=== PATIENT | female | born 1985 | race African-American/Black ===

== ENCOUNTER 2019-09-18 10:17 | Outpatient (CLI) | payer OTHER, SELFPAY ==
--- NOTE | ~2019-09-18 | US_ITS ---
EXAMINATION: US right upper quadrant DATE: 09/18/2019 10:58 INDICATION: Right upper quadrant abdominal pain. TECHNIQUE: Multiple grayscale and Doppler ultrasound images of the abdomen were obtained. COMPARISON: CT abdomen and pelvis 02/06/2019 FINDINGS: The visualized portions of the head and body of the pancreas are normal. The liver is vero l without focal lesion. There is normal flow in main portal vein. The gallbladder is normal in size a nd contains gallstones. Gallbladder wall thickening is noted. There was no sonographic Roberts sign. T he common duct is normal and measures 6 mm. IMPRESSION: 1. Cholelithiasis. Gallbladder wall thickening may be secondary to chronic cholecystitis, chronic alma rosa er disease, or interstitial edema. Reviewed, dictated and finalized at location A. IMPRESSION: 1. Cholelithiasis. Gallbladder wall thickening may be secondary to chronic chol ecystitis, chronic liver disease, or interstitial edema.
== END 2019-09-18 10:18 | disposition home or self-care (01) ==
LOC: ANHIMG 10:26
PROVIDERS: PCP Emergency Medicine; Visit Provider Emergency Medicine
DX: R10.9 Unspecified abdominal pain (principal); K80.20 Calculus of gallbladder without cholecystitis without obstruction
CPT/HCPCS: 76705

== ENCOUNTER 2019-12-19 12:51 | Outpatient (CLI) | payer OTHER, SELFPAY ==
--- NOTE | 2019-12-19 | ECG_ITS ---
Measurements Intervals [place] Rate: 80 P: 35 PA: 175 QRS: -8 QRSD: 84 T: 71 QT: 384 QTc: 443 Interpretive Statements SINUS RHYTHM RSR' IN V1 OR V2, CONSIDER RIGHT VENTRICULAR HYPERTROPHY OR RIGHT VCD BASELINE ARTIFACT- I, II, AVR, AVL, AVF BORDERLINE ECG Electronically Signed On 12-19-2019 13:35:42 CDT by French Sabillon D.O.
== END 2019-12-19 12:52 | disposition home or self-care (01) ==
PROVIDERS: PCP Emergency Medicine
DX: E66.01 Morbid (severe) obesity due to excess calories (principal)
CPT/HCPCS: 93005

== ENCOUNTER 2020-02-28 01:42 | Outpatient (CLI) | payer OTHER, SELFPAY ==
[2020-02-28 18:31] LABS: SARS-CoV-2 RNA PCR Negative
== END 2020-02-28 01:43 | disposition home or self-care (01) ==
LOC: ANHCOVIDDT 01:42
PROVIDERS: PCP Emergency Medicine; Visit Provider Plastic Surgery
DX: Z01.812 Encounter for preprocedural laboratory examination (principal); Z20.828 Contact with and (suspected) exposure to other viral communicable diseases
CPT/HCPCS: 87635; C9803; U0003

== ENCOUNTER 2020-03-03 01:21 | Day surgery (SDC) | payer OTHER, SELFPAY ==
[2020-02-16 16:35] VITALS: BMI 53.1
[2020-03-03] VITALS (8 sets, daily range): BP systolic 119–148; BP diastolic 67–109; PULSE 66–83; RESP 14–24; TEMP 36.1–36.6; O2SAT 95–100
--- NOTE | 2020-03-03 07:10 | WPDHPUPDATE1 ---
History and Physical Update Update Date/Time: 03/03/20 07:10 History and Physical has been reviewed, including an updated exam of the patient. There are NO changes in the patient's condition. Risks, benefits, and alternatives have been discussed and questions answered. Patient agrees to proceed with procedure.
--- NOTE | 2020-03-03 08:13 | WPDANESEPPF ---
Anes - Initial Pre Proc Eval Procedure: Operation Date: 03/03/20 09:00 Proposed Procedures p Excision Right Axillary Hidradenitis - Eusebio Schwartz MD Date/Time: 03/03/20 08:13 Surgeon: Eusebio Schwartz MD Pre Op Diagnosis: Hidradenitis Right Axilla Patient Data Age: 34 Gender: F Height: 5 ft 3 in Weight: 136 kg Last Vital Signs Temp 98 F 03/03/20 07:56 Pulse 80 03/03/20 07:56 Resp 14 03/03/20 07:56 BP 148/98 H 03/03/20 07:56 Pulse Ox 100 03/03/20 07:56 Allergies Allergy/AdvReac Type Severity Reaction Status Date / Time No Known Allergies Allergy Verified 02/16/20 16:04 Home Medications Medication Instructions Recorded Confirmed Type omeprazole 20 mg capsule,delayed 20 mg PO DAILY 04/29/19 03/03/20 History release cholecalciferol (vitamin D3) 1,250 1,250 mcg PO WEEKLY 09/17/19 03/03/20 History mcg (50,000 unit) capsule levonorgestrel 20 mcg/24 hours (6 1 device I-UTERINE ONCE 09/17/19 03/03/20 History yrs) 52 mg intrauterine device triamcinolone acetonide 0.1 % 1 applic TOPICAL DAILY 09/17/19 03/03/20 History lotion Patient hx anesthesia problems: none Family hx anesthesia problems: none [facility] Past Medical History Medical History (Updated 09/18/19 @ 09:37 by Amparo Moseley) GERD (gastroesophageal reflux disease) Hidradenitis Sleep apnea Surgical History Surgical History History of surgery on arm Family History Family History Father Cerebrovascular accident Mother Diabetes mellitus Other Diabetes mellitus Other Diabetes mellitus Other Diabetes mellitus Other Cancer Hypertension Social History Social History Smoking status: Never smoker Alcohol intake: current Substance use: never Living arrangements: with family Additional occupation/education comments: Work at [employer] Gender identity (if verbalized by the patient): Female Spiritual care concerns: No Anes - Eval Final PreProcedure Day of Procedure 12/02/20 08:13 Patient weight: super morbidly obese Heart: regular rate and rhythm Lungs: clear to auscultation Airway: Mallampati scale class III Neurological: alert and oriented Last oral intake: >/= 8 hours ASA classification: III Emergent: no Anesthetic plan: proceed Anesthesia type and monitoring: general (ETT or LMA; have glidescope in the room) ETT and standard monitoring Informed Consent: The patient's anesthetic plan and its attendant risks and benefits were discussed with the patient/family/POA. Questions were solicited and answers provided to the satisfaction of the patient/family/POA.
[2020-03-03] MEDS: LACTATED RINGERS 1,000 ML 30 ML IV CONT ×2 (08:17→12:44)
--- NOTE | 2020-03-03 09:41 | SUR.PREOP ---
0940 pt informed of at least 1 hour delay in procedure.
[2020-03-03] MEDS: ceFAZolin SODIUM 1 GM VIAL 3 GM IV PUSH (12:33)
--- NOTE | 2020-03-03 13:16 | PM.OP ---
Procedure Note - Brief Procedure Note - Brief Date of procedure: 03/03/20 Pre-op diagnosis: Hidradenitis Right Axilla Post-op diagnosis: same Procedure performed: Excision of right axillary hidradenitis 15 cm with intermediate repair 22 cm. Anesthesia: GETA Surgeon: Eusebio Schwartz MD Estimated blood loss (mL): 15 Drains: No Packing: No Pathology: none sent Complications: No immediate complications Condition: stable Disposition: PACU
[2020-03-03] MEDS: fentaNYL CITRATE INJ (*CRX) 100 MCG/2 ML VIAL 25 MCG IV PUSH ×2 (13:29→13:33)
[2020-03-03] MEDS: oxyCODONE HCL (*CRX) 5 MG TAB IR PO (14:29)
--- NOTE | 2020-03-03 14:50 | PM.PROC ---
Procedure Note - Detailed Date of procedure: 03/03/20 Pre-op diagnosis: Hidradenitis Right Axilla Post-op diagnosis: same Procedure performed: 15 cm excision of hidradenitis right axilla with intermediate repair 22 cm Description of procedure: The site was marked in the holding area. The patient was taken to the operating room and placed supine on the operating table. A time-out was held and confirmed. She was given general endotracheal anesthesia. The entire upper quadrant of the body and upper extremity was prepped and draped in usual fashion. The site was carefully marked for excision. The entire area involved with scar and draining sites and most of the hair-bearing area was marked for excision. The entire area was infiltrated with 1% lidocaine with epinephrine. The arm was fully abducted. The skin incision was made and the specimen was taken at a level of approximately 1 cm. Bleeding points were electrocoagulated. The axilla was very mobile this lady is markedly obese. We were able to approximate the wound margins with intradermal and superficial fascial 3-0 Vicryl at multiple sites. Closure was oriented through the axilla anterior to posterior. The skin closure was done with running 5 0 A bulky dressing was taped through the arm pit. She was discharged to the recovery room in stable condition. She had been given 3 grams of Ancef early in the case. She was discharged with Hydrocodone for pain. Anesthesia: AMY Surgeon: Eusebio Schwartz MD Rn Physician Office: [facility] Estimated blood loss (mL): 15 Drains: No Packing: No Complications: No immediate complications Condition: stable Disposition: PACU
== END 2020-03-03 15:20 | disposition home or self-care (01) ==
PROVIDERS: PCP Emergency Medicine; Visit Provider Plastic Surgery
PROC: (CPT 11450; principal; 2020-03-03 09:00)
DX: L73.2 Hidradenitis suppurativa (principal); K21.9 Gastro-esophageal reflux disease without esophagitis; G47.30 Sleep apnea, unspecified; E66.01 Morbid (severe) obesity due to excess calories; Z68.44 Body mass index [BMI] 60.0-69.9, adult
CPT/HCPCS: 11450; 88304; A9270; J0330; J0690; J1100; J2250; J2370; J2405; J2704; J3010; J7120

== ENCOUNTER 2020-03-19 09:24 | Emergency (ER) | payer OTHER, SELFPAY ==
[2020-03-19 09:32] VITALS: BP 136/89; PULSE 88; RESP 18; TEMP 36.3; O2SAT 98
[2020-03-19 11:10] LABS: Basophils Absolute Auto 0.1 K/mm3 (0.0-0.1); Basophils Percent Auto 0.5 % (0.2-1.2); Eosinophils Absolute Auto 0.2 K/mm3 (0-0.3); Eosinophils Percent Auto 1.7 % (0-4.4); Hematocrit 40.4 % (37.0-47.0); Hemoglobin 12.9 g/dL (12.0-15.0); Immature Granulocyte Absolute 0.05 K/mm3 (0.00-0.031); Immature Granulocyte Percent A 0.5 % (0-0.5); Lymphocytes Absolute Auto 2.52 K/mm3 (0.9-3.2); Lymphocytes Percent Auto 23.7 % (18.3-44.2); Mean Corpuscular HGB Conc 31.9 g/dl (32-36); Mean Corpuscular Hemoglobin 27.6 pg (26-34); Mean Corpuscular Volume 86.5 fl (80-100); Mean Platelet Volume 10.9 fl (7.4-10.4); Monocytes Absolute Auto 0.4 K/mm3 (0.1-0.6); Neutrophils Absolute Auto 7.4 K/mm3 (1.3-6.7); Neutrophils Percent Auto 69.6 % (45.5-73.1); Platelet Count Result 260 k/mm3 (150-375); Red Blood Count 4.67 M/mm3 (4.2-5.4); Red Cell Distribution Width 15.1 % (11.5-14.5); White Blood Count 10.6 K/mm3 (4.5-10.0)
[2020-03-19 11:21] LABS: Anion Gap 8 mmol/L (8-16); Blood Urea Nitrogen 10 mg/dL (7-17); Calcium 9.2 mg/dL (8.4-10.2); Carbon Dioxide 28 mmol/L (22-30); Chloride 103 mmol/L (98-107); Estimated CRCL calculation 145 ml/min; Estimated Glomerular Filt Rate > 60; Glucose 122 mg/dL (65-105); Sodium 139 mmol/L (137-145)
--- NOTE | 2020-03-19 11:48 | ED.GENADULT ---
HPI - General Adult General Chief complaint: Wound/Laceration <LAKIA Howe Last Filed: 03/19/20 12:04> Stated complaint: wound under right arm <LAKIA Howe Last Filed: 03/19/20 12:04> Time Seen by Provider: 03/19/20 10:00 <LAKIA Howe Last Filed: 03/19/20 12:04> Source: patient and old records reviewed <LAKIA Howe Last Filed: 03/19/20 12:04> Mode of arrival: ambulatory <LAKIA Howe Last Filed: 03/19/20 12:04> Limitations: no limitations <LAKIA Howe Last Filed: 03/19/20 12:04> History of Present Illness HPI narrative: Patient is a 34-year-old female who presents with concern for open wound to the right axilla patient had surgery by plastic surgeon Dr. Schwartz the wound came open 5 days ago I believe roughly 7 days after surgery. Patient is followed by Dr. Schwartz and was set up with the wound care team who called in a topical cream for the patient however she has not seen them yet patient notes mild discomfort of the right axilla. Patient denies fever chills nausea vomiting or other complaints <LAKIA Howe Last Filed: 03/19/20 12:04> Related Data Home medications: Home Medications Medication Instructions Recorded Confirmed omeprazole 20 mg capsule,delayed 20 mg PO DAILY 04/29/19 03/03/20 release cholecalciferol (vitamin D3) 1,250 1,250 mcg PO WEEKLY 09/17/19 03/03/20 mcg (50,000 unit) capsule levonorgestrel 20 mcg/24 hours (6 1 device I-UTERINE ONCE 09/17/19 03/03/20 yrs) 52 mg intrauterine device triamcinolone acetonide 0.1 % 1 applic TOPICAL DAILY 09/17/19 03/03/20 lotion <LAKIA Howe Last Filed: 03/19/20 12:04> Allergies/adverse reactions: Allergies Allergy/AdvReac Type Severity Reaction Status Date / Time No Known Allergies Allergy Verified 03/19/20 09:32 <LAKIA Howe Last Filed: 03/19/20 12:04> Review of Systems Review of Systems: All systems reviewed & are unremarkable except as noted in HPI and below <Wilber Frances PA-C - Last Filed: 03/19/20 12:04> PMFSH Past Medical History Medical History: Medical History (Updated 03/19/20 @ 12:03 by Wilber Frances PA-C) GERD (gastroesophageal reflux disease) Hidradenitis Sleep apnea <Wilber Frances PA-C - Last Filed: 03/19/20 12:04> Surgical History Surgical History: Surgical History History of surgery on arm <Wilber Frances PA-C - Last Filed: 03/19/20 12:04> Family History Family History: Family History Father Cerebrovascular accident Mother Diabetes mellitus Other Diabetes mellitus Other Diabetes mellitus Other Diabetes mellitus Other Cancer Hypertension <Wilber Frances PA-C - Last Filed: 03/19/20 12:04> Social History Social History: Social History Smoking status: Never smoker Alcohol intake: current Substance use: never Additional occupation/education comments: Work at [employer] Gender identity (if verbalized by the patient): Female Spiritual care concerns: No <Wilber Frances PA-C - Last Filed: 03/19/20 12:04> Exam Narrative: Exam Narrative: GENERAL: Well-appearing, well-nourished, and in no acute distress. HEAD: Normocephalic, atraumatic. EYES: PERRLA and EOMI. ENT: Nares clear, no rhinorrhea or epistaxis. Mucous membranes moist. Oropharynx without tonsillar hypertrophy exudate or other lesions. Bilateral TMs pearly tafoya nonbulging NECK: Supple. No adenopathy or masses. No carotid bruits or JVD CHEST: Clear to auscultation. No respiratory distress. No wheezes rales or rhonchi HEART: Regular rate and rhythm. No murmur heard. Normal peripheral pulses. ABDOMEN: Soft, nontender, nondistended, normal active bowel sounds. EXTREMITIES: Nor
[2020-03-19] MEDS: TOLNAFTATE 1% POWDER 45 GM BTL 1 APPLIC TOPICAL (11:59)
[2020-03-19 12:12] VITALS: BP 135/90; PULSE 89; RESP 18; O2SAT 99
--- NOTE | 2020-03-19 12:24 | PCWOUND ---
Wocn note Open suture line to the right axilla. no s/s of infection present. applied antifungal powder and wicking fabric. educated patient on home wound care. patient expressed understanding.
== END 2020-03-19 12:13 | disposition home or self-care (01) ==
PROVIDERS: Emergency Medicine Emergency Medical Services; Emergency Provider Emergency Medicine; PCP Emergency Medicine
DX: Z48.01 Encounter for change or removal of surgical wound dressing (principal); K21.9 Gastro-esophageal reflux disease without esophagitis; G47.30 Sleep apnea, unspecified
CPT/HCPCS: 36415; 80048; 85025; 99283; A9270

== ENCOUNTER → 2020-09-28 00:14 | Outpatient (CLI) | payer OTHER, SELFPAY ==
[2020-09-28 17:12] LABS: SARS-CoV-2 RNA PCR Negative
== END ==
PROVIDERS: PCP Emergency Medicine; Visit Provider Emergency Medicine
DX: Z01.812 Encounter for preprocedural laboratory examination (principal); Z20.822 Contact with and (suspected) exposure to COVID-19
CPT/HCPCS: C9803; U0003; U0005

== ENCOUNTER 2020-10-01 11:19 | Outpatient (CLI) | payer OTHER, SELFPAY ==
[2020-10-01] VITALS (8 sets, daily range): BP systolic 130–149; BP diastolic 63–85; PULSE 55–70; RESP 15–16; O2SAT 99–100
--- NOTE | ~2020-10-01 | XR_ITS ---
EXAMINATION: XR lumbar puncture diagnostic DATE: 10/01/2020 14:23 INDICATION: Aches. Hypertension and optic nerve swelling. TECHNIQUE: The procedure including the risks and benefits was discussed with the patient. Risks discu ssed included spinal headache, cerebrospinal fluid leak, bleeding, and infection. The patient underst ood the risks and agreed to proceed. A timeout was performed to verify the patient's name, date of , and procedure to be performed. The skin overlying the L4-L5 level was prepped and draped in usual sterile fashion. Subcutaneous 1% lidocaine was used for local anesthesia. A 22 gauge spinal n eedle was advanced under fluoroscopic guidance. The needle was removed and the entry site was cleaned and dressed. There were no immediate complications. The patient was taken to the nursing area for o bservation. FINDINGS: Real-time fluoroscopy demonstrates the needle at the L4-L5 level. Opening pressure was 30 c m water. (Normal range is variably defined as 6-20 cm water and up to 25 cm water in obese patients. Pressure >25 cm water is one of the modified Dandy criteria for idiopathic intracranial hypertension) . 19 mL of clear, colorless fluid was collected in 4 tubes. Closing pressure was 20 cm water. IMPRESSION: 1. Successful fluoro-guided lumbar puncture. With opening pressure of 30 cm water and closing pressur e of 20 cm water following removal of 19 mL of clear CSF. Reviewed, dictated and finalized at location A. IMPRESSION: 1. Successful fluoro-guided lumbar puncture. With opening pressure of 30 cm marcel er and closing pressure of 20 cm water following removal of 19 mL of clear CSF.
[2020-10-01 12:26] LABS: Basophils Absolute Auto 0.1 K/mm3 (0.0-0.1); Basophils Percent Auto 0.5 % (0.2-1.2); Eosinophils Absolute Auto 0.1 K/mm3 (0-0.3); Hematocrit 39.8 % (37.0-47.0); Hemoglobin 12.6 g/dL (12.0-15.0); Immature Granulocyte Absolute 0.03 K/mm3 (0.00-0.031); Immature Granulocyte Percent A 0.3 % (0-0.5); Lymphocytes Absolute Auto 2.48 K/mm3 (0.9-3.2); Lymphocytes Percent Auto 21.4 % (18.3-44.2); Mean Corpuscular HGB Conc 31.7 g/dl (32-36); Mean Corpuscular Hemoglobin 28.7 pg (26-34); Mean Corpuscular Volume 90.7 fl (80-100); Mean Platelet Volume 11.9 fl (7.4-10.4); Monocytes Absolute Auto 0.6 K/mm3 (0.1-0.6); Monocytes Percent Auto 5.5 % (2.6-8.5); Neutrophils Absolute Auto 8.3 K/mm3 (1.3-6.7); Neutrophils Percent Auto 71.3 % (45.5-73.1); Platelet Count Result 215 k/mm3 (150-375); Prothrombin Time 13.3 Seconds (11.1-14.7); Red Blood Count 4.39 M/mm3 (4.2-5.4); Red Cell Distribution Width 15.1 % (11.5-14.5); White Blood Count 11.6 K/mm3 (4.5-10.0)
== END 2020-10-01 16:11 | disposition home or self-care (01) ==
PROVIDERS: Radiology Diagnostic Radiology; PCP Emergency Medicine; Visit Provider Emergency Medicine
DX: R51.9 Headache, unspecified (principal); I10 Essential (primary) hypertension
CPT/HCPCS: 36415; 62328; 85025; 85610

== ENCOUNTER 2020-10-18 15:38 | Outpatient (CLI) | payer OTHER, SELFPAY ==
--- NOTE | ~2020-10-18 | MR_ITS ---
EXAMINATION: MR brain/brain stem wo con EXAM DATE: 10/18/2020 16:25 INDICATION: Other disorder of optic nerve of eye. Vision change. Headache. TECHNIQUE: Magnetic resonance imaging (MRI) of the brain/brain stem obtained without contrast. Sagitt al T1, axial diffusion, gradient echo (T2*), T1, T2, FLAIR sequences obtained. Comparison is made to prior examination from 04/16/2012. FINDINGS: Possible small mass at the inferior aspect of the 4th ventricle, measuring about 5 x 7 mm. Differential diagnosis includes normal choroid plexus, choroid plexus papilloma among other possibili ties. This should be further evaluated. Optic chiasm unremarkable. There are no areas of restricted d iffusion to suggest acute infarction. There is no acute hemorrhage seen on the T2*, a hemosiderin se nsitive sequence. No intraparenchymal brain mass. The ventricles are normal in size. There are no e xtra-axial collections. Flow voids are seen in the cerebral arteries on the T2-weighted sequences co nsistent with their expected patency. The orbits are unremarkable. Soft tissue is unremarkable. L eft mastoid effusion. IMPRESSION: 1. Suspicion of small 4th ventricular mass; contrast-enhanced MR Internal auditory canal protocol re commended. 2. Left mastoid effusion. Reviewed, dictated and finalized at location A. IMPRESSION: 1. Suspicion of small 4th ventricular mass; contrast-enhanced MR Internal swapna tory canal protocol recommended. 2. Left mastoid effusion.
== END 2020-10-18 15:39 | disposition home or self-care (01) ==
LOC: ANHIMG 15:41
PROVIDERS: PCP Emergency Medicine; Visit Provider Emergency Medicine
DX: H47.099 Other disorders of optic nerve, not elsewhere classified, unspecified eye (principal); H74.8X3 Other specified disorders of middle ear and mastoid, bilateral
CPT/HCPCS: 70551

== ENCOUNTER 2020-11-16 07:46 | Outpatient (CLI) | payer OTHER, SELFPAY ==
--- NOTE | ~2020-11-16 | MR_ITS ---
EXAMINATION: MR brain IAC wo/w con DATE: 11/16/2020 09:05 INDICATION: Brain mass. TECHNIQUE: Magnetic resonance imaging (MRI) of the brain, brainstem, and internal auditory canals was performed without and with 20 mL MultiHance intravenous contrast. Sequences included sagittal and ax ial T1-weighted FSE, axial diffusion-weighted FS EPI, axial T2*-weighted GRE, axial T2-weighted FLAIR Propeller, axial T2-weighted Propeller, small acpkc-bs-aqhe coronal FIESTA, small chdzv-xt-rfjf juan nal T1-weighted FSE, and small cdbzh-mh-bhpn axial T1-weighted SPGR. Postcontrast sequences included axial T1-weighted FSE, small helhs-zg-zqbx coronal T1-weighted FSE, and small vbvmr-ej-yazw axial T1- weighted SPGR. Apparent diffusion coefficient (ADC) maps were created. COMPARISON: Brain MRI 10/18/2020, 04/16/2012 FINDINGS: There is an empty sella. There is normal choroid plexus in the fourth ventricle. There is n o acute ischemic infarct or intracranial hemorrhage. 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 The ventricles are normal in size. The internal auditory canals and inner and middle ears are normal. There is a small left mastoid effusion. There is mild mucosal thickening in the ethmoid sinuses. The orbits are normal. IMPRESSION: 1. No abnormal brain mass. Reviewed, dictated and finalized at location B. IMPRESSION: 1. No abnormal brain mass.
[2020-11-16 08:26] LABS: Estimated Glomerular Filt Rate > 60
== END 2020-11-16 07:47 | disposition home or self-care (01) ==
PROVIDERS: PCP Emergency Medicine; Visit Provider Emergency Medicine
DX: G93.9 Disorder of brain, unspecified (principal)
CPT/HCPCS: 70553; A9577

== ENCOUNTER 2021-03-17 21:15 | Emergency (ER) | payer OTHER, SELFPAY ==
[2021-03-17 21:36] VITALS: BP 152/89; PULSE 67; RESP 20; TEMP 36.6; O2SAT 100
--- NOTE | 2021-03-17 23:25 | PC.NURSE ---
assumed care of pt. at this time. report from Summer RN
--- NOTE | 2021-03-17 23:37 | ED.BACK ---
HPI - Back Pain/Injury General Chief Complaint: Back Pain/Injury Stated Complaint: back pain Time Seen by Provider: 03/17/21 23:36 Source: patient Mode of arrival: ambulatory Limitations: no limitations History of Present Illness HPI Narrative: The patient is a 35 yo female with a history of IIH, presenting for evaluation of back pain. Patient reporting middle back pain over past 4 days. Pain is located in the right flank and mid back. No other radiation of pain. No worsening with exertion. No recent falls or injuries. Denies bowel or bladder changes or incontinence. Pt also reports constipation recently. Patient reports worsening of pain with turning motion. This reproduces pain. She reports pain when she bends forward. She denies any leg weakness or numbness. She denies any rash overlying the area. She denies any frontal chest pain or frontal abdominal pain. No radiation of the pain to the neck, jaw, shoulder. She denies any pain with deep inspiration. No shortness of breath. No lightheadedness or dizziness. No syncopal type feelings. 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 No recent trauma or heavy lifting. Denies chest or abdominal pain. No dysuria or hematuria. Patient states she has a history of this many years ago for which she was given a shot of something in the ER and then felt better. Related Data Home Medications Medication Instructions Recorded Confirmed omeprazole 20 mg capsule,delayed 20 mg PO DAILY 04/29/19 09/30/20 release cholecalciferol (vitamin D3) 1,250 1,250 mcg PO WEEKLY 09/17/19 09/30/20 mcg (50,000 unit) capsule Allergies Allergy/AdvReac Type Severity Reaction Status Date / Time No Known Allergies Allergy Verified 03/17/21 22:56 Review of Systems Review of Systems: CONSTITUTIONAL: Denies fever CARDIOVASCULAR: Denies chest pain RESPIRATORY: Denies cough or dyspnea. GASTROINTESTINAL: Denies abdominal pain SKIN: Denies rash MUSCULOSKELETAL: Reports middle back pain NEUROLOGIC: Denies headache [facility] Past Medical History Medical History (Updated 03/17/21 @ 23:56 by Kavita Roach MD) Calculus of gallbladder with chronic cholecystitis without obstruction GERD (gastroesophageal reflux disease) Hidradenitis Morbid obesity Right axillary hidradenitis Sleep apnea Surgical History Surgical History History of surgery on arm Family History Family History Father Cerebrovascular accident Mother Diabetes mellitus Other Diabetes mellitus Other Diabetes mellitus Other Diabetes mellitus Other Cancer Hypertension Social History Social History Smoking status: Never smoker Alcohol intake: current Substance use: never Additional occupation/education comments: Work at [employer] Gender identity (if verbalized by the patient): Female Spiritual care concerns: No Exam Narrative: GENERAL: Awake, alert, conversant HEAD: Normocephalic, atraumatic. EYES: PERRLA and EOMI. ENT: Nares clear, no rhinorrhea or epistaxis. Mucous membranes moist. NECK: Supple. CHEST: No respiratory distress, breathing even and non labored HEART: Regular rate, sinus rhythm ABDOMEN:Non distended, non tender EXTREMITIES: Normal range of motion. No edema. SKIN: Warm, dry, no rash. NEURO:No focal deficits. Alert and oriented x3. Ambulatory with a narrow base, steady gait. Course Vital Signs Vital signs: Vital Signs Temperature 36.6 C 03/17/21 21:36 Pulse Rate 67 03/17/21 21:36 Respiratory Rate 20 03/17/21 21:36 Blood Pressure 152/89 H 03/17/21 21:36 Pulse Oximetry 100 03/17/21 21:36 Temperature 36.6 C 03/17/21 21:36 Pulse Rate 66 03/18/21 00:25 Respiratory Rate 14 03/18/21 00:25 Blood Pressure 130/80 03/18/21 00:25 Pulse Oximetry 97 03/18/21 00:25 MDM - Back Pain/Injury MDM Narrative
[2021-03-18] MEDS: ACETAMINOPHEN 500 MG TABLET 1000 MG PO (00:21)
[2021-03-18] MEDS: KETOROLAC (*BKC) 60 MG/2 ML VIAL 30 MG IM (00:22)
[2021-03-18 00:25] VITALS: BP 130/80; PULSE 66; RESP 14; O2SAT 97
== END 2021-03-18 00:25 | disposition home or self-care (01) ==
PROVIDERS: Emergency Provider Emergency Medicine; PCP Emergency Medicine
DX: M54.9 Dorsalgia, unspecified (principal)
CPT/HCPCS: 96372; 99283; A9270; J1885

== ENCOUNTER 2021-07-18 13:41 | Emergency (ER) | payer OTHER, SELFPAY ==
[2021-07-18 13:54] VITALS: BP 140/78; PULSE 80; RESP 16; TEMP 36.8; O2SAT 100
[2021-07-18 14:07] LABS: Basophils Percent Auto 0.4 % (0.2-1.2); Eosinophils Absolute Auto 0.1 K/mm3 (0-0.3); Eosinophils Percent Auto 0.7 % (0-4.4); Hematocrit 37.6 % (37.0-47.0); Hemoglobin 12.1 g/dL (12.0-15.0); Immature Granulocyte Absolute 0.02 K/mm3 (0.00-0.031); Immature Granulocyte Percent A 0.3 % (0-0.5); Lymphocytes Absolute Auto 0.44 K/mm3 (0.9-3.2); Lymphocytes Percent Auto 6.5 % (18.3-44.2); Mean Corpuscular HGB Conc 32.2 g/dl (32-36); Mean Corpuscular Hemoglobin 28.9 pg (26-34); Mean Corpuscular Volume 89.7 fl (80-100); Mean Platelet Volume 11.2 fl (7.4-10.4); Monocytes Absolute Auto 0.6 K/mm3 (0.1-0.6); Monocytes Percent Auto 9.1 % (2.6-8.5); Neutrophils Absolute Auto 5.6 K/mm3 (1.3-6.7); Platelet Count Result 197 k/mm3 (150-375); Red Blood Count 4.19 M/mm3 (4.2-5.4); Red Cell Distribution Width 14.6 % (11.5-14.5); White Blood Count 6.7 K/mm3 (4.5-10.0)
[2021-07-18 14:16] LABS: Alanine Aminotransferase 13 U/L (4-35); Alkaline Phosphatase 66 U/L (38-126); Anion Gap 9 mmol/L (8-16); Aspartate Amino Transferase 20 U/L (14-36); Bilirubin,Total 0.3 mg/dL (0.2-1.3); Blood Urea Nitrogen 9 mg/dL (7-17); Calcium 8.5 mg/dL (8.4-10.2); Carbon Dioxide 21 mmol/L (22-30); Chloride 106 mmol/L (98-107); Estimated Glomerular Filt Rate > 60; Glucose 107 mg/dL (65-110); Lipase 70 U/L (23-300); Potassium 3.7 mmol/L (3.4-5.0); Sodium 136 mmol/L (137-145)
[2021-07-18 15:11] VITALS: BP 144/82; PULSE 81; RESP 16; O2SAT 100
[2021-07-18] MEDS: MECLIZINE HCL 25 MG TABLET PO (15:37)
[2021-07-18] MEDS: ACETAMINOPHEN 500 MG TABLET 1000 MG PO (15:37)
[2021-07-18 15:39] LABS: Add Urine Microscopic? NO; Appearance Urine Clear (Clear); Bilirubin Urine Negative (Negative); Blood Urine Negative (Negative); Color Urine Yellow (Yellow); Glucose Urine UA Negative (Negative); Ketones Urine Negative (Negative); Leukocyte Esterase Ur Negative LEU/UL (Negative); Nitrate Urine Negative (Negative); Protein Urine Negative (Negative); pH Urine 7.5 (5.0-9.0)
[2021-07-18] MEDS: SODIUM CHLORIDE 0.9% IV 1,000 ML 999 ML IV CONT (15:45)
[2021-07-18 15:50] LABS: Bacteria Urine Trace /hpf; Mucus Urine Rare /lpf; Squamous Epithelial Cell Urine Rare /hpf (Few); WBC Urine 0-3 /hpf
[2021-07-18 16:22] LABS: Influenza A QL RT-PCR Positive (Negative); Influenza B QL RT-PCR Negative (Negative)
[2021-07-18 16:36] VITALS: BP 145/88; PULSE 81; RESP 20; TEMP 37.6; O2SAT 100
[2021-07-18 16:37] VITALS: TEMP 37.6
--- NOTE | 2021-07-18 17:40 | ED.GENADULT ---
HPI - General Adult General Chief complaint: Abdominal Pain Stated complaint: abdominal pain Time Seen by Provider: 07/18/21 15:02 History of Present Illness HPI narrative: Patient is a 36-year-old female who presents ER with multiple complaints. Patient is initially reporting fevers and chills ongoing for the last day. Associated with cough and body aches. Is also associated with headache. No change in vision or hearing. She does report some dizziness with moving her head and standing up. 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 She has not been vaccinated against flu but has been vaccinated and boosted against COVID-19. Patient has had some mild generalized abdominal discomfort over the last 5 days with some nausea but is separate from what she is experiencing today with the headache and body aches and fevers. Patient has mild rhinorrhea without congestion. Related Data Home Medications Medication Instructions Recorded Confirmed omeprazole 20 mg capsule,delayed 20 mg PO DAILY 04/29/19 09/30/20 release cholecalciferol (vitamin D3) 1,250 1,250 mcg PO WEEKLY 09/17/19 09/30/20 mcg (50,000 unit) capsule Allergies Allergy/AdvReac Type Severity Reaction Status Date / Time No Known Allergies Allergy Verified 07/18/21 15:05 Review of Systems Review of Systems: All systems reviewed & are unremarkable except as noted in HPI and below Constitutional: Constitutional: Reports chills, Reports fatigue and Reports fever(s) ENT: Reports dizziness, Denies nasal congestion and Denies sore throat Comments: Rhinorrhea Cardiovascular: Cardiovascular: Denies chest pain and Denies radiating jaw, neck or arm pain Respiratory: Respiratory: Reports cough, Denies dyspnea and Denies wheezing Gastrointestinal: Gastrointestinal: Reports abdominal pain, Reports nausea and Denies vomiting Neurologic: Reports vertigo, Reports headache(s), Denies focal weakness and Denies numbness [facility] Past Medical History Medical History (Updated 07/18/21 @ 17:44 by Drake Henriquez MD) Calculus of gallbladder with chronic cholecystitis without obstruction GERD (gastroesophageal reflux disease) Hidradenitis Morbid obesity Right axillary hidradenitis Sleep apnea Surgical History Surgical History History of surgery on arm Family History Family History Father Cerebrovascular accident Mother Diabetes mellitus Other Diabetes mellitus Other Diabetes mellitus Other Diabetes mellitus Other Cancer Hypertension Social History Social History Smoking status: Never smoker Alcohol intake: current Substance use: never Additional occupation/education comments: Work at [employer] Gender identity (if verbalized by the patient): Female Spiritual care concerns: No Exam Narrative: GENERAL: Well-appearing, well-nourished, and in no acute distress. HEAD: Normocephalic, atraumatic. EYES: PERRL and EOMI. ENT: TMs normal bilaterally. CHEST: Clear to auscultation. No respiratory distress. HEART: Regular rate and rhythm. Normal peripheral pulses. ABDOMEN: Soft, nontender, nondistended. EXTREMITIES: Normal range of motion. No edema. SKIN: Warm, dry, no rash. NEURO: Alert and oriented x3. PSYCH: Normal mood and affect. Course Course Emergency Course: Patient hydrated, received Toradol and meclizine. Dizziness resolved. Body aches improved. Informed of influenza diagnosis. Patient would like Tamiflu for home. Patient meets criteria for administration of Tamiflu. Vital Signs Vital signs: Vital Signs Temperature 98.2 F 07/18/21 13:54 Pulse Rate 80 07/18/21 13:54 Respiratory Rate 16 07/18/21 13:54 Blood Pressure 140/78 07/18/21 13:54 Pulse Oximetry 100 07/18/21 13:54 Temperature 99.7 F H 07/18/21 16:37 Pulse Rate 81
[2021-07-18 17:56] VITALS: BP 116/71; PULSE 78; RESP 18; TEMP 37.6; O2SAT 100
== END 2021-07-18 17:59 | disposition home or self-care (01) ==
PROVIDERS: Emergency Medicine; Emergency Provider Emergency Medicine; PCP Emergency Medicine
DX: J10.1 Influenza due to other identified influenza virus with other respiratory manifestations (principal); K21.9 Gastro-esophageal reflux disease without esophagitis; E66.01 Morbid (severe) obesity due to excess calories; G47.30 Sleep apnea, unspecified
CPT/HCPCS: 36415; 80053; 81003; 81025; 83690; 85025; 87502; 96360; 96361; 99283; A9270; J7030

== ENCOUNTER 2022-02-07 00:52 | Day surgery (SDC) | payer BC, OTHER, SELFPAY ==
[2022-02-02 10:18] VITALS: BMI 45.0
[2022-02-07 12:58] VITALS: BP 129/86; PULSE 81; RESP 18; TEMP 36.6; O2SAT 100
[2022-02-07] MEDS: LACTATED RINGERS 1,000 ML 150 ML IV CONT (13:13)
--- NOTE | 2022-02-07 13:21 | WPDANESEPPF ---
Anes - Initial Pre Proc Eval Procedure: Operation Date: 02/07/22 13:45 Proposed Procedures p Colonoscopy - Zhao Roldan MD Date/Time: 02/07/22 13:21 Surgeon: Zhao Roldan MD Pre Op Diagnosis: constipation Patient Data Age: 36 Gender: F Height: 1.63 m Weight: 116.2 kg Last Vital Signs Temp 97.9 F 02/07/22 12:58 Pulse 81 02/07/22 12:58 Resp 18 02/07/22 12:58 BP 129/86 02/07/22 12:58 Pulse Ox 100 02/07/22 12:58 O2 Del Method Room Air 02/07/22 12:58 Allergies Allergy/AdvReac Type Severity Reaction Status Date / Time No Known Allergies Allergy Verified 02/07/22 12:55 Home Medications Medication Instructions Recorded Confirmed Type omeprazole 20 mg capsule,delayed 40 mg PO DAILY 04/29/19 02/07/22 History release cholecalciferol (vitamin D3) 1,250 1,250 mcg PO WEEKLY 09/17/19 02/07/22 History mcg (50,000 unit) capsule multivitamin 1 tablet PO DAILY 02/02/22 02/07/22 History Patient hx anesthesia problems: none Family hx anesthesia problems: none Results Review: All pre-operative results and documents have been reviewed as part of the pre-operative evaluation. [facility] Past Medical History Medical History Calculus of gallbladder with chronic cholecystitis without obstruction GERD (gastroesophageal reflux disease) Hidradenitis Morbid obesity Right axillary hidradenitis Sleep apnea Surgical History Surgical History History of surgery on arm Family History Family History Father Cerebrovascular accident Mother Diabetes mellitus Other Diabetes mellitus Other Diabetes mellitus Other Diabetes mellitus Other Cancer Hypertension Social History Social History Smoking status: Never smoker Alcohol intake: current Alcohol use details: socially Substance use: never Substance use type: does not use Living arrangements: with family Additional occupation/education comments: Work at [employer] Gender identity (if verbalized by the patient): Female Spiritual care concerns: No Anes - Eval Final PreProcedure Day of Procedure 02/07/22 13:21 Patient weight: morbidly obese Heart: regular rate and rhythm Lungs: clear to auscultation Airway: Mallampati scale class III Neurological: alert and oriented Last oral intake: >/= 8 hours ASA classification: III Emergent: no Anesthetic plan: proceed Anesthesia type and monitoring: general GIVS and standard monitoring Results Review: All pre-operative results and documents have been reviewed as part of the pre-operative evaluation. Informed Consent: The patient's anesthetic plan and its attendant risks and benefits were discussed with the patient/family/POA. Questions were solicited and answers provided to the satisfaction of the patient/family/POA.
--- NOTE | 2022-02-07 13:33 | PM.HPGS ---
History of Present Illness History of Present Illness Consent: Risks, benefits, and alternatives have been discussed and questions answered. Patient agrees to proceed with procedure. Chief complaint: constipation Narrative: Quynh Rivas is a 36 year old female here for first colonoscopy because of constipation Review of Systems Constitutional: Constitutional: Denies headache(s) and Denies weakness Eyes: Eyes: Denies blurry vision ENT: Reports Normal hearing present, Denies headache(s) and Denies neck pain Cardiovascular: Cardiovascular: Denies chest pain and Denies dyspnea Respiratory: Respiratory: Denies dyspnea Gastrointestinal: Gastrointestinal: Reports no additional gastrointestinal complaints Genitourinary: Genitourinary: Denies dysuria Musculoskeletal: Musculoskeletal: Denies neck pain Integumentary/Breasts: Skin/Breast: Denies dry skin Neurologic: Reports Normal hearing present, Denies headache(s) and Denies weakness Psychiatric: Psychiatric: Denies anxiety Endocrine: Endocrine: Denies change in body appearance Hematologic/Lymphatic: Hematologic/Lymphatic: Denies easy bleeding Allergic/Immunologic: Allergic/Immunologic: Denies urticaria PMFSH Past Medical History Medical History (Updated 02/07/22 @ 13:33 by Zhao Roldan MD) Calculus of gallbladder with chronic cholecystitis without obstruction Constipation GERD (gastroesophageal reflux disease) Hidradenitis Morbid obesity Right axillary hidradenitis Sleep apnea Surgical History Surgical History (Updated 02/06/22 @ 14:34 by Dominique Marrufo) History of surgery on arm Family History Family History Father Cerebrovascular accident Mother Diabetes mellitus Other Diabetes mellitus Other Diabetes mellitus Other Diabetes mellitus Other Cancer Hypertension Social History Social History Smoking status: Never smoker Alcohol intake: current Alcohol use details: socially Substance use: never Substance use type: does not use Living arrangements: with family Additional occupation/education comments: Work at [employer] Gender identity (if verbalized by the patient): Female Spiritual care concerns: No Meds Home Medications and Allergies Home Medications Medication Instructions Recorded Confirmed Type omeprazole 20 mg capsule,delayed 40 mg PO DAILY 04/29/19 02/07/22 History release cholecalciferol (vitamin D3) 1,250 1,250 mcg PO WEEKLY 09/17/19 02/07/22 History mcg (50,000 unit) capsule multivitamin 1 tablet PO DAILY 02/02/22 02/07/22 History Allergies Allergy/AdvReac Type Severity Reaction Status Date / Time No Known Allergies Allergy Verified 02/07/22 12:55 Vital Signs Vital Signs - 24 hr 02/07/22 12:58 Temperature 97.9 F Pulse Rate 81 Respiratory Rate 18 Blood Pressure 129/86 Pulse Oximetry 100 Oxygen Delivery Room Air Exam Const: General: comfortable and no acute distress HENMT: Face/Nose/Sinus: Normal nares present Eyes: General: appearance normal, both eyes and all related structures Neck: Neck: no JVD Resp: Auscultation: clear to auscultation bilaterally Cardio: Rate: regular rate Rhythm: regular rhythm GI: Inspection: non-distended GI Palp: Yes Soft to palpation Skin: General skin exam: normal color Neuro: General: gait normal Speech: normal speech Extrem: General: normal to inspection Psych: Mental Status: mental status grossly normal Assessment and Plan Assessment and plan (1) Constipation: Code(s): K59.00 - Constipation, unspecified Status: Acute Assessment and Plan: colonoscopy
[2022-02-07 13:59] VITALS: BP 122/69; PULSE 65; RESP 17; O2SAT 100
[2022-02-07 14:09] VITALS: BP 125/76; PULSE 62; RESP 19; O2SAT 100
[2022-02-07 14:19] VITALS: BP 138/74; PULSE 62; RESP 19; O2SAT 100
--- NOTE | 2022-02-07 15:03 | SUR.PHASEII ---
Pt discharge delay due to ride unavailable until 1500.
== END 2022-02-07 15:03 | disposition home or self-care (01) ==
PROVIDERS: PCP Emergency Medicine; Visit Provider Internal Medicine Gastroenterology
PROC: 0DJD8ZZ Inspection of Lower Intestinal Tract, Via Natural or Artificial Opening Endoscopic (ICD-10-PCS; CPT 45378; principal; 2022-02-07 13:45)
DX: K59.00 Constipation, unspecified (principal); K64.8 Other hemorrhoids; K21.9 Gastro-esophageal reflux disease without esophagitis; G47.30 Sleep apnea, unspecified; E66.01 Morbid (severe) obesity due to excess calories; Z68.41 Body mass index [BMI] 40.0-44.9, adult
CPT/HCPCS: 45378; J2704; J7120

== ENCOUNTER 2022-02-10 08:38 | Outpatient (CLI) | payer BC, OTHER, SELFPAY ==
--- NOTE | ~2022-02-10 | NM_ITS ---
EXAMINATION: NM hepatobiliary wo pharm DATE: 02/10/2022 13:35 INDICATION: Epigastric abdominal pain. COMPARISON: None. TECHNIQUE: 4.5 mCi Tc-99m mebrofenin (Choletec) was administered intravenously. Scintigraphic images of the abdomen were obtained for one hour. Additional 4 hour delayed anterior and right lateral imag es were obtained. Gallbladder ejection fraction was calculated by the technologist. FINDINGS: There is normal clearance of radiotracer from the blood pool. There is homogeneous tracer u ptake by the liver. Activity progresses to the bowel with resected. The duodenum at 30 minutes. No a ctivity is identified within the gallbladder to the first hour or on the 4 hour delayed images. IMPRESSION: 1. Nonfilling of the gallbladder through the 4 hours of imaging. This would be consistent with acute cholecystitis however reviewing the immediately prior ultrasound images demonstrates a wall echo sha merary complex with gallbladder wall thickening and shadowing gallstones filling the otherwise decompres sed gallbladder suggesting chronic cholecystitis which can result in false positive findings on HIDA scan. The absence of a sonographic Roberts sign or dilation of the gallbladder at the time of the ultr asound favors that this is the case. Reviewed, dictated and finalized at location A. [employer] IMPRESSION: 1. Nonfilling of the gallbladder through the 4 hours of imaging. This would be consistent with acute cholecystitis however reviewing the immediately prior ul trasound images demonstrates a wall echo shadow complex with gallbladder wall t hickening and shadowing gallstones filling the otherwise decompressed gallbladd er suggesting chronic cholecystitis which can result in false positive findings on HIDA scan. The absence of a sonographic Roberts sign or dilation of the gall bladder at the time of the ultrasound favors that this is the case.
--- NOTE | ~2022-02-10 | US_ITS ---
EXAMINATION: US abdomen limited DATE: 02/10/2022 09:19 INDICATION: Epigastric abdominal pain TECHNIQUE: Multiple grayscale and Doppler ultrasound images of the abdomen were obtained. COMPARISON: 09/18/2019 FINDINGS: The head and body of the pancreas are normal. The pancreatic tail is obscured by bowel gas. The liver is normal with normal echogenicity and echotexture. No surface nodularity. Normal hepatope joyce flow in the main portal vein. There are multiple stones filling the nondistended gallbladder. The re is no gallbladder wall thickening or pericholecystic fluid. The normal common bile duct measures 4 mm. There was no sonographic Roberts sign. IMPRESSION: 1. Cholelithiasis without additional findings of acute cholecystitis. Reviewed, dictated and finalized at location B. [employer] HEL[employer]
== END 2022-02-10 08:39 | disposition home or self-care (01) ==
PROVIDERS: PCP Emergency Medicine; Visit Provider Surgery
DX: R10.13 Epigastric pain (principal); K80.20 Calculus of gallbladder without cholecystitis without obstruction
CPT/HCPCS: 76705; 78226; A9537

== ENCOUNTER 2022-03-06 13:55 | Outpatient (CLI) | payer BC, OTHER, SELFPAY ==
[2022-03-06 14:50] LABS: Alanine Aminotransferase 15 U/L (6-35); Albumin Level 4.2 g/dL (3.5-5.1); Alkaline Phosphatase 50 U/L (38-126); Amylase 115 U/L (30-110); Aspartate Amino Transferase 20 U/L (14-36); Bilirubin,Total 0.4 mg/dL (0.2-1.3); Lipase 157 U/L (23-300)
== END 2022-03-06 13:56 | disposition home or self-care (01) ==
PROVIDERS: PCP Emergency Medicine; Visit Provider Surgery
DX: Z01.812 Encounter for preprocedural laboratory examination (principal); K80.10 Calculus of gallbladder with chronic cholecystitis without obstruction
CPT/HCPCS: 36415; 80076; 82150; 83690; 86850; 86900; 86901

== ENCOUNTER 2022-03-08 01:48 | Day surgery (SDC) | payer BC, OTHER, SELFPAY ==
[2022-03-01 17:07] VITALS: BMI 46.5
--- NOTE | 2022-03-01 17:53 | PC.NURSE ---
Addendum entered by Sierra Guzman RN 03/01/22 17:59: Told patient about Hibiclens. Original Note: Report to the Outpatient Waiting Room, entrance under the green pavilion located off [facility], at 1000 on 03-08-22. Planned Procedure Time: 1200. Time changes happen often and if your time is changed the preop area will call you the afternoon before. - You and your visitor will be asked to self-screen and do not enter if you have any COVID symptoms. - Only one visitor is requested with a max of two and NO children visitors (Under 16) are allowed at this time. - The patient visitor may be requested to leave or wait in car when not with patient due to distancing restrictions. - A mask is optional within the hospital. Patients may have clear liquids (water, carbonated beverages, clear teas, apple juice) until 3 hours prior to surgery with a maximum of 20 ounces. 0900 - No food from midnight until time of surgery - Infants may have breast milk until 4 hours before surgery, formula 6 hours prior to surgery. - Children will be allowed to drink immediately following surgery. If applicable, please bring a bottle or sippy cup to assist with drinking. Juice, water, soda, and popsicles are readily available. For infants on formula, please bring formula the day of surgery. Pacifiers are allowed. Take the following medications with a SIP of water the morning of surgery: None Medications to discontinue per physician: Vitamins and supplements Date to take last dose: 03-05-22 Please no make-up, nail luxembourgish, hairspray, perfume, deodorant, or body powder the day of surgery. No jewelry (including any body piercings) or valuables the day of surgery, leave them at home. Please take a shower or bath the night before, or the morning of, surgery with an antibacterial soap. Wear comfortable, loose fitting clothing. Children are encouraged to wear pajamas. - Jewelry must be removed prior to entering the operating room. Rings and piercings that are not removed may be cut off. - The hospital will not accept responsibility for valuables. - Please leave all valuables, including medications, at home the day of surgery. If you are going home after surgery, a licensed taxicab driver must drive you home. - NO public transportation without another adult if you receive anesthesia. - We recommend that an adult stay with you for 24 hours following discharge. - We also recommend that you do not drive, make important decision, drink alcoholic beverages, or take any drugs that were not prescribed by your health care provider for at least 24 hours after your discharge time. For Pediatric surgeries, we recommend two adults accompany the child home. Follow any additional instructions given to you from your surgeon. If you or anyone in your household have experienced Covid symptoms in the past week, please notify your surgeon or the nurse liaison at the phone number below for possible testing. Telephone instructions given to Quynh Rivas and asked if any additional questions and then verbalized understanding. Patient advised to call surgeon office or pre surgery nurse liaison [phone] if any additional questions.
[2022-03-08] VITALS (10 sets, daily range): BP systolic 142–171; BP diastolic 71–99; PULSE 69–100; RESP 16–22; TEMP 37.1–37.4; O2SAT 97–100
--- NOTE | 2022-03-08 09:56 | WPDHPUPDATE1 ---
History and Physical Update Update Date/Time: 03/08/22 09:56 History and Physical has been reviewed, including an updated exam of the patient. There are NO changes in the patient's condition. Risks, benefits, and alternatives have been discussed and questions answered. Patient agrees to proceed with procedure.
[2022-03-08] MEDS: ACETAMINOPHEN 500 MG TABLET 1000 MG PO (11:00)
[2022-03-08] MEDS: KETOROLAC 15 MG/ML VIAL (*BKC) IV PUSH (11:00)
[2022-03-08] MEDS: SCOPOLAMINE 1.5 MG PATCH TRANSDERM (11:00)
[2022-03-08] MEDS: LACTATED RINGERS 1,000 ML 30 ML IV CONT ×2 (11:00→13:29)
--- NOTE | 2022-03-08 11:21 | WPDANESEPPF ---
Anes - Initial Pre Proc Eval Procedure: Operation Date: 03/08/22 12:00 Proposed Procedures p Laparoscopic Cholecystectomy - Juvenal Land MD Date/Time: 03/08/22 11:21 Surgeon: Juvenal Land MD Pre Op Diagnosis: Chronic Cholecystitis with Stones Patient Data Age: 36 Gender: F Height: 1.6 m Weight: 120.3 kg Last Vital Signs Temp 37.1 C 03/08/22 11:00 Pulse 85 03/08/22 11:00 Resp 16 03/08/22 11:00 BP 171/99 H 03/08/22 11:00 Pulse Ox 99 03/08/22 11:00 O2 Del Method Room Air 03/08/22 11:00 Allergies Allergy/AdvReac Type Severity Reaction Status Date / Time peanut Allergy Severe Anaphylaxis Verified 03/08/22 11:05 tomato Allergy Unknown Unknown Verified 03/08/22 11:05 egg whites Allergy Unknown Unknown Uncoded 03/08/22 11:05 Home Medications Medication Instructions Recorded Confirmed Type cholecalciferol (vitamin D3) 1,250 1,250 mcg PO WEEKLY 09/17/19 03/08/22 History mcg (50,000 unit) capsule multivitamin 1 tablet PO DAILY 02/02/22 03/08/22 History pantoprazole 40 mg tablet,delayed 40 mg PO DAILY 03/01/22 03/08/22 History release desogestrel-e.estradiol 0.15 1 tablet PO DAILY #84 tabs 03/02/22 03/08/22 Rx mg-0.02 mg(21)/e.estrad 0.01 mg(5) tablet (Serenette (28)) metronidazole 500 mg tablet 500 mg PO Q12H 7 days #14 tabs 03/02/22 03/08/22 Rx Patient hx anesthesia problems: other (difficult intubation at [facility]) Family hx anesthesia problems: none Results Review: All pre-operative results and documents have been reviewed as part of the pre-operative evaluation. [facility] Past Medical History Medical History Calculus of gallbladder with chronic cholecystitis without obstruction Constipation GERD (gastroesophageal reflux disease) Hidradenitis Morbid obesity Right axillary hidradenitis Sleep apnea Surgical History Surgical History H/O gynecological procedure mirena iud insertion 2019 History of surgery on arm S/P laparoscopic sleeve gastrectomy Family History Family History Father Cerebrovascular accident Mother Diabetes mellitus Other Diabetes mellitus Other Diabetes mellitus Other Diabetes mellitus Other Cancer Hypertension Social History Social History Smoking status: Never smoker Second hand tobacco smoke exposure: No Alcohol intake: current Alcohol use details: socially Substance use: never Substance use type: does not use Living arrangements: with family Additional occupation/education comments: Work at [employer] Gender identity (if verbalized by the patient): Female Spiritual care concerns: No Anes - Eval Final PreProcedure Day of Procedure 03/08/22 11:21 Patient weight: morbidly obese Heart: regular rate and rhythm Lungs: clear to auscultation Airway: Mallampati scale class II Neurological: alert and oriented Last oral intake: >/= 8 hours ASA classification: III Emergent: no Anesthetic plan: proceed Anesthesia type and monitoring: general ETT and standard monitoring Results Review: All pre-operative results and documents have been reviewed as part of the pre-operative evaluation. Informed Consent: The patient's anesthetic plan and its attendant risks and benefits were discussed with the patient/family/POA. Questions were solicited and answers provided to the satisfaction of the patient/family/POA.
[2022-03-08] MEDS: ceFAZolin 3 GM/D5W 100 ML 100 ML IVPB (12:17)
[2022-03-08] MEDS: LIDO 1%/EPINEPHRINE/PF 1:200,000 30 ML VIAL XX (13:04)
[2022-03-08] MEDS: fentaNYL CITRATE INJ (*CRX) 100 MCG/2 ML VIAL 25 MCG IV PUSH ×5 (13:50→15:39)
[2022-03-08] MEDS: ONDANSETRON INJ 4 MG/2 ML VIAL IV PUSH (13:51)
--- NOTE | 2022-03-08 13:53 | W.PM.PROC2 ---
Procedure Note - Detailed Date of Procedure 03/08/22 Pre-op Diagnosis Chronic Cholecystitis with Stones Post-op Diagnosis Same Procedure Performed Laparoscopic cholecystectomy Surgeon Juvenal Land MD [employer] [facility] Anesthesia General and Local Indications The patient is been having postprandial epigastric and right upper quadrant abdominal pain. She had a gastric sleeve in April of 2020. She had an ultrasound that showed gallstones and also had a HIDA scan which showed nonvisualization of the gallbladder. She is felt to have chronic cholecystitis and cholelithiasis. She is taken to surgery now for laparoscopic cholecystectomy Findings Patient's gallbladder was full of stones. There was evidence of chronic inflammation. There was no biliary ductal dilatation noted. There were no liver abnormalities appreciated. Description of Procedure Patient was taken to surgery and induced into general anesthesia. The abdomen was prepped and draped. Trocars were placed in usual fashion using applied Medical optical trocars and local anesthetic. The gallbladder was retracted anterosuperiorly. Dissection was carried out in the cholecystohepatic triangle. The cystic duct and cystic artery were dissected out very clearly. We dissected the gallbladder off the liver at its lower 3rd. Critical view was achieved. We then securely clipped and divided the cystic duct and cystic artery. The gallbladder was then dissected free from its remaining attachments to the liver. Once the gallbladder was free, it was placed in Endo-Catch bag retrieved through the 10 11 epigastric trocar site. We had to enlarge the epigastric trocar site both at the fascial level and at the skin level to accommodate the gallbladder with its multiple stones and very thickened wall. Once the gallbladder was removed, we replaced the epigastric trocar and used a towel clip to occlude the skin and subcutaneous so that we could re-insufflated. We then reviewed the gallbladder fossa and right upper quadrant. It was irrigated and suctioned repeatedly. There was no evidence of bleeding or bile leakage. All looked good. We then evacuated CO2 and removed the trocar sleeves. The fascia at the epigastric trocar site was then closed with [id number] 0 Vicryl suture. The subcu was closed with 3-0 Vicryl suture. All skin wounds were closed with subcuticular 4-0 Monocryl skin suture. The wounds were dressed with Exofin surgical adhesive. Patient was awakened and taken to recovery in good condition. Sponge needle counts were correct x2. Estimated Blood Loss -5.0 Drains No Packing No Pathology Yes (Gallbladder) Complications No immediate complications Condition Stable Disposition PACU [facility] Billing Surgery - Charge Forward: Surgery Billing (Laparoscopic cholecystectomy)
[2022-03-08] MEDS: oxyCODONE HCL (*CRX) 5 MG TAB IR PO (15:19)
== END 2022-03-08 16:08 | disposition home or self-care (01) ==
PROVIDERS: PCP Emergency Medicine; Visit Provider Surgery
PROC: 0FT44ZZ Resection of Gallbladder, Percutaneous Endoscopic Approach (ICD-10-PCS; CPT 47562; principal; 2022-03-08 12:00)
DX: K80.10 Calculus of gallbladder with chronic cholecystitis without obstruction (principal); K21.9 Gastro-esophageal reflux disease without esophagitis; G47.30 Sleep apnea, unspecified; E66.01 Morbid (severe) obesity due to excess calories; Z68.42 Body mass index [BMI] 45.0-49.9, adult; Z98.84 Bariatric surgery status
CPT/HCPCS: 47562; 36415; 80076; 82150; 83690; 86850; 86900; 86901; 88304; A9270; C1713; J0330; J0690; J1100; J1885; J2250; J2405; J2704; J2710; J3010; J7120

== ENCOUNTER 2022-07-06 06:55 | Emergency (ER) | payer BC, OTHER, SELFPAY ==
--- NOTE | ~2022-07-06 | CT_ITS ---
EXAMINATION: CTA chest PE abdomen pel DATE: 07/06/2022 13:39 INDICATION: Shortness of breath. Abdominal pain. Nausea and vomiting. TECHNIQUE: Computed tomography angiography (CTA) of the chest was performed with 100 mL Omnipaque-350 intravenous contrast timed to evaluate the pulmonary arteries. Coronal maximum intensity projection 3D-reconstructions were created by the technologist. Computed tomography (CT) of the abdomen and pelv is was performed with intravenous contrast. Automated exposure control and iterative reconstruction t echnique were employed. The dose-length product was 2355.03 mGy-cm. COMPARISON: CT abdomen and pelvis 02/06/2019 FINDINGS: CTA chest: There is no pneumonia or pleural effusion. The heart size is normal. No pericardial effusi on. There is no pulmonary embolus. There is mild thoracic spondylosis. CT abdomen and pelvis: There is a moderate-sized sliding hiatal hernia. There are changes of gastric sleeve procedure. The liver is normal. There are changes of cholecystectomy. The spleen, pancreas, ad renal glands, and kidneys are normal. There are no dilated loops of bowel. The appendix is not visual ized. There are no pathologically enlarged lymph nodes. There is no free intraperitoneal fluid. There is mild lumbar spondylosis. IMPRESSION: 1. No pulmonary embolus. 2. Moderate-sized sliding hiatal hernia. Reviewed, dictated and finalized at location A.
[2022-07-06 06:57] VITALS: BP 149/97; PULSE 76; RESP 20; TEMP 37.1; O2SAT 98
[2022-07-06] MEDS: ONDANSETRON INJ 4 MG/2 ML VIAL IV PUSH (07:25)
[2022-07-06 07:59] LABS: Basophils Absolute Auto 0.1 K/mm3 (0.0-0.1); Basophils Percent Auto 0.6 % (0.2-1.2); Eosinophils Absolute Auto 0.1 K/mm3 (0-0.3); Eosinophils Percent Auto 0.9 % (0-4.4); Hemoglobin 12.2 g/dL (12.0-15.0); Immature Granulocyte Absolute 0.04 K/mm3 (0.00-0.031); Immature Granulocyte Percent A 0.4 % (0-0.5); Lymphocytes Absolute Auto 1.59 K/mm3 (0.9-3.2); Lymphocytes Percent Auto 14.6 % (18.3-44.2); Mean Corpuscular HGB Conc 32.1 g/dl (32-36); Mean Corpuscular Volume 90.5 fl (80-100); Mean Platelet Volume 11.6 fl (7.4-10.4); Monocytes Absolute Auto 0.5 K/mm3 (0.1-0.6); Monocytes Percent Auto 4.4 % (2.6-8.5); Neutrophils Absolute Auto 8.6 K/mm3 (1.3-6.7); Neutrophils Percent Auto 79.1 % (45.5-73.1); Platelet Count Result 217 k/mm3 (150-375); Red Cell Distribution Width 14.4 % (11.5-14.5); White Blood Count 10.9 K/mm3 (4.5-10.0)
[2022-07-06 08:02] LABS: Appearance Urine Cloudy (Clear); Bacteria Urine None Seen /hpf; Bilirubin Urine Negative (Negative); Blood Urine Negative (Negative); Color Urine Dark Yellow (Yellow); Glucose Urine UA Negative (Negative); Ketones Urine Negative (Negative); Leukocyte Esterase Ur Trace LEU/UL (Negative); Nitrate Urine Negative (Negative); Non Pathogenic Casts 0-2; Protein Urine Trace mg/dL (Negative); RBC Urine 0-2 /hpf (0-2); Specific Grav Ur 1.027 (1.001-1.035); Squamous Epithelial Cell Urine Moderate /hpf (Few); WBC Urine 0-5 /hpf; pH Urine 8.5 (5.0-9.0)
[2022-07-06 08:10] LABS: Add Urine Microscopic? YES
[2022-07-06 08:12] LABS: Alanine Aminotransferase 18 U/L (6-35); Albumin Level 4.1 g/dL (3.5-5.1); Alkaline Phosphatase 58 U/L (38-126); Anion Gap 5 mmol/L (8-16); Aspartate Amino Transferase 20 U/L (14-36); Bilirubin,Total 0.5 mg/dL (0.2-1.3); Blood Urea Nitrogen 15 mg/dL (7-17); Calcium 8.4 mg/dL (8.4-10.2); Carbon Dioxide 26 mmol/L (22-30); Chloride 107 mmol/L (98-107); Estimated CRCL calculation 133 ml/min; Estimated Glomerular Filt Rate > 60; Glucose 104 mg/dL (65-110); Potassium 3.8 mmol/L (3.4-5.0); Sodium 138 mmol/L (137-145)
[2022-07-06 08:19] LABS: Strep Group A RT-PCR NOT DETECTED (Negative)
[2022-07-06 08:29] LABS: Influenza A QL RT-PCR Negative (Negative); Influenza B QL RT-PCR Negative (Negative); RSV RNA, RT-PCR Negative (Negative); SARS-CoV-2 RNA PCR Negative
[2022-07-06 10:52] VITALS: BP 133/84; PULSE 62; RESP 18; O2SAT 100
[2022-07-06 11:01] VITALS: BP 144/70; PULSE 64; RESP 14; O2SAT 100
[2022-07-06 11:16] VITALS: BP 147/72; PULSE 70; RESP 12
[2022-07-06 11:31] VITALS: BP 131/57; PULSE 62; RESP 13
--- NOTE | 2022-07-06 14:00 | ED.GENADULT ---
HPI - General Adult General Chief complaint: Nausea/Vomiting/Diarrhea Stated complaint: vomiting Time Seen by Provider: 07/06/22 07:06 History of Present Illness HPI narrative: 37-year-old female presented to the emergency department for evaluation of nausea vomiting headache body aches with some shortness of breath. Patient states the symptoms began yesterday and she was concerned that she may have influenza. Related Data Home Medications Medication Instructions Recorded Confirmed cholecalciferol (vitamin D3) 1,250 1,250 mcg PO WEEKLY 09/17/19 04/11/22 mcg (50,000 unit) capsule multivitamin 1 tablet PO DAILY 02/02/22 04/11/22 pantoprazole 40 mg tablet,delayed 40 mg PO DAILY 03/01/22 04/11/22 release Allergies Allergy/AdvReac Type Severity Reaction Status Date / Time peanut Allergy Severe Anaphylaxis Verified 07/06/22 07:24 tomato Allergy Unknown Unknown Verified 07/06/22 07:24 egg whites Allergy Unknown Unknown Uncoded 07/06/22 07:24 Review of Systems Review of Systems: All systems reviewed & are unremarkable except as noted in HPI and below PMFSH Past Medical History Medical History Calculus of gallbladder with chronic cholecystitis without obstruction Constipation GERD (gastroesophageal reflux disease) Hidradenitis Morbid obesity Right axillary hidradenitis Sleep apnea Surgical History Surgical History H/O gynecological procedure mirena iud insertion 2019 History of surgery on arm Hx laparoscopic cholecystectomy 03/08/22 S/P laparoscopic sleeve gastrectomy Family History Family History Father Cerebrovascular accident Mother Diabetes mellitus Other Diabetes mellitus Other Diabetes mellitus Other Diabetes mellitus Other Cancer Hypertension Social History Social History Smoking status: Never smoker Second hand tobacco smoke exposure: No Alcohol intake: current Alcohol use details: socially Substance use: never Substance use type: does not use Living arrangements: with family Occupation/Education: occupation Additional occupation/education comments: Work at [employer] Gender identity (if verbalized by the patient): Female Spiritual care concerns: No Exam Narrative: APPEARANCE: Well appearing, no pain, no distress, well-nourished. HEAD: normocephalic, atraumatic. EYES: PERRLA/EOMI, conjunctivae clear. NOSE: Normal no drainage EARS:TMS clear with good light reflex. THROAT: Pharynx clear, no exudate. NECK: Supple. No adenopathy, no masses. RESPIRATORY: Airway patent, respirations nonlabored. Clear to auscultation bilaterally, no rales, rhonchi, wheezing. CARDIOVASCULAR: Regular rate and rhythm without murmurs rubs or gallops. ABDOMINAL: Soft, nontender, nondistended, normal bowel sounds MUSCULOSKELETAL: Moves all extremities. Strength/ROM intact, No edema, No calf tenderness. NEURO: Alert. Cranial nerves II through XII intact. Grossly intact SKIN: Warm, dry. Normal Color Course Course Emergency Course: 37-year-old female presenting with flulike symptoms. Patient was afebrile with no leukocytosis. Patient's CMP was similar to her baseline. UA had moderate squamous cells but no evidence of infection. Patient was negative for COVID influenza RSV and strep. Patient states she was still having some abdominal pain and intermittent shortness of breath. CTA PE with abdomen pelvis was ordered. No evidence of pulmonary embolism. And no acute findings within the abdomen. Patient was updated on the results of her work-up. Suspect a viral etiology for her underlying symptoms. Patient was educated on treatment for home. All question concerns were addressed. Patient was well-appearing at time of discharge. Vital Signs Vital signs: Vital Si
[2022-07-06 14:36] VITALS: BP 114/59; PULSE 72; RESP 18; O2SAT 98
== END 2022-07-06 14:37 | disposition home or self-care (01) ==
PROVIDERS: Emergency Provider Emergency Medicine; PCP Emergency Medicine
DX: R11.2 Nausea with vomiting, unspecified (principal); R10.9 Unspecified abdominal pain; R06.02 Shortness of breath; K21.9 Gastro-esophageal reflux disease without esophagitis; G47.30 Sleep apnea, unspecified; E66.01 Morbid (severe) obesity due to excess calories; Z68.42 Body mass index [BMI] 45.0-49.9, adult; Z98.84 Bariatric surgery status; Z20.822 Contact with and (suspected) exposure to COVID-19
CPT/HCPCS: 36415; 71275; 74177; 80053; 81001; 81025; 85025; 87637; 87651; 96374; 99284; J2405; Q9967

== ENCOUNTER 2023-06-30 22:01 | Emergency (ER) | payer BC, OTHER, SELFPAY ==
[2023-06-30 22:09] VITALS: BP 138/84; PULSE 74; RESP 16; TEMP 36.4; O2SAT 100
--- NOTE | 2023-07-01 02:08 | ED.GENADULT ---
HPI - General Adult General Chief complaint: Unspecified Stated complaint: I aint feeling good , I think I have a blood clot Time Seen by Provider: 07/01/23 01:49 Source: patient Mode of arrival: ambulatory Limitations: no limitations History of Present Illness HPI narrative: Patient is a 38 y/o female who presents to the ED with concern for DVT. Patient reports having pain in her bilateral lower legs for the past 1 day. Denies any injury or strenuous activity. States she noticed a small bruise to her left posterior calf today. States her mother looked at her leg and said she had a blood clot. Patient denies previous hx of blood clots. She did have a hernia repair 1 month ago in [place], [place] and was admitted to the hospital for 2 days at that time. Denies any other recent immobilization, long distance travel, hormonal supplements. Denies swelling of lower extremities. Has not taken anything for the pain. denies chest pain or shortness of breath. Does also complain of a headache for the last 2 days. Has not take anything for this either. Denies focal weakness/numbness. Related Data Home Medications Medication Instructions Recorded Confirmed cholecalciferol (vitamin D3) 1,250 1,250 mcg PO WEEKLY 09/17/19 03/08/23 mcg (50,000 unit) capsule multivitamin 1 tablet PO DAILY 02/02/22 03/08/23 pantoprazole 40 mg tablet,delayed 40 mg PO DAILY 03/01/22 03/08/23 release doxycycline hyclate 100 mg capsule 100 mg PO DAILY 03/08/23 03/08/23 spironolactone 100 mg tablet 100 mg PO DAILY 03/08/23 03/08/23 Allergies Allergy/AdvReac Type Severity Reaction Status Date / Time peanut Allergy Severe Anaphylaxis Verified 03/08/23 14:58 tomato Allergy Unknown Unknown Verified 03/08/23 14:58 egg whites Allergy Unknown Unknown Uncoded 03/08/23 14:58 Review of Systems Review of Systems: CONSTITUTIONAL: Denies fever, chills, or sweats. CARDIOVASCULAR: Denies chest pain. RESPIRATORY: Denies dyspnea. GASTROINTESTINAL: Denies abdominal pain, nausea, vomiting. MUSCULOSKELETAL: see HPI. NEUROLOGIC: See HPI All systems reviewed & are unremarkable except as noted in HPI and below PMFSH Past Medical History Medical History Calculus of gallbladder with chronic cholecystitis without obstruction Constipation GERD (gastroesophageal reflux disease) Hidradenitis Morbid obesity Right axillary hidradenitis Sleep apnea Surgical History Surgical History H/O gynecological procedure mirena iud insertion 2019 History of surgery on arm Hx laparoscopic cholecystectomy 03/08/22 S/P laparoscopic sleeve gastrectomy Family History Family History Father Cerebrovascular accident Mother Diabetes mellitus Other Diabetes mellitus Other Diabetes mellitus Other Diabetes mellitus Other Cancer Hypertension Social History Social History Smoking status: Never smoker Second hand tobacco smoke exposure: No Alcohol intake: current Alcohol use details: socially Substance use: never Substance use type: does not use Lack of Transportation: YES Lack of Food: Sometimes True Current Housing: I Have Housing Concerned About Future Housing: No Difficulty Paying Gas/Electric Bills: No Difficulty Paying for Meds: No Currently Unemployed: No Education: Bachelor's Degree Difficulty w/ Childcare or Family Care: No Living arrangements: with family Occupation/Education: occupation Additional occupation/education comments: Work at [employer] Gender identity (if verbalized by the patient): Female Sexual Orientation (if Verbalized by the Patient): Straight or Heterosexual Spiritual care concerns: No Exam Narrative: GENERAL: Well appearing, morbidly obese with BMI of 6
[2023-07-01] MEDS: ACETAMINOPHEN 500 MG TABLET 1000 MG PO (02:22)
[2023-07-01 03:09] LABS: Basophils Absolute Auto 0.1 K/mm3 (0.0-0.1); Basophils Percent Auto 0.7 % (0.2-1.2); Eosinophils Absolute Auto 0.2 K/mm3 (0-0.3); Eosinophils Percent Auto 1.9 % (0-4.4); Hematocrit 36.3 % (37.0-47.0); Hemoglobin 11.1 g/dL (12.0-15.0); Immature Granulocyte Absolute 0.03 K/mm3 (0.00-0.031); Immature Granulocyte Percent A 0.3 % (0-0.5); Lymphocytes Absolute Auto 4.62 K/mm3 (0.9-3.2); Lymphocytes Percent Auto 41.1 % (18.3-44.2); Mean Corpuscular HGB Conc 30.6 g/dl (32-36); Mean Corpuscular Hemoglobin 28.5 pg (26-34); Mean Corpuscular Volume 93.3 fl (80-100); Mean Platelet Volume 11.9 fl (7.4-10.4); Monocytes Absolute Auto 0.5 K/mm3 (0.1-0.6); Monocytes Percent Auto 4.8 % (2.6-8.5); Neutrophils Absolute Auto 5.8 K/mm3 (1.3-6.7); Neutrophils Percent Auto 51.2 % (45.5-73.1); Platelet Count Result 194 k/mm3 (150-375); Red Blood Count 3.89 M/mm3 (4.2-5.4); Red Cell Distribution Width 15.9 % (11.5-14.5); White Blood Count 11.3 K/mm3 (4.5-10.0)
[2023-07-01 03:28] LABS: INR 0.9
[2023-07-01 03:29] LABS: Partial Thromboplastin Time 29.2 Seconds (22.3-36.8)
[2023-07-01 03:35] LABS: Alanine Aminotransferase 10 U/L (6-35); Albumin Level 3.5 g/dL (3.5-5.1); Alkaline Phosphatase 43 U/L (38-126); Anion Gap 7 mmol/L (4-12); Aspartate Amino Transferase 20 U/L (14-36); Bilirubin,Total 0.5 mg/dL (0.2-1.3); Blood Urea Nitrogen 17 mg/dL (7-17); Calcium 8.6 mg/dL (8.4-10.2); Carbon Dioxide 18 mmol/L (22-30); Chloride 111 mmol/L (98-107); Estimated CRCL calculation 170 ml/min; Estimated Glomerular Filt Rate > 60; Glucose 98 mg/dL (65-110); Sodium 136 mmol/L (137-145)
[2023-07-01 04:12] LABS: D Dimer 0.31 ug/mL (<0.48)
[2023-07-01 04:50] VITALS: BP 128/86; PULSE 86; RESP 16; O2SAT 98
== END 2023-07-01 04:53 | disposition home or self-care (01) ==
PROVIDERS: Emergency Provider Physician Assistant; PCP Emergency Medicine
DX: M79.662 Pain in left lower leg (principal); M79.661 Pain in right lower leg; K21.9 Gastro-esophageal reflux disease without esophagitis; E66.01 Morbid (severe) obesity due to excess calories; Z68.44 Body mass index [BMI] 60.0-69.9, adult; Z98.84 Bariatric surgery status
CPT/HCPCS: 36415; 80053; 85025; 85380; 85610; 85730; 93970; 99283; A9270

== ENCOUNTER 2023-07-01 07:04 | Outpatient (CLI) | payer BC, OTHER, SELFPAY ==
--- NOTE | ~2023-07-01 | US_ITS ---
US venous doppler [facility] DATE: 07/01/2023 08:08 INDICATION: Right leg pain TECHNIQUE: Real-time and color flow imaging and Doppler analysis of the veins of the lower extremitie s COMPARISON: None FINDINGS: The greater saphenous veins are patent. There is spontaneous and phasic flow and normal aug mentation and color flow signal and normal compression of the deep veins of both lower extremities. IMPRESSION: No evidence of degenerative stenosis of the lower extremities Reviewed, dictated and finalized at [facility] Reviewed, dictated and finalized at [facility].
== END 2023-07-01 07:05 | disposition home or self-care (01) ==
PROVIDERS: PCP Emergency Medicine; Visit Provider Physician Assistant
DX: M79.604 Pain in right leg (principal)
CPT/HCPCS: 93970

== ENCOUNTER 2024-03-17 13:25 | Emergency (ER) | payer OTHER, SELFPAY ==
--- NOTE | ~2024-03-17 | CT_ITS ---
EXAMINATION: CT brain wo con DATE: 03/17/2024 13:59 INDICATION: Syncope TECHNIQUE: Computed tomography (CT) of the head was performed without intravenous contrast. Sagittal and coronal reconstructions were performed. The mA was adjusted according to patient size. Iterative reconstruction technique was employed. The dose-length product was 908.00 mGy-cm. COMPARISON: None FINDINGS: No acute intracranial hemorrhage, acute infarction or abnormal extra axial fluid collection. Bilatera l basal ganglia calcifications. Ventricles are normal and symmetric. No mass/mass effect. The orbits, paranasal sinuses and mastoid air cells are normal. IMPRESSION: 1. No acute intracranial process. 2. Bilateral basal ganglia calcifications atypical for age which has a wide including idiopathic (Far r's disease), sequela of chronic infection, chronic toxin exposure, parathyroid disorders, hypo nu and multiple inherited diseases. Reviewed, dictated and finalized at [facility] TECH IMPRESSION: 1. No acute intracranial process. 2. Bilateral basal ganglia calcifications atypical for age which has a wide inc luding idiopathic (Tere's disease), sequela of chronic infection, chronic toxin exposure, parathyroid disorders, hypoxia and multiple inherited diseases .
[2024-03-17 13:18] VITALS: BP 140/102; PULSE 107; RESP 17; TEMP 36.4; O2SAT 98
--- NOTE | 2024-03-17 13:28 | ECG_ITS ---
Test Date: 2024-03-17 13:32:20 Measurements Intervals [place] Rate: 98 P: 58 IA: 165 QRS: -17 QRSD: 96 T: 48 QT: 369 QTc: 471 Interpretive Statements SINUS RHYTHM POSSIBLE LEFT ATRIAL ENLARGEMENT [-0.1mV P-WAVE IN V1/V2] No previous ECG available for comparison Electronically Signed On 03-17-2024 14:27:30 SENIOR TAX MANAGER by Oskar Sifuentes M.D.
[2024-03-17 13:29] VITALS: PULSE 102; O2SAT 99
--- NOTE | 2024-03-17 13:29 | ED_ITS ---
HPI - Seizure General Chief Complaint: Seizure Stated Complaint: SEIZURE History of Present Illness HPI Narrative: Pt left dental appointment and was found unresponsive in her car and was twitching a bit so possible seizure. Pt has no recollection of events until waking up in ambulance. Pt has mild RAMIREZ. Pt has no other complaints. Pt had no CP or palpitaqions prior. Pt has no seizure history but father has seizures. Related Data Home Medications ?Medication ?Instructions ?Recorded ?Confirmed ?Last Taken ?Type cholecalciferol (vitamin D3) 1,250 1,250 mcg PO WEEKLY 09/17/19 03/08/23 02/06/22 History mcg (50,000 unit) capsule multivitamin 1 tablet PO DAILY 02/02/22 03/08/23 02/06/22 History pantoprazole 40 mg tablet,delayed 40 mg PO DAILY 03/01/22 03/08/23 Unknown History release doxycycline hyclate 100 mg capsule 100 mg PO DAILY 03/08/23 03/08/23 Unknown History spironolactone 100 mg tablet 100 mg PO DAILY 03/08/23 03/08/23 Unknown History Allergies Allergy/AdvReac Type Severity Reaction Status Date / Time peanut Allergy Severe Anaphylaxis Verified 03/17/24 13:49 tomato Allergy Unknown Unknown Verified 03/17/24 13:49 egg whites Allergy Unknown Unknown Uncoded 03/17/24 13:49 Review of Systems 2 Review of Systems: All systems reviewed & are unremarkable except as noted in HPI and below PMFSH Past Medical History Medical History Calculus of gallbladder with chronic cholecystitis without obstruction Constipation GERD (gastroesophageal reflux disease) Hidradenitis Morbid obesity Right axillary hidradenitis Sleep apnea Surgical History Surgical History H/O gynecological procedure mirena iud insertion 2019 History of surgery on arm Hx laparoscopic cholecystectomy 03/08/22 S/P laparoscopic sleeve gastrectomy Family History Family History Father Cerebrovascular accident Mother Diabetes mellitus Other Diabetes mellitus Other Diabetes mellitus Other Diabetes mellitus Other Cancer Hypertension Social History Social History Smoking status: Never smoker Second hand tobacco smoke exposure: No Alcohol intake: current Alcohol use details: socially Substance use: never Substance use type: does not use Lack of Transportation: YES Lack of Food: Sometimes True Current Housing: I Have Housing Concerned About Future Housing: No Difficulty Paying Gas/Electric Bills: No Difficulty Paying for Meds: No Currently Unemployed: No Education: Bachelor's Degree Difficulty w/ Childcare or Family Care: No Living arrangements: with family Occupation/Education: occupation Additional occupation/education comments: Work at [employer] Gender identity (if verbalized by the patient): Female Sexual Orientation (if Verbalized by the Patient): Straight or Heterosexual Spiritual care concerns: No Exam 2 Const: General: healthy appearing and no acute distress Nutritional Appearance: well nourished Orientation/consciousness: patient oriented x3 Limitations: no limitations HENMT: Head: normal to inspection Eyes: Conjunctivae: conjunctivae normal Pupils: Equal, round and reactive pupils present EOM: EOMs intact bilaterally Resp: Effort & Inspection: normal respiratory effort Auscultation: clear to auscultation bilaterally Cardio: Rate: regular rate Rhythm: regular rhythm GI: GI Palp: Yes Soft to palpation and No Tenderness to palpation present (GI) Auscultation: normal bowel sounds Skin: General skin exam: normal color Rashes: no rashes Wounds: no wounds Neuro: General: patient oriented x3, moves all extremities, no focal motor deficits and CN's II-XI intact bilaterally Cranial nerves: Yes Nystagmus not present Speech: normal speech Extrem: General: normal to inspection and no clubbing, cyanosis or edema Psych: Appearance: grossly normal Mental Status: mental status grossly normal Affect: normal affect Attitude: cooperative Course Vital Signs Vital signs: Vital Signs Temperature 97.5 F L 03/17/24 13:18 Pulse Rate 107 H 03/17/24 13:18 Respiratory Rate 17 03/17/24 13:18 Blood Pressure 140/102 H 03/17/24 13:18 Pulse Oximetry 98 03/17/24 13:18 Oxygen Delivery Room Air 03/17/24 13:18 Temperature 97.5 F L 03/17/24 13:18 Pulse Rate 102 H 03/17/24 13:29 Respiratory Rate 17 03/17/24 13:18 Blood Pressure 140/102 H 03/17/24 13:18 Pulse Oximetry 99 03/17/24 13:29 Oxygen Delivery Room Air 03/17/24 13:29 MDM - Seizure MDM Narrative Medical decision making narrative: Pt presents after being found unresponsive in car. Pt has no recollection of event. could be syncope vs seizure. will get head ct and labs and monitor. labs and ct unremarkable. home with neuro follow up. Lab Data 03/17/24 13:42 03/17/24 13:42 Labs: Lab Results 03/17/24 03/17/24 Range/Units 13:40 13:42 WBC 10.2 H (4.5-10.0) K/mm3 RBC 4.15 L (4.2-5.4) M/mm3 Hgb 11.9 L (12.0-15.0) g/dL Hct 37.0 (37.0-47.0) % MCV 89.2 (80-100) fl MCH 28.7 (26-34) pg MCHC 32.2 (32-36) g/dl RDW 14.9 H (11.5-14.5) % Plt Count 215 (150-375) k/mm3 MPV 11.3 H (7.4-10.4) fl Immature Gran % (Auto) 0.7 H (0-0.5) % Neut % (Auto) 61.0 (45.5-73.1) % Lymph % (Auto) 32.0 (18.3-44.2) % [place] % (Auto) 4.2 (2.6-8.5) % Eos % (Auto) 1.4 (0-4.4) % Baso % (Auto) 0.7 (0.2-1.2) % Lymph # (Auto) 3.27 H (0.9-3.2) K/mm3 [place] # (Auto) 0.4 (0.1-0.6) K/mm3 Eos # (Auto) 0.1 (0-0.3) K/mm3 Baso # (Auto) 0.1 (0.0-0.1) K/mm3 Abs Immat Gran (auto) 0.07 H (0.00-0.031) K/mm3 Absolute Neuts (auto) 6.3 (1.3-6.7) K/mm3 Absolute Nucleated RBC 0.000 (0.0-0.012) K/mm3 Nucleated RBC % 0.0 (0.0-0.2) % PT 14.0 (11.1-14.7) Seconds INR 1.0 APTT 27.3 (22.3-36.8) Seconds Sodium 138 (137-145) mmol/L Potassium 3.8 (3.4-5.0) mmol/L Chloride 109 H (98-107) mmol/L Carbon Dioxide 20 L (22-30) mmol/L Anion Gap 9 (4-12) mmol/L BUN 14 (7-17) mg/dL Creatinine 0.70 (0.7-1.0) mg/dL Estim Creat Clear Calc 124 ml/min Estimated GFR > 60 (59 - ) Glucose 142 H (65-110) mg/dL POC Capillary Glucose 144 H (65-105) mg/dl Calcium 8.6 (8.4-10.2) mg/dL Magnesium 1.9 (1.6-2.3) mg/dL Total Bilirubin 0.4 (0.2-1.3) mg/dL AST 23 (14-36) U/L ALT 16 (6-35) U/L Alkaline Phosphatase 55 (38-126) U/L Total Protein 7.0 (6.3-8.2) g/dL Albumin 4.1 (3.5-5.1) g/dL Procalcitonin < 0.0 ng/mL Discharge Plan Discharge Clinical Impression: Syncope Patient Disposition: Home, Self-Care Condition: Stable Instructions: Antibiotic Form, Syncope (ED), Epilepsy (ED) Patient Language: Iranian Prescriptions: No Action cholecalciferol (vitamin D3) 1,250 mcg (50,000 unit) capsule 1,250 mcg PO WEEKLY Rx Instructions: 2 times a week on Tuesdays and Saturdays spironolactone 100 mg tablet 100 mg PO DAILY doxycycline hyclate 100 mg capsule 100 mg PO DAILY fluconazole 150 mg tablet 150 mg PO Q72H Qty: 2 0RF multivitamin Tablet 1 tablet PO DAILY pantoprazole 40 mg tablet,delayed release (DR/EC) 40 mg PO DAILY ondansetron 4 mg tablet,disintegrating 4 mg PO Q8H PRN (Reason: nausea and vomiting) Qty: 14 0RF fluconazole 150 mg tablet 150 mg PO Q72H Qty: 2 2RF Follow-up/Referrals: Douglas Leach MD [Primary Care Provider] - Dennis Donnelly MD [Physician] -
[2024-03-17 13:45] LABS: Glucose Point of Care 144 mg/dl (65-105)
[2024-03-17 13:55] LABS: Basophils Absolute Auto 0.1 K/mm3 (0.0-0.1); Basophils Percent Auto 0.7 % (0.2-1.2); Eosinophils Absolute Auto 0.1 K/mm3 (0-0.3); Eosinophils Percent Auto 1.4 % (0-4.4); Hemoglobin 11.9 g/dL (12.0-15.0); Immature Granulocyte Absolute 0.07 K/mm3 (0.00-0.031); Immature Granulocyte Percent A 0.7 % (0-0.5); Lymphocytes Absolute Auto 3.27 K/mm3 (0.9-3.2); Mean Corpuscular HGB Conc 32.2 g/dl (32-36); Mean Corpuscular Hemoglobin 28.7 pg (26-34); Mean Corpuscular Volume 89.2 fl (80-100); Mean Platelet Volume 11.3 fl (7.4-10.4); Monocytes Absolute Auto 0.4 K/mm3 (0.1-0.6); Monocytes Percent Auto 4.2 % (2.6-8.5); Neutrophils Absolute Auto 6.3 K/mm3 (1.3-6.7); Platelet Count Result 215 k/mm3 (150-375); Red Blood Count 4.15 M/mm3 (4.2-5.4); Red Cell Distribution Width 14.9 % (11.5-14.5); White Blood Count 10.2 K/mm3 (4.5-10.0)
[2024-03-17 14:04] LABS: Alanine Aminotransferase 16 U/L (6-35); Albumin Level 4.1 g/dL (3.5-5.1); Alkaline Phosphatase 55 U/L (38-126); Anion Gap 9 mmol/L (4-12); Aspartate Amino Transferase 23 U/L (14-36); Bilirubin,Total 0.4 mg/dL (0.2-1.3); Blood Urea Nitrogen 14 mg/dL (7-17); Calcium 8.6 mg/dL (8.4-10.2); Carbon Dioxide 20 mmol/L (22-30); Chloride 109 mmol/L (98-107); Estimated CRCL calculation 124 ml/min; Estimated Glomerular Filt Rate > 60; Glucose 142 mg/dL (65-110); Magnesium 1.9 mg/dL (1.6-2.3); Potassium 3.8 mmol/L (3.4-5.0); Sodium 138 mmol/L (137-145)
[2024-03-17 14:05] LABS: Partial Thromboplastin Time 27.3 Seconds (22.3-36.8)
[2024-03-17 14:42] LABS: Procalcitonin < 0.0 ng/mL
== END 2024-03-17 15:21 | disposition home or self-care (01) ==
PROVIDERS: Emergency Provider Emergency Medicine; PCP Emergency Medicine
DX: R55 Syncope and collapse (principal); E66.01 Morbid (severe) obesity due to excess calories; Z68.43 Body mass index [BMI] 50.0-59.9, adult; K21.9 Gastro-esophageal reflux disease without esophagitis; G47.30 Sleep apnea, unspecified; Z98.84 Bariatric surgery status; Z90.49 Acquired absence of other specified parts of digestive tract; R94.31 Abnormal electrocardiogram [ECG] [EKG]
CPT/HCPCS: 36415; 70450; 80053; 82948; 83735; 84145; 85025; 85610; 85730; 93005; 99284

== ENCOUNTER 2024-04-24 12:58 | Emergency (ER) | payer OTHER, SELFPAY ==
[2024-04-24] VITALS (12 sets, daily range): BP systolic 109–142; BP diastolic 56–97; PULSE 71–94; RESP 14–25; TEMP 36.8; O2SAT 97–100
--- NOTE | ~2024-04-24 | XR_ITS ---
Clinical Indication: Chest pain PA and lateral views of the chest: Comparison: 05/15/2012 Findings: The lungs are clear, without evidence of focal consolidation or pleural effusion. Cardiome diastinal silhouette is within normal limits. Bones and soft tissues are unremarkable. Impression: Normal chest. Reviewed, dictated and finalized at location . TY TECH Impression: Normal chest.
--- NOTE | ~2024-04-24 | CT_ITS ---
CLINICAL INDICATION: Lower abdominal pain COMPARISON: 07/06/2022. TECHNIQUE: Multiple contiguous axial images of the abdomen and pelvis were performed following the ad ministration of with 100 mL Omnipaque-350 intravenous contrast The dose-length product (DLP) was 1834.44 mGy-cm. Automated exposure control and iterative reconstruction technique were employed. FINDINGS/OBSERVATIONS: Visualized lower thorax: The bilateral lung bases are clear. The heart is of normal size, without pericardial effusion. Large hiatal hernia is present includes of a staple line from prior gastric sleeve. Liver: The liver enhances homogeneously and is enlarged measuring 20 cm in longitudinal dimension. Gallbladder and biliary system: The gallbladder is surgically absent. Pancreas: The pancreas enhances homogeneously without ductal dilatation. Spleen: The spleen enhances homogeneously and is not enlarged measuring 10 cm in longitudinal dimension. Kidneys: The bilateral kidneys enhance symmetrically without hydronephrosis or renal calculi. Adrenal glands: Unremarkable. Gastrointestinal tract: Postoperative change within the upper abdomen. Appendix: The air-filled appendix is of normal caliber (axial series, images 135 through 140). Vasculature: Unremarkable. No aneurysmal dilatation or significant stenosis. Lymph nodes: No pathologically enlarged or morphologically suspicious lymph nodes within the retroperitoneum or at the root of the mesentery. Pelvic structures: The bladder is only minimally distended, and otherwise unremarkable. The uterus is anteverted and anteflexed, and somewhat nodular in contour suggesting fibroid disease. Involuting follicle within the left ovary measuring 22 mm. The right ovary is not definitively visual ized. Body wall and musculoskeletal: No significant degenerative disease within the lower thoracic or lumbosacral spine. IMPRESSION: Hepatomegaly Likely involuting follicle within the left ovary. No acute pathology is otherwise detected within the abdomen or pelvis, as detailed above Reviewed, dictated and finalized at location A. ATHLET[employer] TRAINER/[employer]ENGTH [employer]ACH IMPRESSION: Hepatomegaly Likely involuting follicle within the left ovary. No acute pathology is otherwise detected within the abdomen or pelvis, as detai led above
--- NOTE | 2024-04-24 12:59 | ECG_ITS ---
Test Date: 2024-04-24 13:07:09 Measurements Intervals [place] Rate: 94 P: 17 NE: 167 QRS: -45 QRSD: 89 T: 44 QT: 346 QTc: 435 Interpretive Statements SINUS RHYTHM POSSIBLE LEFT ATRIAL ENLARGEMENT [-0.1mV P WAVE IN V1/V2] LEFT ANTERIOR FASCICULAR BLOCK [QRS AXIS <= -45, QR IN I, RS IN II] Compared to ECG 03/17/2024 13:32:20 Left anterior fascicular block now present Electronically Signed On 04-24-2024 14:25:37 AUTOMOTIVE REPAIR TECHNICIAN by Sunni Eagle
--- NOTE | 2024-04-24 13:10 | ED_ITS ---
HPI - Chest Pain General Chief Complaint: Chest Pain <Sylvia Robles, INCLUSION SPECIALIST - Last Filed: 04/24/24 13:12> Stated Complaint: chest pain <Sylvia BuiCelina [place], INCLUSION SPECIALIST - Last Filed: 04/24/24 13:12> Time Seen by Provider: 04/24/24 13:05 <Sylvia Levineuble, INCLUSION SPECIALIST - Last Filed: 04/24/24 13:12> Focused HPI: Patient is a 39-year-old female who presents to the ER with chest pain and palpitations that started earlier today. She also endorses recent headaches and emesis. Patient endorses a history of seizures and reports her Keppra dose was increased on Sunday. She also endorses some shortness of breath and cough. Pt denies any abdominal pain, brain fog, headache, one-sided numbness/tingling/weakness, urinary symptoms. She denies any other medical history related to this ER visit. GENERAL: Well-appearing, well-nourished, and in no acute distress. HEAD: Normocephalic, atraumatic. CHEST: Clear to auscultation. ?No respiratory distress. HEART: Regular rate and rhythm.? NEURO: ?Alert and oriented x3. Patient screened in triage and initial orders placed.? ?Additional care and disposition to be based upon?diagnostic testing and treatment. <Sylvia Levineuble, INCLUSION SPECIALIST - Last Filed: 04/24/24 13:12> Focused HPI: Patient is a 39-year-old female who presents to the ER with chest pain and palpitations that started earlier today. She also endorses recent headaches and emesis. Patient endorses a history of seizures and reports her Keppra dose was increased on Sunday. She also endorses some shortness of breath and cough. Pt denies any abdominal pain, brain fog, headache, one-sided numbness/tingling/weakness, urinary symptoms. She denies any other medical history related to this ER visit. GENERAL: Well-appearing, well-nourished, and in no acute distress. HEAD: Normocephalic, atraumatic. CHEST: Clear to auscultation. ?No respiratory distress. HEART: Regular rate and rhythm.? NEURO: ?Alert and oriented x3. Patient screened in triage and initial orders placed.? ?Additional care and disposition to be based upon?diagnostic testing and treatment. <LAKIA Correa Last Filed: 04/25/24 02:06> Source: patient <LAKIA Correa Last Filed: 04/25/24 02:06> Mode of arrival: ambulatory <LAKIA Correa Last Filed: 04/25/24 02:06> Limitations: no limitations <LAKIA Correa Last Filed: 04/25/24 02:06> History of Present Illness HPI narrative: Agree with above HPI. Also reports diarrhea. States her mother recently from heart issues. <LAKIA Correa Last Filed: 04/25/24 02:06> Related Data Home Medications: Home Medications ?Medication ?Instructions ?Recorded ?Confirmed ?Last Taken ?Type cholecalciferol (vitamin D3) 1,250 1,250 mcg PO WEEKLY 09/17/19 03/08/23 02/06/22 History mcg (50,000 unit) capsule multivitamin 1 tablet PO DAILY 02/02/22 03/08/23 02/06/22 History pantoprazole 40 mg tablet,delayed 40 mg PO DAILY 03/01/22 03/08/23 Unknown History release doxycycline hyclate 100 mg capsule 100 mg PO DAILY 03/08/23 03/08/23 Unknown History spironolactone 100 mg tablet 100 mg PO DAILY 03/08/23 03/08/23 Unknown History <Sylvia Robles APRN - Last Filed: 04/24/24 13:12> Allergies/Adverse Reactions: Allergies Allergy/AdvReac Type Severity Reaction Status Date / Time peanut Allergy Severe Anaphylaxis Verified 04/17/24 15:40 tomato Allergy Unknown Unknown Verified 04/17/24 15:40 egg whites Allergy Unknown Unknown Uncoded 03/17/24 13:49 <Sylvia Robles APRN - Last Filed: 04/24/24 13:12> Review of Systems 2 Review of Systems: All systems reviewed & are unremarkable except as noted in HPI. <LAKIA Correa Last Filed: 04/25/24 02:06> All systems reviewed & are unremarkable except as noted in HPI and below < Juanita Kramer PA-C - Last Filed: 04/25/24 02:06> [facility] Past Medical History Medical History: Medical History Migraine Seizure-like activity Seizures Constipation Calculus of gallbladder with chronic cholecystitis without obstruction Morbid obesity Right axillary hidradenitis Hidradenitis Sleep apnea GERD (gastroesophageal reflux disease) <Sylvia Robles APRN - Last Filed: 04/24/24 13:12> Surgical History Surgical History: Surgical History Hx laparoscopic cholecystectomy 03/08/22 H/O gynecological procedure mirena iud insertion 2018 S/P laparoscopic sleeve gastrectomy History of surgery on arm <Syvlia Robles APRN - Last Filed: 04/24/24 13:12> Family History Family History: Family History Father Cerebrovascular accident Mother Diabetes mellitus Other Diabetes mellitus Other Diabetes mellitus Other Diabetes mellitus Other Cancer Hypertension <Sylvia Robles APRN - Last Filed: 04/24/24 13:12> Social History Social History: Social History Smoking status: Never smoker Second hand tobacco smoke exposure: No Alcohol intake: current Alcohol use details: socially Substance use: never Substance use type: does not use Lack of Transportation: YES Lack of Food: Sometimes True Current Housing: I Have Housing Concerned About Future Housing: No Difficulty Paying Gas/Electric Bills: No Difficulty Paying for Meds: No Currently Unemployed: No Education: Bachelor's Degree Difficulty w/ Childcare or Family Care: No Living arrangements: with family Occupation/Education: occupation Additional occupation/education comments: Work at [employer] Gender identity (if verbalized by the patient): Female Sexual Orientation (if Verbalized by the Patient): Straight or Heterosexual Spiritual care concerns: No <Sylvia Robles APRN - Last Filed: 04/24/24 13:12> Exam 2 Narrative: GENERAL: Well appearing, morbidly obese with BMI of 48.8, non-toxic, in no acute distress. HEAD: Normocephalic, atraumatic. RESPIRATORY: Airway patent, respirations nonlabored. Clear to auscultation bilaterally, no rales, rhonchi, wheezing. CARDIOVASCULAR: Regular rate and rhythm without murmurs, rubs, or gallops. ABDOMINAL: Soft, nontender, nondistended. Normoactive BS. MUSCULOSKELETAL: Moves all extremities. No gross deformities. Tenderness to palpation over left-sided anterior chest wall. Minimal diffuse tenderness throughout lower extremities bilaterally with palpation. No appreciable peripheral edema. SKIN: Warm, dry, normal color. NEURO: A&O X3. Speech clear. Cranial nerves II-XII grossly intact. Steady gait. No ataxic movements. PSYCHIATRIC: Appropriate mood and affect. Normal interaction. <Juanita Kramer PA-C - Last Filed: 04/25/24 02:06> Course Vital Signs Vital signs: Vital Signs Temperature 98.3 F 04/24/24 13:24 Pulse Rate 93 04/24/24 13:24 Respiratory Rate 14 04/24/24 13:24 Blood Pressure 142/84 H 04/24/24 13:24 Pulse Oximetry 100 04/24/24 13:24 Temperature 98.3 F 04/24/24 13:24 Pulse Rate 71 04/24/24 23:25 Respiratory Rate 15 04/24/24 23:25 Blood Pressure 130/84 04/24/24 23:25 Pulse Oximetry 100 04/24/24 23:25 Oxygen Delivery Room Air 04/24/24 19:03 <Sylvia Robles, INCLUSION SPECIALIST - Last Filed: 04/24/24 13:12> Vital Signs Temperature 98.3 F 04/24/24 13:24 Pulse Rate 93 04/24/24 13:24 Respiratory Rate 14 04/24/24 13:24 Blood Pressure 142/84 H 04/24/24 13:24 Pulse Oximetry 100 04/24/24 13:24 Temperature 98.3 F 04/24/24 13:24 Pulse Rate 71 04/24/24 23:25 Respiratory Rate 15 04/24/24 23:25 Blood Pressure 130/84 04/24/24 23:25 Pulse Oximetry 100 04/24/24 23:25 Oxygen Delivery Room Air 04/24/24 19:03 <Juanita Kramer PA-C - Last Filed: 04/25/24 02:06> MDM - Chest Pain MDM Narrative Medical decision making narrative: Patient presented to ED with multiple complaints. Left-sided chest pain going into her left arm. Headaches. Nausea, vomiting, diarrhea. Cough. Palpitations, shortness of breath. Vital signs are stable upon arrival. Patient is in no acute distress. She does have some chest wall tenderness on exam. EKG with normal sinus rhythm, no significant ST changes. Troponin undetectable x3. Chest x-ray is clear. HEART score =1, based on BMI. Low suspicion for ACS at this time. D-dimer WNL. No evidence of DVT on exam. More suspicious for musculoskeletal etiology. Remainder of basic laboratory studies are concerning for dehydration. Given fluids and pain/nausea medication in the ED. Viral swabs are negative. UA without signs of infection. CT scan of abdomen/pelvis was obtained and without concerning features. Suspicious for gastroenteritis picture, stress reaction. Discussed lab and imaging findings extensively with patient. She is feeling better with supportive therapy in the ED. Overall workup is nonrevealing. Feel she is safe for discharge home at this time. Recommended follow-up with PCP for further evaluation. Will prescribe Bentyl and Zofran for home use. Discussed strict return precautions and patient voiced understanding. Discharged in stable condition. <Juanita Kramer PA-C - Last Filed: 04/25/24 02:06> Medical Records Data Attestation: I reviewed the patient's medical records. <Juanita Kramer PA-C - Last Filed: 04/25/24 02:06> Lab Data Attestation: I reviewed the patient's lab results. <Juanita Kramer PA-C - Last Filed: 04/25/24 02:06> Result diagrams: 04/24/24 13:20 04/24/24 13:20 <Sylvia Robles APRN - Last Filed: 04/24/24 13:12> Labs: Lab Results 04/24/24 04/24/24 04/24/24 Range/Units 13:20 17:01 19:25 WBC 12.1 H (4.5-10.0) K/mm3 RBC 4.72 (4.2-5.4) M/mm3 Hgb 13.3 (12.0-15.0) g/dL Hct 41.6 (37.0-47.0) % MCV 88.1 (80-100) fl MCH 28.2 (26-34) pg MCHC 32.0 (32-36) g/dl RDW 14.6 H (11.5-14.5) % Plt Count 206 (150-375) k/mm3 MPV 11.8 H (7.4-10.4) fl Immature Gran % (Auto) 0.3 (0-0.5) % Neut % (Auto) 92.4 H (45.5-73.1) % Lymph % (Auto) 4.8 L (18.3-44.2) % [place] % (Auto) 1.6 L (2.6-8.5) % Eos % (Auto) 0.7 (0-4.4) % Baso % (Auto) 0.2 (0.2-1.2) % Lymph # (Auto) 0.58 L (0.9-3.2) K/mm3 [place] # (Auto) 0.2 (0.1-0.6) K/mm3 Eos # (Auto) 0.1 (0-0.3) K/mm3 Baso # (Auto) 0.0 (0.0-0.1) K/mm3 Abs Immat Gran (auto) 0.04 H (0.00-0.031) K/mm3 Absolute Neuts (auto) 11.2 H (1.3-6.7) K/mm3 Absolute Nucleated RBC 0.000 (0.0-0.012) K/mm3 Nucleated RBC % 0.0 (0.0-0.2) % Platelet Estimate Adequate (Adequate) Anisocytosis 1+ Emmanuelle Cells 1+ Schistocytes None seen PT 14.1 (11.1-14.7) Seconds INR 1.1 APTT 30.3 (22.3-36.8) Seconds D-Dimer 0.39 (<0.48) ug/mL Sodium 138 (137-145) mmol/L Potassium 4.1 (3.4-5.0) mmol/L Chloride 104 (98-107) mmol/L Carbon Dioxide 19 L (22-30) mmol/L Anion Gap 15 H (4-12) mmol/L BUN 19 H (7-17) mg/dL Creatinine 0.73 (0.7-1.0) mg/dL Estim Creat Clear Calc 114 ml/min Estimated GFR > 60 (59 - ) Glucose 106 (65-110) mg/dL Calcium 8.8 (8.4-10.2) mg/dL Total Bilirubin 0.6 (0.2-1.3) mg/dL AST 23 (14-36) U/L ALT 16 (6-35) U/L Alkaline Phosphatase 70 (38-126) U/L Troponin I < 0.012 < 0.012 < 0.012 (0.000-0.034) ng/mL Total Protein 8.0 (6.3-8.2) g/dL Albumin 4.2 (3.5-5.1) g/dL Lipase 101 (23-300) U/L Urine Color (Yellow) Urine Appearance (Clear) Urine pH (5.0-9.0) Ur Specific [place] (1.001-1.035) Urine Protein (Negative) mg/dL Urine Glucose (UA) (Negative) mg/dL Urine Ketones (Negative) mg/dL Ur Blood (Man) (Negative) Urine Nitrate (Negative) Urine Bilirubin (Negative) Urine Urobilinogen (<2.0) mg/dL Leukocyte Esterase Rfl (Negative) NARESH/UL POC Urine HCG, Qual (Negative) Influenza A (RT-PCR) Negative (Negative) Influenza B (RT-PCR) Negative (Negative) RSV (RT-PCR) Negative (Negative) SARS-CoV-2 RNA (RT-PCR) Negative (Negative) 04/24/24 04/24/24 Range/Units 20:49 21:40 WBC (4.5-10.0) K/mm3 RBC (4.2-5.4) M/mm3 Hgb (12.0-15.0) g/dL Hct (37.0-47.0) % MCV (80-100) fl MCH (26-34) pg MCHC (32-36) g/dl RDW (11.5-14.5) % Plt Count (150-375) k/mm3 MPV (7.4-10.4) fl Immature Gran % (Auto) (0-0.5) % Neut % (Auto) (45.5-73.1) % Lymph % (Auto) (18.3-44.2) % [place] % (Auto) (2.6-8.5) % Eos % (Auto) (0-4.4) % Baso % (Auto) (0.2-1.2) % Lymph # (Auto) (0.9-3.2) K/mm3 [place] # (Auto) (0.1-0.6) K/mm3 Eos # (Auto) (0-0.3) K/mm3 Baso # (Auto) (0.0-0.1) K/mm3 Abs Immat Gran (auto) (0.00-0.031) K/mm3 Absolute Neuts (auto) (1.3-6.7) K/mm3 Absolute Nucleated RBC (0.0-0.012) K/mm3 Nucleated RBC % (0.0-0.2) % Platelet Estimate (Adequate) Anisocytosis Emmanuelle Cells Schistocytes PT (11.1-14.7) Seconds INR APTT (22.3-36.8) Seconds D-Dimer (<0.48) ug/mL Sodium (137-145) mmol/L Potassium (3.4-5.0) mmol/L Chloride (98-107) mmol/L Carbon Dioxide (22-30) mmol/L Anion Gap (4-12) mmol/L BUN (7-17) mg/dL Creatinine (0.7-1.0) mg/dL Estim Creat Clear Calc ml/min Estimated GFR (59 - ) Glucose (65-110) mg/dL Calcium (8.4-10.2) mg/dL Total Bilirubin (0.2-1.3) mg/dL AST (14-36) U/L ALT (6-35) U/L Alkaline Phosphatase (38-126) U/L Troponin I (0.000-0.034) ng/mL Total Protein (6.3-8.2) g/dL Albumin (3.5-5.1) g/dL Lipase (23-300) U/L Urine Color Yellow (Yellow) Urine Appearance Clear (Clear) Urine pH 5.5 (5.0-9.0) Ur Specific [place] 1.018 (1.001-1.035) Urine Protein Negative (Negative) mg/dL Urine Glucose (UA) Negative (Negative) mg/dL Urine Ketones Negative (Negative) mg/dL Ur Blood (Man) Negative (Negative) Urine Nitrate Negative (Negative) Urine Bilirubin Negative (Negative) Urine Urobilinogen 0.2 (<2.0) mg/dL Leukocyte Esterase Rfl Negative (Negative) NARESH/UL POC Urine HCG, Qual Negative (Negative) Influenza A (RT-PCR) (Negative) Influenza B (RT-PCR) (Negative) RSV (RT-PCR) (Negative) SARS-CoV-2 RNA (RT-PCR) (Negative) <Sylvia Robles, INCLUSION SPECIALIST - Last Filed: 04/24/24 13:12> Lab Results 04/24/24 04/24/24 04/24/24 Range/Units 13:20 17:01 19:25 WBC 12.1 H (4.5-10.0) K/mm3 RBC 4.72 (4.2-5.4) M/mm3 Hgb 13.3 (12.0-15.0) g/dL Hct 41.6 (37.0-47.0) % MCV 88.1 (80-100) fl MCH 28.2 (26-34) pg MCHC 32.0 (32-36) g/dl RDW 14.6 H (11.5-14.5) % Plt Count 206 (150-375) k/mm3 MPV 11.8 H (7.4-10.4) fl Immature Gran % (Auto) 0.3 (0-0.5) % Neut % (Auto) 92.4 H (45.5-73.1) % Lymph % (Auto) 4.8 L (18.3-44.2) % [place] % (Auto) 1.6 L (2.6-8.5) % Eos % (Auto) 0.7 (0-4.4) % Baso % (Auto) 0.2 (0.2-1.2) % Lymph # (Auto) 0.58 L (0.9-3.2) K/mm3 [place] # (Auto) 0.2 (0.1-0.6) K/mm3 Eos # (Auto) 0.1 (0-0.3) K/mm3 Baso # (Auto) 0.0 (0.0-0.1) K/mm3 Abs Immat Gran (auto) 0.04 H (0.00-0.031) K/mm3 Absolute Neuts (auto) 11.2 H (1.3-6.7) K/mm3 Absolute Nucleated RBC 0.000 (0.0-0.012) K/mm3 Nucleated RBC % 0.0 (0.0-0.2) % Platelet Estimate Adequate (Adequate) Anisocytosis 1+ [place] Cells 1+ Schistocytes None seen PT 14.1 (11.1-14.7) Seconds INR 1.1 APTT 30.3 (22.3-36.8) Seconds D-Dimer 0.39 (<0.48) ug/mL Sodium 138 (137-145) mmol/L Potassium 4.1 (3.4-5.0) mmol/L Chloride 104 (98-107) mmol/L Carbon Dioxide 19 L (22-30) mmol/L Anion Gap 15 H (4-12) mmol/L BUN 19 H (7-17) mg/dL Creatinine 0.73 (0.7-1.0) mg/dL Estim Creat Clear Calc 114 ml/min Estimated GFR > 60 (59 - ) Glucose 106 (65-110) mg/dL Calcium 8.8 (8.4-10.2) mg/dL Total Bilirubin 0.6 (0.2-1.3) mg/dL AST 23 (14-36) U/L ALT 16 (6-35) U/L Alkaline Phosphatase 70 (38-126) U/L Troponin I < 0.012 < 0.012 < 0.012 (0.000-0.034) ng/mL Total Protein 8.0 (6.3-8.2) g/dL Albumin 4.2 (3.5-5.1) g/dL Lipase 101 (23-300) U/L Urine Color (Yellow) Urine Appearance (Clear) Urine pH (5.0-9.0) Ur Specific [place] (1.001-1.035) Urine Protein (Negative) mg/dL Urine Glucose (UA) (Negative) mg/dL Urine Ketones (Negative) mg/dL Ur Blood (Man) (Negative) Urine Nitrate (Negative) Urine Bilirubin (Negative) Urine Urobilinogen (<2.0) mg/dL Leukocyte Esterase Rfl (Negative) NARESH/UL POC Urine HCG, Qual (Negative) Influenza A (RT-PCR) Negative (Negative) Influenza B (RT-PCR) Negative (Negative) RSV (RT-PCR) Negative (Negative) SARS-CoV-2 RNA (RT-PCR) Negative (Negative) 04/24/24 04/24/24 Range/Units 20:49 21:40 WBC (4.5-10.0) K/mm3 RBC (4.2-5.4) M/mm3 Hgb (12.0-15.0) g/dL Hct (37.0-47.0) % MCV (80-100) fl MCH (26-34) pg MCHC (32-36) g/dl RDW (11.5-14.5) % Plt Count (150-375) k/mm3 MPV (7.4-10.4) fl Immature Gran % (Auto) (0-0.5) % Neut % (Auto) (45.5-73.1) % Lymph % (Auto) (18.3-44.2) % [place] % (Auto) (2.6-8.5) % Eos % (Auto) (0-4.4) % Baso % (Auto) (0.2-1.2) % Lymph # (Auto) (0.9-3.2) K/mm3 [place] # (Auto) (0.1-0.6) K/mm3 Eos # (Auto) (0-0.3) K/mm3 Baso # (Auto) (0.0-0.1) K/mm3 Abs Immat Gran (auto) (0.00-0.031) K/mm3 Absolute Neuts (auto) (1.3-6.7) K/mm3 Absolute Nucleated RBC (0.0-0.012) K/mm3 Nucleated RBC % (0.0-0.2) % Platelet Estimate (Adequate) Anisocytosis Emmanuelle Cells Schistocytes PT (11.1-14.7) Seconds INR APTT (22.3-36.8) Seconds D-Dimer (<0.48) ug/mL Sodium (137-145) mmol/L Potassium (3.4-5.0) mmol/L Chloride (98-107) mmol/L Carbon Dioxide (22-30) mmol/L Anion Gap (4-12) mmol/L BUN (7-17) mg/dL Creatinine (0.7-1.0) mg/dL Estim Creat Clear Calc ml/min Estimated GFR (59 - ) Glucose (65-110) mg/dL Calcium (8.4-10.2) mg/dL Total Bilirubin (0.2-1.3) mg/dL AST (14-36) U/L ALT (6-35) U/L Alkaline Phosphatase (38-126) U/L Troponin I (0.000-0.034) ng/mL Total Protein (6.3-8.2) g/dL Albumin (3.5-5.1) g/dL Lipase (23-300) U/L Urine Color Yellow (Yellow) Urine Appearance Clear (Clear) Urine pH 5.5 (5.0-9.0) Ur Specific [place] 1.018 (1.001-1.035) Urine Protein Negative (Negative) mg/dL Urine Glucose (UA) Negative (Negative) mg/dL Urine Ketones Negative (Negative) mg/dL Ur Blood (Man) Negative (Negative) Urine Nitrate Negative (Negative) Urine Bilirubin Negative (Negative) Urine Urobilinogen 0.2 (<2.0) mg/dL Leukocyte Esterase Rfl Negative (Negative) NARESH/UL POC Urine HCG, Qual Negative (Negative) Influenza A (RT-PCR) (Negative) Influenza B (RT-PCR) (Negative) RSV (RT-PCR) (Negative) SARS-CoV-2 RNA (RT-PCR) (Negative) <Juanita Kramer PA-C - Last Filed: 04/25/24 02:06> Imaging Data Attestation: I personally reviewed and interpreted this imaging study as follows: < LAKIA Correa Last Filed: 04/25/24 02:06> Radiologist's impression: ITS Impressions Chest X-Ray 04/24/24 13:43 Impression: Normal chest. Abdomen/Pelvis CT 04/24/24 22:32 IMPRESSION: Hepatomegaly Likely involuting follicle within the left ovary. No acute pathology is otherwise detected within the abdomen or pelvis, as detailed above <LAKIA Correa Last Filed: 04/25/24 02:06> ECG Data EKG #1: Attestation: I personally reviewed and interpreted this ECG as follows: <Juanita Kramer PA-C - Last Filed: 04/25/24 02:06> ECG completion date: 04/24/24 <LAKIA Correa Last Filed: 04/25/24 02:06> ECG completion time: 13:07 <LAKIA Correa Last Filed: 04/25/24 02:06> EKG Interpretation: normal rate (94), sinus rhythm and non-specific ST changes <Juaniat Kramer PA-C - Last Filed: 04/25/24 02:06> Discharge Plan Discharge Clinical Impression: Atypical chest pain Nausea and vomiting Qualifiers: Vomiting type: unspecified Qualified Code(s): R11.2 - Nausea with vomiting, unspecified <Sylvia Robles APRN - Last Filed: 04/24/24 13:12> Patient Disposition: Home, Self-Care <Sylvia Robles APRN - Last Filed: 04/24/24 13:12> Condition: Stable <Sylvia Robles APRN - Last Filed: 04/24/24 13:12> Instructions: Antibiotic Form, Chest Pain (ED), Dehydration (ED), Gastroenteritis (ED), Acute Nausea and Vomiting (ED) <Sylvia Robles APRN - Last Filed: 04/24/24 13:12> Additional Instructions: Your workup here was reassuring against a cardiac cause of your chest pain. Utilize zofran as needed for further nausea. You may continue Tylenol, ibuprofen as needed for pain. You may use Bentyl as needed for abdominal discomfort. Increase fluid intake. Recommend electrolyte rich fluids, gatorade, pedialyte, body armour. Recommend clear liquids or bland diet until symptoms improve, such as bananas, rice, applesauce, toast, or crackers. Follow up with your primary care doctor for further evaluation. Return to the ED if you experience worsening or severe symptoms, severe chest pain, difficulty breathing, unable to keep down food or drink, severe pain, fevers, rectal bleeding, vomiting blood, or any other symptoms of concern. <Sylvia Robles APRN - Last Filed: 04/24/24 13:12> Patient Language: Khmer <Sylvia Robles APRN - Last Filed: 04/24/24 13:12> Prescriptions: New dicyclomine 20 mg tablet 20 mg PO TID PRN (Reason: Abdominal Discomfort) Qty: 15 0RF ondansetron 4 mg tablet,disintegrating 4 mg PO Q8H PRN (Reason: nausea and vomiting) Qty: 15 0RF No Action cholecalciferol (vitamin D3) 1,250 mcg (50,000 unit) capsule 1,250 mcg PO WEEKLY Rx Instructions: 2 times a week on Tuesdays and Saturdays spironolactone 100 mg tablet 100 mg PO DAILY doxycycline hyclate 100 mg capsule 100 mg PO DAILY levetiracetam [Keppra] 750 mg tablet 750 mg PO Q12H Qty: 60 6RF multivitamin Tablet 1 tablet PO DAILY pantoprazole 40 mg tablet,delayed release (DR/EC) 40 mg PO DAILY <Sylvia Robles APRN - Last Filed: 04/24/24 13:12> Follow-up/Referrals: Douglas Leach MD [Primary Care Provider] - <Sylvia Robles APRN - Last Filed: 04/24/24 13:12> Time of Disposition: 23:10 <Sylvia Robles APRN - Last Filed: 04/24/24 13:12> 23:10 <Juanita Kramer PA-C - Last Filed: 04/25/24 02:06> Quality HEART score for chest pain patients History: slightly suspicious <Juanita Kramer PA-C - Last Filed: 04/25/24 02:06> ECG: normal <Juanita Kramer PA-C - Last Filed: 04/25/24 02:06> Age: < or = to 45 years <LAKIA Correa Last Filed: 04/25/24 02:06> Risk factors: 1 or 2 risk factors <Juanita Kramer PA-C - Last Filed: 04/25/24 02:06> Troponin: < or = to 1x normal limit <Juanita Kramer PA-C - Last Filed: 04/25/24 02:06> Heart score: 1 <Juanita Kramer PA-C - Last Filed: 04/25/24 02:06>
[2024-04-24 13:33] LABS: Basophils Percent Auto 0.2 % (0.2-1.2); Eosinophils Absolute Auto 0.1 K/mm3 (0-0.3); Eosinophils Percent Auto 0.7 % (0-4.4); Hematocrit 41.6 % (37.0-47.0); Hemoglobin 13.3 g/dL (12.0-15.0); Immature Granulocyte Absolute 0.04 K/mm3 (0.00-0.031); Immature Granulocyte Percent A 0.3 % (0-0.5); Lymphocytes Absolute Auto 0.58 K/mm3 (0.9-3.2); Lymphocytes Percent Auto 4.8 % (18.3-44.2); Mean Corpuscular Hemoglobin 28.2 pg (26-34); Mean Corpuscular Volume 88.1 fl (80-100); Mean Platelet Volume 11.8 fl (7.4-10.4); Monocytes Absolute Auto 0.2 K/mm3 (0.1-0.6); Monocytes Percent Auto 1.6 % (2.6-8.5); Neutrophils Absolute Auto 11.2 K/mm3 (1.3-6.7); Neutrophils Percent Auto 92.4 % (45.5-73.1); Platelet Count Result 206 k/mm3 (150-375); Red Blood Count 4.72 M/mm3 (4.2-5.4); Red Cell Distribution Width 14.6 % (11.5-14.5); White Blood Count 12.1 K/mm3 (4.5-10.0)
[2024-04-24 13:43] LABS: INR 1.1; Prothrombin Time 14.1 Seconds (11.1-14.7)
[2024-04-24 13:44] LABS: Alanine Aminotransferase 16 U/L (6-35); Albumin Level 4.2 g/dL (3.5-5.1); Alkaline Phosphatase 70 U/L (38-126); Anion Gap 15 mmol/L (4-12); Aspartate Amino Transferase 23 U/L (14-36); Bilirubin,Total 0.6 mg/dL (0.2-1.3); Blood Urea Nitrogen 19 mg/dL (7-17); Calcium 8.8 mg/dL (8.4-10.2); Carbon Dioxide 19 mmol/L (22-30); Chloride 104 mmol/L (98-107); Estimated CRCL calculation 114 ml/min; Estimated Glomerular Filt Rate > 60; Glucose 106 mg/dL (65-110); Lipase 101 U/L (23-300); Partial Thromboplastin Time 30.3 Seconds (22.3-36.8); Potassium 4.1 mmol/L (3.4-5.0); Sodium 138 mmol/L (137-145)
[2024-04-24 13:55] LABS: Troponin I < 0.012 ng/mL (0.000-0.034)
[2024-04-24 14:01] LABS: Anisocytosis 1+; Burr Cells 1+; Platelet Estimate Adequate (Adequate); Schistocytes None Seen
[2024-04-24] MEDS: ASPIRIN 81 MG CHEWABLE TABLET 324 MG PO (14:26)
--- NOTE | 2024-04-24 16:49 | ECG_ITS ---
Test Date: 2024-04-24 17:01:42 Measurements Intervals [place] Rate: 90 P: 28 [place]: 176 QRS: -53 QRSD: 85 T: 43 QT: 345 QTc: 423 Interpretive Statements SINUS RHYTHM PATTERN CONSISTENT WITH PULMONARY DISEASE LEFT ANTERIOR FASCICULAR BLOCK [QRS AXIS <= -45, QR IN I, RS IN II] Compared to ECG 04/24/2024 13:07:09 No significant changes Electronically Signed On 04-25-2024 11:52:20 INSURANCE CLAIMS ADJUSTER by Sunni Eagle
--- NOTE | 2024-04-24 17:07 | PC.NURSE ---
IV started and repeat troponin obtained and sent to lab. Pt reports another episode of chest pain, lasted approx 30 seconds, left chest to left arm. Pt endorses nausea as well. Pt reports her mother suddenly from large [place] approximately one month ago with no known cardiac history. Pt denies any cardiac history other than this. Pt also reports she missed her Keppra dose that she normally takes at 1300 due to nausea and a vomiting episode early. Provided made aware.
[2024-04-24 17:36] LABS: Troponin I < 0.012 ng/mL (0.000-0.034)
[2024-04-24 17:50] LABS: Influenza A QL RT-PCR Negative (Negative); Influenza B QL RT-PCR Negative (Negative); RSV RNA, RT-PCR Negative (Negative); SARS-CoV-2 RNA PCR Negative (Negative)
[2024-04-24] MEDS: ONDANSETRON INJ 4 MG/2 ML VIAL IV PUSH (17:53)
[2024-04-24] MEDS: ACETAMINOPHEN 500 MG TABLET 1000 MG PO (19:13)
[2024-04-24] MEDS: SODIUM CHLORIDE 0.9% IV 1,000 ML 999 ML IV CONT (19:14)
--- NOTE | 2024-04-24 19:33 | ECG_ITS ---
Test Date: 2024-04-24 19:43:44 Measurements Intervals [place] Rate: 84 P: 28 CT: 182 QRS: -46 QRSD: 92 T: 46 QT: 357 QTc: 424 Interpretive Statements SINUS RHYTHM LEFT ANTERIOR FASCICULAR BLOCK [QRS AXIS <= -45, QR IN I, RS IN II] Compared to ECG 04/24/2024 17:01:42 No significant changes Electronically Signed On 04-25-2024 11:53:17 SURVEY OPERATIONS DIRECTOR by Sunni Eagle
[2024-04-24] MEDS: levETIRAcetam Tablet 250 MG, levETIRAcetam Tablet 500 MG 750 MG PO (19:38)
[2024-04-24 19:43] LABS: D Dimer 0.39 ug/mL (<0.48)
[2024-04-24 19:55] LABS: Troponin I < 0.012 ng/mL (0.000-0.034)
[2024-04-24 20:55] LABS: Add Urine Microscopic? NO; Appearance Urine Clear (Clear); Bilirubin Urine Negative (Negative); Blood Urine Negative (Negative); Color Urine Yellow (Yellow); Glucose Urine UA Negative (Negative); Ketones Urine Negative (Negative); Leukocyte Esterase Ur Negative LEU/UL (Negative); Nitrate Urine Negative (Negative); Protein Urine Negative (Negative); Specific Grav Ur 1.018 (1.001-1.035); Urobilinogen Urine 0.2 mg/dL (<2.0); pH Urine 5.5 (5.0-9.0)
[2024-04-24 21:42] LABS: BEDSIDEPREGUCG Negative (Negative)
--- OUTSIDE RECORDS SUMMARY | 2024-04-25 05:05 | XMS_ITS | Data Portability ---
Author Organization [place] - [employer] Main Office Address [address] [place] [address] Assessment Encounter Date Assessment Date Assessment LastModified by Organization Details LastModified Time 09/26/2023 09/26/2023 Assessment: Mild OSAHS, AHI = 8 PLMD Hypoventilation Plan: The following were reviewed and explained to the patient: primary care/referral note [place] diagnostic sleep study 11/25/13 sleep onset = 14 minutes, REM onset = 95.5 minutes, AHI = 8, PLMI = 9 [place] titration sleep study 12/24/13 sleep onset = 15 minutes, REM onset = 77.5 minutes, Leung [employer] Jeremias small Simplus full face mask @ 14 cmH2O, PLMI = 0.0 Keep CPAP at 14 cmH2O. Keep ramp start at 4 cmH2O. Keep ramp duration at 20 minutes. Keep EPR +2 time study statistician. Keep humidifier at level 4. General information on sleep disordered breathing, evaluation of sleep disordered breathing, treatment with PAP therapy, and living with PAP therapy were covered. PSG is medically necessary to re-determine the degree of and management of sleep apnea. We discussed with the patient the impact of weight on: Sleep disordered breathing DM CAMMIE Cholelithiasis We discussed with the patient the benefit of PAP therapy on: Sleep disordered breathing Headaches Rhinitis DM CAMMIE Educated the patient on sleep hygiene measures. Relaxing rituals to rest easy, understanding foods with positive and negative impact on sleep, creating a peaceful sleep environment, timing of exercise, using herbal sleep aids, and practicing sleep-friendly meditation were covered. To determine how much sleep is needed, the patient will assess where she falls on the spectrum, examine what lifestyle factors such as work schedules and stress are affecting the quality and quantity of sleep. In general, adults need 7-9 hours of sleep. Educated the patient regarding foods that promote sleep. These include but are not limited to cherries, bananas, toast, oatmeal, and warm milk. Educated the patient regarding foods and drinks to avoid before bedtime. These include but are not limited to aged cheese, chocolate, spicy foods, tomato-based sauces, soy, ginseng tea and processed meat. Advocated influenza vaccination annually and pneumonia vaccination JACQUELYN. Advocated weight loss through diet and exercise. Patient's ideal body weight according to height and gender is up to 125 lbs. Encouraged patient to adjust caloric intake to maintain/achieve ideal body weight, emphasizing on fruits, vegetables, whole grains, and fat-free or low-fat products. These include lean meats, poultry, fish, beans, eggs, and nuts and foods that are low in saturated fats, trans-fats, cholesterol, salt (sodium), and glycemic index. Stressed the importance of regular exercise up to the patient's capacity limits. In this case, we recommend 20 min daily walking, 2 days a week of resistance training. Patient to monitor BP daily and bring records to PCP for further management. Follow-up: 1 week after diagnostic sleep study [email or web address] Not available 09/26/2023 16:07:07 11/07/2023 11/07/2023 Assessment: Persistent early REM onset Mod OSAHS, AHI = 26 Hypoventilation Plan: The following were reviewed and explained to the patient: [place] diagnostic sleep study 11/25/13 sleep onset = 14 minutes, REM onset = 95.5 minutes, AHI = 8, PLMI = 9 [place] titration sleep study 12/24/13 sleep onset = 15 minutes, REM onset = 77.5 minutes, Nickie small Simplus full face mask @ 14 cmH2O, PLMI = 0.0 [facility] diagnostic sleep study 11/02/23 sleep onset = 33.5 minutes, REM onset = 75 minutes, AHI = 26, REM AHI = 28, supine AHI = 112, PLMI = 0.0 Keep CPAP at 14 cmH2O until titration sleep study. Keep ramp start at 4 cmH2O. Keep ramp duration at 20 minutes. Keep EPR +2 time study statistician. Keep humidifier at level 4. General information on sleep disordered breathing, evaluation of sleep disordered breathing, treatment with PAP therapy, and living with PAP therapy were covered. PSG is medically necessary to re-determine the management of sleep apnea. We discussed with the patient the impact of weight on: Sleep disordered breathing DM CAMMIE Cholelithiasis We discussed with the patient the benefit of PAP therapy on: Sleep disordered breathing Headaches Rhinitis DM CAMMIE Educated the patient on sleep hygiene measures. Relaxing rituals to rest easy, understanding foods with positive and negative impact on sleep, creating a peaceful sleep environment, timing of exercise, using herbal sleep aids, and practicing sleep-friendly meditation were covered. To determine how much sleep is needed, the patient will assess where she falls on the spectrum, examine what lifestyle factors such as work schedules and stress are affecting the quality and quantity of sleep. In general, adults need 7-9 hours of sleep. Educated the patient regarding foods that promote sleep. These include but are not limited to cherries, bananas, toast, oatmeal, and warm milk. Educated the patient regarding foods and drinks to avoid before bedtime. These include but are not limited to aged cheese, chocolate, spicy foods, tomato-based sauces, soy, ginseng tea and processed meat. Advocated influenza vaccination annually and pneumonia vaccination JACQUELYN. Advocated weight loss through diet and exercise. Patient's ideal body weight according to height and gender is up to 125 lbs. Encouraged patient to adjust caloric intake to maintain/achieve ideal body weight, emphasizing on fruits, vegetables, whole grains, and fat-free or low-fat products. These include lean meats, poultry, fish, beans, eggs, and nuts and foods that are low in saturated fats, trans-fats, cholesterol, salt (sodium), and glycemic index. Stressed the importance of regular exercise up to the patient's capacity limits. In this case, we recommend 20 min daily walking, 2 days a week of resistance training. Patient to monitor BP daily and bring records to PCP for further management. Follow-up: 1 week after titration sleep study Not available 11/07/2023 11:28:51 12/24/2023 12/24/2023 Assessment: Persistent early REM onset Mod OSAHS, AHI = 26 Plan: The following were reviewed and explained to the patient: [place] diagnostic sleep study 11/25/13 sleep onset = 14 minutes, REM onset = 95.5 minutes, AHI = 8, PLMI = 9 [place] titration sleep study 12/24/13 sleep onset = 15 minutes, REM onset = 77.5 minutes, Madhu & Jeremias small Simplus full face mask @ 14 cmH2O, PLMI = 0.0 [facility] diagnostic sleep study 11/02/23 sleep onset = 33.5 minutes, REM onset = 75 minutes, AHI = 26, REM AHI = 28, supine AHI = 112, PLMI = 0.0 [facility] titration sleep study 11/27/23 sleep onset = 38 minutes, REM onset = 72.5 minutes, Respironics medium wide DreamWear full face mask @ 7-9 cmH2O, PLMI = 0.0 Educated the patient on problems and solutions associated with positive airway pressure (PAP) use. Difficulty tolerating pressure, mask leaks, intolerance of interface, nasal congestion, claustrophobic response, dry mouth, and unintentional mask removal during sleep were covered. ResMed Air Sense 11 auto set unit with heated humidifier, supplies and Respironics medium wide DreamWear full face mask @ 7-9 cmH2O ordered. Further titration will be based on clinical response. PAP is set at 14 cmH2O. PAP will be reset at 7-9 cmH2O. Keep ramp start at 4 cmH2O. Keep ramp duration at 20 minutes. Keep EPR +2 time study statistician. Keep humidifier at level 4. Provided the patient with a list of local home care stores where positive airway pressure (PAP) units, accoutrement, and services are available. Home care store selection is based on patient's insurance carrier. Patient will setup an appointment with [facility] for supplies and pressure adjustments. A major predictor of success with use of PAP is follow-up with both the respiratory supplier and the treating physician. The respiratory supplier optimally will follow-up within two weeks after starting use while the treating physician optimally will follow-up within 90 days after starting therapy to assess adherence and effectiveness of treatment. The download results can show the treating physician information about adherence to treatment, residual AHI while on treatment and presence of large mask leakage. This information is especially helpful if the patient has residual sleepiness despite treatment. General information on sleep disordered breathing, evaluation of sleep disordered breathing, treatment with PAP therapy, and living with PAP therapy were covered. We discussed with the patient the impact of weight on: Sleep disordered breathing DM CAMMIE Cholelithiasis We discussed with the patient the benefit of PAP therapy on: Sleep disordered breathing Headaches Rhinitis DM CAMMIE Educated the patient on sleep hygiene measures. Relaxing rituals to rest easy, understanding foods with positive and negative impact on sleep, creating a peaceful sleep environment, timing of exercise, using herbal sleep aids, and practicing sleep-friendly meditation were covered. To determine how much sleep is needed, the patient will assess where she falls on the spectrum, examine what lifestyle factors such as work schedules and stress are affecting the quality and quantity of sleep. In general, adults need 7-9 hours of sleep. Educated the patient regarding foods that promote sleep. These include but are not limited to cherries, bananas, toast, oatmeal, and warm milk. Educated the patient regarding foods and drinks to avoid before bedtime. These include but are not limited to aged cheese, chocolate, spicy foods, tomato-based sauces, soy, ginseng tea and processed meat. Advocated influenza vaccination annually and pneumonia vaccination JACQUELYN. Advocated weight loss through diet and exercise. Patient's ideal body weight according to height and gender is up to 125 lbs. Encouraged patient to adjust caloric intake to maintain/achieve ideal body weight, emphasizing on fruits, vegetables, whole grains, and fat-free or low-fat products. These include lean meats, poultry, fish, beans, eggs, and nuts and foods that are low in saturated fats, trans-fats, cholesterol, salt (sodium), and glycemic index. Stressed the importance of regular exercise up to the patient's capacity limits. In this case, we recommend 20 min daily walking, 2 days a week of resistance training. Patient to monitor BP daily and bring records to PCP for further management. Follow-up: 3 months, March 2024 Not available 12/24/2023 15:29:44 02/25/2024 02/25/2024 Assessment: Persistent early REM onset Mod OSAHS, AHI = 26 Plan: The following were reviewed and explained to the patient: [place] diagnostic sleep study 11/25/13 sleep onset = 14 minutes, REM onset = 95.5 minutes, AHI = 8, PLMI = 9 [place] titration sleep study 12/24/13 sleep onset = 15 minutes, REM onset = 77.5 minutes, Nickie small Simplus full face mask @ 14 cmH2O, PLMI = 0.0 [facility] diagnostic sleep study 11/02/23 sleep onset = 33.5 minutes, REM onset = 75 minutes, AHI = 26, REM AHI = 28, supine AHI = 112, PLMI = 0.0 [facility] titration sleep study 11/27/23 sleep onset = 38 minutes, REM onset = 72.5 minutes, Respironics medium wide DreamWear full face mask @ 7-9 cmH2O, PLMI = 0.0 Educated the patient on problems and solutions associated with positive airway pressure (PAP) use. Difficulty tolerating pressure, mask leaks, intolerance of interface, nasal congestion, claustrophobic response, dry mouth, and unintentional mask removal during sleep were covered. PAP compliance downloaded and interpreted x 20 minutes. Data reviewed and explained to the patient. Average apnea/hypopnea index (AHI) is 3.3. Patient used PAP > 4 hours 0% of the time. PAP is set at 7-9 cmH2O. PAP will be reset at 4-9 cmH2O. Keep ramp off. Turn EPR +2 from ramp only to time study statistician. Keep humidifier at level 4. Keep tube temperature at 80 F. Provided the patient with a list of local home care stores where positive airway pressure (PAP) units, accoutrement, and services are available. Home care store selection is based on patient's insurance carrier. Patient will setup an appointment with [facility] for supplies and pressure adjustments. A major predictor of success with use of PAP is follow-up with both the respiratory supplier and the treating physician. The respiratory supplier optimally will follow-up within two weeks after starting use while the treating physician optimally will follow-up within 90 days after starting therapy to assess adherence and effectiveness of treatment. The download results can show the treating physician information about adherence to treatment, residual AHI while on treatment and presence of large mask leakage. This information is especially helpful if the patient has residual sleepiness despite treatment. General information on sleep disordered breathing, evaluation of sleep disordered breathing, treatment with PAP therapy, and living with PAP therapy were covered. We discussed with the patient the impact of weight on: Sleep disordered breathing DM CAMMIE Cholelithiasis We discussed with the patient the benefit of PAP therapy on: Sleep disordered breathing Headaches Rhinitis DM CAMMIE Educated the patient on sleep hygiene measures. Relaxing rituals to rest easy, understanding foods with positive and negative impact on sleep, creating a peaceful sleep environment, timing of exercise, using herbal sleep aids, and practicing sleep-friendly meditation were covered. To determine how much sleep is needed, the patient will assess where she falls on the spectrum, examine what lifestyle factors such as work schedules and stress are affecting the quality and quantity of sleep. In general, adults need 7-9 hours of sleep. Educated the patient regarding foods that promote sleep. These include but are not limited to cherries, bananas, toast, oatmeal, and warm milk. Educated the patient regarding foods and drinks to avoid before bedtime. These include but are not limited to aged cheese, chocolate, spicy foods, tomato-based sauces, soy, ginseng tea and processed meat. Advocated influenza vaccination annually and pneumonia vaccination JACQUELYN. Advocated weight loss through diet and exercise. Patient's ideal body weight according to height and gender is up to 125 lbs. Encouraged patient to adjust caloric intake to maintain/achieve ideal body weight, emphasizing on fruits, vegetables, whole grains, and fat-free or low-fat products. These include lean meats, poultry, fish, beans, eggs, and nuts and foods that are low in saturated fats, trans-fats, cholesterol, salt (sodium), and glycemic index. Stressed the importance of regular exercise up to the patient's capacity limits. In this case, we recommend 20 min daily walking, 2 days a week of resistance training. Patient to monitor BP daily and bring records to PCP for further management. Follow-up: 1 year, January 2025 Not available 02/25/2024 16:01:24 Plan of Treatment Reminders Order Date Submit Date Provider Last Modified By Organization Details Last Modified Time Details Appointments Any 30 2024 02:00P Kylah Berman MD Not available Not available Not available Lab None recorded. Referral None recorded. Procedures None recorded. Surgeries None recorded. Imaging polysomno gram, diagnosti c, 6 yrs or older - Auth #[id number] 22 4- 024 2023 024 GHAZALA [facility], [address] [place], [address], 11/06/2023 17:23:07 polysomno gram, titration study [email or web address] [facility] [place], [address] [place], [address], 12/04/2023 08:03:48 Medication Orders None recorded. Patient TargetsNo targets recorded. Patient InstructionsNo instructions recorded. Reason for Referral None Reported. Results Created Date Observation Date Name Description Value Unit Range Abnormal Flag Note LastModifiedBy Organization Detail LastModifiedTime 07/31/1907/31/2020 proge stero ne, serum progesterone 6.9 NG/mL normal Refer ence Range s Femal e Folli cular Phase < 1.0 Lutea l Phase 2.6-2 1.5 Post menop ausal < 0.5 Pregn varghese 1st Trime ster 4.1-3 4.0 2nd Trime ster 24.0- 76.0 3rd Trime ster 52.0- 302.0 Not Available [facility] [address] [place], [address], 07/31/2020 05:51:55 09/04/19 24 11/25/2013 polys omnog eimly, diagn ostic , 6 yrs or older No observ ation record ed. [facility] Not Available 2023 13:09:54 09/04/19 24 12/24/2013 polys omnog emily, titra tion study No observ ation record ed. [facility] Not Available 2023 13:09:55 11/06/19 24 11/02/2023 polys omnog emily, diagn ostic , 6 yrs or older No observ ation record ed. [facility] [place] [address] [place], [address], 11/06/2023 17:23:07 11/30/19 24 11/27/2023 polys omnog emily, titra tion study No observ ation record ed. [facility] [place] [address] [place], [address], 11/30/2023 15:49:20 Result Notes None recorded. Problems Name Problem SNOMED Code Status Onset Date Resolution Date Notes Provider Name and Address Organization Details Recorded Time Vaginal discharge 023291119 Completed Not Available [facility] 3 04:54:38 Migraine 10300156 Active Not Available [facility] 3 04:54:38 Obese 691666375 Active Not Available [facility] 3 04:54:39 Obstructiv e sleep apnea syndrome 78886028 Active 2023 Sixto Berman MD [address], [facility] [address], [place], [address] , [facility] [employer] 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 Procedures Surgical History Date Name Laterality Status Provider Name and Address Organization Details Recorded Time 04/27/19 21 PROVIDER NETWORK MANAGER Procedure completed Not Available Replaced by [facility] 2022 04:44:18 04/22/19 21 laparoscopic sleeve gastrectomy completed Not Available Replaced by [facility] 05/31/2022 04:44:18 07/05/19 19 PROVIDER NETWORK MANAGER Procedure completed Not Available Replaced by [facility] 2022 04:44:18 05/28/19 19 Date of Last Pap Smear completed Not Available Replaced by [facility] 05/31/2022 04:44:14 10/12/19 16 PROVIDER NETWORK MANAGER Procedure completed Not Available Replaced by [facility] 2022 04:44:18 11/12/19 11 PROVIDER NETWORK MANAGER Procedure completed Not Available Replaced by [facility] 2022 04:44:18 other completed Not Available Replaced by [facility] 04/2022 04:44:18 Imaging Results Imaging Date Name Status LastModified by Organiz ation Details LastModified Time 11/25/2013 polysomnogram, diagnostic, 6 yrs or older completed [facility] Information not available 09/04/2023 13:09:54 12/24/2013 polysomnogram, titration study completed [facility] Information not available 09/04/2023 13:09:55 11/02/2023 polysomnogram, diagnostic, 6 yrs or older completed [facility] [address], [place], [address], 11/06/2023 17:23:07 11/27/2023 polysomnogram, titration study completed [facility] [place] [address] [facility], [place], [address], 11/30/2023 15:49:20 Procedure Notes None recorded. Medical Equipment None Reported. Allergies Allergen ID Allergen Name Allergen Category Reaction Reaction Severity Criticality Documentation Date Start Date Code Code System Note Provider Name and Address Organization Details Recorded Time 19414 egg extract food,medi cation hives Not available Not available 09/16/2023 62250 15 RxNorm Sixto Berman MD [address] [facility] [address], [place], [address], [employer] 4 16:20:18 25838 peanut allergeni c extract food,medi cation anaphylax is Not available Not available 09/16/2023 56795 8 RxLeighton Berman MD [address] [facility], [place] [facility], [place], [address], [employer] 4 16:20:50 22411 tomato allergeni c extract food hives Not available Not available 09/16/2023 87373 9 RxLeighton Berman MD [address] [facility], [place] [facility], [place], [address], [employer] 4 16:21:04 Medications Name Sig Start Date Stop Date Status Note LastModified by Organization Details LastModified Time cyclobenz aprine 10 mg tablet 12/28 completed Not Available Not Available Not Available Mirena 21 mcg/24 hr (up to 8 years) 52 mg intrauter ine device Take 1 device by intraute rine route. 07/21 completed Not Available Not Available Not Available promethaz ine-DM 6.25 mg-15 mg/5 mL oral syrup active Not Available Not Available Not Available prednison e 10 mg tablet active Not Available Not Available Not Available doxycycli ne hyclate 100 mg capsule TAKE 1 CAPSULE BY MOUTH TWICE DAILY WITH LARGE GLASS OF WATER. DO NOT LIE DOWN FOR 2 HOURS AFTER TAKING 09/25 completed Not Available Not Available Not Available triamcino lone acetonide 0.5 % topical cream 12/28 completed Not Available Not Available Not Available cetirizin e 10 mg tablet TAKE 1 TABLET BY MOUTH DAILY 09/25 completed Not Available Not Available Not Available azithromy richmond 250 mg tablet active Not Available Not Available No t Available ibuprofen 800 mg tablet 05/28 completed Not Available Not Available Not Available Lidocaine Viscous 2 % mucosal solution active Not Available Not Available Not Available ofloxacin 0.3 % eye drops INSTILL 1 DROP INTO BOTH EYES EVERY 6 HOURS FOR 5 DAYS 09/25 completed Not Available Not Available Not Available fluconazo le 150 mg tablet TAKE 1 TABLET BY MOUTH EVERY 72 HOURS active Not Available Not Available No t Available hydrocodo ne 5 mg-acetam inophen 325 mg tablet TK 1 T PO Q 4 TO 6 H PRF PAIN active Not Available Not Available No t Available Nystop 100,000 unit/gram topical powder APPLY LIGHT COATING UNDER RIGHT ARM AND PUT DRY WASH CLOTH OVER IT TWICE DAILY 09/15 completed Not Available Not Available Not Available metronida zole 0.75 % (37.5 mg/5 gram) vaginal gel IVB FOR 5 DAYS active Not Available Not Available No t Available prednison e 20 mg tablet active Not Available Not Available Not Available spironola ctone 100 mg tablet TAKE 1 TABLET BY MOUTH EVERY DAY active Not Available Not Available No t Available phentermi ne 15 mg capsule TK 1 C PO D IN THE MORNING 05/28 completed Not Available Not Available Not Available triamcino lone acetonide 0.5 % topical ointment 05/29 completed Not Available Not Available Not Available metronida zole 500 mg tablet TK 1 T PO Q 12 H active Not Available Not Available No t Available phentermi ne 37.5 mg tablet active Not Available Not Available No t Available fluocinon catracho 0.05 % topical ointment APPLY TOPICALL Y TO THE AFFECTED AREA(S) TWICE DAILY 12/28 completed Not Available Not Available Not Available amlodipin e 5 mg tablet TAKE 1 TABLET BY MOUTH EVERY DAY 09/25 completed Not Available Not Available Not Available sulfameth oxazole 800 mg-trimet hoprim 160 mg tablet 05/28 completed Not Available Not Available Not Available omeprazol e 40 mg capsule,d elayed release TAKE 1 CAPSULE BY MOUTH EVERY DAY BEFORE MEAL 09/25 completed Not Available Not Available Not Available doxycycli ne monohydra te 100 mg tablet 05/28 completed Not Available Not Available Not Available tramadol 50 mg tablet TAKE 2 TABLETS BY MOUTH EVERY 6 HOURS NEEDED FOR PAIN 09/25 completed Not Available Not Available Not Available ondansetr on 8 mg disintegr ating tablet DISSOLVE 1 TABLET ON THE TONGUE EVERY 8 HOURS NEEDED FOR NAUSEA OR VOMITING 09/15 completed Not Available Not Available Not Available amoxicill in 875 mg tablet TAKE 1 TABLET BY MOUTH EVERY 12 HOURS FOR 10 DAYS 09/25 completed Not Available Not Available Not Available prednisol one acetate 1 % eye drops,thomas pension SHAKE LIQUID AND INSTILL 1 DROP IN BOTH EYES THREE TIMES DAILY 09/25 completed Not Available Not Available Not Available methocarb carmenza 750 mg tablet TAKE 1 TABLET BY MOUTH EVERY 8 HOURS NEEDED FOR MODERATE PAIN 09/25 completed Not Available Not Available Not Available clindamyc in 1 % topical gel APPLY TO THE AFFECTED AREA IN GROIN TWICE DAILY 09/25 completed Not Available Not Available Not Available benzonata te 100 mg capsule TAKE 2 CAPSULES BY MOUTH EVERY 8 HOURS NEEDED 09/15 completed Not Available Not Available Not Available doxycycli ne monohydra te 100 mg capsule 12/28 completed Not Available Not Available Not Available pantopraz ole 40 mg tablet,de layed release TAKE 1 TABLET BY MOUTH EVERY DAY active Not Available Not Available No t Available triamcino lone acetonide 0.1 % topical ointment SERVANDO THIN LAYER EXT AA BID 09/15 completed Not Available Not Available Not Available ranitidin e 150 mg tablet TK 1 T PO BID 05/28 completed Not Available Not Available Not Available polymyxin B sulfate 10,000 unit-trim ethoprim 1 mg/mL eye drops INSTILL 2 DROPS IN BOTH EYES EVERY 4 HOURS 09/15 completed Not Available Not Available Not Available docusate sodium 100 mg capsule TAKE 1 CAPSULE BY MOUTH TWICE DAILY 09/25 completed Not Available Not Available Not Available omeprazol e 20 mg capsule,d elayed release TK ONE C PO QD active Not Available Not Available No t Available cephalexi n 500 mg tablet TAKE 1 TABLET BY MOUTH EVERY 12 HOURS 09/25 completed Not Available Not Available Not Available monteluka st 10 mg tablet TAKE 1 TABLET BY MOUTH EVERY DAY IN THE EVENING 09/25 completed Not Available Not Available Not Available ergocalci ferol (vitamin D2) 1,250 mcg (50,000 unit) capsule TAKE 1 CAPSULE BY MOUTH WEEKLY 09/15 completed Not Available Not Available Not Available lotepredn ol etabonate 0.5 % eye drops,thomas pension SHAKE LIQUID AND INSTILL 1 DROP IN BOTH EYES THREE TIMES DAILY DIRECTED active Not Available Not Available No t Available epinephri ne 0.3 mg/0.3 mL injection , auto-inje ctor ADMINIST ER 0.3 ML IN THE MUSCLE 1 TIME NEEDED FOR ANAPHYLA XIS active Not Available Not Available No t Available polyethyl erendira glycol 3350 17 gram/dose oral powder MIX 17GM WITH LIQUID AND TAKE EVERY DAY 09/15 completed Not Available Not Available Not Available albuterol sulfate HFA 90 mcg/actua tion aerosol inhaler INHALE 2 PUFFS BY MOUTH EVERY 4 HOURS NEEDED active Not Available Not Available No t Available fluticaso ne propionat e 50 mcg/actua tion nasal spray,thomas pension active Not Available Not Available Not Available doxycycli ne hyclate 100 mg tablet TK 1 T PO BID active Not Available Not Available No t Available Sudafed 12 Hour 120 mg tablet,ex tended release active Not Available Not Available Not Available phentermi ne 37.5 mg capsule TK ONE C PO QAM FOR 60 DAYS 05/29 completed Not Available Not Available Not Available naproxen 500 mg tablet 12/28 completed Not Available Not Available Not Available spironola ctone 50 mg tablet TAKE 1 TABLET BY MOUTH THREE TIMES DAILY active Not Available Not Available No t Available amoxicill in 875 mg-potass ium clavulana te 125 mg tablet TAKE 1 TABLET BY MOUTH TWICE DAILY FOR 7 DAYS 02/24 completed Not Available Not Available Not Available oxycodone 5 mg tablet TAKE 1 TABLET BY MOUTH EVERY 6 HOURS NEEDED FOR BREAKTHR OUGH PAIN 09/25 completed Not Available Not Available Not Available clindamyc in 1 % lotion APPLY TOPICALL Y TO GROIN TWICE DAILY 09/25 completed Not Available Not Available Not Available Vitamin D 09/15 completed Not Available Not Available Not Available cholecalc iferol (vitamin D3) 1,250 mcg (50,000 unit) capsule active Not Available Not Available Not Available Plan B One-Step 1.5 mg tablet Take 1 tablet as needed by oral route. 09/15 completed to be taken w/i 72 hrs of sexual encounte r; repeat dose if vomiting occurs w/i 3 hrs of dosing Not Available Not Available Not Available Virtussin AC 10 mg-100 mg/5 mL oral liquid 05/28 completed Not Available Not Available Not Available Humira(CF ) Pen 40 mg/0.4 mL subcutane ous kit active Not Available Not Available Not Available Humira(CF ) Pen Crohn's-U lc Colitis-H id Sup Strt 80 mg/0.8 mL subcut kt INJECT 160MG (2 PENS) UNDER THE SKIN ONCE ON DAY 1. THEN INJECT 80MG (1 PEN) ONCE EVERY OTHER WEEK THEREAFT ER STARTING ON DAY 15. active Not Available Not Available No t Available Vitals Date Recorded Body mass index (BMI) Body height Body weight Systolic blood pressure Diastolic blood pressure Provider Name and Address Organization Details Last Updated DateTime 07/21/2020 53.2 kg/m2 160.02 cm 266661.7 9 g 118 mm[Hg] 78 mm[Hg] Not Available [facility] 3 04:48:36 Date Recorded Body weight Body mass index (BMI) Body height Oxygen saturation Oxygen saturation in Arterial blood by Pulse oximetry Heart rate Systolic blood pressure Diastolic blood pressure Provider Name and Address Organization Details Last Updated DateTime 4 619987. 23 g 50.3 kg/m2 160.02 cm 99 % 99 % 72 /min 120 mm[Hg] 70 mm[Hg] Wandy Santos CMA [employer] [facility] [employer] 4 15:17:17 Date Recorded Body temperature Heart rate Respiratory rate Provider Name and Address Organization Details Last Updated DateTime 09/26/2023 97.5 [degF] 72 /min 15 /min Sixto Berman MD [address] [facility], [facility] [address], [place], [address], [employer] [facility] [employer] 09/26/2023 15:36:46 Date Recorded Body height Body mass index (BMI) Body weight Heart rate Oxygen saturation Oxygen saturation in Arterial blood by Pulse oximetry Body temperature Systolic blood pressure Diastolic blood pressure Provider Name and Address Organization Details Last Updated DateTime 4 160.02 cm 49.8 kg/m2 622422. 46 g 83 /min 98 % 98 % 97.9 [degF] 130 mm[Hg] 70 mm[Hg] Wandy Santos CMA [employer] [facility] 11:00:21 Date Recorded Heart rate Respiratory rate Provider N blayne and Address Organization Details Last Updated DateTime 11/07/2023 83 /min 14 /min Sixto Berman MD [address], [place], [address], [employer] 11/07/2023 11:25:30 Date Recorded Body height Body mass index (BMI) Body weight Body temperature Heart rate Oxygen saturation Oxygen saturation in Arterial blood by Pulse oximetry Systolic blood pressure Diastolic blood pressure Provider Name and Address Organization Details Last Updated DateTime 160.02 cm 49.6 kg/m2 643830. 86 g 98.1 [degF] 73 /min 97 % 97 % 126 mm[Hg] 76 mm[Hg] Lizeth Olson MA [facility] [employer] 15:15:25 Date Recorded Heart rate Respiratory rate Provider N blayne and Address Organization Details Last Updated DateTime 12/24/2023 73 /min 15 /min Sixto Berman MD [address], [place], [address], [employer] 12/24/2023 15:34:16 Date Recorded Body height Body mass index (BMI) Body weight Heart rate Oxygen saturation Oxygen saturation in Arterial blood by Pulse oximetry Body temperature Systolic blood pressure Diastolic blood pressure Provider Name and Address Organization Details Last Updated DateTime 160.02 cm 51.2 kg/m2 488309. 19 g 62 /min 98 % 98 % 98.1 [degF] 124 mm[Hg] 78 mm[Hg] Lizeth Olson MA [employer] 15:37:43 Date Recorded Heart rate Respiratory rate Provider N blayne and Address Organization Details Last Updated DateTime 02/25/2024 62 /min 15 /min Sixto Berman MD [address], [address], [place], [address], [employer] [facility] 02/25/2024 15:58:46 Social History Question Answer Notes LastModified by Organizat ion Details LastModified Time Tobacco Smoking Status Never Smoker Not Available [facility] 05/31/2022 04:41:26 What Is Your Level Of Alcohol Consumption? Occasional Information not available 12/24/2023 What Is Your Level Of Caffeine Consumption? Moderate Information not available 12/24/2023 In The 14 Days Before Symptom Onset, Have You Had Close Contact With A Laboratory-confir med COVID-19 While That Case Was Ill? No Information not available 12/24/2023 In The 14 Days Before Symptom Onset, Have You Had Close Contact With A Person Who Is Under Investigation For COVID-19 While That Person Was Ill? No Information not available 12/24/2023 What Type Of Diet Are You Following? REGULAR [email or web address] Information not available 09/26/2023 Do You Or Have You Ever Used E-cigarettes Or Vape? Never Used Electronic Cigarettes [id number] Information not available 05/31/2022 Do You Have An Electrostatic Air Filter? No Information not available 12/24/2023 What Is Your Occupation? [employer] [id number] Information not available 05/31/2022 Do You Have A Humidifier? No Information not available 12/24/2023 Do You Have Moisture Problems In Your Home? No Information not available 12/24/2023 What Was The Date Of Your Most Recent Tobacco Screening? 02/25/2024 Information not available 02/25/2024 Do You Have Any Pets? No [email or web address] Information not available 09/26/2023 Do You Use Your Seat Belt Or Car Seat Routinely? Yes Information not available 12/24/2023 Do You Have Smoke And Carbon Monoxide Detectors In Your Home? Yes Information not available 09/26/2023 Are You Passively Exposed To Smoke? No Information no t available 09/26/2023 Do You Or Have You Ever Used Smokeless Tobacco? Never Used Smokeless Tobacco [id number] Information not available 05/31/2022 Do You Feel Stressed (tense, Restless, Nervous, Or Anxious, Or Unable To Sleep At Night)? [id number] Information not available 12/24/2023 Do You Use Any Illicit Or Recreational Drugs? No Information not available 12/24/2023 Do You Use Sunscreen Routinely? No Information not available 12/24/2023 Have You Recently Traveled Abroad? No Information not available 12/24/2023 Do You Have Any Dietary Restrictions? No Information not available 02/25/2024 Sex: Unknown Functional Status None recorded. Mental Status None recorded. Family History Relationship Description Onset Age of this Age Resolved Age Notes LastModified by Organization Details LastModified Time Father Cerebrovascu lar accident [email or web address] Not available 0 12/24/2023 14:48:44 Father Epilepsy [email or web address] Not availa ble 12/24/2023 14:48:45 Father Hypertensive disorder [id number] Not available 05/31/2022 04:44:23 Maternal Grandmother Diabetes mellitus [id number] Not available 05/31/2022 04:44:23 Mother Diabetes mellitus [id number] Not available 05/31/2022 04:44:23 Paternal Grandmother Malignant tumor of breast [id number] Not available 12/02 14:48:45 Mother Obstructive sleep apnea syndrome [email or web address] Not available 12/02 14:48:45 Maternal Uncle Diabetes mellitus Not available 2023 15:49:47 Maternal Aunt Diabetes mellitus Not available 2023 15:49:50 Paternal Aunt Chronic obstructive pulmonary disease [email or web address] Not available 12/02 14:48:45 Paternal Uncle Heart disease Not available 2023 15:50:31 Medical History Condition Response HERPES Y Gynecological History Statement/Question Response Date of Last Pap Smear 05/28/2018 Current Control Method None Age at Menarche 9 Date of LMP 07/11/2020 Breast Problems no Obstetrics History GPAL:G 2 P 2 0 0 2 Type Value Full Term 2 Living 2 Total 2 Past Encounters Encounter ID Performer Location Encounter Start Date Encounter Closed Date Diagnosis/Indication Diagnosis SNOMED-CT Code Diagnosis ICD10 Code Diagnosis Note [id number] _ATHENA_M IGRATION_ DEFAULT_1 _1 , 07/21/2020 00:00:00 07/21/2020 13:11:57 [id number] Sixto Berman MD [facility] [place] [address] 09/26/2023 15:03:27 09/27/2023 08:59:48 Sleep apnea 16147663 G47.30 G47.33 G47.36 G47.61 [id number] Fransisca Morse [facility] [address] 0 11/07/2023 10:47:01 11/07/2023 11:31:17 Obstructive sleep apnea syndrome 78647380 G47.33 G47.36 [id number] Sixto Berman MD [facility] [place] [address] 0 12/24/2023 14:47:56 12/25/2023 15:02:00 Obstructive sleep apnea syndrome 24774369 G47.33 G47.36 G47.30 [id number] Sixto Berman MD [facility] [place] [address] 02/25/2024 15:06:27 03/31/2024 11:38:50 Obstructive sleep apnea syndrome 62657079 G47.33 Health Concerns Section Related Observation LastModified by Organization Detai ls LastModified Time None Recorded Concern Status LastModified by Organization Details LastModified Time None Recorded Advance Directives Directive None Recorded Payers Encounter Date Sequence Insurance Name Policy Number Policy Bravo Covered Member ID Bravo Member ID Guarantor Name 09/26/2023 1 [facility] (MEDICAID HMO) [id number] Gineta L Evelyn [id number] Gineta L Evelyn 11/07/2023 1 [facility] (MEDICAID HMO) [id number] Gineta L Evelyn [id number] Gineta L Evelyn 12/24/2023 1 [facility] (MEDICAID HMO) [id number] Gineta L Evelyn [id number] Gineta L Evelyn 02/25/2024 1 [facility] (MEDICAID HMO) [id number] Quynh Ramírezn [id number] Quynh Bui Evelyn Notes Date Note Type Note Provider Name and Address Organization Details Recorded Time 09/26/2023 text/html Primary care/Ref erring provider: Douglas Leach MD During the [place] diagnostic sleep study on 11/25/13, sleep onset = 14 minutes, REM onset = 95.5 minutes, AHI = 8, PLMI = 9. During the [place] titration sleep study on 12/24/13, sleep onset = 15 minutes, REM onset = 77.5 minutes, [employer] small Simplus full face mask @ 14 cmH2O, PLMI = 0.0. The patient quit CPAP in 2020 because of weight loss after gastric sleeve surgery and subsequent pressure intolerance. 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 At home, the patient sleeps from 11 pm to 7:15 am and wakes up with an alarm. Snoring: moderate, since . Snorting: no Choking: yes Coughing: yes Gasping: yes Gagging: no Sighing: no Witnessed apnea: yes Twitching or jerking of leg(s), arm(s), body, head: yes Teeth grinding: no Teeth clenching: no Sleeptalking: no Sleepwalking: no Sleep crying: no Bedwetting: no Tongue/lip/gum/cheek biting: no Sleeping with open mouth: yes Sleep paralysis: no Hypnagogic hallucinations: no Hypnopompic hallucinations: yes, feels objects on her skin Vivid dreams: no Difficulty with sleep onset: no Difficulty with sleep maintenance: yes Sleep interruptions: nocturia x 1 Patient wakes up with: fatigue, xerostomia, sore throat, hoarse voice, headaches Daytime cataplexy: no Morning hypersomnolence: yes Afternoon hypersomnolence: yes Caffeine sources in diet: coffee 1/3 cup per day, soda 1/3 can per day Associated medical and psychiatric conditions: Congestive heart failure: no Coronary artery disease: no Myocardial infarction: no Hypertension: no Stroke: no Bronchial asthma: no Chronic obstructive pulmonary disease: no Depression: no Bipolar disorder: no Anxiety: no Panic disorder: no Posttraumatic stress disorder: no Attention deficit and hyperactivity disorder: no Obsessive Compulsive disorder: no Schizophrenia: no Schizoaffective disorder: no Personality disorder: no Chronic analgesic use: no Chronic sedative/hypnotic use: no EPWORTH SLEEPINESS SCALE (ESS) CHANCE OF DOZING SCORE 0 = would never doze 1 = slight chance of dozing 2 = moderate chance of dozing 3 = high chance of dozing SITUATION AND CHANCE OF DOZING Sitting and reading - 1 Watching television - 3 Sitting inactive in a public place (e.g. a theater or meeting) - 1 As a passenger in a car for an hour without a break - Lying down to rest in the afternoon when circumstances permit - 3 Sitting and talking to someone - 0 Sitting quietly after lunch without alcohol - 1 In a car, while stopped for a few minutes in the traffic - 1 TOTAL SCORE 10 Subjectively, patient has a moderate chance of dozing. Sixto Berman MD [address] [place] [address], [address], [facility] [employer] [facility] 09/26/2023 16:08:24 11/07/2023 text/html Primary care/Ref erring provider: Douglas Leach MD During the [place] diagnostic sleep study on 11/25/13, sleep onset = 14 minutes, REM onset = 95.5 minutes, AHI = 8, PLMI = 9. During the [place] titration sleep study on 12/24/13, sleep onset = 15 minutes, REM onset = 77.5 minutes, [employer] small Simplus full face mask @ 14 cmH2O, PLMI = 0.0. The patient quit CPAP in 2020 because of weight loss after gastric sleeve surgery and subsequent pressure intolerance. 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 During the [facility] diagnostic sleep study on 11/02/23, sleep onset = 33.5 minutes, REM onset = 75 minutes, AHI = 26, REM AHI = 28, supine AHI = 112, PLMI = 0.0. At home, the patient sleeps from 11 pm to 7:15 am and wakes up with an alarm. Snoring: moderate, since .Snorting: noChoking: yesCoughing: yesGasping: yesGagging: noSighing: noWitnessed apnea: yesTwitching or jerking of leg(s), arm(s), body, head: noTeeth grinding: noTeeth clenching: noSleeptalking: noSleepwalking: noSleep crying: noBedwetting: noTongue/lip/gum/cheek biting: noSleeping with open mouth: yesSleep paralysis: noHypnagogic hallucinations: noHypnopompic hallucinations: yes, feels objects on her skinVivid dreams: noDifficulty with sleep onset: noDifficulty with sleep maintenance: yesSleep interruptions: nocturia x 1Patient wakes up with: fatigue, xerostomia, sore throat, hoarse voice, headachesDaytime cataplexy: noMorning hypersomnolence: yesAfternoon hypersomnolence: yesCaffeine sources in diet: coffee 1/3 cup per day, soda 1/3 can per day Associated medical and psychiatric conditions:Congestive heart failure: noCoronary artery disease: noMyocardial infarction: noHypertension: noStroke: noBronchial asthma: noChronic obstructive pulmonary disease: noDepression: noBipolar disorder: noAnxiety: noPanic disorder: noPosttraumatic stress disorder: noAttention deficit and hyperactivity disorder: noObsessive Compulsive disorder: noSchizophrenia: noSchizoaffective disorder: noPersonality disorder: noChronic analgesic use: noChronic sedative/hypnotic use: no EPWORTH SLEEPINESS SCALE (ESS) CHANCE OF DOZING SCORE0 = would never doze1 = slight chance of dozing2 = moderate chance of dozing3 = high chance of dozing SITUATION AND CHANCE OF DOZINGSitting and reading - 1Watching television - 3Sitting inactive in a public place (e.g. a theater or meeting) - 1As a passenger in a car for an hour without a break - 1Lying down to rest in the afternoon when circumstances permit - 3Sitting and talking to someone - 0Sitting quietly after lunch without alcohol - 1In a car, while stopped for a few minutes in the traffic - 0TOTAL SCORE 10Subjectively, patient has a moderate chance of dozing. Sixto Berman MD [address] [place] [address], [phone], [place] [facility] 11/07/2023 11:29:04 12/24/2023 text/html Primary care/Ref erring provider: Douglas Leach MD During the [place] diagnostic sleep study on 11/25/13, sleep onset = 14 minutes, REM onset = 95.5 minutes, AHI = 8, PLMI = 9. During the [place] titration sleep study on 12/24/13, sleep onset = 15 minutes, REM onset = 77.5 minutes, [employer] small Simplus full face mask @ 14 cmH2O, PLMI = 0.0. The patient quit CPAP in 2020 because of weight loss after gastric sleeve surgery and subsequent pressure intolerance. 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 During the [facility] diagnostic sleep study on 11/02/23, sleep onset = 33.5 minutes, REM onset = 75 minutes, AHI = 26, REM AHI = 28, supine AHI = 112, PLMI = 0.0. During the [facility] titration sleep study on 11/27/23, sleep onset = 38 minutes, REM onset = 72.5 minutes, PLMI = 0.0 The patient uses a ResMed AirSense 11 autoset unit with heated humidification. The patient does not need the ramp to start low and go up slowly on the pressure. There is no xerostomia in a.m. There is no hose/mask condensation with water. The patient wears a Respironics medium wide DreamWear full face mask without chin strap. There is no claustrophobia, no nostril/nose bridge irritation, no facial rash, no facial numbness, no nosebleeding. The patient feels more refreshed upon waking and daytime alertness is improved. Energy levels are sustained for the remainder of the day. At home, the patient sleeps from 11 pm to 7:15 am and wakes up with an alarm. Snoring: moderate, since .Snorting: noChoking: yesCoughing: yesGasping: yesGagging: noSighing: noWitnessed apnea: yesTwitching or jerking of leg(s), arm(s), body, head: noTeeth grinding: noTeeth clenching: noSleeptalking: noSleepwalking: noSleep crying: noBedwetting: noTongue/lip/gum/cheek biting: noSleeping with open mouth: yesSleep paralysis: noHypnagogic hallucinations: noHypnopompic hallucinations: yes, feels objects on her skinVivid dreams: noDifficulty with sleep onset: noDifficulty with sleep maintenance: yesSleep interruptions: nocturia x 1Patient wakes up with: fatigue, xerostomia, sore throat, hoarse voice, headachesDaytime cataplexy: noMorning hypersomnolence: yesAfternoon hypersomnolence: yesCaffeine sources in diet: coffee 1/3 cup per day, soda 1/3 can per day Associated medical and psychiatric conditions:Congestive heart failure: noCoronary artery disease: noMyocardial infarction: noHypertension: noStroke: noBronchial asthma: noChronic obstructive pulmonary disease: noDepression: noBipolar disorder: noAnxiety: noPanic disorder: noPosttraumatic stress disorder: noAttention deficit and hyperactivity disorder: noObsessive Compulsive disorder: noSchizophrenia: noSchizoaffective disorder: noPersonality disorder: noChronic analgesic use: noChronic sedative/hypnotic use: no EPWORTH SLEEPINESS SCALE (ESS) CHANCE OF DOZING SCORE0 = would never doze1 = slight chance of dozing2 = moderate chance of dozing3 = high chance of dozing SITUATION AND CHANCE OF DOZINGSitting and reading - 0Watching television - 1Sitting inactive in a public place (e.g. a theater or meeting) - 0As a passenger in a car for an hour without a break - 1Lying down to rest in the afternoon when circumstances permit - 1Sitting and talking to someone - 0Sitting quietly after lunch without alcohol - 0In a car, while stopped for a few minutes in the traffic - 0TOTAL SCORE 3Subjectively, patient has a slight chance of dozing. Sixto Berman MD [address] [place] [address], [place], [address], [facility] [employer] [facility] 12/24/2023 15:35:09 02/25/2024 text/html Primary care/Ref erring provider: Douglas Leach MD CC: I think my CPAP is still set too high. During the [place] diagnostic sleep study on 11/25/13, sleep onset = 14 minutes, REM onset = 95.5 minutes, AHI = 8, PLMI = 9. During the [place] titration sleep study on 12/24/13, sleep onset = 15 minutes, REM onset = 77.5 minutes, [employer] small Simplus full face mask @ 14 cmH2O, PLMI = 0.0. The patient quit CPAP in 2020 because of weight loss after gastric sleeve surgery and subsequent pressure intolerance. 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 During the [facility] diagnostic sleep study on 11/02/23, sleep onset = 33.5 minutes, REM onset = 75 minutes, AHI = 26, REM AHI = 28, supine AHI = 112, PLMI = 0.0. During the [facility] titration sleep study on 11/27/23, sleep onset = 38 minutes, REM onset = 72.5 minutes, PLMI = 0.0 At home since 01/24/24, the patient uses a ResMed AirSense 11 autoset unit with heated humidification. The patient does not need the ramp to start low and go up slowly on the pressure. There is no xerostomia in a.m. There is no hose/mask condensation with water. The patient wears a [employer] medium wide DreamWear full face mask without chin strap. There is no claustrophobia, no nostril/nose bridge irritation, no facial rash, no facial numbness, no nosebleeding. The patient feels more refreshed upon waking and daytime alertness is improved. Energy levels are sustained for the remainder of the day. At home, the patient sleeps from 11 pm to 7:15 am and wakes up with an alarm. Snoring: moderate, since .Snorting: noChoking: yesCoughing: yesGasping: yesGagging: noSighing: noWitnessed apnea: yesTwitching or jerking of leg(s), arm(s), body, head: noTeeth grinding: noTeeth clenching: noSleeptalking: noSleepwalking: noSleep crying: noBedwetting: noTongue/lip/gum/cheek biting: noSleeping with open mouth: yesSleep paralysis: noHypnagogic hallucinations: noHypnopompic hallucinations: yes, feels objects on her skinVivid dreams: noDifficulty with sleep onset: noDifficulty with sleep maintenance: yesSleep interruptions: nocturia x 1Patient wakes up with: fatigue, xerostomia, sore throat, hoarse voice, headachesDaytime cataplexy: noMorning hypersomnolence: yesAfternoon hypersomnolence: yesCaffeine sources in diet: coffee 1/3 cup per day, soda 1/3 can per day Associated medical and psychiatric conditions:Congestive heart failure: noCoronary artery disease: noMyocardial infarction: noHypertension: noStroke: noBronchial asthma: noChronic obstructive pulmonary disease: noDepression: noBipolar disorder: noAnxiety: noPanic disorder: noPosttraumatic stress disorder: noAttention deficit and hyperactivity disorder: noObsessive Compulsive disorder: noSchizophrenia: noSchizoaffective disorder: noPersonality disorder: noChronic analgesic use: noChronic sedative/hypnotic use: no EPWORTH SLEEPINESS SCALE (ESS) CHANCE OF DOZING SCORE0 = would never doze1 = slight chance of dozing2 = moderate chance of dozing3 = high chance of dozing SITUATION AND CHANCE OF DOZINGSitting and reading - 0Watching television - 1Sitting inactive in a public place (e.g. a theater or meeting) - 0As a passenger in a car for an hour without a break - 1Lying down to rest in the afternoon when circumstances permit - 1Sitting and talking to someone - 0Sitting quietly after lunch without alcohol - 0In a car, while stopped for a few minutes in the traffic - 0TOTAL SCORE 3Subjectively, patient has a slight chance of dozing. Sixto Berman MD [address] [place] [address], [facility] [address], [place], [address], [facility] [place] [employer] [facility] 02/25/2024 16:07:25 OBGyn Episode No OBEpisode recorded.
== END 2024-04-24 23:26 | disposition home or self-care (01) ==
PROVIDERS: Emergency Medicine; Emergency Provider Physician Assistant; PCP Emergency Medicine
DX: R07.89 Other chest pain (principal); R11.2 Nausea with vomiting, unspecified; Z20.822 Contact with and (suspected) exposure to COVID-19; K21.9 Gastro-esophageal reflux disease without esophagitis
CPT/HCPCS: 36415; 71046; 74177; 80053; 81003; 81025; 83690; 84484; 85025; 85380; 85610; 85730; 87637; 93005; 96361; 96374; 99284; A9270; J2405; J7030; Q9967

== ENCOUNTER 2024-05-23 07:47 | Outpatient (CLI) | payer OTHER, SELFPAY ==
--- NOTE | 2024-05-23 07:52 | ECHO_ITS ---
Patient Info Name: Quynh Rivas Age: 39 years : 1985 Gender: Female Ht: 63 in Wt: 275 lbs BSA: 2.43 m2 HR: 74 bpm BP: 133 / 82 mmHg Technical Quality: Fair Exam Date: 05/23/2024 8:07 AM Exam Location: Echo Lab Patient Status: Outpatient Admit Date: 05/23/2024 Staff Ordering Physician: Dennis Donnelly MD Instruments Sales Representative: Lucsa Villanueva RDCS Attending Provider: Dennis Donnelly MD Referring Physician: Andrzej SÁNCHEZ; Exam Type: CA echo doppler w bubble study Study Info Indications - NORHEUMATIC AORTIC VALVE STENOSIS Complete two-dimensional, color flow and Doppler transthoracic echocardiogram is performed with agitated saline. Contrast/Agitated Saline Contrast/Ag. Saline: Agitated Saline Amount: 20.00 ml Existing IV Access: Yes Summary 1. Left ventricular chamber dimension is normal. 2. Left ventricular systolic function is normal, estimated at 60-65%. 3. There is moderate concentric increased left ventricular wall thickness. 4. The left ventricular diastolic function is abnormal. 5. E/e' 12 is mildly elevated. 6. Left atrial chamber dimension is mildly enlarged. 7. There is mild aortic valve sclerosis. Left Ventricle E/e' 12 is mildly elevated. Left ventricular chamber dimension is normal. Left ventricular systolic function is normal, estimated at 60-65%. There is moderate concentric increased left ventricular wall thickness. The left ventricular diastolic function is abnormal. Right Ventricle Right ventricular systolic function is normal and with normal TAPSE 2.0 cm. Right ventricular chamber dimension is normal. Left Atria Left atrial chamber dimension is mildly enlarged. Right Atria Right atrial chamber dimension is normal. Atrial Septum Agitated saline injection with and without valsalva maneuver opacified right side cardiac chambers without shunt to left side cardiac chambers. Intact interatrial septum visualized by 2D and agitated saline imaging. Aortic Valve The aortic valve is probable trileaflet. There is mild aortic valve sclerosis. There is no aortic valve stenosis. There is no aortic valve regurgitation. Pulmonic Valve There is no pulmonic regurgitation. Mitral Valve There is no mitral valve stenosis. There is no mitral valve regurgitation. Tricuspid Valve There is no tricuspid valve regurgitation. Pericardium/Pleural There is no pericardial effusion. Inferior Vena Cava Normal inferior vena cava with >50% collapse upon inspiration consistent with normal right atrial pressure, 5 mmHg. Aorta The aortic root size at the sinus of Valsalva is normal. Left Ventricular Outflow Tract Name Value Normal LVOT 2D LVOT Diameter 1.7 cm LVOT Doppler LVOT Peak Velocity 133 cm/s LVOT Peak Gradient 7 mmHg LVOT Mean Gradient 4 mmHg LVOT VTI 29 cm LVOT VTI/AV VTI Ratio 0.9 LVOT Stroke Volume 65 ml LVOT CO 3.9 l/min LVOT CI 1.6 l/min/m2 Pulmonic Valve Name Value Normal RVOT Doppler RVOT Peak Gradient 4 mmHg PV Doppler PV Peak Velocity 103 cm/s PV Peak Gradient 4 mmHg Mitral Valve Name Value Normal MV Doppler MV Peak Gradient 4 mmHg MV Mean Gradient 2 mmHg MV Decel [place] 571 cm/s2 MV PHT 49 ms MV Area (PHT) 4.5 cm2 4.0-5.0 MV Area (Cont Eq VTI) 2.4 cm2 MV Diastolic Function MV E Peak Velocity 97 cm/s MV A Peak Velocity 78 cm/s MV E/A 1.3 MV Decel Time 170 ms MV Annular TDI MV Septal e' Velocity 5.8 cm/s >=8.0 MV E/e' (Septal) 16.9 <=8.0 MV Lateral e' Velocity 9.5 cm/s >=10.0 MV E/e' (Lateral) 10.2 <=8.0 MV e' Average 7.62 MV E/e' (Average) 13.6 Tricuspid Valve Name Value Normal Estimated PAP/RSVP RA Pressure 5 mmHg <=5 TV Annular TDI TV Lateral Ruthie s' Velocity 16.1 cm/s 9.5-18.7 Aorta Name Value Normal Ascending Aorta Ao Root Diameter (MM) 2.9 cm Ao Root Diam Index (MM) 1.2 cm/m2 Ao [place] Diameter 2.5 cm 2.3-2.9 Aortic Valve Name Value Normal AV Doppler AV Peak Velocity 149 cm/s AV Peak Gradient 9 mmHg AV Mean Gradient 5 mmHg AV VTI 34 cm AV Area (Cont Eq VTI) 1.9 cm2 >=3.0 AV Area (Cont Eq Randal) 2.0 cm2 AV V1/V2 Ratio 0.89 AV Regurgitation 2D LVOT Area 2.3 cm2 Ventricles Name Value Normal LV Dimensions 2D/MM IVS Diastolic Thickness (2D) 2.0 cm 0.6-1.0 LVID Diastole (2D) 3.7 cm 3.8-5.2 LVIW Diastolic Thickness (2D) 1.3 cm 0.6-0.9 LVID Systole (2D) 2.5 cm 2.2-3.5 LVOT Diameter 1.7 cm LV Mass (2D Cubed) 243.19 g 67.00-162.00 LV Mass Index (2D Cubed) 100 g/m2 43-95 Relative Wall Thickness (2D) 0.73 LV Fractional Shortening/Ejection Fraction 2D/MM LV Fractional Shortening (2D) 33 % 27-45 LV EF (2D Teicholz) 62 % 54-74 LV Diastolic Volume (4C MOD) 111 ml LV EF (4C MOD) 59 % LV Diastolic Volume (2C MOD) 94 ml LV EF (2C MOD) 60 % LV Diastolic Volume (BP MOD) 104 ml 46-106 LV Diastolic Volume Index (BP MOD) 43 ml/m2 29-61 LV Systolic Volume (BP MOD) 44 ml 14-42 LV Systolic Volume Index (BP MOD) 18 ml/m2 8-24 LV EF (BP MOD) 58 % 54-74 LV Diastolic Length (4C) 7.6 cm LV Systolic Length (4C) 6.6 cm LV Stroke Volume (4C MOD) 65 ml Atria Name Value Normal LA Dimensions LA Dimension (MM) 4.0 cm 2.7-3.8 LA Volume (4C A-L) 68 ml LA Volume (BP A-L) 72 ml RA Dimensions RA Area (4C) 12.7 cm2 <=18.0 Report Signatures
--- OUTSIDE RECORDS SUMMARY | 2024-05-23 07:55 | XMS_ITS | Patient Health Summary ---
Author Organization [facility] [employer] Address [address] [place] [address] Care Team Providers Care Family Resource Specialist Name Role Phone Douglas Leach MD Primary Care Provider [phone] Note from [facility],non-owned Affiliates and Associated Physician Practices is amultiple site organization consisting of ambulatory clinics and hospital sitesin [place], [place], [place] and [place]. This disclosure is being madepursuant to the Care Everywhere program and may not contain all information available regarding this patient. Last updated 17.[facility] Allergies * Albumin(Rash) -Medium Criticality * Peanut-Derived(Anaphylaxis) -High Criticality * Tomato(Rash) -Medium Criticality Medications * Be aware that medications may not be up to date on this document. Alwaysverify current medications with the patient. * VITAMIN D PO Take 1 tablet by mouth once daily * EPINEPHrine (EPIPEN) 0.3 MG/0.3ML auto-injector pen Inject 0.3 mL into muscle once as needed * cetirizine (ZYRTEC) 10 MG tablet(Started 08/09/2020) Take 1 (one) tablet by mouth once daily * omeprazole (PRILOSEC) 40 MG capsule(Started 11/07/2020) Take 1 (one) capsule by mouth daily before breakfast * spironolactone (Aldactone) 50 MG tablet(Started 01/14/2024) Take one pill by mouth three times per day 2 refills by 01/13/2025 * adalimumab (Humira, 2 Pen,) 40 MG/0.4ML injection(Started 01/21/2024) Inject 40 mg (one pen, 0.4mL) subcutaneous weekly for hidradenitis suppurativa . Dispense: # 2 kits= 4 pens, 1.6mL total). Maintenance dosing. 2 refills by 01/20/2025 * adalimumab (Humira-CD/UC/HS Starter) 80 MG/0.8ML injection(Started 01/24/2024) Inject 160mg (2 pens, 1.6mL) subcutaneous once, then 80mg (1pen, 0.8mL) two weeks later for hidradenitis suppurativa . Dispense # 1 kit = 3 pens. Loading/starter doses. * adalimumab (Humira-CD/UC/HS Starter) 80 MG/0.8ML injection(Started 01/30/2024) Inject 160mg (2 pens, 1.6mL) subcutaneous once, then 80mg (1pen, 0.8mL) two weeks later for hidradenitis suppurativa . Dispense # 1 kit = 3 pens. Loading/starter doses. * adalimumab (Humira, 2 Pen,) 40 MG/0.4ML injection(Started 01/30/2024) Inject 40 mg (one pen, 0.4mL) subcutaneous weekly for hidradenitis suppurativa . Dispense: # 2 kits= 4 pens, 1.6mL total). Maintenance dosing. 2 refills by 01/29/2025 Active Problems Problem Noted Date Diagnosed Date Chronic migraine without aura 05/19/2021 Acute maxillary sinusitis 11/18/2020 Atopic dermatitis 11/18/2020 Eczema 11/18/2020 Migraine 11/18/2020 Preop testing 11/18/2020 Serous otitis media 11/18/2020 Strain of trapezius muscle 11/18/2020 Difficult airway 09/25/2019 Morbid obesity 08/23/2017 Gallstone 01/06/2013 Gastroesophageal reflux disease 01/06/2013 Abdominal pain 12/06/2012 Hemorrhage of rectum and anus 12/06/2012 Acute bronchitis 06/26/2012 Headache 06/26/2012 Resolved Problems Problem Noted Date Diagnosed Date Resolved Date Acute otitis media 11/18/2020 Cough 11/18/2020 12/16/2020 Upper respiratory infection 11/18/2020 12/02/2020 Social History Tobacco Use Types Packs/Day Years Used Date Smoking Tobacco: Never Smokeless Tobacco: Never Tobacco Cessation:Counseling Given: No Alcohol Use Standard Drinks/Week Comments Yes 0 (1 standard drink = 0.6 oz pur e alcohol) social PHQ-2 Answer Date Recorded PHQ2 TOTAL SCORE 0 10/07/2020 Sex and Gender Information Value Date Recorded Sex Assigned at Not on file Gender Identity Not on file Sexual Orientation Not on file Last Filed Vital Signs Vital Sign Reading Time Taken Comments Blood Pressure 140/89 05/19/2021 10:16 AM CHURCH ADMINISTRATOR Pulse 98 05/19/2021 10:16 AM CHURCH ADMINISTRATOR Temperature 36.8 C (98.3 F) 11/18/2020 10:17 AM CDT Respiratory Rate - - Oxygen Saturation 98% 11/18/2020 10:17 AM CDT Inhaled Oxygen Concentration - - Weight 126.6 kg (279 lb) 05/19/2021 10:16 AM CHURCH ADMINISTRATOR Height 162.6 cm (5' 4 ) 05/19/2021 10:16 AM CHURCH ADMINISTRATOR Body Mass Index 47.89 05/19/2021 10:16 AM CHURCH ADMINISTRATOR Procedures * QUANTIFERON-TB GOLD PLUS 1-TUBE(Performed 01/18/2024) Performed for Encounter for long-term (current) use of high-risk medication * LIPID PROFILE(Performed 01/18/2024) Performed for Encounter for long-term (current) use of high-risk medication * HIV-1 HIV-2 ANTIBODY + HIV P24 AG PANEL(Performed 01/18/2024) Performed for Encounter for long-term (current) use of high-risk medication * HEPATITIS C AB W/RFLX TO HCV RNA QN PCR(Performed 01/18/2024) Performed for Encounter for long-term (current) use of high-risk medication * HEPATITIS B SURFACE ANTIGEN W RFLX CONFIRMATION(Performed 01/18/2024) Performed for Encounter for long-term (current) use of high-risk medication * HEPATITIS B CORE ANTIBODY TOTAL(Performed 01/18/2024) Performed for Encounter for long-term (current) use of high-risk medication * COMPREHENSIVE METABOLIC PANEL(Performed 01/18/2024) Performed for Encounter for long-term (current) use of high-risk medication * CBC W AUTO DIFFERENTIAL(Performed 01/18/2024) Performed for Encounter for long-term (current) use of high-risk medication * LAB RESULTS ORDER(Performed 01/18/2024) * EYE EXAM(Performed 08/24/2021) * ALLERGEN INTERPRETATION(Performed 06/04/2021) * ALLERGEN PEANUT IGE W COMPONENT RFLX(Performed 06/04/2021) * ALLERGEN BIRCH IGE(Performed 06/04/2021) * ALLERGEN RESPIRATORY PNL REGION 8 ([place])(Performed 06/04/2021) * SKIN TEST PPD - POINT OF CARE(Performed 05/15/2020) Performed for PPD screening test Results * QUANTIFERON-TB GOLD PLUS 1-TUBE (01/18/2024 9:22 AM CDT) [facility] QuantiFERON TB Gold Plus NEGATIVE NEGATIVE [facility] Comment: Negative test result. M. tuberculosis complex infection unlikely. NIL 0.07 IU/mL [facility] MITOGEN MINUS NIL RESULT 7.73 IU/mL [facility] TB1-NIL 0.02 IU/mL [facility] TB2-NIL 0.03 IU/mL [facility] Comment: The Nil tube value reflects the background interferon gamma immune response of the patient's blood sample. This value has been subtracted from the patient's displayed TB and Mitogen results. Lower than expected results with the Mitogen tube prevent false-negative Quantiferon readings by detecting a patient with a potential immune suppressive condition and/or suboptimal pre-analytical specimen handling. The TB1 Antigen tube is coated with the M. tuberculosis-specific antigens designed to elicit responses from TB antigen primed CD4+ helper T-lymphocytes. The TB2 Antigen tube is coated with the M. tuberculosis-specific antigens designed to elicit responses from TB antigen primed CD4+ helper and CD8+ cytotoxic T-lymphocytes. For additional information, please refer to https://education.Moneythink.Pawngo/faq/PTM132 (This link is being provided for informational/ educational purposes only.) Test Performed at: [facility] [address] [address] [facility] [place] [address] JOSEPHINE URBINA MD Blood BLOOD SPECIMEN / Unknown 01/18/2024 9:22 AM CDT 01/18/2024 9:23 AM CDT Wyatt Morrow MD LAB - CHEMISTRY KENDRA GONZALEZ [facility] [address] [place] [address] * HEPATITIS C AB W/RFLX TO HCV RNA QN PCR (01/18/2024 9:22 AM CDT) Hepatitis C Antibody NON-REACTI VE NON-REACT STONEY [facility] Comment: HCV antibody was non-reactive. There is no laboratory evidence of HCV infection. In most cases, no further action is required. However, if recent HCV exposure is suspected, a test for HCV RNA (test code 03805) is suggested. For additional information please refer to [email or web address]/RHM60w5 (This link is being provided for informational/ educational purposes only.) Test Performed at: [facility] [address] [place] [address] JOSEPHINE URBINA MD Blood BLOOD SPECIMEN / Unknown 01/18/2024 9:22 AM CDT 01/18/2024 9:23 AM CDT Wyatt Morrow MD LAB - CHEMISTRY ORDE LISA Performing Organization Address City/State/[facility] Co de Phone Number JUANIS [address] [place] [address] * HIV-1 HIV-2 ANTIBODY + HIV P24 AG PANEL (01/18/2024 9:22 AM CDT) [facility] HIV Screen 4th Generation w Reflex NON-REACT STONEY NON-REACT STONEY [facility] Comment: HIV-1 antigen and HIV-1/HIV-2 antibodies were not detected. There is no laboratory evidence of HIV infection. PLEASE NOTE: This information has been disclosed to you from records whose confidentiality may be protected by state law. If your state requires such protection, then the state law prohibits you from making any further disclosure of the information without the specific written consent of the person to whom it pertains, or as otherwise permitted by law. A general authorization for the release of medical or other information is NOT sufficient for this purpose. For additional information please refer to [email or web address] (This link is being provided for informational/ educational purposes only.) The performance of this assay has not been clinically validated in patients less than 2 years old. Test Performed at: [facility] [id number] [address] JOSEPHINE URBINA MD Blood BLOOD SPECIMEN / Unknown 01/18/2024 9:22 AM CDT 01/18/2024 9:23 AM CDT Wyatt Morrow MD LAB - CHEMISTRY KENDRA GONZALEZ [address] [address] * (ABNORMAL) CBC WITH DIFFERENTIAL (01/18/2024 9:22 AM CDT) White Blood Cell Count 8.6 3.8 - 10.8 Thousand/ uL [facility] RBC 4.22 3.80 - 5.10 Million/u L [facility] Hemoglobin 11.9 11.7 - 15.5 g/dL [facility] Hematocrit 38.2 35.0 - 45.0 % [facility] MCV 90.5 80.0 - 100.0 fL [facility] MCH 28.2 27.0 - 33.0 pg [facility] MCHC 31.2(L) 32.0 - 36.0 g/dL [facility] Comment: For adults, a slight decrease in the calculated MCHC value (in the range of 30 to 32 g/dL) is most likely not clinically significant; however, it should be interpreted with caution in correlation with other red cell parameters and the patient's clinical condition. RDW 13.8 11.0 - 15.0 % [facility] Platelet Count 215 140 - 400 Thousand/ uL [facility] MPV 12.6(H) 7.5 - 12.5 fL [facility] Neutrophil Absolute 5212 1500 - 7800 cells/uL [facility] Lymphocytes Absolute 2735 850 - 3900 cells/uL [facility] Absolute Monocytes 421 200 - 950 cells/uL [facility] Eosinophils Absolute 163 15 - 500 cells/uL [facility] Basophils Absolute 69 0 - 200 cells/uL [facility] Granulocytes % 60.6 % [facility] Lymphocytes % 31.8 % [facility] Monocytes % 4.9 % [facility] Eosinophils % 1.9 % [facility] Basophils % 0.8 % [facility] Comment: Test Performed at: [facility] [address] JOSEPHINE URBINA MD Blood BLOOD SPECIMEN / Unknown 01/18/2024 9:22 AM CDT 01/18/2024 9:23 AM CDT Wyatt Morrow MD LAB - HEMATOLOGY ORD ERABLES Performing Organization Address [facility]/ZIP Co de Phone Number [address] [address] * COMPREHENSIVE METABOLIC PANEL (01/18/2024 9:22 AM CDT) [facility] Glucose 87 65 - 99 mg/dL [facility] Comment: Fasting reference interval BUN 12 7 - 25 mg/dL [facility] Creatinine 0.72 0.50 - 0.97 mg/dL [facility] eGFR by Cystatin C 109 > OR = 60 mL/min/1. 73m2 [facility] BUN/Creatinine Ratio SEE NOTE: - (calc) [facility] Comment: Not Reported: BUN and Creatinine are within reference range. Sodium 137 135 - 146 mmol/L [facility] Potassium 4.0 3.5 - 5.3 mmol/L [facility] Chloride 105 98 - 110 mmol/L [facility] CO2 25 20 - 32 mmol/L [facility] Calcium 8.6 8.6 - 10.2 mg/dL [facility] Protein Total 6.7 6.1 - 8.1 g/dL [facility] Albumin 3.8 3.6 - 5.1 g/dL [facility] Globulin Total 2.9 1.9 - 3.7 g/dL (calc) [facility] Albumin/Globulin Ratio 1.3 1.0 - 2.5 (calc) [facility] Bilirubin Total 0.5 0.2 - 1.2 mg/dL [facility] Alkaline Phosphatase 47 31 - 125 U/L [facility] AST 11 10 - 30 U/L [facility] ALT 9 6 - 29 U/L [facility] Comment: Test Performed at: [facility] [address] JOSEPHINE URBINA MD Blood BLOOD SPECIMEN / Unknown 01/18/2024 9:22 AM CDT 01/18/2024 9:23 AM CDT Wyatt Morrow MD LAB - CHEMISTRY ORDE RABLES Performing Organization Address City/[facility]/ZIP Co de Phone Number [address] [address] * HEPATITIS B CORE ANTIBODY TOTAL (01/18/2024 9:22 AM CDT) [facility] Hepatitis B Core Virus Antibody Total NON-REACTI VE NON-REACT STONEY [facility] Comment: For additional information, please refer to [email or web address] (This link is being provided for informational/ educational purposes only.) Test Performed at: [facility] [address] [place] [address] JOSEPHINE URBINA MD Blood BLOOD SPECIMEN / Unknown 01/18/2024 9:22 AM CDT 01/18/2024 9:23 AM CDT Wyatt Morrow MD LAB - CHEMISTRY KENDRA GONZALEZ Performing Organization Address [facility] de Phone Number [facility] [address] [place] [address] * HEPATITIS B SURFACE ANTIGEN W RFLX CONFIRMATION (01/18/2024 9:22 AM CDT) Pathologist [facility] Hepatitis B Virus Surface Antigen NON-REACTI VE NON-REACT STONEY [facility] Comment: For additional information, please refer to [email or web address]/GYO108 (This link is being provided for informational/ educational purposes only.) Test Performed at: [facility] [address] [place] [address] JOSEPHINE URBINA MD Blood BLOOD SPECIMEN / Unknown 01/18/2024 9:22 AM CDT 01/18/2024 9:23 AM CDT Wyatt Morrow MD LAB - CHEMISTRY KENDRA GONZALEZ Performing Organization Address [facility] Co de Phone Number [facility] [address] [place] [address] * LIPID PROFILE (01/18/2024 9:22 AM CDT) Pathologist [facility] Cholesterol 167 <200 mg/dL [facility] HDL Cholesterol 58 > OR = 50 mg/dL [facility] Triglycerides 92 <150 mg/dL [facility] LDL Calculated 90 mg/dL (calc) [facility] Comment: Reference range: <100 Desirable range <100 mg/dL for primary prevention; <70 mg/dL for patients with CHD or diabetic patients with > or = 2 CHD risk factors. LDL-C is now calculated using the Amarilis calculation, which is a validated novel method providing better accuracy than the Friedewald equation in the estimation of LDL-C. Jorge A SS et al. THERESA. 2013;310(19): 9238-4388 (http://education.Annexon.Pawngo/faq/FIQ479) CHOL/HDLC RATIO 2.9 <5.0 (calc) [facility] Non HDL Cholesterol 109 <130 mg/dL (calc) [facility] Comment: For patients with diabetes plus 1 major ASCVD risk factor, treating to a non-HDL-C goal of <100 mg/dL (LDL-C of <70 mg/dL) is considered a therapeutic option. Test Performed at: [facility] [address] JOSEPHINE URBINA MD Blood BLOOD SPECIMEN / Unknown 01/18/2024 9:22 AM CDT 01/18/2024 9:23 AM CDT Wyatt Morrow MD LAB - CHEMISTRY KENDRA [facility] Organization Address City/State/ZIP Co de Phone Number [address] [address] * LAB RESULTS ORDER (01/18/2024) 01/18/2024 Narrative 01/18/2024 Ordered by an unspecified provider. Scanned Document LAB - THERAPEUTIC DR KACI MONITORING ORDERABLES * EYE EXAM (08/24/2021) Anatomical Region Laterality Modality Other Narrative 08/24/2021 Ordered by an unspecified provider. Scanned Document SCANNING ONLY * ALLERGEN BIRCH IGE (06/04/2021 10:14 AM CHURCH ADMINISTRATOR) Allergen Birch <0.10 kU/L [facility] Class 0 [facility] Comment: Test Performed at: [facility] [place] [address] [place] [address] ALFONSO THOMPSON DO,MPH 06/04/2021 10:1 4 AM CHURCH ADMINISTRATOR 06/04/2021 10:15 AM CHURCH ADMINISTRATOR Yariel Jorgensen MD LAB - SEROLOGY ORDER GENOVEVA Performing Organization Address [facility]/ZIP Co de Phone Number [facility] [address] [place] [address] * ALLERGEN PEANUT IGE W COMPONENT RFLX (06/04/2021 10:14 AM CHURCH ADMINISTRATOR) Allergen Peanut <0.10 kU/L [facility] Class 0 [facility] Comment: Test Performed at: [id number] [address] ALFONSO THOMPSON DO,MPH 06/04/2021 10:1 4 AM CHURCH ADMINISTRATOR 06/04/2021 10:15 AM CHURCH ADMINISTRATOR Yariel Jorgensen MD LAB - SEROLOGY ORDER GENOVEVA Performing Organization Address [facility] de Phone Number [facility] [address] [place] [address] * ALLERGEN INTERPRETATION (06/04/2021 10:14 AM CHURCH ADMINISTRATOR) Interpretation See Below [facility] Comment: Specific Level of Allergen IGE Class kU/L Specific IGE Antibody ----- --------- 0 <0.10 Absent/Undetectable 0/1 0.10-0.34 Very Low Level 1 0.35-0.69 Low Level 2 0.70-3.49 Moderate Level 3 3.50-17.4 High Level 4 17.5-49.9 Very High Level 5 50-100 Very High Level 6 >100 Very High Level The clinical relevance of allergen results of 0.10-0.34 kU/L are undetermined and intended for specialist use. Allergens denoted with a include results using one or more analyte specific reagents. In those cases, the test was developed and its analytical performance characteristics have been determined by [employer]. It has not been cleared or approved by the U.S. Food and Drug Administration. This assay has been validated pursuant to the CLIA regulations and is used for clinical purposes. REPORT COMMENT: PT WANTS THIS ORDER DRAWN FASTING:YES Test Performed at: [place] [address] ALFONSO THOMPSON DO,MPH 06/04/2021 10:1 4 AM CHURCH ADMINISTRATOR 06/04/2021 10:15 AM CHURCH ADMINISTRATOR Yariel Jorgensen MD LAB - SEROLOGY ORDER GENOVEVA [facility] [address] [place] [address] * ALLERGEN RESPIRATORY PROF (IL,[place],IA) IGE (06/04/2021 10:14 AM CHURCH ADMINISTRATOR) Allergen Dermatophagoides pteronyssinus <0.10 kU/L [facility] Class 0 [facility] Allergen Dermatophagoides farinae <0.10 kU/L [facility] Class 0 [facility] Allergen P. notatum <0.10 kU/L [facility] Class 0 [facility] Allergen C Herbarum <0.10 kU/L [facility] Class 0 [facility] Allergen Aspergillus fumigatus <0.10 kU/L [facility] Class 0 [facility] Allergen Alternaria alternata <0.10 kU/L [facility] Class 0 [facility] Allergen Cat Dander <0.10 kU/L [facility] Class 0 [facility] Allergen Dog Dander <0.10 kU/L [facility] Class 0 [facility] Allergen Cockroach Lebanese <0.10 kU/L [facility] Class 0 [facility] Allergen Maple <0.10 kU/L [facility] Class 0 [facility] Allergen Mountain Cassia <0.10 kU/L [facility] Class 0 [facility] Allergen Winona Tree <0.10 kU/L [facility] Class 0 [facility] Allergen Chesterfield <0.10 kU/L [facility] Class 0 [facility] Allergen [place] Tree <0.10 kU/L [facility] Class 0 [facility] Allergen White Nacho <0.10 kU/L [facility] Class 0 [facility] Allergen [place] <0.10 kU/L [facility] Class 0 [facility] Allergen Elm <0.10 kU/L [facility] Class 0 [facility] Allergen Ravalli/Pecan Tree <0.10 kU/L [facility] Class 0 [facility] Allergen White Triangle <0.10 kU/L [facility] Class 0 [facility] Allergen Bermuda Grass <0.10 kU/L [facility] Class 0 [facility] Allergen Lauri Grass <0.10 kU/L [facility] Class 0 [facility] Allergen Common Ragweed <0.10 kU/L [facility] Class 0 [facility] Allergen Rough Pigweed <0.10 kU/L [facility] Class 0 [facility] Allergen Citizen [place] Thistle <0.10 kU/L [facility] Class 0 [facility] Allergen Rough [place] Elder <0.10 kU/L [facility] Class 0 [facility] Allergen Mouse Urine Protein <0.10 kU/L [facility] Class 0 [facility] IgE 11 <KM=423 kU/L [facility] Comment: Test Performed at: [facility] [address] [facility] [place] [address] ALFONSO THOMPSON DO,MPH 06/04/2021 10:1 4 AM CHURCH ADMINISTRATOR 06/04/2021 10:15 AM CHURCH ADMINISTRATOR Yariel Jorgensen MD LAB - CHEMISTRY KENDRA GONZALEZ [facility] [address] [place] [address] * (ABNORMAL) SKIN TEST PPD - POINT OF CARE (05/15/2020 11:23 AM CHURCH ADMINISTRATOR) PPD 0mm(Negati ve) [facility] Other MISCELLANEOUS SAMPLE S / Unknown 05/15/2020 11:23 AM CHURCH ADMINISTRATOR Davina Barnett BICYCLE REPAIRMAN-BANK CLERK LAB - POINT OF CA RE ORDERABLES [facility] [address] [place] [address] Care Teams Family Resource Specialist Relationship Specialty Start Date End Date Douglas Leach MD PCP - General 03/04/20
--- OUTSIDE RECORDS SUMMARY | 2024-05-23 07:55 | XMS_ITS | Continuity of Care Document ---
Author Organization [facility] Address [address] [place] [address] [place] [address] Phone Care Team Providers Care Ceo And President Name Role Phone Douglas Leach MD Unavailable Unavailable Allergies, Adverse Reactions, Alerts Substance Reaction Status Criticality tomato Hives / Skin Rash Active No Informa tion ALBUMEN (EGG WHITE) Hives / Skin Rash Active No Information peanut Anaphylaxis Active No Information Medications Medication Instructions Dosage Effective Dates (start - stop) Status Comments Protonix 40 mg tablet,delayed release take 1 tablet by oral route every day 40 MG - Active Keppra 500 mg tablet take 1 tablet by or al route 2 times every day 500 MG - Active Procedures Procedure Date OFFICE/OUTPATIENT VISIT, EST OFFICE/OUTPATIENT VISIT, EST OFFICE/OUTPATIENT VISIT, EST PREV VISIT, EST, AGE 18-39 OFFICE/OUTPATIENT VISIT, EST OFFICE/OUTPATIENT VISIT, EST OFFICE/OUTPATIENT VISIT, EST OFFICE/OUTPATIENT VISIT, EST PREV VISIT, EST, AGE 18-39 OFFICE/OUTPATIENT VISIT, EST OFFICE/OUTPATIENT VISIT, EST OFFICE/OUTPATIENT VISIT, EST PREV VISIT, EST, AGE 18-39 OFFICE/OUTPATIENT VISIT, EST OFFICE/OUTPATIENT VISIT, EST OFFICE/OUTPATIENT VISIT, EST OFFICE/OUTPATIENT VISIT, EST PREV VISIT, EST, AGE 18-39 OFFICE/OUTPATIENT VISIT, EST OFFICE/OUTPATIENT VISIT, EST OFFICE/OUTPATIENT VISIT, EST OFFICE/OUTPATIENT VISIT, EST OFFICE/OUTPATIENT VISIT, EST OFFICE/OUTPATIENT VISIT, EST OFFICE/OUTPATIENT VISIT, EST PREV VISIT, EST, AGE 18-39 OFFICE/OUTPATIENT VISIT, EST OFFICE/OUTPATIENT VISIT, EST PREV VISIT, EST, AGE 18-39 OFFICE/OUTPATIENT VISIT, EST OFFICE/OUTPATIENT VISIT, EST OFFICE/OUTPATIENT VISIT, EST OFFICE/OUTPATIENT VISIT, EST OFFICE/OUTPATIENT VISIT, EST OFFICE/OUTPATIENT VISIT, EST OFFICE/OUTPATIENT VISIT, EST PREV VISIT, EST, AGE 18-39 OFFICE/OUTPATIENT VISIT, EST PREV VISIT, EST, AGE 18-39 OFFICE/OUTPATIENT VISIT, EST OFFICE/OUTPATIENT VISIT, EST OFFICE/OUTPATIENT VISIT, EST OFFICE/OUTPATIENT VISIT, EST OFFICE/OUTPATIENT VISIT, EST PREV VISIT, EST, AGE 18-39 Advance Directives Directive Yes / No Effective Date File Name No Information Encounters Encounter Description Practice Location Reason(s) For Visit Diagnoses Date Provider Providers Copied on Encounter [facility], [address] [place], [place], [address], tel:[phone] [facility] No Information Chip Cole. [address], [place], [address] , [place]. tel:[phone] OFFICE/OUTPA TIENT VISIT, EST [facility], [address] [place], [place], [address], tel:[phone] [facility] GERD1 (chief complaint) GERD w/o esophagitis 4 Hany Cole. [address], [place], [place], [address] , [place]. tel:[phone] OFFICE/OUTPA TIENT VISIT, EST [facility], [address], [place], [place], [address], [place] tel:[phone] [facility] syncope1 (chief complaint) hidradenit is1 (chief complaint) Syncope and collapseEpilepsyHid radenitis suppurativa 4 Hany Cole. [address], [place], [place], [address] , [place]. tel:[phone] OFFICE/OUTPA TIENT VISIT, EST [facility], [address], [place], [place], [address], [place] tel:[phone] [facility] low iron1 (chief complaint) A1c (chief complaint) obesity1 (chief complaint) hidradenit is1 (chief complaint) sleep apnea1 (chief complaint) ear pain1 (chief complaint) Abnormal weight gainIron deficiencyObstructi ve sleep apnea hypopneaHidradeniti s suppurativaHypergly cemiaOtalgia, right ear 4 Hany Cole. [address], [place], [place], [address] , [place]. [phone] PREV VISIT, EST, AGE 18-39 [facility], [address], [place], [place], [address], [place] tel:[phone] [facility] Physical (chief complaint) Encounter for general adult medical exam w abnormal findingsGERD w/o esophagitisType 2 diabetes mellitus without complicationsObstru ctive Sleep Apnea HypopneaAbnormal weight gainBariatric surgery status 4 Hany Cole. [address], [place], [place], [address] , [place]. tel:[phone] [facility], [address], [place], [place], [address], [place] tel:[phone] [facility] No Information May- 4 Hany Akers [address], [place], [place], [address] , [place]. [phone] OFFICE/OUTPA TIENT VISIT, [facility], [address], [place], [place], [address], [place] tel:[phone] [facility] GERD (chief complaint) GERD1 (chief complaint) skin1 (chief complaint) asthma1 (chief complaint) weight1 (chief complaint) Mild intermittent asthma, uncomplicatedGERD w/o esophagitisAbnormal weight gainCellulitis of abdominal wall 3 Hany Akers [address], [place], [place], [address] , [place]. [phone] OFFICE/OUTPA TIENT VISIT, [facility], [address], [place], [place], [address], [place] tel:[phone] [facility] weight1 (chief complaint) asthma1 (chief complaint) IBS-C (chief complaint) sleep apnea1 (chief complaint) Irritable bowel syndrome with constipationMild intermittent asthma, uncomplicatedType 2 diabetes mellitus without complicationsPrimar y central sleep apneaEssential (primary) hypertension 3 Hany Akers [address], [place], [place], [address] , [place]. [phone] OFFICE/OUTPA TIENT VISIT, [facility], [address], [place], [place], [address], [place] tel:[phone] [facility] IBS1 (chief complaint) GERD1 (chief complaint) weight1 (chief complaint) GERD w/o esophagitisIrritabl e bowel syndrome with constipationAbnorma l weight gain 3 Hany Akers [address], [place], [place], [address] , [place]. tel:[phone] PREV VISIT, EST, AGE 18-39 [facility], [address], [place], [place], [address], [place] tel:[phone] [facility] physical (chief complaint) Encounter for general adult medical exam w abnormal findingsIrritable bowel syndrome with constipationGERD w/o esophagitisAbnormal weight gainBenign intracranial HTN 3 Hany Cole. [address], [place], [place], [address] , [place]. [phone] OFFICE/OUTPA TIENT VISIT, [facility], [address], [place], [place], [address], [place] tel:[phone] [facility] abd pain1 (chief complaint) HTN (chief complaint) Essential (primary) hypertensionOther cholelithiasis without obstructionGenerali zed abdominal painConstipation 2 Hany Akers [address], [place], [place], [address] , [place]. [phone] OFFICE/OUTPA TIENT VISIT, [facility], [address], [place], [place], [address], [place] tel:[phone] [facility] abd pain1 (chief complaint) ADD (chief complaint) HTN (chief complaint) vision1 (chief complaint) Abdominal painOther cholelithiasis without obstructionEssentia l (primary) hypertensionBenign intracranial HTNVisual disturbanceAttentio n deficitConstipation 2 Hany Akers [address], [place], [place], [address] , [place]. tel:[phone] PREV VISIT, EST, AGE 18-39 [facility], [address], [place], [place], [address], [place] [phone] [facility] physical (chief complaint) Encounter for general adult medical examination without abnormal findings 2 Hany Cole. [address], [place], [place], [address] , [place]. [phone] OFFICE/OUTPA TIENT VISIT, [facility], [address], [place], [place], [address], [place] tel:[phone] [facility] ICH (chief complaint) HTN (chief complaint) anxiety1 (chief complaint) Benign intracranial HTNEssential (primary) hypertensionVisual disturbanceGenerali zed Anxiety Disorder 1 Hany Akers [address], [place], [place], [address] , [place]. tel:[phone] OFFICE/OUTPA TIENT VISIT, EST [facility], [address], [address], [place] tel:[phone] [facility] brain mass1 (chief complaint) HTN (chief complaint) anxiety1 (chief complaint) Essential (primary) hypertensionBenign intracranial HTNNeoplasm of brainGeneralized Anxiety Disorder 1 Hany Akers [address], [address] , [place]. [phone] OFFICE/OUTPA TIENT VISIT, [facility], [address], [address], [place] tel:[phone] [facility] HTN (chief complaint) headache1 (chief complaint) Essential (primary) hypertensionVisual disturbanceBenign intracranial HTNHeadache 1 Hany Akers [address], [place], [place], [address] , [place]. tel:[phone] OFFICE/OUTPA TIENT VISIT, EST [facility], [address], [address], [place] tel:[phone] [facility] vision1 (chief complaint) HTN (chief complaint) sleep apnea1 (chief complaint) Essential (primary) hypertensionVisual disturbanceSleep apneaOther disorder of optic nerve of eye 1 Hany Akers [address], [place], [place], [address] , [place]. tel:[phone] PREV VISIT, EST, AGE 18-39 [facility], [address], [place], [place], [address], [place] tel:[phone] [facility] physical (chief complaint) Encounter for general adult medical examination without abnormal findings 1 Hany Cole. [address], [place], [place], [address] , [place]. tel:[phone] OFFICE/OUTPA TIENT VISIT, [facility], [address], [place], [place], [address], [place] tel:[phone] [facility] toe pain1 (chief complaint) a1c (chief complaint) cough1 (chief complaint) Other acquired hammer toe of right footType 2 diabetes mellitus without complicationsCoughB ariatric surgery status 1 Hany Cole. [address], [place], [place], [address] , [place]. tel:[phone] OFFICE/OUTPA TIENT VISIT, [facility], [address], [place], [place], [address], [place] tel:[phone] [facility] knee pain1 (chief complaint) COVID (chief complaint) Pain in right kneeViral infection 0 Hany Cole. [address], [place], [place], [address] , [place]. tel:[phone] OFFICE/OUTPA TIENT VISIT, [facility], [address], [place], [place], [address], [place] tel:[phone] [facility] sick (chief complaint) Viral infection 0 Hany Cole. [address], [place], [place], [address] , [place]. tel:[phone] OFFICE/OUTPA TIENT VISIT, [facility], [address], [place], [place], [address], [place] tel:[phone] [facility] eczema1 (chief complaint) peanut allergy1 (chief complaint) obesity1 (chief complaint) sleep apnea1 (chief complaint) Abdominal painEczemaSleep apnea, unspecifiedHidraden itis suppurativaAllergy to peanuts 0 Hany Cole. [address], [place], [place], [address] , [place]. [phone] Referring Provider: Vimal [address], [place], [place], [address]. tel:[phone] OFFICE/OUTPA TIENT VISIT, [facility], [address], [place], [place], [address], [place] [phone] [facility] LFT (chief complaint) abd pain1 (chief complaint) DM (chief complaint) obesity1 (chief complaint) Type 2 diabetes mellitus without complicationsAbdomi nal painLiver diseaseObesity 0 Hany Cole. [address], [place], [place], [address] , [place]. [phone] Referring Provider: Vimal [address], [place], [place], [address]. tel:[phone] OFFICE/OUTPA TIENT VISIT, [facility], [address], [place], [place], [address], [place] tel:[phone] [facility] LFT (chief complaint) abd pain1 (chief complaint) obesity1 (chief complaint) glucose (chief complaint) Liver diseaseAbdominal painObesityGastriti s w/o bleedingHyperglycem ia 0 Hany Cole. [address], [place], [place], [address] , [place]. [phone] Referring Provider: Vimal [address], [place], [place], [address]. tel:[phone] OFFICE/OUTPA TIENT VISIT, [facility], [address], [place], [place], [address], [place] tel:[phone] [facility] LFT (chief complaint) glucose1 (chief complaint) obesity1 (chief complaint) Abdominal painFatty liverHyperglycemiaO besity 0 Hany Cole. [address], [place], [place], [address] , [place]. [phone] Referring Provider: Vimal [address], [place], [place], [address]. tel:[phone] PREV VISIT, EST, AGE 18-39 [facility], [address], [place], [place], [address], [place] tel:[phone] [facility] PHysical (chief complaint) Encntr for general adult medical exam w/o abnormal findings 0 Hany Cole. [address], [place], [place], [address] , [place]. tel:[phone] Referring Provider: Vimal Law [address], [place], [place], [address]. tel:[phone] OFFICE/OUTPA TIENT VISIT, [facility], [address], [place], [place], [address], [place] tel:[phone] [facility] GERD1 (chief complaint) obesity1 (chief complaint) sleep apnea1 (chief complaint) Body mass index (BMI) 60.0-69.9, adultGERD w/o esophagitisSleep apnea, unspecifiedAbdomina l pain 8 Hany Cole. [address], [place], [place], [address] , [place]. tel:[phone] Referring Provider: Vimal Law [address], [place], [place], [address]. tel:[phone] OFFICE/OUTPA TIENT VISIT, EST [facility], [address], [place], [place], [address], [place] tel:[phone] [facility] GERD1 (chief complaint) sleep apnea1 (chief complaint) hidradenit is1 (chief complaint) obesity1 (chief complaint) Body mass index (BMI) 60.0-69.9, adultSleep apneaGERD w/o esophagitisHidraden itis suppurativa 0-201 8 Hany Akers [address], [place], [place], [address] , [place]. tel:[phone] Referring Provider: Vimal Law [address], [place], [place], [address]. tel:[phone] PREV VISIT, EST, AGE 18-39 [facility], [address], [place], [place], [address], [place] tel:[phone] [facility] sleep apnea1 (chief complaint) GERD1 (chief complaint) abd pain1 (chief complaint) obesity1 (chief complaint) skin (chief complaint) Body mass index (BMI) 60.0-69.9, adultSleep apnea, unspecifiedOther cholelithiasis without obstructionHidraden itis suppurativaEncounte r for general adult medical exam w abnormal findingsEncntr for general adult medical exam w/o abnormal findings 8 Hany Akers [address], [place], [place], [address] , [place]. tel:[phone] Referring Provider: [facility], [place], [place], [address]. tel:[phone] OFFICE/OUTPA TIENT VISIT, EST [facility], [address], [place], [place], [address], [place] tel:[phone] [facility] obesity1 (chief complaint) gluose1 (chief complaint) vitamin D (chief complaint) Body mass index (BMI) 60.0-69.9, adultAbnormal weight gainVitamin D deficiency, unspecifiedHypergly cemia 8 [address]any [address], [place], [place], [address] , [place]. tel:[phone] Referring Provider: [address], [place], [place], [address]. tel:[phone] OFFICE/OUTPA TIENT VISIT, EST [facility], [address], [place], [place], [address], [place] tel:[phone] [facility] sleep apnea1 (chief complaint) obeisty1 (chief complaint) Body mass index (BMI) 60.0-69.9, adultSleep apnea 8 [address], [place], [place], [address] , [place]. [phone] Referring Provider: Vimal Law [address], [place], [place], [address]. tel:[phone] OFFICE/OUTPA TIENT VISIT, [facility], [address], [place], [place], [address], [place] [phone] [facility] obesity (chief complaint) obesity1 (chief complaint) Abnormal weight gainBody mass index (BMI) 60.0-69.9, adult 8 Hany Akers [address], [place], [place], [address] , [place]. [phone] Referring Provider: Vimal Law [address], [place], [place], [address]. tel:[phone] OFFICE/OUTPA TIENT VISIT, [facility], [address], [place], [place], [address], [place] tel:[phone] [facility] obesity1 (chief complaint) sleep apnea1 (chief complaint) Body mass index (BMI) 60.0-69.9, adultSleep apnea 7 Hany Cel[address], [place], [place], [address] , [place]. [phone] Referring Provider: Vimal Law [address], [place], [place], [address]. tel:[phone] OFFICE/OUTPA TIENT VISIT, [facility], [address], [place], [place], [address], [place] tel:[phone] [facility] obesity (chief complaint) vitmain d (chief complaint) glucose1 (chief complaint) sleep apnea1 (chief complaint) Vitamin D deficiency, unspecifiedHypergly cemiaBody mass index (BMI) 60.0-69.9, adultSleep apnea, unspecified 7 Hany Akers [address], [place], [place], [address] , [place]. [phone] Referring Provider: Vimal Law [address], [place], [place], [address]. tel:[phone] OFFICE/OUTPA TIENT VISIT, [facility], [address], [place], [place], [address], [place] [phone] [facility] sleep apnea1 (chief complaint) obesity1 (chief complaint) Body mass index (BMI) 60.0-69.9, adultSleep apnea, unspecified 7 Hany Cole. [address], [place], [place], [address] , [place]. [phone] Referring Provider: Vimal Law [address], [place], [place], [address]. tel:[phone] PREV VISIT, [facility], AGE 18-38 [facility], [address], [place], [place], [address], [place] [phone] [facility] Physical (chief complaint) Encntr for general adult medical exam w/o abnormal findings 7 Hany Cole. [address], [place], [place], [address] , [place]. [phone] Referring Provider: Vimal Law [address], [place], [place], [address]. tel:[phone] OFFICE/OUTPA TIENT VISIT, [facility], [address], [place], [place], [address], [place] tel:[phone] [facility] sleep apnea (chief complaint) eczema1 (chief complaint) hematuria (chief complaint) obesity1 (chief complaint) Body mass index (BMI) 50-59.9 , adultSleep apnea, unspecifiedHematuri aEczema 6 Hany Cole. [address], [place], [place], [address] , [place]. tel:[phone] Referring Provider: Vimal Law [address], [place], [place], [address]. tel:[phone] PREV VISIT, EST, AGE 17-39 [facility], [address], [place], [place], [address], [place] [phone] [facility] physical (chief complaint) Encntr for general adult medical exam w/o abnormal findings 6 Hany Cole. [address], [place], [place], [address] , [place]. tel:[phone] Referring Provider: Vimal Law [address], [place], [place], [address]. tel:[phone] OFFICE/OUTPA TIENT VISIT, [facility], [address], [place], [place], [address], [place] tel:[phone] [facility] sleep apnea (chief complaint) eczama (chief complaint) obeisty (chief complaint) Dietary surveillance and counselingObesity, unspecifiedEczemaSl eep apnea syndromeBMI 50.0 to 59.9 5 Hany Cole. [address], [place], [place], [address] , [place]. [phone] Referring Provider: Vimal Law [address], [place], [place], [address]. tel:[phone] OFFICE/OUTPA TIENT VISIT, [facility], [address], [place], [address], [place] [phone] [facility] PHysical (chief complaint) Dietary surveillance and counselingRoutine Medical ExamRoutine Medical ExamDysphagiaRash and other nonspecific skin eruptionDYSPHAGIA NEC 4 Hany Cole. [address], [place], [place], [address] , [place]. tel:[phone] Referring Provider: Vimal Law [address], [place], [place], [address]. tel:[phone] OFFICE/OUTPA TIENT VISIT, [facility], [address], [place], [place], [address], [place] tel:[phone] [facility] abdominal pain (chief complaint) Dietary surveillance and counselingAbdominal PainGERDCalculus of gallbladder without mention of cholecystitis, without mention of obstruction 3 Hany Cole. [address], [place], [place], [address] , [place]. [phone] Referring Provider: Vimal Law [address], [place], [place], [address]. tel:[phone] OFFICE/OUTPA TIENT VISIT, EST [facility], [address], [place], [place], [address], [place] tel:[phone] [facility] abdominal pain (chief complaint) Dietary surveillance and counselingAbdominal PainHemorrhage of rectum and anus 3 Hany Cole. [address], [place], [place], [address] , [place]. tel:[phone] Referring Provider: Vimal Law [address], [place], [place], [address]. tel:[phone] OFFICE/OUTPA TIENT VISIT, EST [facility], [address], [place], [place], [address], [place] tel:[phone] [facility] Headache (chief complaint) Cough (chief complaint) obesity (chief complaint) HeadacheBronchitis, AcuteObesity 3 Hany Akers [address], [place], [place], [address] , [place]. tel:[phone] Referring Provider: Vimal Law [address], [place], [place], [address]. tel:[phone] PREV VISIT, EST, AGE 17-39 [facility], [address], [place], [place], [address], [place] tel:[phone] [facility] headache (chief complaint) eczema (chief complaint) Dietary surveillance and counselingRoutine Medical ExamRoutine Medical Exam 2 Hany Akers [address], [place], [place], [address] , . tel:[phone] Referring Provider: Vimal [address], [place], [place], [address]. tel:[phone] Family History Family Member Type Diagnosis Age At Onset Mother Problem (finding) Alive and well Father Problem (finding) Stroke 50 Brother Problem (finding) Alive and well Payers Payer name Insurance type Covered green party ID Authoriza tion(s) No Information Social History Type Description Quantity Date Captured Comments Alcohol Use Details Unknown Caffeine Use Details Unknown Tobacco Use Status No Information Smoking Status No Information Sex Female Chief Complaint And Reason For Visit No Information Plan Of Treatment Date Type Action Status Goal Special diet education compl eted Goal Special diet education compl eted Goal Special diet education compl eted Goal Special diet education compl eted Referral Ordered: Neurology (related to Syncope and collapse) ordered Referral Ordered: Referrals: Neurology. Evaluate and treat ordered Referral Ordered: Dermatology (related to Hidradenitis suppurativa) ordered Referral Ordered: Referrals: Dermatology. Evaluate and treat ordered Referral Ordered: LAVELLE WAYNE -[facility] : Internal Medicine : Pulmonary Disease (related to Obstructive Sleep Apnea Hypopnea) ordered Referral Referred To: LAVELLE WAYNE [facility], [phone] Ordered: Referrals: Allopathic & Osteopathic Physicians : Internal Medicine : Pulmonary Disease. LAVELLE WAYNE. Evaluate and treat ordered Referral Ordered: Huey Borrego -[facility] : Surgery (related to Abnormal weight gain) ordered Referral Referred To: Huey Borrego [address], [phone] Ordered: Referrals: Allopathic & Osteopathic Physicians : Surgery. Huey Borrego. Evaluate and treat ordered Referral Referred To: Juvenal Land [address], [phone] Ordered: Referrals: Charles. Emery Evaluate and treat ordered Referral Ordered: COLONOSCOPY AND BIOPSY ordered Referral Ordered: MRI BRAIN W/DYE ordered Referral Referred To: Juan Pablo Zurita MD [address]
[place], [address] Ordered: Referrals: Juan Pablo Zurita MD. Evaluate and treat ordered Referral Ordered: MRI BRAIN W/O DYE ordered Referral Ordered: Allergy and Immunology (related to Encounter for general adult medical examination without abnormal findings) ordered Referral Ordered: Referrals: Allergy and Immunology. Evaluate and treat ordered Referral Ordered: HAYDEN FORD -Podiatric Medicine & Surgery Service Providers : Merchant Banker (related to Other acquired hammer toe of right foot) ordered Referral Referred To: HAYDEN FORD [facility] [facility],[address] [place], [place], [id number] Ordered: Referrals: Podiatric Medicine & Surgery Service Providers : Merchant Banker. HAYDEN FORD. Evaluate and treat ordered Referral Ordered: CHEST X-RAY PA/LAT TWO-VIEWS ordered Referral Ordered: Surgery (related to Abdominal pain) ordered Referral Ordered: US EXAM OF ABDOMEN, LIMITED, GALLBLADDER ordered Referral Ordered: Ophthalmology (related to Encntr for general adult medical exam w/o abnormal findings) ordered Referral Ordered: Surgery (related to Encntr for general adult medical exam w/o abnormal findings) ordered Referral Ordered: Referrals: Ophthalmology. Evaluate and treat ordered Referral Ordered: Referrals: Surgery. Evaluate and treat ordered Referral Ordered: OPERATIVE UPPER GI ENDOSCOPY ordered Referral Referred To: Juvenal Land MD [id number] [facility] [address] [place], [place], [id number] Ordered: Referrals: Juvenal Land MD Evaluate and treat ordered Referral Ordered: Tyrese Cerna -Allopathic & Osteopathic Physicians : Surgery (related to Body mass index (BMI) 60.0-69.9, adult) ordered Referral Referred To: Tyrese Cerna [address] [place], [place] [id number] Ordered: Referrals: Allopathic & Osteopathic Physicians : Surgery. Tyrese Cerna. Evaluate and treat ordered Referral Ordered: Referral: Otolaryngology. ordered Referral Ordered: Referral: Pulmonary Diseases. Evaluate and treat. ordered Referral Ordered: NUC MED HIDA (HEPATOBILIARY) SCAN ordered Referral Ordered: US EXAM, ABDOM, COMPLETE ordered Referral Ordered: MRI BRAIN W/O & W/DYE ordered History Of Present Illness Encounter Date Complaint History Of Prese nt Illness GERD1 Pt has chronic G ERD pt had EGD done several years ago which showed gastritis Pt states that she has daily GERD and stomach upset if she does not take protonix daily Pt failed pepcid. Pt also has history of gastric sleeve surgery. syncope1 pt states that h er mom recently and she has been feeling emotional and she was at drive through for [place] and she passed out .Pt denies any dizziness, chest pain, palpitation, sob or any vision change or any signs prior to passing out Pt woke up at back of ambulance. Pt was kind of confused upon awakening. Pt had head CT done at ER which showed bilateral basal ganglia calcifications her lab were otherwise unremarkable. Pt states that she called neurologist at [facility] for follow up but no arron until July of 2024. Pt denies any headache or recurrent episodes currently . Pt was told by witness that she was slightly shaking during the passing out episode. Pt denies any chest pain or palpitation prior to onset of episode hidradenitis1 pt has hidradeni tis. Pt sees dermatology and she is on humira now and doing ok low iron1 Pt has mild low iron Pt denies any blood loss. Pt denies any fatigue A1c Pt has mildly hi gh a1c Pt denies any polyuria, polydipsia obesity1 Pt never receive d the semaglutide from [facility]. Pt is s/p gastric sleeve but she has not been losing more weight hidradenitis1 Pt has recurrent hidradenitis around low pelvic area Pt has history of surgery for armpit in the past. 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 Pt denies any ear pain Physical pt needs annual physical. Pt has chronic and recurrent midepigastric abdominal pain with GERD feeling Pt is s/p gastric sleeve and she followed up with surgeon in [place] and she recently had EGD done and she did have hiatal hernia which was repaired during EGD several months ago. Pt states that the EGD was benign. Pt states that she did well for several months but her recurrent midepigastric pain restarted several months ago. She notices sharp midepigastric pain, which does not seem to relate to food. Pt feels slightly nauseated with GERD as well. Pt needs protonix refilled Pt has been out of protonix for several months Pt also has history of sleep apnea and she did use cpap for a while but she stopped after weight loss post gastric sleeve surgery Pt currently feels tired and she does snore at night. Pt also is s/p gastric sleeve surgery but she has not been able to lose more weight and her BMI is still 47.99. GERD1 Pt has chronic G ERD Pt had benign EGD Pt has history of gastric sleeve .Pt takes protonix daily pt has daily GERD without protonix pt failed pepcid. skin1 Pt has recurrent cystic skin infection around inner thigh and also around skin fold. Pt has history of hidradenitis s/p surgery bilateral axillary area. Pt states that the break out hurts with drainage. Pt just saw Dr. Abbasi who did not offer any further surgery regarding the cystic skin lesions. Pt has large skin fold especially around abdomen post gastric sleeve. Pt states that the gastric surgeon who did the sleeve wants her to lose 30 more pounds before discussing panniculectomy surgery. pt states that she currently has acute flare up of the cystic skin lesion around lower abdomen and inner thigh area. Pt notices clear drainage with pain. GERD asthma1 Pt has allergy a nd asthma. Pt takes singulair and doing ok ,Pt denies any wheezing or sob. Pt needs singulair refilled Pt also takes OTC anti-histamine . weight1 Pt is s/p gastri c sleeve surgery and she weight Pt has history o f DM pt denies any polyuria, polydipsia. Pt does not check her glucose. Pt is on ozempic but she is still using 0.25 mg SQ weekly Pt notices slightly more constipated on the day of the ozempic shot but resolves the day after. Pt lost only one pound Pt denies any other side effects asthma Pt has asthma an d allergy, especially during summer season Pt uses OTC anti-histamine but she still has some nasal congestion and she notices some whezing with sob in the morning as well. IBS-C Pt has IBS-C. pt takes linzess and doing well. Pt has been able to have BM daily except on the day of getting ozempic shot. Pt denies any abd pain sleep apnea1 Pt has sleep motel keeper ea Pt has not been using cpap. pt has mild HTn today Pt denies any chest pain or headache or sob or fatigue IBS Pt has IBS-C. Pt started linzess recently and works well Pt needs refill. Pt denies any abd pain or diarrhea. pt now has regular BM as long as she takes linzess GERD1 Pt has chronic G ERD. Pt failed pepcid Pt has daily GERD without protonix Pt has been taking protonix which works well for her GERD symptoms weight Pt has history o f gastric sleeve surgery. Pt has not been able to lose further weight. Pt state that trulicity is not covered by insurance. physical Pt needs annual physical pt has chronic constipation and GI bloating. Pt had benign colonoscopy 3 months ago. pt has GERD. Pt takes protonix pt denies any abd pain.. Pt has history of DM Pt had gastric sleeve surgery done and she lost some weight but her weight loss stalled. Pt unable to lose more weight. Pt has failed diet and exercising pt also has history of ICH with headache, Pt has not followed up with neurosurgery for a while. Pt states that she has not had any headache for a while Pt denies any vision change., Pt denies any other complaints HTN Pt has history o f HTN. Pt denies any chest pain. her bp is ok today. Pt is not on any medication abd pain1 Pt has chronic m idepigastric abdominal and right upper quadrant area pain, especially post food for more than one year. Pt also has intermittent GERd symptoms. Pt states that protonix does seem to help with her abd pain. . Pt feels nauseated all the time but worse after food. Pt also lost 100 pounds since her gastric sleeve surgery. Pt denies any diarrhea .Pt also c/o feeling constipated for several months Pt denies any blood in stool. Pt had benign EGD last year prior to her sleeve surgery. Pt is waiting for colonoscopy soon. Pt also has gallstones. HTN Pt has HTN Pt ferraro s been off norvasc and her bp is borderline high today. pt denies any headache. ADD Pt states that s he no longer needs ADD meds .Pt did take ritalin which seemed helped slightly but she does not feel that she needs to take it anymore. vision1 Pt has intermitt ent blurred vision with papilledema due to ICH, Pt sees neurology at [facility]. Pt has not seen neuro goodwill ambassador yet . Pt wants letter to her school to have the exam read to her during exam due to her vision issue abd pain1 Pt has chronic m idepigastric abdominal and right upper quadrant area, especially post food for more than one year but seems worse during last several months. Pt does not think she has heartburn. Pt states that protonix did not help her pain either. Pt feels nauseated all the time but worse after food. Pt also lost 100 pounds since her gastric sleeve surgery. Pt denies any diarrhea .Pt also c/o feeling constipated for several months Pt denies any blood in stool. Pt had benign EGD last year prior to her sleeve surgery. Pt wants colonoscopy. physical Pt needs annual physical. Pt has ICH with papilledema and vision change and headache pt is seeing neurosurgeon and ophthalmology at [facility] now. Pt is off acetazolamide. Pt has history of HTN, Pt weaned herself off norvasc. Pt has not been checking her bp at home. Pt denies any chest pain Pt also lost good amount of weight after bypass surgery and she is off all Dm meds. Pt denies any polyuria, polydipsia. Pt has recurrent GERD symptoms. Pt takes omeprazole daily but is no longer helping. Pt had benign EGD prior to her sleeve surgery. Pt denies any abd pain. Pt does have history of gallstone and she never followed up with surgeon about the gallbladder. Pt also is studying for board exam and she is struggling with focus and concentration ICH Pt has idiopathi c increased ICP. pt has frequent blurred vision and headache as well. Pt denies any head injury or waking up at night with headache. Pt denies any nausea, vomiting. Pt had normal MRI of brain 11/16/20. Pt was evaluated by neurosurgery at [facility] who started her on diamox and referred her to neurophthalmology for papilledema. Pt feels rather frustrated about the whole treatment due to the slow improvement of her overall symptoms with headache and vision issue .Pt was told that she may need shunt if no improvement with diamox HTN Pt has HTN Pt ta kes norvasc 5 mg and her bp is ok at home per pt. she denies any edema or sob anxiety Pt feels very an xious about her condition and she again requests leave from work due to her anxiety and inability to focus at work HTN Pt has HTN Pt ta kes norvasc and her bp is ok at home. brain mass1 Pt has elevated ICP with chronic headache and some visual disturbance. Pt has arron with neurosurgery on 11/16/20. 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 anxiety1 Pt has been feel ing very anxious due to headache and increasing intracranial pressure and MRI finding of brain mass. Pt states that she is very anxious and she has hard time working and staying in school. Pt wants a doctor note to get her off work for 4 weeks due to brain issue and stress and anxiety. Pt denies any depression or any suicidal or homicidal thought. PT denies any crying spells HTN Pt took norvasc for one week and she checked her bp at [facility] which was 130/70 so she stopped taking Norvasc on her own. her bp is high today headache1 Pt has vague int ermittent pressure headache with some blurred vision. Hoisting Engineer checked her eye and she has small area of edema. Pt denies any head injury or waking up at night with headache. Pt denies any confusion, neurological deficit, etc .Pt had spinal tap and her opening pressure is 30. sleep apnea1 Pt has not been using cpap for 4 weeks. Pt is noncompliant HTN Her BP is high t filipe. Pt does not have any history of HTN. vision1 Pt notices some blurred vision recently and she went to see her eye doctor who examined her eye and saw ? mild cloudy/swelling around optic nerve and she also reports some recent onset of pressure like frontal headache with very mild nausea sometimes for the past 4 weeks Pt denies any head injury or waking up at night with headache Pt denies any chest pain. Pt states that the headache occurs randomly throughout the day associated with photophobia and nausea without vomiting or any trigger factor. Pt denies any mental status change. physical Pt needs annual physical Pt has multiple food allergies. Pt denies any history of anaphylactic reaction. However, she does feel itchy all the time and also around her throat sometimes after food .Pt also has chronic sinus allergy symptoms Pt denies any rash ,Pt is s/p gastric sleeve and she lost more than 50 pounds and she continues to lose weight Pt chronic GERD Pt takes omeprazole daily. Pt denies any abd pain pt failed pepcid Pt sees GI. Pt denies any other complaints Pt is no longer diabetic after weight loss surgery Pt does have fatty liver and she will do liver biopsy soon by GI surgeon. Pt denies any abd pain or jaundice. toe pain1 Pt c/o mild pain right small toe around the lateral area for 2 months Pt denies any injury pt denies any skin itching or drainage or skin peeling Pt denies any toe redness or numbness or tingling. Pt denies any cold toe or discoloration a1c Pt has borderlin e DM. Pt denies any polyuria polydipsia Pt denies any neuropathy. Pt did not want to try metformin Pt just had gastric sleeve done and she lost more than 50 pounds. cough1 Pt c/o persisten t dry cough for close to 6 months. pt was diagnosed with COVID 6 months ago Pt denies any loss of taste and smell. Pt just has persistent dry cough for unknown reason Pt denies any phlegm. Pt denies any sob or fever knee pain1 Pt c/o acute ons et of right lateral knee pain since 3 days ago. Pt denies any injury. Pt denies any redness or warmth. Pt denies any swelling. Pt denies any calf pain. Pt states that the pain is sharp and seems worse with movement . COVID Pt started to ferraro ve viral symptoms on 02/11 and she was tested positive on at group home and she had repeat testing done on and confirmed positivity. Pt states that all her symptoms completely resolved already for 2-3 days .Pt denies any fatigue, fever, sob or cough, loss of taste and smell for at least 48 hours . 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 Pt has mild sinus congestion since yesterday Pt denies any sore throat, cough, sob or fever, loss of taste or smell. Multiple people around work were diagnosed positive for COVID-19. Pt states that she had a rapid testing done at work and she wants a regular testing done. Pt has been home self quarantine since yesterday. sleep apnea1 Pt has sleep motel keeper ea. Pt uses cpap nightly obesity1 [facility]. Pt also has hidradenitis. She will undergo surgery for that also. Pt has gallstone with intermittent postprandial right upper quadrant abdominal pain Pt is noncompliant with surgery referral. peanut allergy1 Pt recently noti casimiro some trouble with breathing and wheezing after eating peanut Pt denies any GI symptoms Pt wants food allergy testing. Pt denies any dysphagia eczema1 Pt has eczema. P t uses steroid topical PRn and doing well. Pt needs refill DM Patient has high glucose and high A1c. Patient has borderline diabetes. Patient denies any polyuria polydipsia. Patient denies any neuropathy. LFT Patient has hist ory of high liver function test. Patient denies any abdominal pain or jaundice. Repeat liver function is normal. Hepatitis normal. Ferritin is normal. Liver ultrasound normal. abd pain1 Patient has inte rmittent right upper quadrant pain. Patient has gallstone. Patient still has not followed up with Dr. Land regarding gallbladder removal. Patient denies any acute pain. obesity1 Patient is morbi dly obese. Patient is seeing bariatric surgeon for sleeve surgery soon. LFT Pt had high LFT Pt denies any jaundice. Pt has not done lab yet obesity1 Pt is seeing [facility] surgeon in [place] and she will most likely have gastric sleeve in October per pt abd pain1 Pt has intermitt ent right upper quadrant pain post food for several months Pt has gallstone and cholecystitis Pt denies any nausea, vomiting. Pt did see Dr. land who wanted her to have gallbladder surgery but pt is not sure if she wants to do it now at [facility]. pt has gastris. Pt takes omeprazole daily pt just had another EGD from bariatric surgeon last week. glucose Patient has hist ory of mildly elevated glucose. Patient denies any polyuria polydipsia. Patient has not done lab. LFT Pt has elevated LFT. Pt denies any jaundice .Pt c/o intermittent right upper quadrant abdominal pain for several months .Pt states that pain is worse with food sometimes Pt still takes omeprazole from GI Pt denies any acute pain. pt does not think the RUQ pain is worse lately. Pt denies any nausea. glucose1 Pt has high gluc ose Pt denies any polyuria, polydipsia. Pt denies any neuropathy obesity1 Pt is obese Pt h as [facility] this sunday on video chat PHysical Pt needs annual physical pt has recurrent hidradenitis Pt did not follow up with Dr. land for surgery two years ago Pt has recurrent right axillary infection with drainage. Pt has severe gastritis Pt had EGD done which showed severe gastritis 2018 ,Pt has been taking omeprazole 1-2 per day for the past year ,Pt has not followed up with GI since the scope. Pt c/o intermittent inability to close left upper eyelid for 3-4 months Pt states it started 4 months ago and she has above symptoms 1-2 per week while asleep ,Pt has to physically pulled her left upper eyelid down and close her left eye. Pt c/o left eye pain and redness due to dryness. Pt denies any vision loss. Pt did not do weight loss surgery Pt has sleep apnea pt uses CPAP nightly GERD1 Pt has daily CAMMIE D and zantac does not help so much anymore Pt denies any nausea, vomiting Pt c/o midepigastric pain with food. obesity1 Pt is morbidly o bese Pt is seeing bariatric surgeon in [place] and she will have bypass in April 20. Pt needs EGD done locally as part of the requirement sleep apnea1 Pt has sleep motel keeper ea Pt is using CPAP nightly and doing ok Pt denies any snoring or any fatigue obesity1 Pt needs bariatr ic surgery. She went to [place] for 2-3 appointments but was unhappy with the service and distance and she is not sure if she wants to do it again at [place]. hidradenitis1 Pt johnson snot have any active infection now. Pt has right side hidradenitis with recurrent drainage and pain. Pt never made arron with Dr. Land GERD1 Pt has intermitt ent midepigastric abdominal pain. pt does have gallstone pt denies any pain after food Pt had normal HIDA scan Pt has been taking zantac and she does not have any abdominal pain anymore at this point sleep apnea1 Pt has sleep motel keeper ea Pt need cpap machine, pt is waiting for [facility] to set up her cpap skin Pt has bilateral hidradenitis adenitis both axilla. Pt had left axillary surgery two years ago and she never got the right side done. Pt c/o recurrent pain and pus drainage right axillary area. Pt denies any fever now sleep apnea1 Pt has sleep motel keeper ea pt accidently dropped her CPAP machine and broke the machine two weeks ago Pt has not been using CPAP for two weeks Pt did feel more energy and better resting while on cpap GERD1 Pt abd pain1 Pt has intermitt ent midepigastric pain for several months. Pt denies any nausea, vomiting. Pt does have GERD. Pt denies any heartburn symptoms Pt is not taking any zantac anymore. Pt states that zantac did help with her pain in the past Pt denies any worsening pain with food. pt states that she has midepigastric sharp pain about once per week, not related to food in general. pt does feel nausea sometimes Pt denies any blood in stool obesity1 Pt has been seei doctor in [place] for bariatric surgery. Pt needs to go to [place] monthly for weight loss assessment vitamin D Pt has low D, Pt is not taking any OTC supplement gluose1 Pt has high gluc ose. Pt denies any polyuria, polydipsia. obesity1 Pt is obese. her BMI is over 60. Pt needs bariatric surgery. Pt cannot find a bariatric surgeon around [facility]. Pt failed diet and exercise for weight loss. sleep apnea1 Pt has sleep motel keeper ea Pt is noncompliant with CPAP. Pt does not use it . pt states that she does not feel any difference with the cpap machine obeisty1 Pt is in the pro cess of getting his bariatric surgery approved by [facility] or changing to [place] to continue to see [facility] for surgery. Pt is morbidly obese. Pt failed diet and exercise. obesity obesity1 Pt is morbidly o bese. Pt unable to lose any weight with diet and exercise. Pt is in the process of setting up bariatric surgery at [facility]. Pt is doing medical management for weight loss now. Pt has not been able to lose much weight at all. sleep apnea1 Pt has sleep motel keeper ea. Pt is noncompliant with CPAP. Pt feels mildly fatigue obesity1 Pt is morbidly o bese Her BMI is over 60 Pt is in the process of getting sleeve done at [facility]. Pt needs monthly weight assessment form completed. Pt has not been able to lose any weight with diet and exercise. glucose1 Pt has mild high glucose. Pt denies any polyuria, polydipsia sleep apnea1 Pt has sleep motel keeper ea but she is not using CPAP. Pt is noncompliant. Her CPAP machine broke and she supposes to call [employer] to get it repaired but she has not done so. pt has not been using CPAP for long time vitmain d Pt has low vitma in D. obesity Additional infor mation: Pt is obese. Pt wants to do weight loss surgery. Pt will attend bariatric surgery seminar soon. Pt failed diet and exercise for weight loss. sleep apnea1 Pt has sleep motel keeper ea. Pt is not using CPAP. Pt is noncompliant. pt states that she does not have the CPAP cord anymore obesity1 Pt is obese. Pt changed insurance to [employer] and she wants referral to weight loss surgeyr at [facility]. Pt failed diet and exercise and weight loss. Physical Pt needs annual physical. Pt has eczema and she needs steroid topical PRn which working ok. pt has some dry patch around arm and also leg. pt is severey obese her BMI is over 60. Pt failed weight loss effort on her own. Pt wants to try weight loss surgery. Pt also has sleep apnea. Pt uses CPAP nightly. Pt told me her tube on the CPAP machine broke recently. Pt denies any other complaints sleep apnea Additional infor mation: Pt has sleep apnea. pt uses CPAP nightly until recenlty when the cord broke. Pt has not been using it Pt denies any fatigue Pt does snore at night. eczema1 Pt has spotty ec zema around leg and arm. Pt needs steroid topical/ Pt notices mild itching hematuria Pt denies any UT I symptoms pt never had Urine test. obesity1 Pt is morbidly o bese .Pt gained more weight. Pt is not very active physical Pt needs annual physical. Pt has sleep apnea but she is noncompliant and she has not been using CPAP. Pt had hematuria and low D. Pt denies any urinary symptoms. Pt c/o mild itching and pain between right 4th and 5th toe for several week. Pt denies any other complaints obeisty Pt is overweight . Pt gained some weight eczama Pt has eczema. P t notices flares up worse in the summer time. Pt notices itching. Pt deneis any feve, chill sleep apnea Relevant history : a BMI of 52.08. Additional information: Pt has sleep apnea Pt has been using CPAP and she feels better Pt feels less fatigue and more energy. Instructions Date Instruction Additional Infor liviaion Special diet education Related t o Body mass index (BMI) 60.0-69.9, adult Avoid provocative fo ods: citrus, alcohol, coffee, chocolate, mints. Related to GERD w/o esophagitis Eat smaller meals, n o eating three hours prior to bedtime. Related to GERD w/o esophagitis Elevate head of bed prior to sle ep. Related to GERD w/o esophagitis Special diet education Related t o Body mass index (BMI) 60.0-69.9, adult Weight management Related to Sle ep apnea Special diet education Related t o Body mass index (BMI) 60.0-69.9, adult Weight management Related to Hid radenitis suppurativa Special diet education Related t o Body mass index (BMI) 60.0-69.9, adult Increase physical activity Relat ed to Abnormal weight gain Weight management Related to Abn ormal weight gain Prescribed Activity and Exercise Education Related to Dietary Surveillance and Counseling Prescribed Diet Educ ation/Lifestyle Education Regarding Diet Related to Dietary Surveillance and Counseling Increase physical activity Relat ed to Body mass index (BMI) 60.0-69.9, adult Weight management Related to Bod y mass index (BMI) 60.0-69.9, adult Weight management Related to Bod y mass index (BMI) 50-59.9 , adult Increase physical activity Relat ed to Body mass index (BMI) 50-59.9 , adult Prescribed Diet Educ ation/Lifestyle Education Regarding Diet Related to Dietary Surveillance and Counseling Prescribed Activity and Exercise Education Related to Dietary Surveillance and Counseling Weight management Related to Bod y mass index (BMI) 60.0-69.9, adult Weight management Related to Bod y mass index (BMI) 60.0-69.9, adult Increase physical activity Relat ed to Body mass index (BMI) 60.0-69.9, adult Prescribed Diet Educ ation/Lifestyle Education Regarding Diet Related to Dietary Surveillance and Counseling Prescribed Activity and Exercise Education Related to Dietary Surveillance and Counseling Prescribed Activity and Exercise Education Related to Dietary Surveillance and Counseling Prescribed Diet Educ ation/Lifestyle Education Regarding Diet Related to Dietary Surveillance and Counseling Increase physical activity Relat ed to Vitamin D deficiency, unspecified Weight management Related to Vit stewart D deficiency, unspecified Prescribed Activity and Exercise Education Related to Dietary Surveillance and Counseling Prescribed Diet Educ ation/Lifestyle Education Regarding Diet Related to Dietary Surveillance and Counseling Increase physical activity Relat ed to Body mass index (BMI) 60.0-69.9, adult Weight management Related to Bod y mass index (BMI) 60.0-69.9, adult Prescribed Activity and Exercise Education Related to Dietary Surveillance and Counseling Prescribed Diet Educ ation/Lifestyle Education Regarding Diet Related to Dietary Surveillance and Counseling Prescribed Activity and Exercise Education Related to Dietary Surveillance and Counseling Prescribed Diet Educ ation/Lifestyle Education Regarding Diet Related to Dietary Surveillance and Counseling Prescribed Diet Educ ation/Lifestyle Education Regarding Diet Related to Dietary Surveillance and Counseling Prescribed Activity and Exercise Education Related to Dietary Surveillance and Counseling Prescribed Activity and Exercise Education Related to Dietary Surveillance and Counseling Prescribed Diet Educ ation/Lifestyle Education Regarding Diet Related to Dietary Surveillance and Counseling Dietary counseling Related to Di etary surveillance counseling Decrease caloric intake Related to Dietary surveillance counseling Dietary counseling Related to Di etary surveillance counseling Decrease caloric intake Related to Dietary surveillance counseling Dietary counseling Related to Di etary surveillance counseling Decrease caloric intake Related to Dietary surveillance counseling Dietary counseling Related to Di etary surveillance counseling Decrease caloric intake Related to Dietary surveillance counseling Assessments Type Assessment Date No Information
--- OUTSIDE RECORDS SUMMARY | 2024-05-23 07:55 | XMS_ITS | Referral Summary ---
Author Organization [facility] Address [address] [place] [address] Care Team Providers Care Core Composer Feeder Name Role Phone Douglas Leach MD Primary Care Provider [phone] Source Comments [facility] and Associated [facility]ician Practices is amultiple site organization consisting of ambulatory clinics and hospital sitesin [place], [place], [place] and [place]. This disclosure is being madepursuant to the Care Everywhere program and may not contain all information available regarding this patient. Last updated 17.[facility] Encounters Date Type Department Care Team Description 05/21/2024 Refill [facility] - Dermatology [address] [place] [phone] Wyatt Morrow MD Refill Request 05/15/2024 Refill [facility] - Dermatology [address] [place] [phone] Wyatt Morrow MD Refill Request 03/25/2024 Travel 03/24/2024 1:00 PM SHAGGER Office Visit [facility] - Dermatology [address] [place] [address] [address] [facility] [address] [place] [address] Wyatt Morrow MD Rash and nonspecific skin eruption (Primary Dx); Hidradenitis suppurativa; Androgenetic alopecia from Last 3 Months Allergies Active Allergy Reactions Criticality Noted Date Comments Albumin Rash Medium 11/18/2020 Peanut-Derived Anaphylaxis High 11/18/2020 Tomato Rash Medium 11/18/2020 Medications * Be aware that medications may not be up to date on this document. Alwaysverify current medications with the patient. Medication Sig Dispensed Refills Start Date End Date Status VITAMIN D PO Take 1 tablet by mouth once daily Active EPINEPHrine (EPIPEN) 0.3 MG/0.3ML auto-injector pen Inject 0.3 mL into muscle once as needed Active cetirizine (ZYRTEC) 10 MG tablet Take 1 (one) tablet by mouth once daily 08/09/2020 Active omeprazole (PRILOSEC) 40 MG capsule Take 1 (one) capsule by mouth daily before breakfast 11/07/2020 Active spironolactone (Aldactone) 50 MG tabletIndications:A ndrogenetic alopecia Take one pill by mouth three times per day 90 tablet 2 01/14/2024 Active adalimumab (Humira, 2 Pen,) 40 MG/0.4ML injectionIndication s:Hidradenitis suppurativa Inject 40 mg (one pen, 0.4mL) subcutaneous weekly for hidradenitis suppurativa . Dispense: # 2 kits = 4 pens, 1.6mL total). Maintenance dosing. 2 kit 2 01/21/2024 Active adalimumab (Humira-CD/UC/HS Starter) 80 MG/0.8ML injectionIndication s:Hidradenitis suppurativa Inject 160mg (2 pens, 1.6mL) subcutaneous once, then 80mg (1pen, 0.8mL) two weeks later for hidradenitis suppurativa . Dispense # 1 kit = 3 pens. Loading/starter doses. 1 kit 01/24/2024 Active adalimumab (Humira-CD/UC/HS Starter) 80 MG/0.8ML injectionIndication s:Hidradenitis suppurativa Inject 160mg (2 pens, 1.6mL) subcutaneous once, then 80mg (1pen, 0.8mL) two weeks later for hidradenitis suppurativa . Dispense # 1 kit = 3 pens. Loading/starter doses. 1 kit 01/30/2024 Active adalimumab (Humira, 2 Pen,) 40 MG/0.4ML injectionIndication s:Hidradenitis suppurativa Inject 40 mg (one pen, 0.4mL) subcutaneous weekly for hidradenitis suppurativa . Dispense: # 2 kits = 4 pens, 1.6mL total). Maintenance dosing. 2 kit 2 01/30/2024 Active Active Problems Problem Noted Date Diagnosed Date Chronic migraine without aura 05/19/2021 Acute maxillary sinusitis 11/18/2020 Atopic dermatitis 11/18/2020 Eczema 11/18/2020 Migraine 11/18/2020 Preop testing 11/18/2020 Serous otitis media 11/18/2020 Strain of trapezius muscle 11/18/2020 Difficult airway 09/25/2019 Morbid obesity 08/23/2017 Overview (11/18/2020): Added automatically from request for surgery [id number] Gallstone 01/06/2013 Gastroesophageal reflux disease 01/06/2013 Abdominal [...] Comments Blood Pressure 140/89 05/19/2021 10:16 AM SHAGGER Pulse 98 05/19/2021 10:16 AM SHAGGER Temperature 36.8 C (98.3 F) 11/18/2020 10:17 AM CDT Respiratory Rate - - Oxygen Saturation 98% 11/18/2020 10:17 AM CDT Inhaled Oxygen Concentration - - Weight 126.6 kg (279 lb) 05/19/2021 10:16 AM SHAGGER Height 162.6 cm (5' 4 ) 05/19/2021 10:16 AM SHAGGER Body Mass Index 47.89 05/19/2021 10:16 AM SHAGGER Plan of Treatment Upcoming Encounters Date Type Department Care Team (Late st Contact Info) Description 05/26/2024 1:30 PM SHAGGER Office Visit [facility] - Dermatology [address] [place] [phone] Wyatt Morrow MD [address] [place] [address] 06/20/2024 9:00 AM CDT Office Visit [facility] - Allergy [address] [facility] [place] [phone] Wyatt Morrow MD [address] [place] [address] Yann Manuel MD [address] [place] [id number] Procedures Procedure Name Priority Date/Time Associated Diagnosis Comments LIPID PROFILE Routine 01/18/2024 9:22 AM CDT Encounter for long-term (current) use of high-risk medication HEPATITIS C AB W/RFLX TO HCV RNA QN PCR Routine 01/18/2024 9:22 AM CDT Encounter for long-term (current) use of high-risk medication HIV-1 HIV-2 ANTIBODY + HIV P24 AG PANEL Routine 01/18/2024 9:22 AM CDT Encounter for long-term (current) use of high-risk medication from Last 3 Months or Most Recently Relevant to Health Maintenance Results * HEPATITIS C AB W/RFLX TO HCV RNA QN PCR (01/18/2024 9:22 AM CDT) Hepatitis C Antibody NON-REACTI VE NON-REACT [facility] Comment: HCV antibody was non-reactive. There is no laboratory evidence of HCV infection. In most cases, no further action is required. However, if recent HCV exposure is suspected, a test for HCV RNA (test code 88405) is suggested. For additional information please refer to http://[employer]/faq/HZP13o1 (This link is being provided for informational/ educational purposes only.) Test Performed at: [facility] [id number] [place] [address] JOSEPHINE URBINA MD Blood BLOOD SPECIMEN / Unknown 01/18/2024 9:22 AM CDT 01/18/2024 9:23 AM CDT Wyatt Morrow MD LAB - CHEMISTRY [facility] [address] [place] [address] * HIV-1 HIV-2 ANTIBODY + HIV P24 AG PANEL (01/18/2024 9:22 AM CDT) HIV Screen 4th Generation w Reflex NON-REACT [...] purpose. For additional information please refer to http://[employer]/faq/TKD717 (This link is being provided for informational/ educational purposes only.) The performance of this assay has not been clinically validated in patients less than 2 years old. Test Performed at: [facility] [address] [place] [address] JOSEPHINE URBINA MD Blood BLOOD SPECIMEN / Unknown 01/18/2024 9:22 AM CDT 01/18/2024 9:23 AM CDT Wyatt Morrow MD LAB - CHEMISTRY [facility]DRA GONZ[facility] Performing Organization Address [facility]/ZIP Co de Phone Number [address] [address] * LIPID PROFILE (01/18/2024 9:22 AM CDT) Cholesterol 167 <200 mg/dL [facility] HDL Cholesterol [...] Jorge A SS et al. THERESA. 2013;310(19): 5346-6243 (http://education.[employer]Corner/faq/YGR589) CHOL/HDLC RATIO 2.9 <5.0 (calc) [facility] Non HDL Cholesterol 109 <130 mg/dL (calc) [facility] Comment: For patients with diabetes plus 1 major ASCVD risk factor, treating to a non-HDL-C goal of <100 mg/dL (LDL-C of <70 mg/dL) is considered a therapeutic option. Test Performed at: [facility] [address] JOSEPHINE URBINA MD Blood BLOOD SPECIMEN / Unknown 01/18/2024 9:22 AM CDT 01/18/2024 9:23 AM CDT Wytat Morrow MD LAB - CHEMISTRY [facility]ENDR[facility] GONZALEZ Performing Organization Address City/[facility]/ZIP Co de Phone Number [address] [address] from Last 3 Months or Most Recently Relevant to Health Maintenance Administered Medications Care Teams Core Composer Feeder Relationship Specialty Start Date End Date Douglas Leach MD PCP - General 03/04/20
--- OUTSIDE RECORDS SUMMARY | 2024-05-23 07:56 | XMS_ITS | Clinical Summary ---
Author Organization [facility] Address [address] [place] [address] Care Team Providers Care Tool Checker Name Role Phone Douglas Leach MD Primary Care Provider [phone] Juan Pablo Zurita MD Unavailable [phone] Lizeth Pozo OD Unavailable [phone] Allergies Active Allergy Reactions Criticality Noted Date Comments Albumen(Egg White)-Tannic Acid Rash Medium 01/27/2021 Albumin Human Rash Medium 11/18/2020 Peanut Anaphylaxis High 01/27/2021 Tomato Rash,Other (See comments) Medium 01/27/[address] (PROTONIX) 40 mg EC tablet Take 1 tablet (40 mg total) by mouth daily Active albuterol HFA (Ventolin HFA) 90 mcg/actuation inhaler Inhale 1 puff every 4 hours 09/17/19 23 Active cetirizine (ZyrTEC) 10 mg tablet Take 1 tablet (10 mg total) by mouth daily 08/10/19 21 Active clindamycin (CLEOCIN T) 1 % lotion APPLY TOPICALLY TO GROIN TWICE DAILY 02/14/20 23 Active EPINEPHrine 0.3 mg/0.3 mL auto-injection syringe Inject 0.3 mL (0.3 mg total) into the muscle as instructed daily as needed Active linaCLOtide (Linzess) 145 mcg capsule Take 1 capsule (145 mcg total) by mouth daily 08/03/19 23 Active montelukast (SINGULAIR) 10 mg tablet Take 1 tablet (10 mg total) by mouth every evening Active spironolactone (ALDACTONE) 100 mg tablet Take 1 tablet (100 mg total) by mouth daily 02/15/20 23 Active triamcinolone (KENALOG) 0.1 % ointment APPLY TOPICALLY TO THE AFFECTED AREA TWICE DAILY UNTIL GONE NEEDED FOR ECZEMA 02/14/20 23 Active polymyxin B-trimethoprim (POLYTRIM) ophthalmic solutionIndication s:Acute bacterial conjunctivitis of both eyes Administer 2 drops into both eyes every 4 (four) hours 10 mL 03/22/20 23 Active azithromycin (AZASITE) 1 % ophthalmic solutionIndication s:Bacterial Conjunctivitis 1 drop BID for 2 days THEN 1 drop daily for 5 days 10 mL 03/22/20 23 Active Humira,CF, Pen 40 mg/0.4 mL pen injector kit Inject 40 mg (one pen, 0.4mL) subcutaneous weekly for hidradenitis suppurativa . Dispense: # 2 kits = 4 pens, 1.6mL total). Maintenance dosing. 01/21/20 24 Active cholecalciferol (VITAMIN D-3) 50,000 unit capsule Active doxycycline 100 mg capsule Take by mouth 2 (two) times a day Active fluticasone propionate (FLONASE) 50 mcg/actuation nasal spray Active ondansetron ODT (ZOFRAN-ODT) 8 mg disintegrating tablet Take 1 tablet (8 mg total) by mouth every 8 (eight) hours as needed 05/01/19 24 Active dicyclomine (BENTYL) 20 mg tablet 04/25/19 25 Active docusate sodium (COLACE) 100 mg capsule Take 1 capsule (100 mg total) by mouth 2 (two) times a day 05/01/19 24 Active ergocalciferol (VITAMIN D) 50,000 unit capsule Take 50,000 Int'l Units by mouth 06/19/19 24 Active fluconazole (DIFLUCAN) 150 mg tablet TAKE 1 TABLET BY MOUTH EVERY 72 HOURS 02/22/20 24 Active HYDROcodone-acetam inophen (NORCO) 5-325 mg per tablet TK 1 T PO Q 4 TO 6 H PRF PAIN Active levETIRAcetam (KEPPRA) 750 mg tablet Take 1 tablet (750 mg total) by mouth every 12 (twelve) hours 04/17/19 25 Active loteprednol (LOTEMAX) 0.5 % ophthalmic suspension SHAKE LIQUID AND INSTILL 1 DROP IN BOTH EYES THREE TIMES DAILY DIRECTED Active methocarbamoL (ROBAXIN) 750 mg tablet Take 1 tablet (750 mg total) by mouth every 8 (eight) hours as needed 05/23/19 Active metroNIDAZOLE (METROGEL) 0.75 % (37.5mg/5 gram) vaginal gel IVB FOR 5 DAYS Act deepthi oxyCODONE (ROXICODONE) 5 mg immediate release tablet Take 1 tablet (5 mg total) by mouth every 6 (six) hours as needed 06/19/19 24 Active phentermine (ADIPEX-P) 37.5 mg tablet Active predniSONE (DELTASONE) 20 mg tablet Active promethazine-DM (PROMETHAZINE-DM) 1.25-3 mg/mL syrup A ctive pseudoephedrine ER (Sudafed 12 Hour) 120 mg 12 hr tablet Active Active Problems Problem Noted Date Diagnosed Date Acute maxillary sinusitis 11/18/2020 Atopic dermatitis 11/18/2020 Eczema 11/18/2020 Migraine 11/18/2020 Preop testing 11/18/2020 Serous otitis media 11/18/2020 Strain of trapezius muscle 11/18/2020 Difficult airway 09/25/2019 Obesity, Class III, BMI 40-49.9 (morbid obesity) 08/23/2017 Morbid obesity 03/14/2017 Obstructive sleep apnea syndrome 03/14/2017 Gallstone 01/06/2013 Gastroesophageal reflux disease 01/06/2013 Overview (03/22/2023): Added automatically from request for surgery [id number] Abdominal pain 12/06/2012 Hemorrhage of rectum and anus 12/06/2012 Acute bronchitis 06/26/2012 Headache 06/26/2012 Chronic migraine without aura BMI 45.0-49.9, adult OBEY (obstructive sleep apnea) Hyperopia of both eyes Encounters Date Type Department Care Team Description 04/25/2024 2:20 PM CUSHION BUILDER Office Visit [facility] Otolaryngology [facility], [address] [place] [address] Mariposa Carlin NP Pulsatile tinnitus, right ear (Primary Dx) 04/25/2024 2:00 PM CUSHION BUILDER Procedure visit [facility] Otolaryngology [address] [facility], [address] [place] [address] Abnormal auditory perception of both ears (Primary Dx); Tinnitus of both ears 04/25/2024 Orders Only [facility] Otolaryngology [address] [facility], [address] [place] [address] Eliz Jasso CMA Pulsatile tinnitus, right ear (Primary Dx) 04/11/2024 Telephone [facility] Ophthalmology [address] [facility] [address] [place] [phone] Chelsea Herrera MD 04/10/2024 Telephone [facility] Ophthalmology [address] [place] [address] Chelsea Herrera MD Reschedule Request 03/21/2024 Telephone [facility] Scheduling [address] [place] [address] Mary Beth Whittington 03/20/2024 Orders Only [facility] Ophthalmology [address] [facility] [address] [place] [phone] Chelsea Herrera MD Idiopathic intracranial hypertension (Primary Dx); Papilledema due to raised intracranial pressure from Last 3 Months Surgical History Surgery Date Site/Laterality Comments GASTRIC BYPASS 04/02/2020 - 05/02/2020 gastric sleeve Medical History Medical History Date Comments Chronic migraine without aura BMI 45.0-49.9, adult (HCC) OBEY (obstructive sleep apnea) Hyperopia of both eyes GERD (gastroesophageal reflux disease) Seizures (HCC) Ear problems Family History Medical History Relation Name Comments Rashes / Skin problems Brother Han españa Jr Hypertension Father Han españa Migraines Father Han españa Seizures Father Han españa Snoring Father Han españa Stroke Father Han españa Diabetes Mother Eryn Heart disease Mother Eryn Sleep apnea Mother Eryn Diabetic retinopathy Other Cancer Paternal Grandmother [place] Relation Name Status Comments Brother Han españa Jr Father Han españa Mother Eryn Other Paternal Grandmother [place] Social History Tobacco Use Types Packs/Day Years Used Date Smoking Tobacco: Never Tobacco Cessation:Counseling Given: Not Answered Comments Unknown Sex and Gender Information Value Date Recorded Sex Assigned at Not on file Legal Sex Female 1:59 PM CUSHION BUILDER Gender Identity Not on file Sexual Orientation Not on file Obstetrics History Last Filed Vital Signs Vital Sign Reading Time Taken Comments Blood Pressure 116/80 12/28/2023 9:17 AM CDT Pulse 90 12/28/2023 9:17 AM CDT Temperature 37 C (98.6 F) 12/28/2023 9:17 AM CDT Respiratory Rate 20 12/28/2023 9:17 AM CDT Oxygen Saturation 100% 12/28/2023 9:17 AM CDT Inhaled Oxygen Concentration - - Weight 127.5 kg (281 lb) 12/28/2023 9:17 AM CDT Height 162.6 cm (5' 4 ) 12/28/2023 9:17 AM CDT Body Mass Index 48.23 12/28/2023 9:17 AM CDT Plan of Treatment Health Maintenance Due Date Last Done Comments Breast Cancer Screening-Mammogram 1984 Cervical Cancer Screening 1984 Depression Screening 1984 Hepatitis C Screening 1984 Varicella Vaccines (1 of 2 - 13+ 2-dose series) 1997 Hepatitis B Screening 2002 Regular Well Visit/Exam 18-64 2002 DTaP/Tdap/Td Vaccine (6 - Tdap) 09/29/2008 09/29/1998, 09/04/1998, 11/30/1985, Additional history exists Covid-19 Vaccine ( season) 2023 11/24/2020, 11/03/2020 Influenza Vaccine (#1) 2023 HPV Vaccines Aged Out No longer eligi ble based on patient's age to complete this topic Pneumococcal vaccine <65 Aged Out No longer eligible based on patient's age to complete this topic Procedures Procedure Name Priority Date/Time Associated Diagnosis Comments AUDBASE RESULTS 04/25/2024 2:18 PM CUSHION BUILDER from Last 3 Months Results * AudBase Results (04/25/2024 2:18 PM CUSHION BUILDER) us Provider Scanning AUDIOLOGY SERVICES ORDERABLES Final Result from Last 3 Months Insurance [facility] Member Subscriber Plan / Payer (Ef fective 2019-Present) Name:Quynh Rivas Relation to Subscriber:Self Name:Quynh Rivas Payer ID:[id number] (NAIC) Type:MEDICAID RISK OTHER Address: [place] [address] [facility] Member Subscriber Plan / Payer (Ef fective 2023-Present) Name:Quynh Rivas Relation to Subscriber:Self Name:Quynh Rivas Payer ID:[id number] (NAIC) Group ID:Not on file Type:MEDICAID RISK OTHER Address: [place] [id number] Care Teams Tool Checker Relationship Specialty Start Date End Date Douglas Leach MD PCP - General 03/14/17 Juan Pablo Zurita MD Consulting Physician Neurosurgery 01/27/21 Lizeth Pozo OD [address] [place] [address] Primary Eye Care Provider Optometry 01/27/21
--- OUTSIDE RECORDS SUMMARY | 2024-05-23 07:56 | XMS_ITS | Referral Summary ---
Author Organization [facility] Address [address] [place] [phone] Care Team Providers Care Crutch Maker Name Role Phone Douglas Leach MD Primary Care Provider [phone] Juan Pablo Zurita MD Unavailable [phone] Lizeth Pozo OD Unavailable [phone] Encounters Date Type Department Care Team Description 04/25/2024 Orders Only [facility] Otolaryngology [address] [place] [address], [address] [phone] Eliz Jasso CMA Pulsatile tinnitus, right ear (Primary Dx) 04/25/2024 2:20 PM MOTOR VEHICLES INSPECTOR Office Visit [facility] Otolaryngology [address] [place] [address], [address] [phone] Mariposa Carlin NP Pulsatile tinnitus, right ear (Primary Dx) 04/25/2024 2:00 PM MOTOR VEHICLES INSPECTOR Procedure visit [facility] Otolaryngology [address] [place] [address], [address] [address] Abnormal auditory perception of both ears (Primary Dx); Tinnitus of both ears 04/11/2024 Telephone [facility] Ophthalmology [facility] [address] [place] [phone] Chelsea Herrera MD 04/10/2024 Telephone [facility] Ophthalmology [address] [place] [address] Chelsea Herrera MD Reschedule Request 03/21/2024 Telephone [facility] Scheduling [address] [place] [address] Mary Beth Whittington 03/20/2024 Orders Only [facility] Ophthalmology [address] [facility] 6th [place] [address] Chelsea Herrera MD Idiopathic intracranial hypertension (Primary Dx); Papilledema due to raised intracranial pressure from Last 3 Months Allergies Active Allergy [...] every 8 (eight) hours as needed 05/23/19 24 Active metroNIDAZOLE (METROGEL) 0.75 % (37.5mg/5 gram) [...] (03/22/2023): Added automatically from request for surgery [id number] Abdominal pain 12/06/2012 Hemorrhage of rectum and anus 12/06/2012 Acute bronchitis 06/26/2012 Headache 06/26/2012 Chronic migraine without aura BMI 45.0-49.9, adult OBEY (obstructive sleep apnea) Hyperopia of both eyes Social History Tobacco Use Types Packs/Day Years Used Date Smoking Tobacco: Never Tobacco Cessation:Counseling Given: Not Answered Comments Unknown Sex and Gender Information Value Date Recorded Sex Assigned at Not on file Legal Sex Female 1:59 PM MOTOR VEHICLES INSPECTOR Gender Identity Not on file Sexual Orientation [...] 12/28/2023 9:17 AM CDT Plan of Treatment Not on file Procedures Procedure Name Priority Date/Time Associated Diagnosis Comments AUDBASE RESULTS 04/25/2024 2:18 PM MOTOR VEHICLES INSPECTOR from Last 3 Months Results * AudBase Results (04/25/2024 2:18 PM MOTOR VEHICLES INSPECTOR) Provider Scanning AUDIOLOGY SERVICES ORDERABLES Final Result from Last 3 Months Insurance [facility] Care Teams Crutch Maker Relationship Specialty Start Date End Date Douglas Leach MD PCP - General 03/14/17 Juan Pablo Zurita MD Consulting Physician Neurosurgery 01/27/21 Lizeth Pozo, TANIA [address] [place] [address] Primary Eye Care Provider Optometry 01/27/21
--- OUTSIDE RECORDS SUMMARY | 2024-05-23 07:56 | XMS_ITS | Clinical Summary ---
Author Organization [facility] Address [address] [place] [address] Care Team Providers Care Nutrition Associate Name Role Phone Douglas Leach MD Primary Care Provider [phone] Source Comments [facility],non-Critical access hospitalates and Associated Physician Practices is amultiple site organization consisting of ambulatory clinics and hospital sitesin [place], [place], [place] and [place]. This disclosure is being madepursuant to the Care Everywhere program and may not contain all information available regarding this patient. Last updated 17.[facility] Allergies Active Allergy Reactions Criticality Noted Date [...] (11/18/2020): Added automatically from request for surgery [id number] Gallstone 01/06/2013 Gastroesophageal reflux disease 01/06/2013 Abdominal pain 12/06/2012 Hemorrhage of rectum and anus 12/06/2012 Acute bronchitis 06/26/2012 Headache 06/26/2012 Resolved Problems Problem Noted Date Diagnosed Date Resolved Date Acute otitis media 11/18/2020 Cough 11/18/2020 12/16/2020 Upper respiratory infection 11/18/2020 12/02/2020 Encounters Date Type Department Care Team Description 05/21/2024 Refill [facility] - Dermatology [address] [place] [phone] Wyatt Morrow MD Refill Request 05/15/2024 Refill [facility] - Dermatology [address] [place] [phone] Wyatt Morrow MD Refill Request 03/25/2024 Travel 03/24/2024 1:00 PM WEBLOGIC ADMINISTRATOR Office Visit [facility] - Dermatology [address] [place] [address] [address] Wyatt Morrow MD Rash and nonspecific skin eruption (Primary Dx); Hidradenitis suppurativa; Androgenetic alopecia from Last 3 Months Social History Tobacco Use Types Packs/Day Years [...] Comments Blood Pressure 140/89 05/19/2021 10:16 AM WEBLOGIC ADMINISTRATOR Pulse 98 05/19/2021 10:16 AM WEBLOGIC ADMINISTRATOR Temperature 36.8 C (98.3 F) 11/18/2020 10:17 AM CDT Respiratory Rate - - Oxygen Saturation 98% 11/18/2020 10:17 AM CDT Inhaled Oxygen Concentration - - Weight 126.6 kg (279 lb) 05/19/2021 10:16 AM WEBLOGIC ADMINISTRATOR Height 162.6 cm (5' 4 ) 05/19/2021 10:16 AM WEBLOGIC ADMINISTRATOR Body Mass Index 47.89 05/19/2021 10:16 AM WEBLOGIC ADMINISTRATOR Plan of Treatment Upcoming Encounters Date Type Department Care Team (Late st Contact Info) Description 05/26/2024 1:30 PM WEBLOGIC ADMINISTRATOR Office Visit [facility] - Dermatology [address] [place] [phone] Wyatt Morrow MD [address] [place] [address] 06/20/2024 9:00 AM CDT Office Visit [facility] - Allergy [address] [place] [address] [place] [address] [place] [address] Yann Manuel MD [address] [place] [phone] Health Maintenance Due Date Last Done Comments MAMMOGRAM 1984 PAP SMEAR 1984 DTAP/TDAP/TD VACCINES (1 - Tdap) 2003 HEPATITIS B VACCINE (1 of 3 - 19+ 3-dose series) 2003 COVID-19 VACCINE ( - 2023-2 5 season) 2023 INFLUENZA VACCINE (#1) 2023 DEPRESSION SCREENING 04/02/2024 LIPID TESTING 01/17/2029 01/18/2024 ZOSTER VACCINE (1 of 2) 2034 HEPATITIS C SCREENING Completed 01/18/2024 HIV SCREENING Completed 01/18/2024 HIB VACCINE Aged Out No longer eligi ble based on patient's age to complete this topic HPV VACCINE Aged Out No longer eligi ble based on patient's age to complete this topic MENINGOCOCCAL (Group B) VACCINE Aged Out No longer eligible based on patient's age to complete this topic MENINGOCOCCAL VACCINE Aged Out No mary betsy eligible based on patient's age to complete this topic PNEUMOCOCCAL VACCINE Aged Out No long er eligible based on patient's age to complete [...] Hepatitis C Antibody NON-REACTI VE NON-REACT STONEY [facility] Comment: HCV antibody was non-reactive. There is no laboratory evidence of HCV infection. In most cases, no further action is required. However, if recent HCV exposure is suspected, a test for HCV RNA (test code 77415) is suggested. For additional information please refer to http://education.[employer]/faq/GYC36x2 (This link is being provided for informational/ educational purposes only.) Test Performed at: [facility] [address] [place] [address] JOSEPHINE URBINA MD Blood BLOOD SPECIMEN / Unknown 01/18/2024 9:22 AM CDT 01/18/2024 9:23 AM CDT Wyatt Morrow MD LAB - CHEMISTRY KENDRA GONZALEZ [facility] Organization Address City/State/ZIP Co de Phone Number [facility] [address] [place] [address] * HIV-1 HIV-2 ANTIBODY + HIV P24 AG PANEL (01/18/2024 9:22 AM CDT) HIV Screen 4th Generation w Reflex NON-REACT STONEY NON-REACT STONEY [facility] Comment: HIV-1 antigen and HIV-1/HIV-2 antibodies were [...] purpose. For additional information please refer to http://[employer]/faq/ZOZ262 (This link is being provided for informational/ educational purposes only.) The performance of this assay has not been clinically validated in patients less than 2 years old. Test Performed at: [facility] [address] [place] [address] JOSEPHINE URBINA MD Blood BLOOD SPECIMEN / Unknown 01/18/2024 9:22 AM CDT 01/18/2024 9:23 AM CDT Wyatt Morrow MD LAB - CHEMISTRY KENDRA GONZALEZ [facility] [address] [place] [address] * LIPID PROFILE (01/18/2024 9:22 AM CDT) [...] factors. LDL-C is now calculated using the Jorge A-Estelita calculation, which is a validated novel method providing better accuracy than the Friedewald equation in the estimation of LDL-C. Jorge A PURDY et al. THERESA. 2013;310(19): 8830-8356 (http://education.[employer]/faq/WMY123) CHOL/HDLC RATIO 2.9 <5.0 (calc) [facility] Non HDL Cholesterol 109 <130 mg/dL (calc) [facility] Comment: For patients with diabetes plus 1 major ASCVD risk factor, treating to a non-HDL-C goal of <100 mg/dL (LDL-C of <70 mg/dL) is considered a therapeutic option. Test Performed at: [facility] [address] JOSEPHINE URBINA MD Blood BLOOD SPECIMEN / Unknown 01/18/2024 9:22 AM CDT 01/18/2024 9:23 AM CDT Wyatt Morrow MD LAB - CHEMISTRY KENDRA GONZALEZ [facility] [address] [place] [phone] from Last 3 Months or Most Recently Relevant to Health Maintenance Care Teams Nutrition Associate Relationship Specialty Start Date End Date Douglas Leach MD PCP - General 03/04/20
--- OUTSIDE RECORDS SUMMARY | 2024-05-23 07:56 | XMS_ITS | Data Portability ---
Author Organization [place] - [facility] [employer], Main Office Address [address] [place] [address] Assessment Encounter Date Assessment Date Assessment LastModified by Organization Details LastModified Time 09/26/2023 09/26/2023 Assessment: Mild OSAHS, AHI = 8 PLMD Hypoventilation Plan: The following were reviewed and explained to the patient: primary care/referral note [place] diagnostic sleep study 11/25/13 sleep onset = 14 minutes, REM onset = 95.5 minutes, AHI = 8, PLMI = 9 [place] titration sleep study 12/24/13 sleep onset = 15 minutes, REM onset = 77.5 minutes, Leung & Jeremias small Simplus full face mask @ 14 cmH2O, PLMI = 0.0 Keep CPAP at 14 cmH2O. Keep ramp start at 4 cmH2O. Keep ramp duration at 20 minutes. Keep EPR +2 part time. Keep humidifier at level 4. General information [...] Follow-up: 1 week after diagnostic sleep study [email or web address] Not available 09/26/2023 16:07:07 11/07/2023 11/07/2023 Assessment: Persistent early REM onset Mod OSAHS, AHI = 26 Hypoventilation Plan: The following were reviewed and explained to the patient: [place] diagnostic sleep study 11/25/13 sleep onset = 14 minutes, REM onset = 95.5 minutes, AHI = 8, PLMI = 9 [place] titration sleep study 12/24/13 sleep onset = 15 minutes, REM onset = 77.5 minutes, Nickie small Simplus full face mask @ 14 cmH2O, PLMI = 0.0 [facility] diagnostic sleep study 11/02/23 sleep onset = 33.5 minutes, REM onset = 75 minutes, AHI = 26, REM AHI = 28, supine AHI = 112, PLMI = 0.0 Keep CPAP at 14 cmH2O until titration sleep study. Keep ramp start at 4 cmH2O. Keep ramp duration at 20 minutes. Keep EPR +2 part time. Keep humidifier at level 4. General information [...] mask @ 14 cmH2O, PLMI = 0.0 [facility] diagnostic sleep study 11/02/23 sleep onset = 33.5 minutes, REM onset = 75 minutes, AHI = 26, REM AHI = 28, supine AHI = 112, PLMI = 0.0 [facility] titration sleep study 11/27/23 sleep onset = [...] duration at 20 minutes. Keep EPR +2 part time. Keep humidifier at level 4. Provided the patient with a list of local home care stores where positive airway pressure (PAP) units, accoutrement, and services are available. Home care store selection is based on patient's insurance carrier. Patient will setup an appointment with [facility] for supplies and pressure adjustments. A [...] were reviewed and explained to the patient: [place] diagnostic sleep study 11/25/13 sleep onset = 14 minutes, REM onset = 95.5 minutes, AHI = 8, PLMI = 9 [place] titration sleep study 12/24/13 sleep onset = 15 minutes, REM onset = 77.5 minutes, Nickie small Simplus full face mask @ 14 cmH2O, PLMI = 0.0 [facility] diagnostic sleep study 11/02/23 sleep onset = 33.5 minutes, REM onset = 75 minutes, AHI = 26, REM AHI = 28, supine AHI = 112, PLMI = 0.0 [facility] titration sleep study 11/27/23 sleep onset = [...] Turn EPR +2 from ramp only to part time. Keep humidifier at level 4. Keep tube temperature at 80 F. Provided the patient with a list of local home care stores where positive airway pressure (PAP) units, accoutrement, and services are available. Home care store selection is based on patient's insurance carrier. Patient will setup an appointment with [facility] for supplies and pressure adjustments. A [...] further management. Follow-up: 1 year, January 2025 [facility]5 Not available 02/25/2024 16:01:24 Plan of Treatment Reminders Order Date Submit Date Provider Last Modified By Organization Details Last Modified Time Details Appointments Any 30 2024 02:00P Kylah Berman MD Not available Not available Not available Lab None recorded. Referral None recorded. Procedures None recorded. Surgeries None recorded. Imaging polysomno gram, titration study [email or web address] [place] [address] [facility], [address] [place], [address], 12/04/2023 08:03:48 polysomno gram, diagnosti c, 6 yrs or older - Auth #[id number] [id number] 2023 024 [facility], [address] [place], [address], 11/06/2023 17:23:07 Medication Orders None recorded. Patient TargetsNo targets [...] 3rd Trime ster 52.0- 302.0 Not Available [employer] [facility] [address] [place], [address], 07/31/2020 05:51:55 09/04/19 24 11/25/2013 polys omnog emily, diagn ostic , 6 yrs or older No observ ation record ed. [facility] Not Available 2023 13:09:54 09/04/19 24 12/24/2013 polys omnog emily, titra tion study No observ ation record ed. [facility] Not Available 2023 13:09:55 11/06/19 24 11/02/2023 polys omnog emily, diagn ostic , 6 yrs or older No observ ation record ed. [facility] [address] [place], [address], 11/06/2023 17:23:07 11/30/19 24 11/27/2023 polys omnog emily, titra tion study No observ ation record ed. [facility] [address] [place], [address], 11/30/2023 15:49:20 Result Notes None recorded. Problems Name Problem SNOMED Code Status Onset Date Resolution Date Notes Provider Name and Address Organization Details Recorded Time Vaginal discharge 322152332 Completed Not Available [facility] 3 04:54:38 Migraine 08935937 Active Not Available [facility] 3 04:54:38 Obese 131703388 Active Not Available [facility] 3 04:54:39 Obstructiv e sleep apnea syndrome 09128415 Active 2023 Sixto Berman MD [address], [facility] [address], [place], [address] , [facility] [employer] 11:17:14 Notes:Medical History: Migra ine headaches Rhinitis Persistent early REM onset Obesity with mod OSAHS, AHI = 26, 11/02/23, on autoCPAP c/o IVRC T2DM Hiatal hernia with CAMMIE PLMD Vit D deficiency Procedure History: Right hidradenitis suppurativa excision 2013 Left hidradenitis suppurativa excision 2019 EGD 2019 Gastric sleeve surgery 2020 Cholecystectomy 2021 Ann fundoplication 2023 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 Procedures Surgical History Date Name Laterality Status Provider Name and Address Organization Details Recorded Time 04/27/19 21 STARS COORDINATOR Procedure completed Not Available [facility] 2022 04:44:18 04/22/19 21 laparoscopic sleeve gastrectomy completed Not Available [facility] 05/31/2022 04:44:18 07/05/19 19 STARS COORDINATOR Procedure completed Not Available [facility] 2022 04:44:18 05/28/19 19 Date of Last Pap Smear completed Not Available [facility] 05/31/2022 04:44:14 10/12/19 16 STARS COORDINATOR Procedure completed Not Available [facility] 2022 04:44:18 11/12/19 11 STARS COORDINATOR Procedure completed Not Available [facility] 2022 04:44:18 other completed Not Available [facility] 04/2022 04:44:18 Imaging Results Imaging Date Name Status LastModified by Organiz ation Details LastModified Time 11/25/2013 polysomnogram, diagnostic, 6 yrs or older completed [facility] Information not available 09/04/2023 13:09:54 12/24/2013 polysomnogram, titration study completed [facility] Information not available 09/04/2023 13:09:55 11/02/2023 polysomnogram, diagnostic, 6 yrs or older completed [facility] [address], [place], [address], 11/06/2023 17:23:07 11/27/2023 polysomnogram, titration study completed [facility] [address] [facility], [place], [address], 11/30/2023 15:49:20 Procedure Notes None recorded. Medical Equipment None Reported. Allergies Allergen ID Allergen Name Allergen Category Reaction Reaction Severity Criticality Documentation Date Start Date Code Code System Note Provider Name and Address Organization Details Recorded Time 22928 egg extract food,medi cation hives Not available Not available 09/16/2023 03586 15 RxNorm Sitxo Berman MD [address] [facility], [place], [address], [employer] 4 16:20:18 88718 peanut allergeni c extract food,medi cation anaphylax is Not available Not available 09/16/2023 41622 8 RxLeighton Berman MD [address] [facility], [address] [facility], [place], [address], [employer] 4 16:20:50 25836 tomato allergeni c extract food hives Not available Not available 09/16/2023 24996 9 RxLeighton Berman MD [address] [facility], [address] [facility], [place], [address], [employer] 4 16:21:04 Medications Name Sig Start Date [...] Updated DateTime 07/21/2020 53.2 kg/m2 160.02 cm 390809.7 9 g 118 mm[Hg] 78 mm[Hg] Not Available [facility] 3 04:48:36 Date Recorded Body weight Body mass index (BMI) Body height Oxygen saturation Oxygen saturation in Arterial blood by Pulse oximetry Heart rate Systolic blood pressure Diastolic blood pressure Provider Name and Address Organization Details Last Updated DateTime 4 311754. 23 g 50.3 kg/m2 160.02 cm 99 % 99 % 72 /min 120 mm[Hg] 70 mm[Hg] Wandy Santos CMA [employer] [facility] 4 15:17:17 Date Recorded Body temperature Heart rate Respiratory rate Provider Name and Address Organization Details Last Updated DateTime 09/26/2023 97.5 [degF] 72 /min 15 /min Sixto Berman MD [address] [facility], [facility] [address], [place], [address], [employer] [facility] 09/26/2023 15:36:46 Date Recorded Body height Body mass index (BMI) Body weight Heart rate Oxygen saturation Oxygen saturation in Arterial blood by Pulse oximetry Body temperature Systolic blood pressure Diastolic blood pressure Provider Name and Address Organization Details Last Updated DateTime 4 160.02 cm 49.8 kg/m2 077402. 46 g 83 /min 98 % 98 % 97.9 [degF] 130 mm[Hg] 70 mm[Hg] Wandy Santos CMA [facility] [employer] [facility] 11:00:21 Date Recorded Heart rate Respiratory rate Provider N blayne and Address Organization Details Last Updated DateTime 11/07/2023 83 /min 14 /min Sixto Berman MD [address], [address], [place], [address], [facility] [employer] 11/07/2023 11:25:30 Date Recorded Body height Body mass index (BMI) Body weight Body temperature Heart rate Oxygen saturation Oxygen saturation in Arterial blood by Pulse oximetry Systolic blood pressure Diastolic blood pressure Provider Name and Address Organization Details Last Updated DateTime 160.02 cm 49.6 kg/m2 842030. 86 g 98.1 [degF] 73 /min 97 % 97 % 126 mm[Hg] 76 mm[Hg] Lizeth Olson MA [facility] [employer] 15:15:25 Date Recorded Heart rate Respiratory rate Provider N blayne and Address Organization Details Last Updated DateTime 12/24/2023 73 /min 15 /min Sixto Berman MD [address], [place], [address], [facility] [employer] 12/24/2023 15:34:16 Date Recorded Body height Body mass index (BMI) Body weight Heart rate Oxygen saturation Oxygen saturation in Arterial blood by Pulse oximetry Body temperature Systolic blood pressure Diastolic blood pressure Provider Name and Address Organization Details Last Updated DateTime 160.02 cm 51.2 kg/m2 517939. 19 g 62 /min 98 % 98 % 98.1 [degF] 124 mm[Hg] 78 mm[Hg] Lizeth Olson MA [facility] [employer] 15:37:43 Date Recorded Heart rate Respiratory rate Provider N blayne and Address Organization Details Last Updated DateTime 02/25/2024 62 /min 15 /min Sixto Berman MD [address], [address], [place], [address], [facility] [employer] [facility] 02/25/2024 15:58:46 Social History Question Answer Notes LastModified by Organizat ion Details LastModified Time Tobacco Smoking Status Never Smoker Not Available [facility] 05/31/2022 04:41:26 What Is Your Level Of [...] Type Of Diet Are You Following? REGULAR [email or web address] Information not available 09/26/2023 Do You Or Have You Ever Used E-cigarettes Or Vape? Never Used Electronic Cigarettes [id number] Information not available 05/31/2022 Do You Have An Electrostatic Air Filter? No Information not available 12/24/2023 What Is Your Occupation? [employer] [id number] Information not available 05/31/2022 Do You Have A Humidifier? No Information not available 12/24/2023 Do You Have Moisture Problems In Your Home? No Information not available 12/24/2023 What Was The Date Of Your Most Recent Tobacco Screening? 02/25/2024 Information not available 02/25/2024 Do You Have Any Pets? No Information not available 09/26/2023 Do You Use Your Seat Belt Or Car Seat Routinely? Yes Information not available 12/24/2023 Do You Have Smoke And Carbon Monoxide Detectors In Your Home? Yes Information not available 09/26/2023 Are You Passively Exposed To Smoke? No Information no t available 09/26/2023 Do You Or Have You Ever Used Smokeless Tobacco? Never Used Smokeless Tobacco [id number] Information not available 05/31/2022 Do You Feel Stressed (tense, Restless, Nervous, Or Anxious, Or Unable To Sleep At Night)? [id number] Information not available 12/24/2023 Do You Use [...] Details LastModified Time Father Cerebrovascu lar accident Not available 0 12/24/2023 14:48:44 Father Epilepsy Not availa ble 12/24/2023 14:48:45 Father Hypertensive disorder [id number] Not available 05/31/2022 04:44:23 Maternal Grandmother Diabetes mellitus [id number] Not available 05/31/2022 04:44:23 Mother Diabetes mellitus [id number] Not available 05/31/2022 04:44:23 Paternal Grandmother Malignant tumor of breast Not available 12/02 14:48:45 Mother Obstructive sleep apnea syndrome [email or web address] Not available 12/02 14:48:45 Maternal Uncle Diabetes mellitus Not available 2023 15:49:47 Maternal Aunt Diabetes mellitus Not available 2023 15:49:50 Paternal Aunt Chronic obstructive pulmonary disease [email or web address] Not available 12/02 14:48:45 Paternal Uncle Heart [...] SNOMED-CT Code Diagnosis ICD10 Code Diagnosis Note 353566 _ATHENA_M IGRATION_ DEFAULT_1 _1 , 07/21/2020 00:00:00 07/21/2020 13:11:57 [id number] Sixto Berman MD [facility] [place] [address] 09/26/2023 15:03:27 09/27/2023 08:59:48 Sleep apnea 66352666 G47.30 G47.33 G47.36 G47.61 [id number] Fransisca Morse [facility] [place] [address] 11/07/2023 10:47:01 11/07/2023 11:31:17 Obstructive sleep apnea syndrome 94161728 G47.33 G47.36 [id number] Sixto Berman MD [facility] [place] [address] 12/24/2023 14:47:56 12/25/2023 15:02:00 Obstructive sleep apnea syndrome 27113127 G47.33 G47.36 G47.30 [id number] Sixto Berman MD [facility] [place] [address] 02/25/2024 15:06:27 03/31/2024 11:38:50 Obstructive sleep apnea syndrome 85384862 G47.33 Health Concerns Section Related Observation LastModified by Organization Detai ls LastModified Time None Recorded Concern Status LastModified by Organization Details LastModified Time None Recorded Advance Directives Directive None Recorded Payers Encounter Date Sequence Insurance Name Policy Number Policy Bravo Covered Member ID Bravo Member ID Guarantor Name 09/26/2023 1 [facility] (MEDICAID HMO) [id number] Gineta L Evelyn [id number] Gineta L Evelyn 11/07/2023 1 [facility] (MEDICAID HMO) [id number] Gineta L Evelyn [id number] Gineta L Evelyn 12/24/2023 1 [facility] (MEDICAID HMO) [id number] Gineta L Evelyn [id number] Gineta L Evelyn 02/25/2024 1 [facility] (MEDICAID HMO) [id number] Quynh Ramírezn [id number] Quynh Bui Evelyn Notes Date Note Type Note Provider Name and Address Organization Details Recorded Time 09/26/2023 text/html Primary care/Ref erring provider: Douglas Leach MD During the [place] diagnostic sleep study on 11/25/13, sleep onset = 14 minutes, REM onset = 95.5 minutes, AHI = 8, PLMI = 9. During the [place] titration sleep study on 12/24/13, sleep onset [...] moderate chance of dozing. Sixto Berman MD [address] [place] [address], [address], [facility] [employer] [facility] 09/26/2023 16:08:24 11/07/2023 text/html Primary care/Ref erring provider: Douglas Leach MD During the [place] diagnostic sleep study on 11/25/13, sleep onset = 14 minutes, REM onset = 95.5 minutes, AHI = 8, PLMI = 9. During the [place] titration sleep study on 12/24/13, sleep onset [...] full face mask c/o IVRC. During the [facility] diagnostic sleep study on 11/02/23, sleep onset [...] moderate chance of dozing. Sixto Berman MD [address] [place] [address], [phone], [place] [facility] 11/07/2023 11:29:04 12/24/2023 text/html Primary care/Ref erring provider: Douglas Leach MD During the [place] diagnostic sleep study on 11/25/13, sleep onset = 14 minutes, REM onset = 95.5 minutes, AHI = 8, PLMI = 9. During the [place] titration sleep study on 12/24/13, sleep onset [...] full face mask c/o IVRC. During the [facility] diagnostic sleep study on 11/02/23, sleep onset = 33.5 minutes, REM onset = 75 minutes, AHI = 26, REM AHI = 28, supine AHI = 112, PLMI = 0.0. During the [facility] titration sleep study on 11/27/23, sleep onset [...] slight chance of dozing. Sixto Berman MD [address] [place] [address], [place], [address], [facility] [employer] [facility] 12/24/2023 15:35:09 02/25/2024 text/html Primary care/Ref erring provider: Douglas Leach MD CC: I think my CPAP is still set too high. During the [place] diagnostic sleep study on 11/25/13, sleep onset = 14 minutes, REM onset = 95.5 minutes, AHI = 8, PLMI = 9. During the [place] titration sleep study on 12/24/13, sleep onset [...] full face mask c/o IVRC. During the [facility] diagnostic sleep study on 11/02/23, sleep onset = 33.5 minutes, REM onset = 75 minutes, AHI = 26, REM AHI = 28, supine AHI = 112, PLMI = 0.0. During the [facility] titration sleep study on 11/27/23, sleep onset [...] slight chance of dozing. Sixto Berman MD [address] [place] [address], [facility] [address], [place], [address], [facility] [employer] [facility] 02/25/2024 16:07:25 OBGyn Episode No OBEpisode recorded.
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
== END 2024-05-23 07:48 | disposition home or self-care (01) ==
LOC: ANHCARD 07:49
PROVIDERS: PCP Emergency Medicine; Visit Provider Psychiatry & Neurology Neurology
DX: I35.0 Nonrheumatic aortic (valve) stenosis (principal); Z87.828 Personal history of other (healed) physical injury and trauma
CPT/HCPCS: 93242; 93306; 95816; 96375

== ENCOUNTER 2024-06-06 10:50 | Outpatient (CLI) | payer OTHER, SELFPAY ==
--- NOTE | ~2024-06-06 | MR_ITS ---
EXAMINATION: MR brain/brain stem wo/w con DATE: 06/06/2024 11:54 INDICATION: Focal sclerosis TECHNIQUE: Magnetic resonance imaging (MRI) of the brain and brainstem was performed without and with 20 mL ProHance intravenous contrast. Sequences included sagittal and axial T1-weighted FLAIR, axial T1-weighted FSE, axial diffusion-weighted FS EPI, sagittal T2-weighted FLAIR, axial T2*-weighted GRE, axial T2-weighted FLAIR Propeller, and axial T2-weighted Propeller. Postcontrast sequences included axial, coronal, and sagittal T1-weighted FSE. Apparent diffusion coefficient (ADC) maps were created. COMPARISON: Head CT dated process 03/17/24 FINDINGS: There are no areas of restricted diffusion to suggest acute infarction. 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 No interval change in n odular appearing enhancing choroid plexus in the fourth ventricle. No intracranial hemorrhage or abno rmal intracranial mass lesion. No T2 hyperintense cerebral white matter lesions to suggest multiple s clerosis. Signal dropout on susceptibility weighted images/with bilateral basal ganglia calcification is. There are no intraparenchymal signal abnormalities seen on the other pulse sequences. The ventri cles are symmetric and normal in size. There are no abnormal extra-axial fluid collections. Flow void s are seen in the cerebral arteries on the T2-weighted sequences consistent with their expected paten cy. Chronic minimal left mastoid effusion. Visualized orbits and soft tissues are unremarkable. There are no areas of abnormal enhancement on the post contrast images. IMPRESSION: 1. No acute intracranial process or T2 hyperintense white matter lesions to suggest multiple sclerosi s. 2. Empty sella. Reviewed, dictated and finalized at location B. NOSE THROAT SURGEON IMPRESSION: 1. No acute intracranial process or T2 hyperintense white matter lesions to sug gest multiple sclerosis. 2. Empty sella.
--- OUTSIDE RECORDS SUMMARY | 2024-06-06 11:48 | XMS_ITS | Referral Summary ---
Author Organization [facility] Address [address] [place] [address] Care Team Providers Care Implementation Services Analyst Name Role Phone Douglas Leach MD Primary Care Provider [phone] Source Comments [facility] and Associated Physician Practices is amultiple site organization consisting of ambulatory clinics and hospital sitesin [place], [place], [place] and [place]. This disclosure is being madepursuant to the Care Everywhere program and may not contain all information available regarding this patient. Last updated 17.[facility] [employer] Encounters Date Type Department Care Team Description 06/05/2024 Telephone [facility] Dermatology [address] [address] Wyatt Morrow MD Refill Request 06/02/2024 Refill [facility] [address] [place] [address], [place] [address] Wyatt Morrow MD Refill Request 05/21/2024 Refill [facility] [address] [place] [address], [place] [address] Wyatt Morrow MD Refill Request 05/15/2024 Refill [facility] [address] [place] [address], [place] [address] Wyatt Morrow MD Refill Request 03/25/2024 Travel 03/24/2024 1:00 PM CONSTRUCTION MILLWRIGHT Office Visit [facility] [address] [place] [phone] [phone] [facility] Rash and nonspecific skin eruption (Primary [...] (11/18/2020): Added automatically from request for surgery [id number] Gallstone 01/06/2013 Gastroesophageal reflux disease 01/06/2013 Abdominal [...] Comments Blood Pressure 140/89 05/19/2021 10:16 AM CONSTRUCTION MILLWRIGHT Pulse 98 05/19/2021 10:16 AM CONSTRUCTION MILLWRIGHT Temperature 36.8 C (98.3 F) 11/18/2020 10:17 AM CDT Respiratory Rate - - Oxygen Saturation 98% 11/18/2020 10:17 AM CDT Inhaled Oxygen Concentration - - Weight 126.6 kg (279 lb) 05/19/2021 10:16 AM CONSTRUCTION MILLWRIGHT Height 162.6 cm (5' 4 ) 05/19/2021 10:16 AM CONSTRUCTION MILLWRIGHT Body Mass Index 47.89 05/19/2021 10:16 AM CONSTRUCTION MILLWRIGHT Plan of Treatment Upcoming Encounters Date Type Department Care Team (Late st Contact Info) Description 06/16/2024 3:30 PM CDT Office Visit [facility] - Dermatology [address] [place] [address] [address] [place] [phone] Wyatt Morrow MD [address] [place] [address] 06/20/2024 9:00 AM CDT Office Visit [facility] - Allergy [address] [facility], [facility] [place] [phone] Wyatt Morrow MD [address] [place] [address] Yann Manuel MD [address] [place] [address] Procedures Procedure Name Priority Date/Time Associated Diagnosis [...] a test for HCV RNA (test code 80948) is suggested. For additional information please refer to http://AdTaily.com.ShomoLive/faq/HMF82n1 (This link is being provided for informational/ educational purposes only.) Test Performed at: [facility] [address] [place] [address] JOSEPHINE URBINA MD Blood BLOOD SPECIMEN / Unknown 01/18/2024 9:22 AM CDT 01/18/2024 9:23 AM CDT Wyatt Morrow MD LAB - CHEMISTRY KENDRA [facility] Organization Address City/State/ZIP Co de Phone Number [facility] [address] [place] [address] * HIV-1 HIV-2 ANTIBODY + HIV P24 [...] purpose. For additional information please refer to http://AdTaily.com.ShomoLive/faq/AGJ132 (This link is being provided for informational/ educational purposes only.) The performance of this assay has not been clinically validated in patients less than 2 years old. Test Performed at: [facility] [place] [address] [address] JOSEPHINE URBINA MD Blood BLOOD SPECIMEN / Unknown 01/18/2024 9:22 AM CDT 01/18/2024 9:23 AM CDT Wyatt Morrow MD LAB - CHEMISTRY KENDRA GONZALEZ Performing Organization Address [facility] de Phone Number [facility] [address] [place] [address] * LIPID PROFILE (01/18/2024 9:22 AM CDT) [...] Jorge A SS et al. THERESA. 2013;310(19): 9731-2701 (http://education.Gentor Resources.The Highway Girl/faq/MKW315) CHOL/HDLC RATIO 2.9 <5.0 (calc) [facility] Non HDL Cholesterol 109 <130 mg/dL (calc) [facility] Comment: For patients with diabetes plus 1 major ASCVD risk factor, treating to a non-HDL-C goal of <100 mg/dL (LDL-C of <70 mg/dL) is considered a therapeutic option. Test Performed at: [facility] [address] JOSEPHINE URBINA MD Blood BLOOD SPECIMEN / Unknown 01/18/2024 9:22 AM CDT 01/18/2024 9:23 AM CDT Wyatt Morrow MD LAB - CHEMISTRY KENDRA GONZALEZ Performing Organization Address [facility]/ZIP Co de Phone Number [facility] [address] [place] [address] from Last 3 Months or Most Recently Relevant to Health Maintenance Administered Medications Care Teams Implementation Services Analyst Relationship Specialty Start Date End Date Douglas Leach MD PCP - General 03/04/20
--- OUTSIDE RECORDS SUMMARY | 2024-06-06 11:48 | XMS_ITS | Clinical Summary ---
Author Organization [facility] Address [address] [place] [address] Care Team Providers Care Nephrologist Name Role Phone Douglas Leach MD Primary Care Provider [phone] Source Comments [facility] and Associated Physician Practices is amultiple site organization consisting of ambulatory clinics and hospital sitesin [place], [place], [place] and [place]. This disclosure is being madepursuant to the Care Everywhere program and may not contain all information available regarding this patient. Last updated 17.[facility] Allergies Active Allergy Reactions Criticality Noted Date [...] (11/18/2020): Added automatically from request for surgery [id number] Gallstone 01/06/2013 Gastroesophageal reflux disease 01/06/2013 Abdominal pain 12/06/2012 Hemorrhage of rectum and anus 12/06/2012 Acute bronchitis 06/26/2012 Headache 06/26/2012 Resolved Problems Problem Noted Date Diagnosed Date Resolved Date Acute otitis media 11/18/2020 Cough 11/18/2020 12/16/2020 Upper respiratory infection 11/18/2020 12/02/2020 Encounters Date Type Department Care Team Description 06/05/2024 Telephone [facility] [address] [facility] [address] [place] [address] Wyatt Morrow MD Refill Request 06/02/2024 Refill [facility] [address] [place] [phone] Wyatt Morrow MD Refill Request 05/21/2024 Refill [facility] [address] [place] [phone] Wyatt Morrow MD Refill Request 05/15/2024 Refill [facility] [address] [place] [phone] Wyatt Morrow MD Refill Request 03/25/2024 Travel 03/24/2024 1:00 PM VISUAL MERCHANDISING COORDINATOR Office Visit [facility] [address] [place] [address] Wyatt Morrow MD Rash and nonspecific skin [...] Comments Blood Pressure 140/89 05/19/2021 10:16 AM VISUAL MERCHANDISING COORDINATOR Pulse 98 05/19/2021 10:16 AM VISUAL MERCHANDISING COORDINATOR Temperature 36.8 C (98.3 F) 11/18/2020 10:17 AM CDT Respiratory Rate - - Oxygen Saturation 98% 11/18/2020 10:17 AM CDT Inhaled Oxygen Concentration - - Weight 126.6 kg (279 lb) 05/19/2021 10:16 AM VISUAL MERCHANDISING COORDINATOR Height 162.6 cm (5' 4 ) 05/19/2021 10:16 AM VISUAL MERCHANDISING COORDINATOR Body Mass Index 47.89 05/19/2021 10:16 AM VISUAL MERCHANDISING COORDINATOR Plan of Treatment Upcoming Encounters Date Type Department Care Team (Late st Contact Info) Description 06/16/2024 3:30 PM CDT Office Visit [facility] - Dermatology [address] [place] [address] [address] [place] [address] Wyatt Morrow MD [address] [place] [address] 06/20/2024 9:00 AM CDT [facility] Visit [facility] [address] [facility], [facility] [place] [address] Wyatt Morrow MD [address] [place] [address] Yann Manuel MD [address] [place] [address] Health Maintenance Due Date Last Done Comments [...] a test for HCV RNA (test code 82460) is suggested. For additional information please refer to http://education.Lumos [employer]arma/faq/BOE82e5 (This link is being provided for informational/ educational purposes only.) Test Performed at: [facility] [address] [address] JOSEPHINE URBINA MD Blood BLOOD SPECIMEN / Unknown 01/18/2024 9:22 AM CDT 01/18/2024 9:23 AM CDT Wyatt Morrow MD LAB - CHEMISTRY KENDRA GONZALEZ Performing Organization Address [facility] de Phone Number [facility] [address] [place] [address] * HIV-1 HIV-2 ANTIBODY + HIV P24 AG PANEL (01/18/2024 9:22 AM CDT) Pathologist [facility] HIV Screen 4th Generation w Reflex NON-REACT [...] purpose. For additional information please refer to http://education.Lumos [employer]arma/faq/XUJ828 (This link is being provided for informational/ educational purposes only.) The performance of this assay has not been clinically validated in patients less than 2 years old. Test Performed at: [facility] [address] [place] [address] JOSEPHINE URBINA MD Blood BLOOD SPECIMEN / Unknown 01/18/2024 9:22 AM CDT 01/18/2024 9:23 AM CDT Wyatt Morrow MD LAB - CHEMISTRY KENDRA GONZALEZ Performing Organization Address [facility] Co de Phone Number [facility] [address] [place] [address] * LIPID PROFILE (01/18/2024 9:22 AM CDT) Pathologist [facility] Cholesterol 167 <200 mg/dL [facility] HDL Cholesterol 58 > OR = 50 mg/dL [facility] Triglycerides 92 <150 mg/dL [facility] LDL Calculated 90 mg/dL (calc) [facility] Comment: Reference range: <100 Desirable range <100 mg/dL for primary prevention; <70 mg/dL for patients with CHD or diabetic patients with > or = 2 CHD risk factors. LDL-C is now calculated using the Jorge A-Capone calculation, which is a validated novel method providing better accuracy than the Friedewald equation in the estimation of LDL-C. Jorge A SS et al. THERESA. 2013;310(19): 3105-2483 (http://education.Shoes4you/faq/KDL074) CHOL/HDLC RATIO 2.9 <5.0 (calc) [facility] Non HDL Cholesterol 109 <130 mg/dL (calc) [facility] Comment: For patients with diabetes plus 1 major ASCVD risk factor, treating to a non-HDL-C goal of <100 mg/dL (LDL-C of <70 mg/dL) is considered a therapeutic option. Test Performed at: [facility] [address] JOSEPHINE URBINA MD Blood BLOOD SPECIMEN / Unknown 01/18/2024 9:22 AM CDT 01/18/2024 9:23 AM CDT Wyatt Morrow MD LAB - CHEMISTRY KENDRA GONZALEZ [address] [address] from Last 3 Months or Most Recently Relevant to Health Maintenance Care Teams Nephrologist Relationship Specialty Start Date End Date Douglas Leach MD [phone] (work) PCP - General 03/04/20
--- OUTSIDE RECORDS SUMMARY | 2024-06-06 11:48 | XMS_ITS | Encounter Summary ---
Author Organization [facility] Healthcare Address [address] [place] [address] Care Team Providers Care Department Traffic Freight Router Name Role Phone Douglas Leach MD Primary Care Provider [phone] Juan Pablo Zurita MD Unavailable [phone] Lizeth Pozo OD Unavailable [phone] Reason for Referral * MRI/CAT/PET Scan (Routine) - Closed Specialty Diagnoses / Procedures Referred By Contac t Referred To Contact Radiology Diagnoses Pulsatile tinnitus, right ear Procedures CTA Head Neck W WO Contrast Mariposa Carlin, UNDERGRADUATE INTERN [address] DEPT [address]NGOLOGY[address] [address] Phone: tel: fax: [address] [address] Referral ID Status Reason Start Date Expiration Date Visits Re quested Visits Authorized [id number] Closed 05/09/2024 08/07/2024 1 1 R INSTALLER Reason for Visit * MRI/CAT/PET Scan (Routine) - Closed Specialty Diagnoses / Procedures Referred By Contac t Referred To Contact Radiology Diagnoses Pulsatile tinnitus, right ear Procedures CTA Head Neck W WO Contrast Mariposa Carlin, CHONG [address] [facility] [address] Phone: tel: fax: [address] [address] Referral ID Status Reason Start Date Expiration Date Visits Re quested Visits Authorized [id number] Closed 05/09/2024 08/07/2024 1 1 Encounter Details Date Type Department Care Team (Latest Contact Info) Description 06/06/2024 8:00 AM PAVER INSTALLER Hospital Encounter [facility] Imaging and Radiology [id number] [place] [address] Pulsatile tinnitus, right ear Social History Tobacco Use Types Packs/Day Years Used Date Smoking Tobacco: Never Passive Smoke Exposure: Past Hunger Vital Sign Answer Date Recorded Within the past 12 months, y ou worried that your food would run out before you got the money to buy more. Never true 05/27/19 25 Within the past 12 months, t he food you bought just didn't last and you didn't have money to get more. Never true 05/27/2024 Comments Unknown Sex and Gender Information Value Date Recorded Sex Assigned at Not on file Legal Sex Female 1:59 PM PAVER INSTALLER Gender Identity Not on file Sexual Orientation Not on file documented as of this encounter Plan of Treatment Pending Results Name Type Priority Associated Diagnoses Date /Time CTA Head Neck W WO Contrast Imaging Schedule Routine, Read Routine (OP Routine) Pulsatile tinnitus, right ear 06/06/2024 9:04 AM PAVER INSTALLER documented as of this encounter Procedures Procedure Name Priority Date/Time Associated Diagnosis Comments CTA HEAD NECK W WO CONTRAST Schedule Routine, Read Routine (OP Routine) 06/06/2024 9:04 AM PAVER INSTALLER Pulsatile tinnitus, right ear Procedure Note - Nilsa Agudelo MD - 06/06/2024 9:04 AM CSTThis note is in progress. EXAMINATION: CTA HEAD NECK W WO CONTRAST HISTORY: Tinnitus, pulsatile pulsatile tinnitus TECHNIQUE: Noncontrast CT of the head was obtained from skull base to vertex, according to standard protocol. Subsequently, CT angiogram of the neck and [place] of [place] was performed after the uneventful intravenous administration of 94 mL Optiray 350 according to the head and neck angiography protocol with multiplanar reconstructions including thin MIPS obtained. 3-D postprocessing was performed by the technologist on a separate workstation, and submitted for review. Separate data acquisition was obtained. COMPARISON: None. FINDINGS: HEAD CT FINDINGS: There is no acute intracranial hemorrhage.There is no vascular hyperdensity of the M1 segments or basilar artery. There are no periventricular and deep white matter hypodensities. There are no lacunar infarcts. Cerebral volume is typical for age. Bilateral globus pallidus calcification is seen.. There is no mass effect or midline shift. Enlarged partially empty sella is present. The right mastoid and bilateral middle ear are clear. Mild left mastoid tip effusion is present. Anterior position of the right sigmoid sinus plate noted with focal dehiscence axial images 38-42 of series 6. No dilated emissary veins are seen. There is no evidence for aberrant internal carotid artery. The bilateral carotid canal is intact. The right jugular bulb is high in position although intact. The left jugular bulb there is normal position and intact. No erosion nor focal abnormal enhancement noted at the jugular fossa seen at either side. ANGIOGRAPHIC FINDINGS: The visualized aortic arch appears normal with normal configuration of the great vessels. There is no significant stenosis of the origins of the great vessels. There is no geographic area of vascular paucity in the brain. Left anterior circulation: L CCA: no occlusion or significant stenosis L carotid bifurcation: no occlusion or significant stenosis L ICA proximal: no occlusion or significant stenosis L ICA distal: no occlusion or significant stenosis L ICA terminus: no occlusion or significant stenosis L M1: no occlusion or significant stenosis L M2 branches: no occlusion or significant stenosis L A2: no occlusion or significant stenosis Right anterior circulation: R CCA: no occlusion or significant stenosis R carotid bifurcation: no occlusion or significant stenosis R ICA proximal: no occlusion or significant stenosis R ICA distal: no occlusion or significant stenosis R ICA terminus: no occlusion or significant stenosis R M1: no occlusion or significant stenosis R M2 branches: no occlusion or significant stenosis R A2: no occlusion or significant stenosis Posterior circulation: L Vertebral Artery: no occlusion or significant stenosis R Vertebral Artery: The origin of the one segment are obscured due to density venous contrast otherwise patent without occlusion or significant stenosis. Basilar Artery: no occlusion or significant stenosis L EVENT HOST: no occlusion or significant stenosis R EVENT HOST: no occlusion or significant stenosis The major dural venous sinuses are patent. Dominant right and hypoplastic left transverse sinus is seen but no significant stenosis is identified. No cerebral aneurysm is seen. There is no evidence for an arteriovenous malformation nidus or distended cortical veins to suggest AV shunting. Moderate nasopharyngeal adenoidal hypertrophy tonsil enlargement with moderate airway narrowing is seen.. Bilateral symmetric enlarged parotid and submandibular glands are seen. Multiple small jugular chain nodes are present.. Limited views of the lung apices are normal. IMPRESSION: Dehiscence of the right sigmoid sinus plate which may be associated with pulsatile tinnitus. High though intact right jugular bulb. No other vascular etiology for pulsatile tinnitus is identified. No cervical carotid artery stenosis. No intracranial large vessel occlusion or significant stenosis. documented in this encounter Visit Diagnoses Diagnosis Pulsatile tinnitus, right ear documented in this encounter Administered Medications Inactive Administered Medications - up to 3 most recent administrations Medication Order MAR Action Action Date Dose Rate Site ioversoL (OPTIRAY 350) syringe 100 mL 100 mL, intravenous, Once in imaging, contrast, Starting on Sun06/06/24 at 0819, For 1 dose Contrast Given 06/06/2024 9:04 AM PAVER INSTALLER 94 mL documented in this encounter Orders Medications Ordered That Darrell ht Not Have Been Administered Count Last Ordered Date First Ordered Date ioversoL (OPTIRAY 350) syringe 100 mL 1 09/2024 documented in this encounter Care Teams Department Traffic Freight Router Relationship Specialty Start Date End Date Douglas Leach MD PCP - General 03/14/17 Juan Pablo Zurita MD Consulting Physician Neurosurgery 01/27/21 Lizeth Pozo, TANIA [address] [place] [address] Primary Eye Care Provider Optometry 01/27/21 documented as of this encounter
--- OUTSIDE RECORDS SUMMARY | 2024-06-06 11:48 | XMS_ITS | Referral Summary ---
Author Organization [facility] Address [address] [place] [id number] Care Team Providers Care Product Safety Administrator Name Role Phone Douglas Leach MD Primary Care Provider + [phone] Juan Pablo Zurita MD Unavailable [phone] Lizeth Pozo OD Unavailable [phone] Encounters Date Type Department Care Team Description 06/06/2024 8:00 AM FIG CAPRIFIER Hospital Encounter [facility] Imaging and Radiology [address] [place] [address] Pulsatile tinnitus, right ear 05/27/2024 2:30 PM FIG CAPRIFIER [facility] [address] [facility] 4th Floor [address] [place] [address] Roxy Godinez MD Seizures (HCC) (Primary Dx); Syncope and collapse; History of sleep apnea; At risk for side effect of medication 04/25/2024 Orders Only [facility] Otolaryngology [address] [place] [address] Eliz Jasso CMA Pulsatile tinnitus, right ear (Primary Dx) 04/25/2024 2:20 PM FIG CAPRIFIER Office Visit [facility] Otolaryngology [address] [place] [address] Mariposa Carlin, CHONG Pulsatile tinnitus, right ear (Primary Dx) 04/25/2024 2:00 PM FIG CAPRIFIER Procedure visit [facility] Otolaryngology [address] [place] [address] Abnormal auditory perception of both ears (Primary Dx); Tinnitus of both ears 04/11/2024 Telephone [facility] Ophthalmology [address] [address] Chelsea Herrera MD 04/10/2024 Telephone [facility] Ophthalmology [address] [place] [address] Chelsea Herrera MD Reschedule Request 03/21/2024 Telephone [facility] Scheduling [address] [place] [address] Mary Beth Whittington 03/20/2024 Orders Only [facility] Ophthalmology [address] [address] Chelsea Herrera MD Idiopathic intracranial hypertension [...] Hour) 120 mg 12 hr tablet Active LORazepam (ATIVAN) 1 mg tabletIndications: anxiety Take 1 tablet (1 mg total) by mouth once for 1 dose Prior to MRI 1 tablet 05/27/19 Active Active Problems Problem Noted Date Diagnosed [...] (03/22/2023): Added automatically from request for surgery [id number] Abdominal pain 12/06/2012 Hemorrhage of rectum and anus 12/06/2012 Acute bronchitis 06/26/2012 Headache 06/26/2012 Chronic migraine without aura BMI 45.0-49.9, adult OBEY (obstructive sleep apnea) Hyperopia of both eyes Social History Tobacco Use Types Packs/Day Years Used Date Smoking Tobacco: Never Passive Smoke Exposure: Past Tobacco Cessation:Counseling Given: Not Answered Hunger Vital Sign Answer Date Recorded Within the past 12 months, y ou worried that your food would run out before you got the money to buy more. Never true 02/25/20 25 Within the past 12 months, t he food you bought just didn't last and you didn't have money to get more. Never true 05/27/2024 Comments Unknown Sex and Gender Information Value Date Recorded Sex Assigned at Not on file Legal Sex Female 1:59 PM FIG CAPRIFIER Gender Identity Not on file Sexual Orientation Not on file Last Filed Vital Signs Vital Sign Reading Time Taken Comments Blood Pressure 120/72 05/27/2024 2:20 PM FIG CAPRIFIER Pulse 70 05/27/2024 2:20 PM FIG CAPRIFIER Temperature 36.1 C (96.9 F) 05/27/2024 2:20 PM FIG CAPRIFIER Respiratory Rate 20 12/28/2023 9:17 AM CDT Oxygen Saturation 100% 05/27/2024 2:20 PM FIG CAPRIFIER Inhaled Oxygen Concentration - - Weight 128.1 kg (282 lb 6.4 oz) 05/27/2024 2:20 PM FIG CAPRIFIER Height 162.6 cm (5' 4 ) 05/27/2024 2:20 PM FIG CAPRIFIER Body Mass Index 48.47 05/27/2024 2:20 PM FIG CAPRIFIER Plan of Treatment Not on file Procedures Procedure Name Priority Date/Time Associated Diagnosis Comments CTA HEAD NECK W WO CONTRAST Schedule Routine, Read Routine (OP Routine) 06/06/2024 9:04 AM FIG CAPRIFIER Pulsatile tinnitus, right ear Procedure Note - Nilsa Agudelo MD - 06/06/2024 9:04 AM CSTThis note is in progress. EXAMINATION: CTA HEAD NECK W WO CONTRAST HISTORY: Tinnitus, pulsatile pulsatile tinnitus TECHNIQUE: Noncontrast CT of the head was obtained from skull base to vertex, according to standard protocol. Subsequently, CT angiogram of the neck and [place] of [place] was performed after the uneventful [...] Artery: no occlusion or significant stenosis L VETERINARIAN ASSISTANT: no occlusion or significant stenosis R VETERINARIAN ASSISTANT: no occlusion or significant stenosis The major [...] intracranial large vessel occlusion or significant stenosis. AUDBASE RESULTS 04/25/2024 2:18 PM FIG CAPRIFIER from Last 3 Months Results * AudBase Results (04/25/2024 2:18 PM FIG CAPRIFIER) Provider Scanning AUDIOLOGY SERVICES ORDERABLES Final Result from Last 3 Months Insurance [facility] Care Teams Product Safety Administrator Relationship Specialty Start Date End Date Douglas Leach MD PCP - General 03/14/17 Juan Pablo Zurita MD Consulting Physician Neurosurgery 01/27/21 Lizeth Pozo, TANIA [address] [place] [address] Primary Eye Care Provider Optometry 01/27/21
--- OUTSIDE RECORDS SUMMARY | 2024-06-06 11:48 | XMS_ITS | Continuity of Care Document ---
Author Organization [facility] Address [address] [place] [address] [place] [address] Phone Care Team Providers Care Baseball Coach Name Role Phone Douglas Leach MD Unavailable [...] Diagnoses Date Provider Providers Copied on Encounter [facility], [address] [place], [place], [address], tel:[phone] [facility] No Information Chip Cole. [address], [place], [address] , [place]. tel:[phone] OFFICE/OUTPA TIENT VISIT, EST [facility], [address] [place], [place], [address], tel:[phone] [facility] GERD1 (chief complaint) GERD w/o esophagitis 4 Hany Cole. [address], [place], [place], [address] , [place]. tel:[phone] OFFICE/OUTPA TIENT VISIT, EST [facility], [address], [place], [place], [address], [place] tel:[phone] [facility] syncope1 (chief complaint) hidradenit is1 (chief complaint) Syncope and collapseEpilepsyHid radenitis suppurativa 4 Hany Cole. [address], [place], [place], [address] , [place]. tel:[phone] OFFICE/OUTPA TIENT VISIT, EST [facility], [address], [place], [place], [address], [place] tel:[phone] [facility] low iron1 (chief complaint) A1c (chief complaint) obesity1 (chief complaint) hidradenit is1 (chief complaint) sleep apnea1 (chief complaint) ear pain1 (chief complaint) Abnormal weight gainIron deficiencyObstructi ve sleep apnea hypopneaHidradeniti s suppurativaHypergly cemiaOtalgia, right ear 4 aHny Cole. [address], [place], [place], [address] , [place]. [phone] PREV VISIT, EST, AGE 18-39 [facility], [address], [place], [place], [address], [place] tel:[phone] [facility] Physical (chief complaint) Encounter for general adult medical exam w abnormal findingsGERD w/o esophagitisType 2 diabetes mellitus without complicationsObstru ctive Sleep Apnea HypopneaAbnormal weight gainBariatric surgery status 4 Hany Cole. [address], [place], [place], [address] , [place]. tel:[phone] [facility], [address], [place], [place], [address], [place] tel:[phone] [facility] No Information May- 4 Hany Akers [address], [place], [place], [address] , [place]. [phone] OFFICE/OUTPA TIENT VISIT, [facility], [address], [place], [place], [address], [place] tel:[phone] [facility] GERD (chief complaint) GERD1 (chief complaint) skin1 (chief complaint) asthma1 (chief complaint) weight1 (chief complaint) Mild intermittent asthma, uncomplicatedGERD w/o esophagitisAbnormal weight gainCellulitis of abdominal wall 3 Hany Aekrs [address], [place], [place], [address] , [place]. [phone] OFFICE/OUTPA TIENT VISIT, [facility], [address], [place], [place], [address], [place] tel:[phone] [facility] weight1 (chief complaint) asthma1 (chief complaint) IBS-C (chief complaint) sleep apnea1 (chief complaint) Irritable bowel syndrome with constipationMild intermittent asthma, uncomplicatedType 2 diabetes mellitus without complicationsPrimar y central sleep apneaEssential (primary) hypertension 3 Hany Akers [address], [place], [place], [address] , [place]. [phone] OFFICE/OUTPA TIENT VISIT, [facility], [address], [place], [place], [address], [place] tel:[phone] [facility] IBS1 (chief complaint) GERD1 (chief complaint) weight1 (chief complaint) GERD w/o esophagitisIrritabl e bowel syndrome with constipationAbnorma l weight gain 3 Hany Akers [address], [place], [place], [address] , [place]. tel:[phone] PREV VISIT, EST, AGE 18-39 [facility], [address], [place], [place], [address], [place] tel:[phone] [facility] physical (chief complaint) Encounter for general adult medical exam w abnormal findingsIrritable bowel syndrome with constipationGERD w/o esophagitisAbnormal weight gainBenign intracranial HTN 3 Hany Cole. [address], [place], [place], [address] , [place]. [phone] OFFICE/OUTPA TIENT VISIT, [facility], [address], [place], [place], [address], [place] tel:[phone] [facility] abd pain1 (chief complaint) HTN (chief complaint) Essential (primary) hypertensionOther cholelithiasis without obstructionGenerali zed abdominal painConstipation 2 Hany Akers [address], [place], [place], [address] , [place]. tel:[phone] OFFICE/OUTPA TIENT VISIT, [facility], [address], [place], [place], [address], [place] tel:[phone] [facility] abd pain1 (chief complaint) ADD (chief complaint) HTN (chief complaint) vision1 (chief complaint) Abdominal painOther cholelithiasis without obstructionEssentia l (primary) hypertensionBenign intracranial HTNVisual disturbanceAttentio n deficitConstipation 2 Hany Akers [address], [place], [place], [address] , [place]. tel:[phone] PREV VISIT, EST, AGE 18-39 [facility], [address], [place], [address], [place] [phone] [facility] physical (chief complaint) Encounter for general adult medical examination without abnormal findings 2 Hany Cole. [address], [place], [place], [address] , [place]. [phone] OFFICE/OUTPA TIENT VISIT, [facility], [address], [place], [place], [address], [place] tel:[phone] [facility] ICH (chief complaint) HTN (chief complaint) anxiety1 (chief complaint) Benign intracranial HTNEssential (primary) hypertensionVisual disturbanceGenerali zed Anxiety Disorder 1 Hany Akers [address], [place], [place], [address] , [place]. tel:[phone] OFFICE/OUTPA TIENT VISIT, EST [facility], [address] [place], [address], [place] tel:[phone] [facility] brain mass1 (chief complaint) HTN (chief complaint) anxiety1 (chief complaint) Essential (primary) hypertensionBenign intracranial HTNNeoplasm of brainGeneralized Anxiety Disorder 1 Hany Akers [address], [place], [address] , [place]. [phone] OFFICE/OUTPA TIENT VISIT, [facility], [address] [place], [place], [address], [place] tel:[phone] [facility] HTN (chief complaint) headache1 (chief complaint) Essential (primary) hypertensionVisual disturbanceBenign intracranial HTNHeadache 1 Hany Akers [address], [place], [place], [address] , [place]. tel:[phone] OFFICE/OUTPA TIENT VISIT, EST [facility], [address] [place], [address], [place] tel:[phone] [facility] vision1 (chief complaint) HTN (chief complaint) sleep apnea1 (chief complaint) Essential (primary) hypertensionVisual disturbanceSleep apneaOther disorder of optic nerve of eye 1 Hany Akers [address], [place], [place], [address] , [place]. tel:[phone] PREV VISIT, EST, AGE 18-39 [facility], [address], [place], [place], [address], [place] tel:[phone] [facility] physical (chief complaint) Encounter for general adult medical examination without abnormal findings 1 Hany Cole. [address], [place], [place], [address] , [place]. tel:[phone] OFFICE/OUTPA TIENT VISIT, [facility], [address], [place], [place], [address], [place] tel:[phone] [facility] toe pain1 (chief complaint) a1c (chief complaint) cough1 (chief complaint) Other acquired hammer toe of right footType 2 diabetes mellitus without complicationsCoughB ariatric surgery status 1 Hany Cole. [address], [place], [place], [address] , [place]. tel:[phone] OFFICE/OUTPA TIENT VISIT, [facility], [address], [place], [place], [address], [place] tel:[phone] [facility] knee pain1 (chief complaint) COVID (chief complaint) Pain in right kneeViral infection 0 Hany Cole. [address], [place], [place], [address] , [place]. tel:[phone] OFFICE/OUTPA TIENT VISIT, [facility], [address], [place], [place], [address], [place] tel:[phone] [facility] sick (chief complaint) Viral infection 0 Hany Cole. [address], [place], [place], [address] , [place]. tel:[phone] OFFICE/OUTPA TIENT VISIT, [facility], [address], [place], [place], [address], [place] tel:[phone] [facility] eczema1 (chief complaint) peanut allergy1 (chief complaint) obesity1 (chief complaint) sleep apnea1 (chief complaint) Abdominal painEczemaSleep apnea, unspecifiedHidraden itis suppurativaAllergy to peanuts 0 Hany Cole. [address], [place], [place], [address] , [place]. [phone] Referring Provider: [address], [place], [place], [address]. tel:[phone] OFFICE/OUTPA TIENT VISIT, [facility], [address], [place], [place], [address], [place] [phone] [facility] LFT (chief complaint) abd pain1 (chief complaint) DM (chief complaint) obesity1 (chief complaint) Type 2 diabetes mellitus without complicationsAbdomi nal painLiver diseaseObesity 0 Hany Cole. [address], [place], [place], [address] , [place]. [phone] Referring Provider: [address], [place], [place], [address]. tel:[phone] OFFICE/OUTPA TIENT VISIT, [facility], [address], [place], [place], [address], [place] tel:[phone] [facility] LFT (chief complaint) abd pain1 (chief complaint) obesity1 (chief complaint) glucose (chief complaint) Liver diseaseAbdominal painObesityGastriti s w/o bleedingHyperglycem ia 0 Hany Cole. [address], [place], [place], [address] , [place]. [phone] Referring Provider: [address], [place], [place], [address]. tel:[phone] OFFICE/OUTPA TIENT VISIT, [facility], [address], [place], [place], [address], [place] tel:[phone] [facility] LFT (chief complaint) glucose1 (chief complaint) obesity1 (chief complaint) Abdominal painFatty liverHyperglycemiaO besity 0 Hany Cole. [address], [place], [place], [address] , [place]. [phone] Referring Provider: [address], [place], [place], [address]. tel:[phone] PREV VISIT, EST, AGE 18-39 [facility], [address], [place], [place], [address], [place] tel:[phone] [facility] PHysical (chief complaint) Encntr for general adult medical exam w/o abnormal findings 0 Hany Cole. [address], [place], [place], [address] , [place]. tel:[phone] Referring Provider: V[address], [place], [place], [address]. tel:[phone] OFFICE/OUTPA TIENT VISIT, [facility], [address], [place], [place], [address], [place] tel:[phone] [facility] GERD1 (chief complaint) obesity1 (chief complaint) sleep apnea1 (chief complaint) Body mass index (BMI) 60.0-69.9, adultGERD w/o esophagitisSleep apnea, unspecifiedAbdomina l pain 8 Hany Cole. [address], [place], [place], [address] , [place]. tel:[phone] Referring Provider: V[address], [place], [place], [address]. tel:[phone] OFFICE/OUTPA TIENT VISIT, EST [facility], [address], [place], [place], [address], [place] tel:[phone] [facility] GERD1 (chief complaint) sleep apnea1 (chief complaint) hidradenit is1 (chief complaint) obesity1 (chief complaint) Body mass index (BMI) 60.0-69.9, adultSleep apneaGERD w/o esophagitisHidraden itis suppurativa 0-201 8 Hany Akers [address], [place], [place], [address] , [place]. tel:[phone] Referring Provider: V[address], [place], [place], [address]. tel:[phone] PREV VISIT, EST, AGE 18-39 [facility], [address], [place], [place], [address], [place] tel:[phone] [facility] sleep apnea1 (chief complaint) GERD1 (chief complaint) abd pain1 (chief complaint) obesity1 (chief complaint) skin (chief complaint) Body mass index (BMI) 60.0-69.9, adultSleep apnea, unspecifiedOther cholelithiasis without obstructionHidraden itis suppurativaEncounte r for general adult medical exam w abnormal findingsEncntr for general adult medical exam w/o abnormal findings 8 Hany Akers [address], [place], [place], [address] , [place]. tel:[phone] Referring Provider: [facility] [place], [place], [address]. tel:[phone] OFFICE/OUTPA TIENT VISIT, EST [facility], [address], [place], [place], [address], [place] tel:[phone] [facility] obesity1 (chief complaint) gluose1 (chief complaint) vitamin D (chief complaint) Body mass index (BMI) 60.0-69.9, adultAbnormal weight gainVitamin D deficiency, unspecifiedHypergly cemia 8 Hany [address], [place], [place], [address] , [place]. tel:[phone] Referring Provider: [address], [place], [place], [address]. tel:[phone] OFFICE/OUTPA TIENT VISIT, EST [facility], [address], [place], [place], [address], [place] tel:[phone] [facility] sleep apnea1 (chief complaint) obeisty1 (chief complaint) Body mass index (BMI) 60.0-69.9, adultSleep apnea 8 [address], [place], [place], [address] , [place]. [phone] Referring Provider: Vimal Law [address], [place], [place], [address]. tel:[phone] OFFICE/OUTPA TIENT VISIT, [facility], [address], [place], [place], [address], [place] [phone] [facility] obesity (chief complaint) obesity1 (chief complaint) Abnormal weight gainBody mass index (BMI) 60.0-69.9, adult 8 Hany Akers [address], [place], [place], [address] , [place]. [phone] Referring Provider: Vimal Law [address], [place], [place], [address]. tel:[phone] OFFICE/OUTPA TIENT VISIT, [facility], [address], [place], [place], [address], [place] tel:[phone] [facility] obesity1 (chief complaint) sleep apnea1 (chief complaint) Body mass index (BMI) 60.0-69.9, adultSleep apnea 7 Hany Cel[address], [place], [place], [address] , [place]. [phone] Referring Provider: Vimal Law [address], [place], [place], [address]. tel:[phone] OFFICE/OUTPA TIENT VISIT, [facility], [address], [place], [place], [address], [place] tel:[phone] [facility] obesity (chief complaint) vitmain d (chief complaint) glucose1 (chief complaint) sleep apnea1 (chief complaint) Vitamin D deficiency, unspecifiedHypergly cemiaBody mass index (BMI) 60.0-69.9, adultSleep apnea, unspecified 7 Hany Akers [address], [place], [place], [address] , [place]. tel:[phone] Referring Provider: Vimal Law [address], [place], [place], [address]. tel:[phone] OFFICE/OUTPA TIENT VISIT, [facility], [address], [place], [place], [address], [place] [phone] [facility] sleep apnea1 (chief complaint) obesity1 (chief complaint) Body mass index (BMI) 60.0-69.9, adultSleep apnea, unspecified 7 Hany Cole. [address], [place], [place], [address] , [place]. tel:[phone] Referring Provider: Vimal Law [address], [place], [place], [address]. tel:[phone] PREV VISIT, [facility], AGE 18-39 [facility], [address], [place], [place], [address], [place] [phone] [facility] Physical (chief complaint) Encntr for general adult medical exam w/o abnormal findings 7 Hany Cole. [address], [place], [place], [address] , [place]. [phone] Referring Provider: Vimal Law [address], [place], [place], [address]. tel:[phone] OFFICE/OUTPA TIENT VISIT, [facility], [address], [place], [place], [address], [place] tel:[phone] [facility] sleep apnea (chief complaint) eczema1 (chief complaint) hematuria (chief complaint) obesity1 (chief complaint) Body mass index (BMI) 50-59.9 , adultSleep apnea, unspecifiedHematuri aEczema 6 Hany Cole. [address], [place], [place], [address] , [place]. [phone] Referring Provider: Vimal Law [address], [place], [place], [address]. tel:[phone] PREV VISIT, EST, AGE 18-39 [facility], [address], [place], [place], [address], [place] [phone] [facility] physical (chief complaint) Encntr for general adult medical exam w/o abnormal findings 6 Hany Cole. [address], [place], [place], [address] , [place]. tel:[phone] Referring Provider: Vimal Law [address], [place], [place], [address]. tel:[phone] OFFICE/OUTPA TIENT VISIT, [facility], [address], [place], [place], [address], [place] tel:[phone] [facility] sleep apnea (chief complaint) eczama (chief complaint) obeisty (chief complaint) Dietary surveillance and counselingObesity, unspecifiedEczemaSl eep apnea syndromeBMI 50.0 to 59.9 5 Hany Cole. [address], [place], [place], [address] , [place]. [phone] Referring Provider: Vimal Law [address], [place], [place], [address]. tel:[phone] OFFICE/OUTPA TIENT VISIT, [facility], [address], [place], [place], [address], [place] [phone] [facility] PHysical (chief complaint) Dietary surveillance and counselingRoutine Medical ExamRoutine Medical ExamDysphagiaRash and other nonspecific skin eruptionDYSPHAGIA NEC 4 Hany Cole. [address], [place], [place], [address] , [place]. tel:[phone] Referring Provider: Vimal Law [address], [place], [place], [address]. tel:[phone] OFFICE/OUTPA TIENT VISIT, [facility], [address], [place], [place], [address], [place] tel:[phone] [facility] abdominal pain (chief complaint) Dietary surveillance and counselingAbdominal PainGERDCalculus of gallbladder without mention of cholecystitis, without mention of obstruction 3 Hany Cole. [address], [place], [place], [address] , [place]. [phone] Referring Provider: Vimal Law [address], [place], [place], [address]. tel:[phone] OFFICE/OUTPA TIENT VISIT, EST [facility], [address], [place], [place], [address], [place] tel:[phone] [facility] abdominal pain (chief complaint) Dietary surveillance and counselingAbdominal PainHemorrhage of rectum and anus 3 Hany Cole. [address], [place], [place], [address] , [place]. tel:[phone] Referring Provider: Viaml L[address], [place], [place], [address]. tel:[phone] OFFICE/OUTPA TIENT VISIT, EST [facility], [address], [place], [place], [address], [place] tel:[phone] [facility] Headache (chief complaint) Cough (chief complaint) obesity (chief complaint) HeadacheBronchitis, AcuteObesity 3 Hany Akers [address], [place], [place], [address] , [place]. tel:[phone] Referring Provider: Vimal Law [address], [place], [place], [address]. tel:[phone] PREV VISIT, EST, AGE 18-39 [facility], [address], [place], [place], [address], [place] tel:[phone] [facility] headache (chief complaint) eczema (chief complaint) Dietary surveillance and counselingRoutine Medical ExamRoutine Medical Exam 2 Hany Akers [address], [place], [place], [address] , . tel:[phone] Referring Provider: Vimal [address], [place], [place], [address]. tel:[phone] Family History Family Member Type Diagnosis Age At Onset Mother Problem (finding) Alive and well Father Problem (finding) Stroke 50 Brother Problem (finding) Alive and well Payers Payer name Insurance type Covered democrat ID Authoriza tion(s) No Information Social History [...] Hypopnea) ordered Referral Referred To: LAVELLE WAYNE [facility], [phone] Ordered: Referrals: Allopathic & Osteopathic Physicians : Internal Medicine : Pulmonary Disease. LAVELLE WAYNE. Evaluate and treat ordered Referral Ordered: Huey Borrego -Allopathic & Osteopathic Physicians : Surgery (related to Abnormal weight gain) ordered Referral Referred To: Huey Borrego [address], [id number] Ordered: Referrals: Allopathic & Osteopathic Physicians : Surgery. Huey Borrego. Evaluate and treat ordered Referral Referred To: Juvenal Land [address], [phone] Ordered: Referrals: Charles. Emery Evaluate and treat ordered Referral Ordered: COLONOSCOPY AND BIOPSY ordered Referral Ordered: MRI BRAIN W/DYE ordered Referral Referred To: Juan Pablo Zurita MD [address]
[place], [address] Ordered: Referrals: Juan Pablo Zurita MD. Evaluate and treat ordered Referral Ordered: MRI BRAIN W/O DYE ordered Referral Ordered: Allergy and Immunology (related to Encounter for general adult medical examination without abnormal findings) ordered Referral Ordered: Referrals: Allergy and Immunology. Evaluate and treat ordered Referral Ordered: HAYDEN FORD -Podiatric Medicine & Surgery Service Providers : Nuclear Powerplant Supervisor (related to Other acquired hammer toe of right foot) ordered Referral Referred To: HAYDEN FORD [facility] [place], [place], [phone] Ordered: Referrals: Podiatric Medicine & Surgery Service Providers : Nuclear Powerplant Supervisor. HAYDEN FORD. Evaluate and treat ordered Referral [...] Referral Referred To: Juvenal Land MD [address] [facility] 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 Pt was kind of confused upon awakening. Pt had head CT done at ER which showed bilateral basal ganglia calcifications her lab were otherwise unremarkable. Pt states that she called neurologist [place] for [place] but no arron until [...] Pt never receive d the semaglutide from [facility]. Pt is s/p gastric sleeve but she has not been losing more weight hidradenitis1 Pt has recurrent hidradenitis around low pelvic area Pt has history of surgery for armpit in the past. 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 skin1 Pt has recurrent cystic skin infection [...] area. Pt notices clear drainage with pain. GERD1 Pt has chronic G ERD Pt had benign EGD Pt has history of gastric sleeve .Pt takes protonix daily pt has daily GERD without protonix pt failed pepcid. GERD asthma1 Pt has allergy a nd [...] abd pain sleep apnea1 Pt has sleep tax investigator ea Pt has not been using cpap. [...] due to ICH, Pt sees neurology at [facility] [facility] Pt has not seen neuro box car loader yet . Pt wants letter to her [...] pt is seeing neurosurgeon and ophthalmology at [facility] now. Pt is off acetazolamide. Pt has [...] 11/16/20. Pt was evaluated by neurosurgery at [facility] who started her on diamox and referred [...] week and she checked her bp at [facility] which was 130/70 so she stopped taking Norvasc on her own. her bp is high today headache1 Pt has vague int ermittent pressure headache with some blurred vision. Bi Analyst checked her eye and she has small area of edema. Pt denies any head injury or waking up at night with headache. Pt denies any confusion, neurological deficit, etc .Pt had spinal tap and her opening pressure is 30. vision1 Pt notices some blurred vision recently [...] factor. Pt denies any mental status change. HTN Her BP is high t filipe. Pt does not have any history of HTN. sleep apnea1 Pt has not been using cpap for 4 weeks. Pt is noncompliant physical Pt needs annual physical Pt has [...] and she was tested positive on at [facility] and she had repeat testing done on [...] has been home self quarantine since yesterday. eczema1 Pt has eczema. P t uses steroid topical PRn and doing well. Pt needs refill peanut allergy1 Pt recently noti casimiro some trouble with breathing and wheezing after eating peanut Pt denies any GI symptoms Pt wants food allergy testing. Pt denies any dysphagia obesity1 Pt is seeing [facility] surgeon for potential bypass surgery. Pt also has hidradenitis. She will undergo surgery for that also. Pt has gallstone with intermittent postprandial right upper quadrant abdominal pain Pt is noncompliant with surgery referral. sleep apnea1 Pt has sleep tax investigator ea. Pt uses cpap nightly DM Patient has high glucose and high [...] done lab yet obesity1 Pt is seeing [facility] surgeon in [place] and she will most likely have gastric sleeve in October per pt abd pain1 Pt has intermitt ent right upper quadrant pain post food for several months Pt has gallstone and cholecystitis Pt denies any nausea, vomiting. Pt did see Dr. land who wanted her to have gallbladder surgery but pt is not sure if she wants to do it now at [place]. pt has gastris. Pt takes omeprazole daily [...] is obese Pt h as [facility]ron with [facility] bariatric surgeon this sunday on video chat [...] bese Pt is seeing bariatric surgeon in [place] and she will have bypass in April 20. Pt needs EGD done locally as part of the requirement sleep apnea1 Pt has sleep tax investigator ea Pt is using CPAP nightly and doing ok Pt denies any snoring or any fatigue sleep apnea1 Pt has sleep tax investigator ea Pt need cpap machine, pt is waiting for [facility] to set up her cpap GERD1 Pt has intermitt ent midepigastric abdominal pain. pt does have gallstone pt denies any pain after food Pt had normal HIDA scan Pt has been taking zantac and she does not have any abdominal pain anymore at this point hidradenitis1 Pt johnson snot have any active infection now. Pt has right side hidradenitis with recurrent drainage and pain. Pt never made arron with Dr. aLnd obesity1 Pt needs bariatr ic surgery. She went to [place] for 2-3 appointments but was unhappy with the service and distance and she is not sure if she wants to do it again at [place]. skin Pt has bilateral hidradenitis adenitis both axilla. Pt had left axillary surgery two years ago and she never got the right side done. Pt c/o recurrent pain and pus drainage right axillary area. Pt denies any fever now sleep apnea1 Pt has sleep tax investigator ea pt accidently dropped her CPAP machine [...] obesity1 Pt has been seei doctor in [place] for bariatric surgery. Pt needs to go to [place] monthly for weight loss assessment gluose1 Pt has high gluc ose. Pt denies any polyuria, polydipsia. vitamin D Pt has low D, Pt is not taking any OTC supplement obesity1 Pt is obese. her BMI is over 60. Pt needs bariatric surgery. Pt cannot find a bariatric surgeon around [facility]. Pt failed diet and exercise for weight loss. sleep apnea1 Pt has sleep tax investigator ea Pt is noncompliant with CPAP. Pt does not use it . pt states that she does not feel any difference with the cpap machine obeisty1 Pt is in the pro cess of getting his bariatric surgery approved by [facility] or changing to [place] to continue to see [facility] for surgery. Pt is morbidly obese. Pt failed diet and exercise. obesity obesity1 Pt is morbidly o bese. Pt unable to lose any weight with diet and exercise. Pt is in the process of setting up bariatric surgery at [facility]. Pt is doing medical management for weight loss now. Pt has not been able to lose much weight at all. obesity1 Pt is morbidly o bese Her BMI is over 60 Pt is in the process of getting sleeve done at [facility]. Pt needs monthly weight assessment form completed. Pt has not been able to lose any weight with diet and exercise. sleep apnea1 Pt has sleep tax investigator ea. Pt is noncompliant with CPAP. Pt feels mildly fatigue obesity Additional infor mation: Pt is obese. Pt wants to do weight loss surgery. Pt will attend bariatric surgery seminar soon. Pt failed diet and exercise for weight loss. vitmain d Pt has low vitma in D. glucose1 Pt has mild high glucose. Pt denies any polyuria, polydipsia sleep apnea1 Pt has sleep tax investigator ea but she is not using CPAP. Pt is noncompliant. Her CPAP machine broke and she supposes to call [employer] to get it repaired but she has not done so. pt has not been using CPAP for long time sleep apnea1 Pt has sleep tax investigator ea. Pt is not using CPAP. Pt is noncompliant. pt states that she does not have the CPAP cord anymore obesity1 Pt is obese. Pt changed insurance to [employer] and she wants referral to weight loss surgeyr at [facility]. Pt failed diet and exercise and [...] several week. Pt denies any other complaints eczama Pt has eczema. P t notices flares up worse in the summer time. Pt notices itching. Pt deneis any feve, chill obeisty Pt is overweight . Pt gained some weight sleep apnea Relevant history : a BMI [...] Body mass index (BMI) 50-59.9 , adult Weight management Related to Bod y mass index (BMI) 50-59.9 , adult Prescribed Activity and Exercise Education Related [...]
--- OUTSIDE RECORDS SUMMARY | 2024-06-06 11:48 | XMS_ITS | Encounter Summary ---
Author Organization [facility] Address [address] [place] [address] Care Team Providers Care Proof Passer Name Role Phone Douglas Leach MD Primary Care Provider [phone] Reason for Visit * Reason Onset Date Comments Refill Request 06/05/2024 Encounter Details Date Type Department Care Team (Late st Contact Info) Description 06/05/2024 Telephone [facility] - Dermatology [address] [place] [phone] Wyatt Morrow MD [address] [place] [address] Refill Request Social History Tobacco Use Types Packs/Day Years Used Date Smoking Tobacco: Never Smokeless Tobacco: Never Alcohol Use Standard Drinks/Week Comments Yes 0 (1 standard drink = 0.6 oz pur e alcohol) social PHQ-2 Answer Date Recorded PHQ2 TOTAL SCORE 0 10/07/2020 Sex and Gender Information Value Date Recorded Sex Assigned at Not on file Gender Identity Not on file Sexual Orientation Not on file documented as of this encounter Miscellaneous Notes * Telephone Encounter - Yari Prince MA - 06/05/2024 9:33 AM ANIMAL DAYCARE PROVIDER Patient called today requesting samples or where she can get a sample. Explained to patient that we do not have samples here at this office and I do not know where she can get a sample. Patient says june 16 is to far for her to wait, offered to schedule patient a sooner appt on hold slot patient declined. Yari Prince MA AL DAYCARE PROVIDER * Telephone Encounter - Shanda Lima MA - 06/05/2024 9:14 AM CST Patient scheduled for 06/16/24 @3:30pm Shanda Lima MA AL DAYCARE PROVIDER * Telephone Encounter - Wyatt Morrow MD - 06/05/2024 9:05 AM CST Call patient let her know . We will fill the adalimumab (Humira) at her appointment. If patient feels it is urgent and would like to come in sooner, offer her a 'On Hold' (overbook) slot with me , there are multiple available today and next week. AL DAYCARE PROVIDER * Telephone Encounter - Toni Barnett - 06/05/2024 8:51 AM CST Pt has been scheduled for next available and would like to request medication refill for Humira. CB# [phone] AL DAYCARE PROVIDER documented in this encounter Plan of Treatment Upcoming Encounters Date Type Department Care Team (Late st Contact Info) Description 06/16/2024 3:30 PM CDT Office Visit [facility] - Dermatology [address] [place] [address] [phone] Wyatt Morrow MD [address] [place] [address] 06/20/2024 9:00 AM CDT Office Visit [facility] - Allergy [address] [place] [address], [place] [address] Wyatt Morrow MD [phone] [place] [address] Yann Manuel MD [facility] [place] [address] documented as of this encounter Visit Diagnoses Not on filedocumented in this encounter Care Teams Proof Passer Relationship Specialty Start Date End Date Douglas eLach MD PCP - General 03/04/20 documented as of this encounter
--- OUTSIDE RECORDS SUMMARY | 2024-06-06 11:48 | XMS_ITS | Patient Health Summary ---
Author Organization [facility] [employer] Address [address] [place] [address] Care Team Providers Care Prison Classification Counselor Name Role Phone Douglas Leach MD Primary Care Provider [phone] Note from [facility],non-owned Affiliates and Associated Physician Practices is amultiple site organization consisting of ambulatory clinics and hospital sitesin [place], [place], [place] and [place]. This disclosure is being madepursuant to the Care Everywhere program and may not contain all information available regarding this patient. Last updated 17.[facility] Allergies * Albumin(Rash) -Medium Criticality * [...] Comments Blood Pressure 140/89 05/19/2021 10:16 AM SOLAR INSTALLATION FOREMAN Pulse 98 05/19/2021 10:16 AM SOLAR INSTALLATION FOREMAN Temperature 36.8 C (98.3 F) 11/18/2020 10:17 AM CDT Respiratory Rate - - Oxygen Saturation 98% 11/18/2020 10:17 AM CDT Inhaled Oxygen Concentration - - Weight 126.6 kg (279 lb) 05/19/2021 10:16 AM SOLAR INSTALLATION FOREMAN Height 162.6 cm (5' 4 ) 05/19/2021 10:16 AM SOLAR INSTALLATION FOREMAN Body Mass Index 47.89 05/19/2021 10:16 AM SOLAR INSTALLATION FOREMAN Procedures * QUANTIFERON-TB GOLD PLUS 1-TUBE(Performed 01/18/2024) [...] GOLD PLUS 1-TUBE (01/18/2024 9:22 AM CDT) [facility] QuantiFERON TB Gold Plus NEGATIVE NEGATIVE [...] T-lymphocytes. For additional information, please refer to https://education.MediaScrape.icomasoft/faq/LQC788 (This link is being provided for informational/ educational purposes only.) Test Performed at: [facility] [address] [address] [facility] [place] [address] JOSEPHINE URBINA MD Blood BLOOD SPECIMEN / Unknown 01/18/2024 9:22 AM CDT 01/18/2024 9:23 AM CDT Wyatt Morrow MD LAB - CHEMISTRY KENDRA GONZALEZ [facility] [address] [place] [address] * HEPATITIS C AB W/RFLX TO HCV RNA QN PCR (01/18/2024 9:22 AM CDT) Hepatitis C Antibody NON-REACTI VE NON-REACT ST[facility] Comment: HCV antibody was non-reactive. There is no laboratory evidence of HCV infection. In most cases, no further action is required. However, if recent HCV exposure is suspected, a test for HCV RNA (test code 44345) is suggested. For additional information please refer to http://[employer].ClickPay Services/faq/QSG50i0 (This link is being provided for informational/ educational purposes only.) Test Performed at: [facility] [address] [place] [address] JOSEPHINE URBINA MD Blood BLOOD SPECIMEN / Unknown 01/18/2024 9:22 AM CDT 01/18/2024 9:23 AM CDT Wyatt Morrow MD LAB - CHEMISTRY ORDE LISA Performing Organization Address City/State/[facility] Co de Phone Number [place] [address] [place] [address] * HIV-1 HIV-2 ANTIBODY + HIV P24 AG PANEL (01/18/2024 9:22 AM CDT) [facility] HIV Screen 4th Generation w Reflex [...] purpose. For additional information please refer to http://Remedy Informatics.ClickPay Services/faq/GXB225 (This link is being provided for informational/ educational purposes only.) The performance of this assay has not been clinically validated in patients less than 2 years old. Test Performed at: [facility] [address] [place] [address] JOSEPHINE URBINA MD Blood BLOOD SPECIMEN / Unknown 01/18/2024 9:22 AM CDT 01/18/2024 9:23 AM CDT Wyatt Morrow MD LAB - CHEMISTRY KENDRA GONZALEZ [address] [address] * (ABNORMAL) CBC WITH DIFFERENTIAL (01/18/2024 9:22 [...] 0.8 % [facility] Comment: Test Performed at: [facility] [address] JOSEPHINE URBINA MD Blood BLOOD SPECIMEN / Unknown 01/18/2024 9:22 AM CDT 01/18/2024 9:23 AM CDT Wyatt Morrow MD LAB - HEMATOLOGY ORD ERABLES Performing Organization Address [facility]/ZIP Co de Phone Number [address] [address] * COMPREHENSIVE METABOLIC PANEL (01/18/2024 9:22 AM CDT) [facility] Glucose 87 65 - 99 mg/dL [...] 29 U/L [facility] Comment: Test Performed at: [facility] [address] JOSEPHINE URBINA MD Blood BLOOD SPECIMEN / Unknown 01/18/2024 9:22 AM CDT 01/18/2024 9:23 AM CDT Wyatt Morrow MD LAB - CHEMISTRY ORDE RABLES Performing Organization Address City/[facility]/ZIP Co de Phone Number [address] [address] * HEPATITIS B CORE ANTIBODY TOTAL (01/18/2024 9:22 AM CDT) [facility] Hepatitis B Core Virus Antibody Total NON-REACTI VE NON-REACT STONEY [facility] Comment: For additional information, please refer to http://Remedy Informatics.ClickPay Services/faq/BQM140 (This link is being provided for informational/ educational purposes only.) Test Performed at: [facility] [address] [place] [address] JOSEPHINE URBINA MD Blood BLOOD SPECIMEN / Unknown 01/18/2024 9:22 AM CDT 01/18/2024 9:23 AM CDT Wyatt Morrow MD LAB - CHEMISTRY KENDRA GONZALEZ Performing Organization Address [facility] de Phone Number [facility] [address] [place] [address] * HEPATITIS B SURFACE ANTIGEN W RFLX CONFIRMATION (01/18/2024 9:22 AM CDT) Pathologist [facility] Hepatitis B Virus Surface Antigen NON-REACTI VE NON-REACT STONEY [facility] Comment: For additional information, please refer to http://Remedy Informatics.ClickPay Services/faq/PUZ865 (This link is being provided for informational/ educational purposes only.) Test Performed at: [facility] [address] [place] [address] JOSEPHINE URBINA MD Blood BLOOD SPECIMEN / Unknown 01/18/2024 9:22 AM CDT 01/18/2024 9:23 AM CDT Wyatt Morrow MD LAB - CHEMISTRY KENDRA GONZALEZ Performing Organization Address [facility] Co de Phone Number [facility] [address] [place] [address] * LIPID PROFILE (01/18/2024 9:22 AM CDT) Pathologist [facility] Cholesterol 167 <200 mg/dL [facility] HDL Cholesterol [...] Jorge A SS et al. THERESA. 2013;310(19): 7352-8388 (http://education.Imaginatik.icomasoft/faq/NWO135) CHOL/HDLC RATIO 2.9 <5.0 (calc) [facility] Non HDL Cholesterol 109 <130 mg/dL (calc) [facility] Comment: For patients with diabetes plus 1 major ASCVD risk factor, treating to a non-HDL-C goal of <100 mg/dL (LDL-C of <70 mg/dL) is considered a therapeutic option. Test Performed at: [facility] [address] JOSEPHINE URBINA MD Blood BLOOD SPECIMEN / Unknown 01/18/2024 9:22 AM CDT 01/18/2024 9:23 AM CDT Wyatt Morrow MD LAB - CHEMISTRY KENDRA [facility] Organization Address City/State/ZIP Co de Phone Number [address] [address] * LAB RESULTS ORDER (01/18/2024) 01/18/2024 Narrative 01/18/2024 Ordered by an unspecified provider. Scanned Document LAB - THERAPEUTIC DR KACI MONITORING ORDERABLES * EYE EXAM (08/24/2021) Anatomical Region Laterality Modality Other Narrative 08/24/2021 Ordered by an unspecified provider. Scanned Document SCANNING ONLY * ALLERGEN BIRCH IGE (06/04/2021 10:14 AM SOLAR INSTALLATION FOREMAN) Allergen Birch <0.10 kU/L [facility] Class 0 [facility] Comment: Test Performed at: [facility] [place] [address] [place] [address] ALFONSO THOMPSON DO,MPH 06/04/2021 10:1 4 AM SOLAR INSTALLATION FOREMAN 06/04/2021 10:15 AM SOLAR INSTALLATION FOREMAN Yariel Jorgensen MD LAB - SEROLOGY ORDER GENOVEVA Performing Organization Address [facility]/ZIP Co de Phone Number [facility] [address] [place] [address] * ALLERGEN PEANUT IGE W COMPONENT RFLX (06/04/2021 10:14 AM SOLAR INSTALLATION FOREMAN) Allergen Peanut <0.10 kU/L [facility] Class 0 [facility] Comment: Test Performed at: [place] [address] ALFONSO THOMPSON DO,MPH 06/04/2021 10:1 4 AM SOLAR INSTALLATION FOREMAN 06/04/2021 10:15 AM SOLAR INSTALLATION FOREMAN Yariel Jorgensen MD LAB - SEROLOGY ORDER GENOVEVA Performing Organization Address [facility] de Phone Number [facility] [address] [place] [address] * ALLERGEN INTERPRETATION (06/04/2021 10:14 AM SOLAR INSTALLATION FOREMAN) Interpretation See Below [facility] Comment: Specific Level [...] analytical performance characteristics have been determined by [facility]. It has not been cleared or approved by the U.S. Food and Drug Administration. This assay has been validated pursuant to the CLIA regulations and is used for clinical purposes. REPORT COMMENT: PT WANTS THIS ORDER DRAWN FASTING:YES Test Performed at: [place] [address] ALFONSO THOMPSON DO,MPH 06/04/2021 10:1 4 AM SOLAR INSTALLATION FOREMAN 06/04/2021 10:15 AM SOLAR INSTALLATION FOREMAN Yariel Jorgensen MD LAB - SEROLOGY ORDER GENOVEVA [facility] [address] [place] [address] * ALLERGEN RESPIRATORY PROF (IL,MO,IA) IGE (06/04/2021 10:14 AM SOLAR INSTALLATION FOREMAN) Allergen Dermatophagoides pteronyssinus <0.10 kU/L [facility] Class [...] kU/L [facility] Class 0 [facility] Allergen Cockroach Vietnamese <0.10 kU/L [facility] Class 0 [facility] Allergen Maple <0.10 kU/L [facility] Class 0 [facility] Allergen Mountain Treutlen <0.10 kU/L [facility] Class 0 [facility] Allergen Rowan Tree <0.10 kU/L [facility] Class 0 [facility] Allergen Roaring Branch <0.10 kU/L [facility] Class 0 [facility] Allergen [place] Tree <0.10 kU/L [facility] Class 0 [facility] Allergen White Nacho <0.10 kU/L [facility] Class 0 [facility] Allergen [place] Creek <0.10 kU/L [facility] Class 0 [facility] Allergen Elm <0.10 kU/L [facility] Class 0 [facility] Allergen Linn/Pecan Tree <0.10 kU/L [facility] Class 0 [facility] Allergen White [place] <0.10 kU/L [facility] Class 0 [facility] Allergen Bermuda Grass <0.10 kU/L [facility] Class 0 [facility] Allergen Lauri Grass <0.10 kU/L [facility] Class 0 [facility] Allergen Common Ragweed <0.10 kU/L [facility] Class 0 [facility] Allergen Rough Pigweed <0.10 kU/L [facility] Class 0 [facility] Allergen Norwegian Thistle <0.10 kU/L [facility] Class 0 [facility] Allergen Rough Chester Elder <0.10 kU/L [facility] Class 0 [facility] Allergen Mouse Urine Protein <0.10 kU/L [facility] Class 0 [facility] IgE 11 <SM=758 kU/L [facility] Comment: Test Performed at: [facility] [address] [facility] [place] [place] [address] ALFONSO THOMPSON DO,MPH 06/04/2021 10:1 4 AM SOLAR INSTALLATION FOREMAN 06/04/2021 10:15 AM SOLAR INSTALLATION FOREMAN Yariel Jorgensen MD LAB - CHEMISTRY KENDRA GONZALEZ [facility] [address] [place] [address] * (ABNORMAL) SKIN TEST PPD - POINT OF CARE (05/15/2020 11:23 AM SOLAR INSTALLATION FOREMAN) PPD 0mm(Negati ve) [facility] Other MISCELLANEOUS SAMPLE S / Unknown 05/15/2020 11:23 AM SOLAR INSTALLATION FOREMAN Davina Barnett CLOTH BE[employer]ER-MACHINE HAND LAB - POINT OF CA RE ORDERABLES [facility] [address] [place] [address] Care Teams Prison Classification Counselor Relationship Specialty Start Date End Date Douglas Leach MD PCP - General 03/04/20
--- OUTSIDE RECORDS SUMMARY | 2024-06-06 11:48 | XMS_ITS | Data Portability ---
Author Organization [place] [facility], Main Office Address [address] [place] [address] Assessment Encounter Date Assessment Date Assessment LastModified by Organization Details LastModified Time 09/26/2023 09/26/2023 Assessment: Mild OSAHS, AHI = 8 PLMD Hypoventilation Plan: The following were reviewed and explained to the patient: primary care/referral note [facility] diagnostic sleep study 11/25/13 sleep onset = 14 minutes, REM onset = 95.5 minutes, AHI = 8, PLMI = 9 [facility]xton titration sleep study 12/24/13 sleep onset = 15 minutes, REM onset = 77.5 minutes, Leung & Jeremias small Simplus full face mask @ 14 cmH2O, PLMI = 0.0 Keep CPAP at 14 cmH2O. Keep ramp start at 4 cmH2O. Keep ramp duration at 20 minutes. 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 Keep humidifier at level 4. General information [...] Follow-up: 1 week after diagnostic sleep study [email or web address] Not available 09/26/2023 16:07:07 11/07/2023 11/07/2023 Assessment: Persistent early REM onset Mod OSAHS, AHI = 26 Hypoventilation Plan: The following were reviewed and explained to the patient: [facility]xton diagnostic sleep study 11/25/13 sleep onset = 14 minutes, REM onset = 95.5 minutes, AHI = 8, PLMI = 9 [facility]xton titration sleep study 12/24/13 sleep onset = 15 minutes, REM onset = 77.5 minutes, Nickie small Simplus full face mask @ 14 cmH2O, PLMI = 0.0 [facility] diagnostic sleep study 11/02/23 sleep onset = 33.5 minutes, REM onset = 75 minutes, AHI = 26, REM AHI = 28, supine AHI = 112, PLMI = 0.0 Keep CPAP at 14 cmH2O until titration sleep study. Keep ramp start at 4 cmH2O. Keep ramp duration at 20 minutes. 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 Keep humidifier at level 4. General information [...] mask @ 14 cmH2O, PLMI = 0.0 [facility] diagnostic sleep study 11/02/23 sleep onset = 33.5 minutes, REM onset = 75 minutes, AHI = 26, REM AHI = 28, supine AHI = 112, PLMI = 0.0 [facility] titration sleep study 11/27/23 sleep onset = [...] at 20 minutes. 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 Keep humidifier at level 4. Provided the patient with a list of local home care stores where positive airway pressure (PAP) units, accoutrement, and services are available. Home care store selection is based on patient's insurance carrier. Patient will setup an appointment with [facility] for supplies and pressure adjustments. A major [...] were reviewed and explained to the patient: [facility]xton diagnostic sleep study 11/25/13 sleep onset = 14 minutes, REM onset = 95.5 minutes, AHI = 8, PLMI = 9 [facility]xton titration sleep study 12/24/13 sleep onset = 15 minutes, REM onset = 77.5 minutes, Nickie small Simplus full face mask @ 14 cmH2O, PLMI = 0.0 [facility] diagnostic sleep study 11/02/23 sleep onset = 33.5 minutes, REM onset = 75 minutes, AHI = 26, REM AHI = 28, supine AHI = 112, PLMI = 0.0 [facility] titration sleep study 11/27/23 sleep onset = [...] EPR +2 from ramp only to part time flexible clerk. Keep humidifier at level 4. Keep tube temperature at 80 F. Provided the patient with a list of local home care stores where positive airway pressure (PAP) units, accoutrement, and services are available. Home care store selection is based on patient's insurance carrier. Patient will setup an appointment with [facility] for supplies and pressure adjustments. A major [...] further management. Follow-up: 1 year, January 2025 [email or web address] Not available 02/25/2024 16:01:24 Plan of Treatment Reminders Order Date Submit Date Provider Last Modified By Organization Details Last Modified Time Details Appointments Any 30 2024 02:00P Kylah Berman MD Not available Not available Not available Lab None recorded. Referral None recorded. Procedures None recorded. Surgeries None recorded. Imaging polysomno gram, titration study [email or web address] [place] [address] [facility], [address] [place], [address], 12/04/2023 08:03:48 polysomno gram, diagnosti c, 6 yrs or older - Auth #[id number] 22 4- 024 2023 024 [facility], [address] [place], [address], 11/06/2023 17:23:07 Medication Orders None recorded. Patient [...] 3rd Trime ster 52.0- 302.0 Not Available besomebody. [facility] [address] [place], [address], 07/31/2020 05:51:55 09/04/19 24 11/25/2013 polys omnog emily, diagn ostic , 6 yrs or older No observ ation record ed. [facility] Not Available 2023 13:09:54 09/04/19 24 12/24/2013 polys omnog emily, titra tion study No observ ation record ed. [facility] Not Available 2023 13:09:55 11/06/19 24 11/02/2023 polys omnog emily, diagn ostic , 6 yrs or older No observ ation record ed. [facility] [address] [place], [address], 11/06/2023 17:23:07 11/30/19 24 11/27/2023 polys omnog emily, titra tion study No observ ation record ed. [facility] [address] [place], [address], 11/30/2023 15:49:20 Result Notes None recorded. Problems Name Problem SNOMED Code Status Onset Date Resolution Date Notes Provider Name and Address Organization Details Recorded Time Vaginal discharge 047144065 Completed Not Available [facility] 3 04:54:38 Migraine 90955100 Active Not Available [facility] 3 04:54:38 Obese 000603446 Active Not Available [facility] 3 04:54:39 Obstructiv e sleep apnea syndrome 45726451 Active 2023 Sixto Berman MD [address], [facility] [address], [place], [address] , [facility] 11:17:14 Notes:Medical History: Migra ine headaches Rhinitis Persistent early REM onset Obesity with mod OSAHS, AHI = 26, 11/02/23, on autoCPAP c/o IVRC T2DM Hiatal hernia with CAMMIE PLMD Vit D deficiency Procedure History: Right hidradenitis suppurativa excision 2013 Left hidradenitis suppurativa excision 2019 EGD 2019 Gastric sleeve surgery 2020 Cholecystectomy 2021 Ann fundoplication 2023 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 Procedures Surgical History Date Name Laterality Status Provider Name and Address Organization Details Recorded Time 04/27/19 21 OPERATING ENGINEER APPRENTICE Procedure completed Not Available [facility] 2022 04:44:18 04/22/19 21 laparoscopic sleeve gastrectomy completed Not Available [facility] 05/31/2022 04:44:18 07/05/19 19 OPERATING ENGINEER APPRENTICE Procedure completed Not Available [facility] 2022 04:44:18 05/28/19 19 Date of Last Pap Smear completed Not Available [facility] 05/31/2022 04:44:14 10/12/19 16 OPERATING ENGINEER APPRENTICE Procedure completed Not Available [facility] 2022 04:44:18 11/12/19 11 OPERATING ENGINEER APPRENTICE Procedure completed Not Available [facility] 2022 04:44:18 other completed Not Available [facility] 04/2022 04:44:18 Imaging Results Imaging Date Name Status LastModified by Organiz ation Details LastModified Time 11/25/2013 polysomnogram, diagnostic, 6 yrs or older completed [facility] Information not available 09/04/2023 13:09:54 12/24/2013 polysomnogram, titration study completed [facility] Information not available 09/04/2023 13:09:55 11/02/2023 polysomnogram, diagnostic, 6 yrs or older completed [facility] [address], [place], [address], 11/06/2023 17:23:07 11/27/2023 polysomnogram, titration study completed [facility] [address] [facility], [place], [address], 11/30/2023 15:49:20 Procedure Notes None recorded. Medical Equipment None Reported. Allergies Allergen ID Allergen Name Allergen Category Reaction Reaction Severity Criticality Documentation Date Start Date Code Code System Note Provider Name and Address Organization Details Recorded Time 98888 egg extract food,medi cation hives Not available Not available 09/16/2023 36215 15 RxNorm Sixto Berman MD [address], [place], [address], [facility] 4 16:20:18 99228 peanut allergeni c extract food,medi cation anaphylax is Not available Not available 09/16/2023 16533 8 RxLeighton Berman MD [address] [facility], [address] [facility], [place], [address], [employer] 4 16:20:50 49469 tomato allergeni c extract food hives Not available Not available 09/16/2023 84912 9 RxLeighton Berman MD [address] [facility], [address] [facility], [place], [address], [employer] 4 16:21:04 Medications Name Sig Start Date [...] Updated DateTime 07/21/2020 53.2 kg/m2 160.02 cm 576564.7 9 g 118 mm[Hg] 78 mm[Hg] Not Available [facility] 3 04:48:36 Date Recorded Body weight Body mass index (BMI) Body height Oxygen saturation Oxygen saturation in Arterial blood by Pulse oximetry Heart rate Systolic blood pressure Diastolic blood pressure Provider Name and Address Organization Details Last Updated DateTime 4 801679. 23 g 50.3 kg/m2 160.02 cm 99 % 99 % 72 /min 120 mm[Hg] 70 mm[Hg] Wandy Santos CMA [employer] [facility] 4 15:17:17 Date Recorded Body temperature Heart rate Respiratory rate Provider Name and Address Organization Details Last Updated DateTime 09/26/2023 97.5 [degF] 72 /min 15 /min Sixto Berman MD [address] [facility], [facility] [address], [place], [address], [employer] [facility] 09/26/2023 15:36:46 Date Recorded Body height Body mass index (BMI) Body weight Heart rate Oxygen saturation Oxygen saturation in Arterial blood by Pulse oximetry Body temperature Systolic blood pressure Diastolic blood pressure Provider Name and Address Organization Details Last Updated DateTime 4 160.02 cm 49.8 kg/m2 416111. 46 g 83 /min 98 % 98 % 97.9 [degF] 130 mm[Hg] 70 mm[Hg] Wandy Santos CMA [facility] [employer] [facility] 11:00:21 Date Recorded Heart rate Respiratory rate Provider N blayne and Address Organization Details Last Updated DateTime 11/07/2023 83 /min 14 /min Sixto Berman MD [address], [address], [place], [address], [facility] [employer] 11/07/2023 11:25:30 Date Recorded Body height Body mass index (BMI) Body weight Body temperature Heart rate Oxygen saturation Oxygen saturation in Arterial blood by Pulse oximetry Systolic blood pressure Diastolic blood pressure Provider Name and Address Organization Details Last Updated DateTime 160.02 cm 49.6 kg/m2 553009. 86 g 98.1 [degF] 73 /min 97 % 97 % 126 mm[Hg] 76 mm[Hg] Lizeth Olson MA [facility] 15:15:25 Date Recorded Heart rate Respiratory rate Provider N blayne and Address Organization Details Last Updated DateTime 12/24/2023 73 /min 15 /min Sixto Berman MD [address], [place], [address], [facility] [employer] 12/24/2023 15:34:16 Date Recorded Body height Body mass index (BMI) Body weight Heart rate Oxygen saturation Oxygen saturation in Arterial blood by Pulse oximetry Body temperature Systolic blood pressure Diastolic blood pressure Provider Name and Address Organization Details Last Updated DateTime 160.02 cm 51.2 kg/m2 420555. 19 g 62 /min 98 % 98 % 98.1 [degF] 124 mm[Hg] 78 mm[Hg] Lizeth Olson MA [facility] [employer] 15:37:43 Date Recorded Heart rate Respiratory rate Provider N blayne and Address Organization Details Last Updated DateTime 02/25/2024 62 /min 15 /min Sixto Berman MD [address], [address], [place], [address], [facility] [employer] [facility] 02/25/2024 15:58:46 Social History Question Answer Notes LastModified by Organizat ion Details LastModified Time Tobacco Smoking Status Never Smoker Not Available [facility] 05/31/2022 04:41:26 What Is Your Level Of [...] Type Of Diet Are You Following? REGULAR [email or web address] Information not available 09/26/2023 Do You Or Have You Ever Used E-cigarettes Or Vape? Never Used Electronic Cigarettes [id number] Information not available 05/31/2022 Do You Have An Electrostatic Air Filter? No Information not available 12/24/2023 What Is Your Occupation? [employer] [id number] Information not available 05/31/2022 Do You Have A Humidifier? No Information not available 12/24/2023 Do You Have Moisture Problems In Your Home? No Information not available 12/24/2023 What Was The Date Of Your Most Recent Tobacco Screening? 02/25/2024 Information not available 02/25/2024 Do You Have Any Pets? No [email or web address] Information not available 09/26/2023 Do You Use Your Seat Belt Or Car Seat Routinely? Yes Information not available 12/24/2023 Do You Have Smoke And Carbon Monoxide Detectors In Your Home? Yes [email or web address] Information not available 09/26/2023 Are You Passively Exposed To Smoke? No [email or web address] Information no t available 09/26/2023 Do You Or Have You Ever Used Smokeless Tobacco? Never Used Smokeless Tobacco [id number] Information not available 05/31/2022 Do You Feel Stressed (tense, Restless, Nervous, Or Anxious, Or Unable To Sleep At Night)? [id number] Information not available 12/24/2023 Do You Use [...] Details LastModified Time Father Cerebrovascu lar accident [email or web address] Not available 0 12/24/2023 14:48:44 Father Epilepsy [email or web address] Not availa ble 12/24/2023 14:48:45 Father Hypertensive disorder [id number] Not available 05/31/2022 04:44:23 Maternal Grandmother Diabetes mellitus [id number] Not available 05/31/2022 04:44:23 Mother Diabetes mellitus [id number] Not available 05/31/2022 04:44:23 Paternal Grandmother Malignant tumor of breast [email or web address] Not available 12/02 14:48:45 Mother Obstructive sleep apnea syndrome Not available 12/02 14:48:45 Maternal Uncle Diabetes mellitus Not available 2023 15:49:47 Maternal Aunt Diabetes mellitus Not available 2023 15:49:50 Paternal Aunt Chronic obstructive pulmonary disease [email or web address] Not available 12/02 14:48:45 Paternal Uncle Heart [...] SNOMED-CT Code Diagnosis ICD10 Code Diagnosis Note 129383 _ATHENA_M IGRATION_ DEFAULT_1 _1 , 07/21/2020 00:00:00 07/21/2020 13:11:57 [id number] Sixto Berman MD [facility] [place] [address] 09/26/2023 15:03:27 09/27/2023 08:59:48 Sleep apnea 42387911 G47.30 G47.33 G47.36 G47.61 [id number] Fransisca Morse [facility] [place] [address] 11/07/2023 10:47:01 11/07/2023 11:31:17 Obstructive sleep apnea syndrome 24989069 G47.33 G47.36 [id number] Sixto Berman MD [facility] [place] [address] 12/24/2023 14:47:56 12/25/2023 15:02:00 Obstructive sleep apnea syndrome 75803507 G47.33 G47.36 G47.30 [id number] Sixto Berman MD [facility] [place] [address] 02/25/2024 15:06:27 03/31/2024 11:38:50 Obstructive sleep apnea syndrome 71775058 G47.33 Health Concerns Section Related Observation LastModified by Organization Detai ls LastModified Time None Recorded Concern Status LastModified by Organization Details LastModified Time None Recorded Advance Directives Directive None Recorded Payers Encounter Date Sequence Insurance Name Policy Number Policy Bravo Covered Member ID Bravo Member ID Guarantor Name 09/26/2023 1 [facility] (MEDICAID HMO) [id number] Gineta L Evelyn [id number] Gineta L Evelyn 11/07/2023 1 [facility] (MEDICAID HMO) [id number] Gineta L Evelyn [id number] Gineta L Evelyn 12/24/2023 1 [facility] (MEDICAID HMO) [id number] Gineta L Evelyn [id number] Gineta L Evelyn 02/25/2024 1 [facility] (MEDICAID HMO) [id number] Quynh Ramírezn [id number] Quynh Bui Evelyn Notes Date Note Type Note Provider Name and Address Organization Details Recorded Time 09/26/2023 text/html Primary care/Ref erring provider: Douglas Leach MD During the [facility]xton diagnostic sleep study on 11/25/13, sleep onset = 14 minutes, REM onset = 95.5 minutes, AHI = 8, PLMI = 9. During the [facility]xton titration sleep study on 12/24/13, sleep onset [...] moderate chance of dozing. Sixto Berman MD [address] [place] [address], [address], [facility] [employer] [facility] 09/26/2023 16:08:24 11/07/2023 text/html Primary care/Ref erring provider: Douglas Leach MD During the [facility]xton diagnostic sleep study on 11/25/13, sleep onset = 14 minutes, REM onset = 95.5 minutes, AHI = 8, PLMI = 9. During the [facility]xton titration sleep study on 12/24/13, sleep onset [...] full face mask c/o IVRC. During the [facility] diagnostic sleep study on 11/02/23, sleep onset [...] moderate chance of dozing. Sixto Berman MD [address] [place] [address], [address], [place] [facility] 11/07/2023 11:29:04 12/24/2023 text/html Primary care/Ref erring provider: Douglas Leach MD During the [facility] diagnostic sleep study on 11/25/13, sleep onset = 14 minutes, REM onset = 95.5 minutes, AHI = 8, PLMI = 9. During the [facility]xton titration sleep study on 12/24/13, sleep onset [...] full face mask c/o IVRC. During the [facility] diagnostic sleep study on 11/02/23, sleep onset = 33.5 minutes, REM onset = 75 minutes, AHI = 26, REM AHI = 28, supine AHI = 112, PLMI = 0.0. During the [facility] titration sleep study on 11/27/23, sleep onset [...] slight chance of dozing. Sixto Berman MD [address] [place] [address], [place], [address], [facility] [employer] [facility] 12/24/2023 15:35:09 02/25/2024 text/html Primary care/Ref erring provider: Douglas Leach MD CC: I think my CPAP is still set too high. During the [facility] diagnostic sleep study on 11/25/13, sleep onset = 14 minutes, REM onset = 95.5 minutes, AHI = 8, PLMI = 9. During the [facility] titration sleep study on 12/24/13, sleep onset [...] full face mask c/o IVRC. During the [facility] diagnostic sleep study on 11/02/23, sleep onset = 33.5 minutes, REM onset = 75 minutes, AHI = 26, REM AHI = 28, supine AHI = 112, PLMI = 0.0. During the [facility] titration sleep study on 11/27/23, sleep onset [...] slight chance of dozing. Sixto Berman MD [address] [place] [address], [facility] [address], [place], [address], [facility] [employer] [facility] 02/25/2024 16:07:25 OBGyn Episode No OBEpisode recorded.
--- OUTSIDE RECORDS SUMMARY | 2024-06-06 11:48 | XMS_ITS | Clinical Summary ---
Author Organization [facility] Address [address] [place] [id number] Care Team Providers Care Community Health Program Coordinator Name Role Phone Douglas Leach MD Primary Care Provider + [phone] Juan Pablo Zurita MD Unavailable [phone] Lizeth Pozo OD Unavailable [phone] Allergies Active Allergy Reactions Criticality Noted Date [...] dose Prior to MRI 1 tablet 05/27/19 25 Active Active Problems Problem Noted Date Diagnosed [...] (03/22/2023): Added automatically from request for surgery [id number] Abdominal pain 12/06/2012 Hemorrhage of rectum and anus 12/06/2012 Acute bronchitis 06/26/2012 Headache 06/26/2012 Chronic migraine without aura BMI 45.0-49.9, adult OBEY (obstructive sleep apnea) Hyperopia of both eyes Encounters Date Type Department Care Team Description 06/06/2024 8:00 AM SHERIFF DEPUTY Hospital Encounter [facility] Imaging and Radiology [address] [place] [address] Pulsatile tinnitus, right ear 05/27/2024 2:30 PM [facility]ERIFF DEPUTY [facility] [address] [facility] 4th [address] [place] [address] Roxy Godinez MD Seizures (HCC) (Primary Dx); Syncope and collapse; History of sleep apnea; At risk for side effect of medication 04/25/2024 2:20 PM SHERIFF DEPUTY Office Visit [facility] [address] [facility] [place] [address] Mariposa Carlin, CHONG Pulsatile tinnitus, right ear (Primary Dx) 04/25/2024 2:00 PM SHERIFF DEPUTY Procedure visit [facility] [place] [address] Abnormal auditory perception of both ears (Primary Dx); Tinnitus of both ears 04/25/2024 Orders Only [facility] [place] [address] Eliz Jasso CMA Pulsatile tinnitus, right ear (Primary Dx) 04/11/2024 Telephone [facility] [address] [place] [address] [address] [place] [address] Chelsea Herrera MD 04/10/2024 Telephone [id number] [place] [address] Chelsea Herrera MD Reschedule Request 03/21/2024 Telephone [facility] Scheduling [address] [place] [address] Mary Beth Whittington 03/20/2024 Orders Only [facility] [address] [address] Chelsea Herrera MD Idiopathic intracranial [...] Eryn Diabetic retinopathy Other Cancer Paternal Grandmother Esthela Relation Name Status Comments Brother Han españa [...] money to buy more. Never true 05/27/19 Within the past 12 months, t he food you bought just didn't last and you didn't have money to get more. Never true 05/27/2024 Comments Unknown Sex and Gender Information Value Date Recorded Sex Assigned at Not on file Legal Sex Female 1:59 PM SHERIFF DEPUTY Gender Identity Not on file Sexual Orientation Not on file Obstetrics History Last Filed Vital Signs Vital Sign Reading Time Taken Comments Blood Pressure 120/72 05/27/2024 2:20 PM SHERIFF DEPUTY Pulse 70 05/27/2024 2:20 PM SHERIFF DEPUTY Temperature 36.1 C (96.9 F) 05/27/2024 2:20 PM SHERIFF DEPUTY Respiratory Rate 20 12/28/2023 9:17 AM CDT Oxygen Saturation 100% 05/27/2024 2:20 PM SHERIFF DEPUTY Inhaled Oxygen Concentration - - Weight 128.1 kg (282 lb 6.4 oz) 05/27/2024 2:20 PM SHERIFF DEPUTY Height 162.6 cm (5' 4 ) 05/27/2024 2:20 PM SHERIFF DEPUTY Body Mass Index 48.47 05/27/2024 2:20 PM SHERIFF DEPUTY Plan of Treatment Health Maintenance Due Date Last Done Comments Breast Cancer Screening-Mammogram 1984 Cervical Cancer Screening 1984 Depression Screening 1984 Hepatitis C Screening 1984 Varicella Vaccines (1 of 2 - 13+ 2-dose series) 1997 Hepatitis B Screening 2002 Regular Well Visit/Exam 18-64 2002 DTaP/Tdap/Td Vaccine (6 - Tdap) 09/29/2008 09/29/1998, 09/04/1998, 11/30/1985, Additional history exists Covid-19 Vaccine (2023- season) 2023 11/24/2020, 11/03/2020 Influenza Vaccine (#1) 2023 HPV Vaccines Aged Out No longer eligi ble based on patient's age to complete this topic Pneumococcal vaccine <65 Aged Out No longer eligible based on patient's age to complete this topic Procedures Procedure Name Priority Date/Time Associated Diagnosis Comments CTA HEAD NECK W WO CONTRAST Schedule Routine, Read Routine (OP Routine) 06/06/2024 9:04 AM SHERIFF DEPUTY Pulsatile tinnitus, right ear Procedure Note - Nilsa Agudelo MD - 06/06/2024 9:04 AM CSTThis note is in progress. EXAMINATION: CTA HEAD NECK W WO CONTRAST HISTORY: Tinnitus, pulsatile pulsatile tinnitus TECHNIQUE: Noncontrast CT of the head was obtained from skull base to vertex, according to standard protocol. Subsequently, CT angiogram of the neck and [facility] [place] was performed after the uneventful [...] Artery: no occlusion or significant stenosis L CUSTOMER ADVISOR: no occlusion or significant stenosis R CUSTOMER ADVISOR: no occlusion or significant stenosis The major [...] significant stenosis. AUDBASE RESULTS 04/25/2024 2:18 PM SHERIFF DEPUTY from Last 3 Months Results * AudBase Results (04/25/2024 2:18 PM SHERIFF DEPUTY) Provider Scanning AUDIOLOGY SERVICES ORDERABLES Final Result from Last 3 Months Insurance [facility] Care Teams Community Health Program Coordinator Relationship Specialty Start Date End Date Douglas Leach MD PCP - General 03/14/17 Juan Pablo Zurita MD Consulting Physician Neurosurgery 01/27/21 Lizeth Pozo OD [address] [place] [address] Primary Eye Care Provider Optometry 01/27/21
== END 2024-06-06 10:51 | disposition home or self-care (01) ==
LOC: ANHIMG 10:54
PROVIDERS: PCP Emergency Medicine; Visit Provider Psychiatry & Neurology Neurology
DX: G35 Multiple sclerosis (principal); E23.6 Other disorders of pituitary gland
CPT/HCPCS: 70553; A9579

== ENCOUNTER 2024-08-13 22:34 | Observation (INO) | payer OTHER, SELFPAY ==
--- NOTE | ~2024-08-13 | CT_ITS ---
CT brain wo con Ordering provider: Juanita Kramer PA-C History: 39 years Female with . possible seizure activity . Comparison: March 17, 2024 Technique: CT of the head without contrast. Radiation reduction technique utilized.The dose-length product was 681 mGy-cm. FINDINGS: BRAIN PARENCHYMA AND CSF SPACES: No midline shift, mass effect or hemorrhage. The brain parenchyma a nd CSF spaces are otherwise normal. Bilateral basal ganglia calcification. VISUALIZED PARANASAL SINUSES: Well aerated. MASTOIDS: Well aerated. BONES: The bones appear intact. SOFT TISSUES: Visualized nasopharynx is normal. Superficial soft tissues are normal. Slightly prominent parotid glands. Clinical correlation advised. IMPRESSION: No acute intracranial findings. Reviewed, dictated and finalized at location A.
--- OUTSIDE RECORDS SUMMARY | 2024-08-13 22:36 | XMS_ITS | Continuity of Care Document ---
Author Organization [facility] Address [address] [place] [address] [place] [address] Phone Care Team Providers Care Wire Charger Name Role Phone Douglas Leach MD Unavailable [...] Diagnoses Date Provider Providers Copied on Encounter [facility], [address] [place], [place], [address], tel:[phone] [facility] No Information Chip Cole. [address], [place], [address] , [place]. tel:[phone] OFFICE/OUTPA TIENT VISIT, EST [facility], [address] [place], [place], [address], tel:[phone] [facility] GERD1 (chief complaint) GERD w/o esophagitis 4 Hany Cole. [address], [place], [place], [address] , [place]. tel:[phone] OFFICE/OUTPA TIENT VISIT, EST [facility], [address], [place], [place], [address], [place] tel:[phone] [facility] Medicine syncope1 (chief complaint) hidradenit is1 (chief complaint) Syncope and collapseEpilepsyHid radenitis suppurativa 4 Hany Cole. [address], [place], [place], [address] , [place]. tel:[phone] OFFICE/OUTPA TIENT VISIT, EST [facility], [address], [place], [place], [address], [place] tel:[phone] [facility] Medicine low iron1 (chief complaint) A1c (chief complaint) obesity1 (chief complaint) hidradenit is1 (chief complaint) sleep apnea1 (chief complaint) ear pain1 (chief complaint) Abnormal weight gainIron deficiencyObstructi ve sleep apnea hypopneaHidradeniti s suppurativaHypergly cemiaOtalgia, right ear 4 Hany Cole. [address], [place], [place], [address] , [place]. [phone] PREV VISIT, EST, AGE 18-39 [facility], [address], [place], [place], [address], [place] tel:[phone] [facility] Physical (chief complaint) Encounter for general adult medical exam w abnormal findingsGERD w/o esophagitisType 2 diabetes mellitus without complicationsObstru ctive Sleep Apnea HypopneaAbnormal weight gainBariatric surgery status 4 Hany Cole. [address], [place], [place], [address] , [place]. [phone] [facility], [address], [place], [place], [address], [place] tel:[phone] [facility] No Information May-0 4 Hany Cole. [address], [place], [place], [address] , [place]. [phone] OFFICE/OUTPA TIENT VISIT, [facility], [address], [place], [place], [address], [place] tel:[phone] [facility] GERD (chief complaint) GERD1 (chief complaint) skin1 (chief complaint) asthma1 (chief complaint) weight1 (chief complaint) Mild intermittent asthma, uncomplicatedGERD w/o esophagitisAbnormal weight gainCellulitis of abdominal wall 3 Hany Akers [address], [address], [place], [place], [address] , [place]. [phone] OFFICE/OUTPA TIENT VISIT, [facility], [address], [place], [place], [address], [place] tel:[phone] [facility] weight1 (chief complaint) asthma1 (chief complaint) IBS-C (chief complaint) sleep apnea1 (chief complaint) Irritable bowel syndrome with constipationMild intermittent asthma, uncomplicatedType 2 diabetes mellitus without complicationsPrimar y central sleep apneaEssential (primary) hypertension 3 Hany Akers [address], [place], [place], [address] , [place]. [phone] OFFICE/OUTPA TIENT VISIT, [facility], [address], [place], [place], [address], [place] tel:[phone] [facility] IBS1 (chief complaint) GERD1 (chief complaint) weight1 (chief complaint) GERD w/o esophagitisIrritabl e bowel syndrome with constipationAbnorma l weight gain 3 Hany Cole. [address], [place], [place], [address] , [place]. tel:[phone] PREV VISIT, EST, AGE 18-39 [facility], [address], [place], [place], [address], [place] tel:[phone] [facility] physical (chief complaint) Encounter for general adult medical exam w abnormal findingsIrritable bowel syndrome with constipationGERD w/o esophagitisAbnormal weight gainBenign intracranial HTN 3 Hany Cole. [address], [place], [place], [address] , [place]. [phone] OFFICE/OUTPA TIENT VISIT, EST [facility], [address], [place], [place], [address], [place] tel:[phone] [facility] abd pain1 (chief complaint) HTN (chief complaint) Essential (primary) hypertensionOther cholelithiasis without obstructionGenerali zed abdominal painConstipation 2 Hany Akers [address], [place], [place], [address] , [place]. tel:[phone] OFFICE/OUTPA TIENT VISIT, [facility], [address], [place], [place], [address], [place] tel:[phone] [facility] abd pain1 (chief complaint) ADD (chief complaint) HTN (chief complaint) vision1 (chief complaint) Abdominal painOther cholelithiasis without obstructionEssentia l (primary) hypertensionBenign intracranial HTNVisual disturbanceAttentio n deficitConstipation 2 Hany Akers [address], [place], [place], [address] , [place]. tel:[phone] PREV VISIT, EST, AGE 18-39 [facility], [address], [place], [place], [address], [place] [phone] [facility] physical (chief complaint) Encounter for general adult medical examination without abnormal findings 2 Hany Akers [address], [place], [place], [address] , [place]. [phone] OFFICE/OUTPA TIENT VISIT, [facility], [address], [place], [place], [address], [place] tel:[phone] [facility] ICH (chief complaint) HTN (chief complaint) anxiety1 (chief complaint) Benign intracranial HTNEssential (primary) hypertensionVisual disturbanceGenerali zed Anxiety Disorder 1 Hany Akers [address], [place], [place], [address] , . [phone] OFFICE/OUTPA TIENT VISIT, EST [facility], [address] [place], [address], [place] tel:[phone] [facility] brain mass1 (chief complaint) HTN (chief complaint) anxiety1 (chief complaint) Essential (primary) hypertensionBenign intracranial HTNNeoplasm of brainGeneralized Anxiety Disorder 1 Hany Akers [address], [place], [address] , [place]. [phone] OFFICE/OUTPA TIENT VISIT, [facility], [address] [place], [address], [place] tel:[phone] [facility] HTN (chief complaint) headache1 (chief complaint) Essential (primary) hypertensionVisual disturbanceBenign intracranial HTNHeadache 1 Hany Akers [address], [place], [address] , [place]. [phone] OFFICE/OUTPA TIENT VISIT, EST [facility], [address] [place], [place], [address], [place] tel:[phone] [facility] vision1 (chief complaint) HTN (chief complaint) sleep apnea1 (chief complaint) Essential (primary) hypertensionVisual disturbanceSleep apneaOther disorder of optic nerve of eye 1 Hany Akers [address], [place], [place], [address] , [place]. [phone] PREV VISIT, EST, AGE 18-39 [facility], [address], [place], [place], [address], [place] tel:[phone] [facility] physical (chief complaint) Encounter for general adult medical examination without abnormal findings 1 Hany Cole. [address], [place], [place], [address] , [place]. tel:[phone] OFFICE/OUTPA TIENT VISIT, [facility], [address], [place], [address], [place] tel:[phone] [facility] toe pain1 (chief complaint) a1c (chief complaint) cough1 (chief complaint) Other acquired hammer toe of right footType 2 diabetes mellitus without complicationsCoughB ariatric surgery status 1 Hany Cole. [address], [place], [place], [address] , [place]. tel:[phone] OFFICE/OUTPA TIENT VISIT, [facility], [address], [place], [place], [address], [place] tel:[phone] [facility] knee pain1 (chief complaint) COVID (chief complaint) Pain in right kneeViral infection 0 Hany Cole. [address], [place], [place], [address] , [place]. tel:[phone] OFFICE/OUTPA TIENT VISIT, [facility], [address], [place], [place], [address], [place] tel:[phone] [facility] sick (chief complaint) Viral infection 0 Hany Cole. [address], [place], [place], [address] , [place]. tel:[phone] OFFICE/OUTPA TIENT VISIT, [facility], [address], [place], [place], [address], [place] tel:[phone] [facility] eczema1 (chief complaint) peanut allergy1 (chief complaint) obesity1 (chief complaint) sleep apnea1 (chief complaint) Abdominal painEczemaSleep apnea, unspecifiedHidraden itis suppurativaAllergy to peanuts 0 Hany Cole. [address], [place], [place], [address] , [place]. [phone] Referring Provider: Vimal [address], [place], [place], [address]. tel:[phone] OFFICE/OUTPA TIENT VISIT, [facility], [address], [place], [place], [address], [place] [phone] [facility] Medicine LFT (chief complaint) abd pain1 (chief complaint) DM (chief complaint) obesity1 (chief complaint) Type 2 diabetes mellitus without complicationsAbdomi nal painLiver diseaseObesity 0 Hany Cole. [address], [place], [place], [address] , [place]. [phone] Referring Provider: V[address], [place], [place], [address]. tel:[phone] OFFICE/OUTPA TIENT VISIT, [facility], [address], [place], [place], [address], [place] tel:[phone] [facility] Medicine LFT (chief complaint) abd pain1 (chief complaint) obesity1 (chief complaint) glucose (chief complaint) Liver diseaseAbdominal painObesityGastriti s w/o bleedingHyperglycem ia 0 Hany Cole. [address], [place], [place], [address] , [place]. [phone] Referring Provider: Vimal [address], [place], [place], [address]. tel:[phone] OFFICE/OUTPA TIENT VISIT, [facility], [address], [place], [place], [address], [place] tel:[phone] [facility] Medicine LFT (chief complaint) glucose1 (chief complaint) obesity1 (chief complaint) Abdominal painFatty liverHyperglycemiaO besity 0 Hany Cole. [address], [place], [place], [address] , [place]. [phone] Referring Provider: [address], [place], [place], [address]. tel:[phone] PREV VISIT, EST, AGE 18-39 [facility], [address], [place], [place], [address], [place] tel:[phone] [facility] PHysical (chief complaint) Encntr for general adult medical exam w/o abnormal findings 0 Hany Cole. [address], [place], [place], [address] , [place]. tel:[phone] Referring Provider: Vimal Law [address], [place], [place], [address]. tel:[phone] OFFICE/OUTPA TIENT VISIT, EST [facility], [address], [place], [place], [address], [place] tel:[phone] [facility] GERD1 (chief complaint) obesity1 (chief complaint) sleep apnea1 (chief complaint) Body mass index (BMI) 60.0-69.9, adultGERD w/o esophagitisSleep apnea, unspecifiedAbdomina l pain 8 Hany Cole. [address], [place], [place], [address] , [place]. tel:[phone] Referring Provider: Vimal Law [address], [place], [place], [address]. tel:[phone] OFFICE/OUTPA TIENT VISIT, EST [facility], [address], [place], [place], [address], [place] tel:[phone] [facility] GERD1 (chief complaint) sleep apnea1 (chief complaint) hidradenit is1 (chief complaint) obesity1 (chief complaint) Body mass index (BMI) 60.0-69.9, adultSleep apneaGERD w/o esophagitisHidraden itis suppurativa 0-201 8 Hany Akers [address], [place], [place], [address] , [place]. tel:[phone] Referring Provider: Vimal Law [address], [place], [place], [address]. tel:[phone] PREV VISIT, EST, AGE 18-39 [facility], [address], [place], [place], [address], [place] tel:[phone] [facility] sleep apnea1 (chief complaint) GERD1 (chief complaint) abd pain1 (chief complaint) obesity1 (chief complaint) skin (chief complaint) Body mass index (BMI) 60.0-69.9, adultSleep apnea, unspecifiedOther cholelithiasis without obstructionHidraden itis suppurativaEncounte r for general adult medical exam w abnormal findingsEncntr for general adult medical exam w/o abnormal findings 8 Hany Akers [address], [place], [place], [address] , [place]. tel:[phone] Referring Provider: Vimal Law [facility] [place], [address]. tel:[phone] OFFICE/OUTPA TIENT VISIT, EST [facility], [address] [place], [address], [place] tel:[phone] [facility] obesity1 (chief complaint) gluose1 (chief complaint) vitamin D (chief complaint) Body mass index (BMI) 60.0-69.9, adultAbnormal weight gainVitamin D deficiency, unspecifiedHypergly cemia 8 [address], [place], [place], [address] , [place]. tel:[phone] Referring Provider: Vimal Law [address], [place], [place], [address]. tel:[phone] OFFICE/OUTPA TIENT VISIT, EST [facility], [address], [place], [place], [address], [place] tel:[phone] [facility] sleep apnea1 (chief complaint) obeisty1 (chief complaint) Body mass index (BMI) 60.0-69.9, adultSleep apnea 8 Hany [address], [place], [place], [address] , [place]. [phone] Referring Provider: Vimal Law [address], [place], [place], [address]. tel:[phone] OFFICE/OUTPA TIENT VISIT, [facility], [address], [place], [place], [address], [place] [phone] [facility] obesity (chief complaint) obesity1 (chief complaint) Abnormal weight gainBody mass index (BMI) 60.0-69.9, adult 8 Hany Akers [address], [place], [place], [address] , [place]. [phone] Referring Provider: Vimal Law [address], [place], [place], [address]. tel:[phone] OFFICE/OUTPA TIENT VISIT, [facility], [address], [place], [place], [address], [place] tel:[phone] [facility] obesity1 (chief complaint) sleep apnea1 (chief complaint) Body mass index (BMI) 60.0-69.9, adultSleep apnea 7 Hany [address], [place], [place], [address] , [place]. [phone] Referring Provider: Vimal Law [address], [place], [place], [address]. tel:[phone] OFFICE/OUTPA TIENT VISIT, [facility], [address], [place], [place], [address], [place] tel:[phone] [facility] obesity (chief complaint) vitmain d (chief complaint) glucose1 (chief complaint) sleep apnea1 (chief complaint) Vitamin D deficiency, unspecifiedHypergly cemiaBody mass index (BMI) 60.0-69.9, adultSleep apnea, unspecified 7 Hany Akers [address], [place], [place], [address] , [place]. tel:[phone] Referring Provider: Vimal Law [address], [place], [place], [address]. tel:[phone] OFFICE/OUTPA TIENT VISIT, [facility], [address], [place], [place], [address], [place] tel:[phone] [facility] sleep apnea1 (chief complaint) obesity1 (chief complaint) Body mass index (BMI) 60.0-69.9, adultSleep apnea, unspecified 7 Hany Cole. [address], [place], [place], [address] , [place]. [phone] Referring Provider: Vimal Law [address], [place], [place], [address]. tel:[phone] PREV VISIT, [facility], AGE 18-39 [facility], [address], [place], [place], [address], [place] tel:[phone] [facility] Physical (chief complaint) Encntr for general adult medical exam w/o abnormal findings 7 Hany Cole. [address], [place], [place], [address] , [place]. [phone] Referring Provider: Vimal Law [address], [place], [place], [address]. tel:[phone] OFFICE/OUTPA TIENT VISIT, [facility], [address], [place], [place], [address], [place] tel:[phone] [facility] sleep apnea (chief complaint) eczema1 (chief complaint) hematuria (chief complaint) obesity1 (chief complaint) Body mass index (BMI) 50-59.9 , adultSleep apnea, unspecifiedHematuri aEczema 3 6 Hany Cole. [address], [place], [place], [address] , [place]. [phone] Referring Provider: Vimal Law [address], [place], [place], [address]. tel:[phone] PREV VISIT, EST, AGE 18-39 [facility], [address], [place], [place], [address], [place] [phone] [facility] physical (chief complaint) Encntr for general adult medical exam w/o abnormal findings 6 Hany Cole. [address], [place], [place], [address] , [place]. [phone] Referring Provider: Vimal Law [address], [place], [place], [address]. tel:[phone] OFFICE/OUTPA TIENT VISIT, [facility], [address], [place], [place], [address], [place] [phone] [facility] sleep apnea (chief complaint) eczama (chief complaint) obeisty (chief complaint) Dietary surveillance and counselingObesity, unspecifiedEczemaSl eep apnea syndromeBMI 50.0 to 59.9 5 Hany Cole. [address], [place], [place], [address] , [place]. [phone] Referring Provider: Vimal Law [address], [place], [place], [address]. tel:[phone] OFFICE/OUTPA TIENT VISIT, [facility], [address], [place], [address], [place] [phone] [facility] Medicine PHysical (chief complaint) Dietary surveillance and counselingRoutine Medical ExamRoutine Medical ExamDysphagiaRash and other nonspecific skin eruptionDYSPHAGIA NEC 4 Hany Cole. [address], [place], [place], [address] , [place]. tel:[phone] Referring Provider: Vimal Law [address], [place], [address]. tel:[phone] OFFICE/OUTPA TIENT VISIT, [facility], [address], [place], [address], [place] tel:[phone] [facility] abdominal pain (chief complaint) Dietary surveillance and counselingAbdominal PainGERDCalculus of gallbladder without mention of cholecystitis, without mention of obstruction 3 Hany Cole. [address], [place], [place], [address] , [place]. [phone] Referring Provider: Vimal Law [address], [place], [place], [address]. tel:[phone] OFFICE/OUTPA TIENT VISIT, EST [facility], [address], [place], [place], [address], [place] tel:[phone] [facility] Medicine abdominal pain (chief complaint) Dietary surveillance and counselingAbdominal PainHemorrhage of rectum and anus 3 Hany Cole. [address], [place], [address] , [place]. tel:[phone] Referring Provider: Vimal Law [address], [place], [place], [address]. tel:[phone] OFFICE/OUTPA TIENT VISIT, EST [facility], [address], [place], [place], [address], [place] tel:[phone] [facility] Headache (chief complaint) Cough (chief complaint) obesity (chief complaint) HeadacheBronchitis, AcuteObesity May- 3 Hany Akers [address], [place], [place], [address] , [place]. tel:[phone] Referring Provider: Vimal Law [address], [place], [place], [address]. tel:[phone] PREV VISIT, EST, AGE 18-39 [facility], [address], [place], [place], [address], [place] tel:[phone] [facility] headache (chief complaint) eczema (chief complaint) Dietary surveillance and counselingRoutine Medical ExamRoutine Medical Exam 2 Hany Akers [address], [place], [place], [address] , . tel:[phone] Referring Provider: Vimal [address], [place], [place], [address]. tel:[phone] Family History Family Member Type Diagnosis Age At Onset Mother Problem (finding) Alive and well Father Problem (finding) Stroke 50 Brother Problem (finding) Alive and well Payers Payer name Insurance type Covered republican ID Authoriza tion(s) No Information Social History [...] Hypopnea) ordered Referral Referred To: LAVELLE WAYNE [facility], [phone] Ordered: Referrals: Allopathic & Osteopathic Physicians : Internal Medicine : Pulmonary Disease. LAVELLE WAYNE. Evaluate and treat ordered Referral Ordered: Huey Borrego -Allopathic & Osteopathic Physicians : Surgery (related to Abnormal weight gain) ordered Referral Referred To: Huey Borrego [address], [phone] Ordered: Referrals: Allopathic & Osteopathic Physicians : Surgery. Huey Borrego. Evaluate and treat ordered Referral Referred To: Juvenal Land [address], [phone] Ordered: Referrals: Charles. Emery Evaluate and treat ordered Referral Ordered: COLONOSCOPY AND BIOPSY ordered Referral Ordered: MRI BRAIN W/DYE ordered Referral Referred To: Juan Pablo Zurita MD [address]
[place], [address] Ordered: Referrals: Juan Pablo Zurita MD. Evaluate and treat ordered Referral Ordered: MRI BRAIN W/O DYE ordered Referral Ordered: Allergy and Immunology (related to Encounter for general adult medical examination without abnormal findings) ordered Referral Ordered: Referrals: Allergy and Immunology. Evaluate and treat ordered Referral Ordered: HAYDEN FORD -Podiatric Medicine & Surgery Service Providers : Popcorn Attendant (related to Other acquired hammer toe of right foot) ordered Referral Referred To: HAYDEN FORD [facility]4 [facility],[address] [place], [place], [phone] Ordered: Referrals: Podiatric Medicine & Surgery Service Providers : Popcorn Attendant. HAYDEN FORD. Evaluate and treat ordered Referral [...] Referral Referred To: Juvenal Land MD 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 Pt was kind of confused upon awakening. Pt had head CT done at ER which showed bilateral basal ganglia calcifications her lab were otherwise unremarkable. Pt states that she called neurologist at [facility] for follow up but no arron until [...] Pt never receive d the [facility]. Pt is s/p gastric sleeve but she has not been losing more weight hidradenitis1 Pt has recurrent hidradenitis around low pelvic area Pt has history of surgery for armpit in the past. 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 [...] for a while Pt denies any vision [id number]|2024-08-14 00:00:00|2024-08-14 16:05:00|ECHO_ITS|PATELRI|Cardiology|[id number]|"Patient Info Name: Quynh Gerardo Age: 39 years : 1985 Gender: Female Ht: 63 in Wt: 282 lbs BSA: 2.46 m2 HR: 70 bpm BP: 133 / 66 mmHg Heart Rhythm: Sinus Rhythm Technical Quality: Fair Exam Date: 08/14/2024 4:05 PM Patient Status: O Admit Date: 08/14/2024 Exam Type: CA echo doppler color flow Complete two-dimensional, color flow and Doppler transthoracic echocardiogram is performed. Staff Referring Physician: Juanita Kramer Biomedical Engineer: Catalina Christian Attending Provider: Marley Benaivdez Summary 1. Left ventricular chamber dimension is normal. 2. Left ventricular systolic function is normal, estimated at >70. 3. There is mildly increased left ventricular wall thickness. 4. The left ventricular diastolic function is grade I diastolic dysfunction. 5. Right ventricular systolic function is normal. 6. Left atrial chamber dimension is mildly enlarged. 7. There is mild tricuspid valve regurgitation. Left Ventricle Left ventricular chamber dimension is normal. Left ventricular systolic function is normal, estimated at >70. There is mildly increased left ventricular wall thickness. The left ventricular diastolic function is grade I diastolic dysfunction. Right Ventricle Right ventricular chamber dimension is normal. Right ventricular systolic function is normal. Left Atria Left atrial chamber dimension is mildly enlarged. Right Atria Right atrial chamber dimension is normal. Atrial Septum Intact interatrial septum visualized by color flow imaging. Aortic Valve The aortic valve is trileaflet. There is no aortic valve stenosis. There is no aortic valve regurgitation. Pulmonic Valve The pulmonic valve is not well visualized. There is no pulmonic regurgitation. Mitral Valve There is trace mitral valve regurgitation. Tricuspid Valve There is mild tricuspid valve regurgitation. Pericardium/Pleural There is no pericardial effusion. Inferior Vena Cava Inferior vena cava is not well visualized. Aorta The aortic root size at the sinus of Valsalva is normal. Left Ventricular Outflow Tract Name Value Normal LVOT 2D LVOT Diameter 2.0 cm LVOT Doppler LVOT Peak Velocity 110 cm/s LVOT Peak Gradient 5 mmHg LVOT Mean Gradient 2 mmHg LVOT VTI 23 cm LVOT VTI/AV VTI Ratio 0.8 LVOT Stroke Volume 70 ml LVOT CO 4.5 l/min LVOT CI 1.8 l/min/m2 Pulmonic Valve Name Value Normal RVOT Doppler RVOT Peak Velocity 82 cm/s RVOT Peak Gradient 3 mmHg PV Doppler PV Peak Velocity 97 cm/s PV Peak Gradient 4 mmHg Mitral Valve Name Value Normal MV Diastolic Function MV E Peak Velocity 88 cm/s MV A Peak Velocity 76 cm/s MV E/A 1.2 MV Decel Time (PW) 217 ms MV Annular TDI MV E/e' (Septal) 11.4 MV E/e' (Lateral) 12.6 MV E/e' (Average) 12.0 Tricuspid Valve Name Value Normal TV Regurgitation Doppler TR Peak Velocity 247 cm/s TR Peak Gradient 24 mmHg TV Annular TDI TV Lateral Ruthie s' Velocity 13.8 cm/s >=9.5 Aortic Valve Name Value Normal AV Doppler AV Peak Velocity 158 cm/s AV Peak Gradient 10 mmHg AV Mean Gradient 5 mmHg AV VTI 30 cm AV Area (Cont Eq VTI) 2.3 cm2 >=3.0 AV Area (Cont Eq Randal) 2.1 cm2 AV DI (Randal) 0.69 AV Regurgitation 2D LVOT Area 3.0 cm2 Ventricles Name Value Normal LV Dimensions 2D/MM IVS Diastolic Thickness (2D) 1.1 cm 0.6-1.0 LVID Diastole (2D) 4.4 cm 3.8-5.2 LVIW Diastolic Thickness (2D) 1.1 cm 0.6-0.9 LVID Systole (2D) 2.7 cm 2.2-3.5 LVOT Diameter 2.0 cm LV Mass (2D Cubed) 168.97 g 67.00-162.00 LV Mass Index (2D Cubed) 69 g/m2 43-95 Relative Wall Thickness (2D) 0.47 <=0.42 LV Fractional Shortening/Ejection Fraction 2D/MM LV Fractional Shortening (2D) 39 % 27-45 LV EF (2D Teichholz) 69 % LV Diastolic Volume (4C MOD) 149 ml LV EF (4C MOD) 78 % LV Diastolic Volume (2C MOD) 155 ml LV EF (2C MOD) 66 % LV Diastolic Volume (BP MOD) 155 ml 46-106 LV Diastolic Volume Index (BP MOD) 63 ml/m2 29-61 LV Systolic Volume (BP MOD) 42 ml 14-42 LV Systolic Volume Index (BP MOD) 17 ml/m2 8-24 LV EF (BP MOD) 73 % 54-74 LV Diastolic Length (4C) 7.9 cm LV Systolic Length (4C) 6.1 cm LV Stroke Volume (4C MOD) 116 ml Atria Name Value Normal LA Dimensions LA Volume (4C A-L) 74 ml LA Volume (BP A-L) 73 ml RA Dimensions RA Systolic Major Sawyer Length (4C) 4.6 cm 2.2-2.8 RA Area (4C) 15.0 cm2 <=18.0 Report Signatures "
--- OUTSIDE RECORDS SUMMARY | 2024-08-13 22:37 | XMS_ITS | Clinical Summary ---
Author Organization [facility] [employer] Address [address] [place] [address] Care Team Providers Care Model Builder Display Name Role Phone Douglas Leach MD Primary Care Provider [phone] Source Comments [facility] and Associated Physician Practices is amultiple site organization consisting of ambulatory clinics and hospital sitesin [place], [place], [place] and [place]. This disclosure is being madepursuant to the Care Everywhere program and may not contain all information available regarding this patient. Last updated 17.[facility] [employer] Allergies Active Allergy Reactions Criticality Noted Date Comments Albumin Rash Medium 11/18/2020 Peanut-Derived Anaphylaxis High 11/18/2020 Tomato Rash Medium 11/18/2020 Medications * Be aware that medications may not be up to date on this document. Alwaysverify current medications with the patient. VITAMIN D PO Take 1 tablet by mouth once daily Active EPINEPHrine (EPIPEN) 0.3 MG/0.3ML auto-injector pen Inject 0.3 mL into muscle once as needed Active cetirizine (ZYRTEC) 10 MG tablet Take 1 (one) tablet by mouth once daily 08/10/19 21 Active omeprazole (PRILOSEC) 40 MG capsule Take 1 (one) capsule by mouth daily before breakfast 11/08/19 21 Active spironolactone (Aldactone) 50 MG tabletIndications: Androgenetic alopecia Take one pill by mouth three times per day 90 tablet 2 01/14/20 24 Active Additional Information Patient not taking.Reported on 06/16/2024 adalimumab (Humira, 2 Pen,) 40 MG/0.4ML injectionIndicatio ns:Hidradenitis suppurativa Inject 40 mg (one pen, 0.4mL) subcutaneous weekly for hidradenitis suppurativa . Dispense: # 2 kits = 4 pens, 1.6mL total). Maintenance dosing. 2 kit 2 01/21/20 Active adalimumab (Humira-CD/UC/HS Starter) 80 MG/0.8ML injectionIndicatio ns:Hidradenitis suppurativa Inject 160mg (2 pens, 1.6mL) subcutaneous once, then 80mg (1pen, 0.8mL) two weeks later for hidradenitis suppurativa . Dispense # 1 kit = 3 pens. Loading/starter doses. 1 kit 01/24/20 Active adalimumab (Humira-CD/UC/HS Starter) 80 MG/0.8ML injectionIndicatio ns:Hidradenitis suppurativa Inject 160mg (2 pens, 1.6mL) subcutaneous once, then 80mg (1pen, 0.8mL) two weeks later for hidradenitis suppurativa . Dispense # 1 kit = 3 pens. Loading/starter doses. 1 kit 01/30/20 Active adalimumab (Humira, 2 Pen,) 40 MG/0.4ML injectionIndicatio ns:Hidradenitis suppurativa Inject 40 mg (one pen, 0.4mL) subcutaneous weekly for hidradenitis suppurativa . Dispense: # 2 kits = 4 pens, 1.6mL total). Maintenance dosing. 2 kit 5 06/17/19 25 Active olopatadine (Pataday) 0.2 % ophthalmic solutionIndication s:Allergic Conjunctivitis Instill 1 (one) drop into both eyes once daily Reasons: Inflammation of Eyelid Lining due to Allergy 2.5 mL 5 06/21/19 25 Active azelastine (Astelin) 0.1 % nasal sprayIndications:S easonal Allergic Rhinitis [place] 1 (one) spray into each nostril 2 times daily Reasons: Hayfever 30 mL 11 06/21/19 25 Active Active Problems Problem Noted Date Diagnosed Date Chronic migraine without aura 05/19/2021 Acute maxillary sinusitis 11/18/2020 Atopic dermatitis 11/18/2020 Eczema 11/18/2020 Migraine 11/18/2020 Preop testing 11/18/2020 Serous otitis media 11/18/2020 Strain of trapezius muscle 11/18/2020 Difficult airway 09/25/2019 Morbid obesity 08/23/2017 Overview (11/18/2020): Added automatically from request for surgery [id number] Gallstone 01/06/2013 Gastroesophageal reflux disease 01/06/2013 Abdominal pain 12/06/2012 Hemorrhage of rectum and anus 12/06/2012 Acute bronchitis 06/26/2012 Headache 06/26/2012 Resolved Problems Problem Noted Date Diagnosed Date Resolved Date Acute otitis media 11/18/2020 Cough 11/18/2020 12/16/2020 Upper respiratory infection 11/18/2020 12/02/2020 Encounters Date Type Department Care Team Description 06/20/2024 9:00 AM CDT Office Visit [facility] - Allergy [address] [place] [phone] Wyatt Morrow MD Salomone, John, MD Food allergy (Primary Dx); Rash and nonspecific skin eruption; Non-seasonal allergic rhinitis due to other allergic trigger; Gastroesophageal reflux disease without esophagitis; Mixed rhinitis; Hidradenitis 06/20/2024 Travel 06/16/2024 3:30 PM CDT Office Visit [facility] - Dermatology [address] [place] [phone] Wyatt Morrow MD Immunosuppression (Primary Dx); Hidradenitis suppurativa; Encounter for long-term (current) use of high-risk medication 06/16/2024 Travel 06/05/2024 Telephone [facility] - Dermatology [address] [place] [phone] Wyatt Morrow MD Refill Request 06/02/2024 Refill [facility] - Dermatology [address] [place] [phone] Wyatt Morrow MD Refill Request 05/21/2024 Refill [facility] - Dermatology [facility] [place] [address] Wyatt Morrow MD Refill Request from Last 3 Months Social History Tobacco Use Types Packs/Day Years Used Date Smoking Tobacco: Never Smokeless Tobacco: Never Tobacco Cessation:Counseling Given: Not Answered Alcohol Use Standard Drinks/Week Comments Yes 0 (1 standard drink = 0.6 oz pur e alcohol) social PHQ-2 Answer Date Recorded Patient Health Questionnaire-2 Score 0 06/20/2024 Comments Unknown Sex and Gender Information Value Date Recorded Sex Assigned at Not on file Legal Sex Female 9:31 AM TEACHER ASST Gender Identity Not on file Sexual Orientation Not on file Last Filed Vital Signs Vital Sign Reading Time Taken Comments Blood Pressure 134/82 06/20/2024 9:09 AM CDT Pulse 80 06/20/2024 9:09 AM CDT Temperature 36.9 C (98.4 F) 06/20/2024 9:09 AM CDT Respiratory Rate - - Oxygen Saturation 95% 06/20/2024 9:09 AM CDT Inhaled Oxygen Concentration - - Weight 132.2 kg (291 lb 6.4 oz) 06/20/2024 9:09 AM CDT Height 162.6 cm (5' 4 ) 05/19/2021 10:1 6 AM TEACHER ASST Body Mass Index 50.02 05/19/2021 10:16 AM TEACHER ASST Plan of Treatment Upcoming Encounters Date Type Department Care Team (Late st Contact Info) Description 10/17/2024 11:00 AM CDT Office Visit [facility] - Allergy [address] [place] [phone] Yann Manuel MD [address] [place] [address] 12/08/2024 11:10 AM CDT Office Visit [facility] - Dermatology [address] [place] [address] [phone] [place] [address] [phone] Health Maintenance Due Date Last Done Comments MAMMOGRAM 1984 PAP SMEAR 1984 DTAP/TDAP/TD VACCINES (1 - Tdap) 2003 HEPATITIS B VACCINE (1 of 3 - 19+ 3-dose series) 2003 PNEUMOCOCCAL VACCINE (1 of 2 - PCV) 2003 ZOSTER VACCINE (1 of 2) 2003 COVID-19 VACCINE (4 - 2023-2 5 season) 2023 05/24/2021, 11/24/2020, 11/03/2020 INFLUENZA VACCINE (Season Ended) 2024 LIPID TESTING 01/17/2029 01/18/2024, 05/01/2022 HEPATITIS C SCREENING Completed 01/18/2024 , 08/19/2020, 08/19/2020 HIV SCREENING Completed 01/18/2024 DEPRESSION SCREENING Completed 06/20/2024 HIB VACCINE Aged Out No longer eligi ble based on patient's age to complete this topic HPV VACCINE Aged Out No longer eligi ble based on patient's age to complete this topic MENINGOCOCCAL (Group B) VACCINE SHARED DECISION-MAKING Aged Out No longer eligible based on patient's age to complete this topic MENINGOCOCCAL GROUPS A/C/Y/W VACCINE Aged Out No longer eligible b ased on patient's age to complete this topic [...] a test for HCV RNA (test code 27360) is suggested. For additional information please refer to http://[employer]/faq/YHU16g5 (This link is being provided for informational/ educational purposes only.) Test Performed at: [place] [address] JOSEPHINE URBINA MD Blood BLOOD SPECIMEN / Unknown 01/18/2024 9:22 AM CDT 01/18/2024 9:23 AM CDT Wyatt Morrow MD LAB - CHEMISTRY ORDERABLES Final Result [facility] [address] [place] [address] * HIV-1 HIV-2 ANTIBODY + HIV P24 [...] purpose. For additional information please refer to http://[employer]/faq/IMM233 (This link is being provided for informational/ educational purposes only.) The performance of this assay has not been clinically validated in patients less than 2 years old. Test Performed at: [facility] [place] [address] JOSEPHINE URBINA MD Blood BLOOD SPECIMEN / Unknown 01/18/2024 9:22 AM CDT 01/18/2024 9:23 AM CDT Wyatt Morrow MD LAB - CHEMISTRY ORDERABLES Final Result Performing Organization Address City/[facility]/ZIP Co de Phone Number [address] [address] * LIPID PROFILE (01/18/2024 9:22 AM CDT) [...] Jorge A SS et al. THERESA. 2013;310(19): 7071-5632 (http://education.[employer].com/faq/TVJ645) CHOL/HDLC RATIO 2.9 <5.0 (calc) [facility] Non HDL Cholesterol 109 <130 mg/dL (calc) [facility] Comment: For patients with diabetes plus 1 major ASCVD risk factor, treating to a non-HDL-C goal of <100 mg/dL (LDL-C of <70 mg/dL) is considered a therapeutic option. Test Performed at: [facility] [address] JOSEPHINE URBINA MD Blood BLOOD SPECIMEN / Unknown 01/18/2024 9:22 AM CDT 01/18/2024 9:23 AM CDT Wyatt Morrow MD LAB - CHEMISTRY ORDERABLES Final Result Performing Organization Address City/[facility]/ZIP Co de Phone Number [address] [address] from Last 3 Months or Most Recently Relevant to Health Maintenance Insurance [facility] Care Teams Model Builder Display Relationship Specialty Start Date End Date Douglas Leach MD PCP - General 03/04/20
--- OUTSIDE RECORDS SUMMARY | 2024-08-13 22:37 | XMS_ITS | Referral Summary ---
Author Organization [facility] Address [address] [place] [phone] Care Team Providers Care Braille Operator Name Role Phone Douglas eLach MD Primary Care Provider [phone] Juan Pablo Zurita MD Unavailable [phone] Lizeth Pozo OD Unavailable [phone] Encounters Date Type Department Care Team Description 06/09/2024 Results Follow-Up [facility] ENT [address] [place] [address] Mariposa Carlin, PERPETUAL INVENTORY CLERK 06/06/2024 8:00 AM DIETITIAN TEACHER - 06/06/2024 11:59 PM DIETITIAN TEACHER Hospital Encounter [facility] Imaging and Radiology [address] [place] [address] Pulsatile tinnitus, right ear Discharge Disposition: Discharge to home or self care 05/27/2024 2:30 PM DIETITIAN TEACHER [facility] [address] [place] [address] Outpatient Health 4th Floor [address] [place] [address] Roxy Godinez MD Seizures (HCC) (Primary Dx); Syncope and collapse; History of sleep apnea; At risk for side effect of medication from Last 3 Months Allergies Active Allergy [...] 5 days 10 mL 03/22/20 23 Active HumramonitaCF, Pen 40 mg/0.4 mL pen injector kit [...] (03/22/2023): Added automatically from request for surgery [id number] Abdominal pain 12/06/2012 Hemorrhage of rectum and [...] on file Legal Sex Female 1:59 PM DIETITIAN TEACHER Gender Identity Not on file Sexual Orientation Not on file Last Filed Vital Signs Vital Sign Reading Time Taken Comments Blood Pressure 120/72 05/27/2024 2:20 PM DIETITIAN TEACHER Pulse 70 05/27/2024 2:20 PM DIETITIAN TEACHER Temperature 36.1 C (96.9 F) 05/27/2024 2:20 PM DIETITIAN TEACHER Respiratory Rate 20 12/28/2023 9:1 7 AM CDT Oxygen Saturation 100% 05/27/2024 2:20 PM DIETITIAN TEACHER Inhaled Oxygen Concentration - - Weight 128.1 kg (282 lb 6.4 oz) 05/27/2024 2:20 PM DIETITIAN TEACHER Height 162.6 cm (5' 4 ) 05/27/2024 2:20 PM DIETITIAN TEACHER Body Mass Index 48.47 05/27/2024 2:20 PM DIETITIAN TEACHER Plan of Treatment Not on file Procedures Procedure Name Priority Date/Time Associated Diagnosis Comments CTA HEAD NECK W WO CONTRAST Schedule Routine, Read Routine (OP Routine) 06/06/2024 9:04 AM DIETITIAN TEACHER Pulsatile tinnitus, right ear from Last 3 Months Results * CTA Head Neck W WO Contrast (06/06/2024 9:04 AM DIETITIAN TEACHER) Anatomical Region Laterality Modality Head and Neck N/A Computed Tomogra phy 06/06/2024 10:5 6 AM DIETITIAN TEACHER Impressions 06/06/2024 12:53 PM DIETITIAN TEACHER Dehiscence of the right sigmoid sinus plate which may be associated with pulsatile tinnitus. High though intact right jugular bulb. No other vascular etiology for pulsatile tinnitus is identified. No cervical carotid artery stenosis. No intracranial large vessel occlusion or significant stenosis. Electronically signed by: Nilsa Agudelo M.D. Narrative 06/06/2024 12:53 PM DIETITIAN TEACHER EXAMINATION: CTA HEAD NECK W WO CONTRAST HISTORY: Tinnitus, pulsatile pulsatile tinnitus TECHNIQUE: Noncontrast CT of the head was obtained from skull base to vertex, according to standard protocol. Subsequently, CT angiogram of the neck and [place] was performed after the uneventful [...] Artery: no occlusion or significant stenosis L MOBILE PAINT SPECIALIST: no occlusion or significant stenosis R MOBILE PAINT SPECIALIST: no occlusion or significant stenosis The major [...] views of the lung apices are normal. Procedure Note Nilsa Agudelo MD - 06/06/2024 EXAMINATION: CTA HEAD NECK W WO CONTRAST HISTORY: Tinnitus, pulsatile pulsatile tinnitus TECHNIQUE: Noncontrast CT of the head was obtained from skull base to vertex, according to standard protocol. Subsequently, CT angiogram of the neck and [place] was performed after the uneventful [...] Artery: no occlusion or significant stenosis L MOBILE PAINT SPECIALIST: no occlusion or significant stenosis R MOBILE PAINT SPECIALIST: no occlusion or significant stenosis The major [...] intracranial large vessel occlusion or significant stenosis. Electronically signed by: Nilsa Agudelo M.D. Mariposa Carlin NP IMG CT PROCEDURES Final Result from Last 3 Months Insurance [facility] Care Teams Braille Operator Relationship Specialty Start Date End Date Douglas Leach MD PCP - General 03/14/17 Juan Pablo Zurita MD Consulting Physician Neurosurgery 01/27/21 Lizeth Pozo, TANIA [address] [place] [address] Primary Eye Care Provider Optometry 01/27/21
--- OUTSIDE RECORDS SUMMARY | 2024-08-13 22:37 | XMS_ITS | Clinical Summary ---
Author Organization [facility] Address [address] [place] [phone] Care Team Providers Care Television Writer Name Role Phone Douglas Leach MD Primary Care Provider [phone] Juan Pablo Zurita MD Unavailable [phone] Lizeth Pozo OD Unavailable [phone] Allergies Active Allergy Reactions Criticality Noted Date [...] (03/22/2023): Added automatically from request for surgery [id number] Abdominal pain 12/06/2012 Hemorrhage of rectum and anus 12/06/2012 Acute bronchitis 06/26/2012 Headache 06/26/2012 Chronic migraine without aura BMI 45.0-49.9, adult OBEY (obstructive sleep apnea) Hyperopia of both eyes Encounters Date Type Department Care Team Description 06/09/2024 Results Follow-Up [facility] ENT [address] [facility] [address] [place] [address] Mariposa Carlin, SUSTAINABLE SYSTEMS ANALYST 06/06/2024 8:00 AM ASSEMBLER METAL FURNITURE - 06/06/2024 11:59 PM ASSEMBLER METAL FURNITURE Hospital Encounter [facility] Imaging and Radiology [address] [place] [address] Pulsatile tinnitus, right ear Discharge Disposition: Discharge to home or self care 05/27/2024 2:30 PM ASSEMBLER METAL FURNITURE [facility] Health 4th Floor [address] [place] [address] Roxy Godinez MD Seizures (HCC) (Primary Dx); Syncope and collapse; History of sleep apnea; At risk for side effect of medication from Last 3 Months Surgical History Surgery [...] on file Legal Sex Female 1:59 PM ASSEMBLER METAL FURNITURE Gender Identity Not on file Sexual Orientation Not on file Obstetrics History Last Filed Vital Signs Vital Sign Reading Time Taken Comments Blood Pressure 120/72 05/27/2024 2:20 PM ASSEMBLER METAL FURNITURE Pulse 70 05/27/2024 2:20 PM ASSEMBLER METAL FURNITURE Temperature 36.1 C (96.9 F) 05/27/2024 2:20 PM ASSEMBLER METAL FURNITURE Respiratory Rate 20 12/28/2023 9:17 AM CDT Oxygen Saturation 100% 05/27/2024 2:20 PM ASSEMBLER METAL FURNITURE Inhaled Oxygen Concentration - - Weight 128.1 kg (282 lb 6.4 oz) 05/27/2024 2:20 PM ASSEMBLER METAL FURNITURE Height 162.6 cm (5' 4 ) 05/27/2024 2:20 PM ASSEMBLER METAL FURNITURE Body Mass Index 48.47 05/27/2024 2:20 PM ASSEMBLER METAL FURNITURE Plan of Treatment Health Maintenance Due Date [...] Read Routine (OP Routine) 06/06/2024 9:04 AM ASSEMBLER METAL FURNITURE Pulsatile tinnitus, right ear from Last 3 Months Results * CTA Head Neck W WO Contrast (06/06/2024 9:04 AM ASSEMBLER METAL FURNITURE) Anatomical Region Laterality Modality Head and Neck N/A Computed Tomogra phy 06/06/2024 10:5 6 AM ASSEMBLER METAL FURNITURE Impressions 06/06/2024 12:53 PM ASSEMBLER METAL FURNITURE Dehiscence of the right sigmoid sinus plate which may be associated with pulsatile tinnitus. High though intact right jugular bulb. No other vascular etiology for pulsatile tinnitus is identified. No cervical carotid artery stenosis. No intracranial large vessel occlusion or significant stenosis. Electronically signed by: Nilsa Agudelo M.D. Narrative 06/06/2024 12:53 PM ASSEMBLER METAL FURNITURE EXAMINATION: CTA HEAD NECK W WO CONTRAST HISTORY: Tinnitus, pulsatile pulsatile tinnitus TECHNIQUE: Noncontrast CT of the head was obtained from skull base to vertex, according to standard protocol. Subsequently, CT angiogram of the neck and [place] was performed after the uneventful [...] Artery: no occlusion or significant stenosis L EMERGENCY WORKER: no occlusion or significant stenosis R EMERGENCY WORKER: no occlusion or significant stenosis The major [...] Subsequently, CT angiogram of the neck and [place] of [place] was performed after the uneventful [...] Artery: no occlusion or significant stenosis L EMERGENCY WORKER: no occlusion or significant stenosis R EMERGENCY WORKER: no occlusion or significant stenosis The major [...] signed by: Nilsa Agudelo M.D. Mariposa Carlin SUSTAINABLE SYSTEMS ANALYST IMG CT PROCEDURES Final Result from Last 3 Months Insurance [facility] Care Teams Television Writer Relationship Specialty Start Date End Date Douglas Leach MD PCP - General 03/14/17 Juan Pablo Zurita MD Consulting Physician Neurosurgery 01/27/21 Lizeth Pozo OD [address] [address] Primary Eye Care Provider Optometry 01/27/21
--- OUTSIDE RECORDS SUMMARY | 2024-08-13 22:37 | XMS_ITS | Data Portability ---
Author Organization [place] [facility], Main Office Address [address] [place] [address] Assessment Encounter Date Assessment Date Assessment LastModified by Organization Details LastModified Time 09/26/2023 09/26/2023 Assessment: Mild OSAHS, AHI = 8 PLMD Hypoventilation Plan: The following were reviewed and explained to the patient: primary care/referral note [facility] diagnostic sleep study 11/25/13 sleep onset = 14 minutes, REM onset = 95.5 minutes, AHI = 8, PLMI = 9 [facility] titration sleep study 12/24/13 sleep onset = 15 minutes, REM onset = 77.5 minutes, Leung & Jeremias small Simplus full face mask @ 14 cmH2O, PLMI = 0.0 Keep CPAP at 14 cmH2O. Keep ramp start at 4 cmH2O. Keep ramp duration at 20 minutes. Keep EPR +2 maritime guard. Keep humidifier at level 4. General information [...] Follow-up: 1 week after diagnostic sleep study Not available 09/26/2023 16:07:07 11/07/2023 11/07/2023 Assessment: Persistent early REM onset Mod OSAHS, AHI = 26 Hypoventilation Plan: The following were reviewed and explained to the patient: [facility] diagnostic sleep study 11/25/13 sleep onset = 14 minutes, REM onset = 95.5 minutes, AHI = 8, PLMI = 9 [facility] titration sleep study 12/24/13 sleep onset = 15 minutes, REM onset = 77.5 minutes, Nickie small Simplus full face mask @ 14 cmH2O, PLMI = 0.0 [facility] diagnostic sleep study 11/02/23 sleep onset = 33.5 minutes, REM onset = 75 minutes, AHI = 26, REM AHI = 28, supine AHI = 112, PLMI = 0.0 Keep CPAP at 14 cmH2O until titration sleep study. Keep ramp start at 4 cmH2O. Keep ramp duration at 20 minutes. Keep EPR +2 maritime guard. Keep humidifier at level 4. General information [...] were reviewed and explained to the patient: [facility] diagnostic sleep study 11/25/13 sleep onset = 14 minutes, REM onset = 95.5 minutes, AHI = 8, PLMI = 9 [facility] titration sleep study 12/24/13 sleep onset = 15 minutes, REM onset = 77.5 minutes, Madhu & Jeremias small Simplus full face mask @ 14 cmH2O, PLMI = 0.0 [facility] diagnostic sleep study 11/02/23 sleep onset = 33.5 minutes, REM onset = 75 minutes, AHI = 26, REM AHI = 28, supine AHI = 112, PLMI = 0.0 [facility] titration sleep study 11/27/23 sleep onset = [...] duration at 20 minutes. Keep EPR +2 maritime guard. Keep humidifier at level 4. Provided the patient with a list of local home care stores where positive airway pressure (PAP) units, accoutrement, and services are available. Home care store selection is based on patient's insurance carrier. Patient will setup an appointment with [facility] for supplies and pressure adjustments. A [...] were reviewed and explained to the patient: [facility] diagnostic sleep study 11/25/13 sleep onset = 14 minutes, REM onset = 95.5 minutes, AHI = 8, PLMI = 9 [facility] titration sleep study 12/24/13 sleep onset = 15 minutes, REM onset = 77.5 minutes, Nickie small Simplus full face mask @ 14 cmH2O, PLMI = 0.0 [facility] diagnostic sleep study 11/02/23 sleep onset = 33.5 minutes, REM onset = 75 minutes, AHI = 26, REM AHI = 28, supine AHI = 112, PLMI = 0.0 [facility] titration sleep study 11/27/23 sleep onset = [...] Turn EPR +2 from ramp only to maritime guard. Keep humidifier at level 4. Keep tube temperature at 80 F. Provided the patient with a list of local home care stores where positive airway pressure (PAP) units, accoutrement, and services are available. Home care store selection is based on patient's insurance carrier. Patient will setup an appointment with [facility] for supplies and pressure adjustments. A [...] further management. Follow-up: 1 year, January 2025 [facility]5 Not available 02/25/2024 16:01:24 Plan of Treatment Reminders Order Date Submit Date Provider Last Modified By Organization Details Last Modified Time Details Appointments Any 30 2024 02:00P Kylah Berman MD Not available Not available Not available Lab None recorded. Referral None recorded. Procedures None recorded. Surgeries None recorded. Imaging polysomno gram, titration study [email or web address] [place] [address] [facility], [address] [place], [address], 12/04/2023 08:03:48 polysomno gram, diagnosti c, 6 yrs or older - Auth #[id number] 4- 024 2023 024 [facility], [address] [place], [address], 11/06/2023 17:23:07 Medication Orders None recorded. Patient [...] 3rd Trime ster 52.0- 302.0 Not Available [facility] [address] [place], [address], 07/31/2020 05:51:55 09/04/19 24 11/25/2013 polys omnog emily, diagn ostic , 6 yrs or older No observ ation record ed. [facility] Not Available 2023 13:09:54 09/04/19 24 12/24/2013 polys omnog emily, titra tion study No observ ation record ed. [facility] Not Available 2023 13:09:55 11/06/19 24 11/02/2023 polys omnog emily, diagn ostic , 6 yrs or older No observ ation record ed. [facility] [address] [place], [address], 11/06/2023 17:23:07 11/30/19 24 11/27/2023 polys omnog emily, titra tion study No observ ation record ed. [facility] [address] [place], [address], 11/30/2023 15:49:20 Result Notes None recorded. Problems Name Problem SNOMED Code Status Onset Date Resolution Date Notes Provider Name and Address Organization Details Recorded Time Vaginal discharge 899339806 Completed Not Available [facility] 3 04:54:38 Migraine 32560432 Active Not Available [facility] 3 04:54:38 Obese 090824517 Active Not Available [facility] 3 04:54:39 Obstructiv e sleep apnea syndrome 87077995 Active 2023 Sixto Berman MD [address] [facility], [facility] [address], [place], [address] , [facility] [employer] 11:17:14 Notes:Medical History: Migra ine headaches Rhinitis Persistent early REM onset Obesity with mod OSAHS, AHI = 26, 11/02/23, on autoCPAP c/o IVRC T2DM Hiatal hernia with CAMMIE PLMD Vit D deficiency Procedure History: Right hidradenitis suppurativa excision 2013 Left hidradenitis suppurativa excision 2019 EGD 2019 Gastric sleeve surgery 2020 Cholecystectomy 2021 Ann fundoplication 2023 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 Procedures Surgical History Date Name Laterality Status Provider Name and Address Organization Details Recorded Time 04/27/19 21 [employer] Procedure completed Not Available [facility] 2022 04:44:18 04/22/19 21 laparoscopic sleeve gastrectomy completed Not Available [facility] 05/31/2022 04:44:18 07/05/19 19 [employer]EL[employer] Procedure completed Not Available [facility] 2022 04:44:18 05/28/19 19 Date of Last Pap Smear completed Not Available [facility] 05/31/2022 04:44:14 10/12/19 16 [employer]ELOPER Procedure completed Not Available [facility] 2022 04:44:18 11/12/19 11 [employer]EL[employer] Procedure completed Not Available [facility] 2022 04:44:18 other completed Not Available [facility] 04/2022 04:44:18 Imaging Results Imaging Date Name Status LastModified by Organiz ation Details LastModified Time 11/25/2013 polysomnogram, diagnostic, 6 yrs or older completed [facility] Information not available 09/04/2023 13:09:54 12/24/2013 polysomnogram, titration study completed [facility] Information not available 09/04/2023 13:09:55 11/02/2023 polysomnogram, diagnostic, 6 yrs or older completed [facility] [address] [place], [address], 11/06/2023 17:23:07 11/27/2023 polysomnogram, titration study completed [facility] [address] [facility], [place], [address], 11/30/2023 15:49:20 Procedure Notes None recorded. Medical Equipment None Reported. Allergies Allergen ID Allergen Name Allergen Category Reaction Reaction Severity Criticality Documentation Date Start Date Code Code System Note Provider Name and Address Organization Details Recorded Time 67772 egg extract food,medi cation hives Not available Not available 09/16/2023 09673 15 RxLeighton Berman MD [address] [facility], [place], [address], [employer] 4 16:20:18 12770 peanut allergeni c extract food,medi cation anaphylax is Not available Not available 09/16/2023 64156 8 Waleska Berman MD [address] [facility], [address], [place], [address], [employer] 4 16:20:50 68607 tomato allergeni c extract food hives Not available Not available 09/16/2023 48707 9 RxLeighton Berman MD [address] [facility], [address], [place], [address], [employer] 4 16:21:04 Medications Name Sig Start Date [...] Updated DateTime 07/21/2020 53.2 kg/m2 160.02 cm 122857.7 9 g 118 mm[Hg] 78 mm[Hg] Not Available [facility] 3 04:48:36 Date Recorded Body weight Body mass index (BMI) Body height Oxygen saturation Oxygen saturation in Arterial blood by Pulse oximetry Heart rate Systolic blood pressure Diastolic blood pressure Provider Name and Address Organization Details Last Updated DateTime 4 660923. 23 g 50.3 kg/m2 160.02 cm 99 % 99 % 72 /min 120 mm[Hg] 70 mm[Hg] Wandy Santos CMA [employer] [facility] 4 15:17:17 Date Recorded Body temperature Heart rate Respiratory rate Provider Name and Address Organization Details Last Updated DateTime 09/26/2023 97.5 [degF] 72 /min 15 /min Sixto Berman MD [address] [facility], [facility] [address], [place], [address], [employer] [facility] 09/26/2023 15:36:46 Date Recorded Body height Body mass index (BMI) Body weight Heart rate Oxygen saturation Oxygen saturation in Arterial blood by Pulse oximetry Body temperature Systolic blood pressure Diastolic blood pressure Provider Name and Address Organization Details Last Updated DateTime 4 160.02 cm 49.8 kg/m2 175662. 46 g 83 /min 98 % 98 % 97.9 [degF] 130 mm[Hg] 70 mm[Hg] Wandy Santos CMA [facility] [employer] 11:00:21 Date Recorded Heart rate Respiratory rate Provider N blayne and Address Organization Details Last Updated DateTime 11/07/2023 83 /min 14 /min Sixto Berman MD [address], [place], [address], [facility] [employer] 11/07/2023 11:25:30 Date Recorded Body height Body mass index (BMI) Body weight Body temperature Heart rate Oxygen saturation Oxygen saturation in Arterial blood by Pulse oximetry Systolic blood pressure Diastolic blood pressure Provider Name and Address Organization Details Last Updated DateTime 160.02 cm 49.6 kg/m2 320522. 86 g 98.1 [degF] 73 /min 97 % 97 % 126 mm[Hg] 76 mm[Hg] Lizeth Olson MA [facility] 15:15:25 Date Recorded Heart rate Respiratory rate Provider N blayne and Address Organization Details Last Updated DateTime 12/24/2023 73 /min 15 /min Sixto Berman MD [address], [place], [address], [facility] 12/24/2023 15:34:16 Date Recorded Body height Body mass index (BMI) Body weight Heart rate Oxygen saturation Oxygen saturation in Arterial blood by Pulse oximetry Body temperature Systolic blood pressure Diastolic blood pressure Provider Name and Address Organization Details Last Updated DateTime 160.02 cm 51.2 kg/m2 091773. 19 g 62 /min 98 % 98 % 98.1 [degF] 124 mm[Hg] 78 mm[Hg] Lizeth Olson MA [facility] 15:37:43 Date Recorded Heart rate Respiratory rate Provider N blayne and Address Organization Details Last Updated DateTime 02/25/2024 62 /min 15 /min Sixto Berman MD [address], [address], [place], [address], [facility] 02/25/2024 15:58:46 Social History Question Answer Notes LastModified by Organizat ion Details LastModified Time Tobacco Smoking Status Never Smoker Not Available [facility] 05/31/2022 04:41:26 What Is Your Level Of Caffeine Consumption? Moderate Information not available 12/24/2023 In The 14 Days Before Symptom Onset, Have You Had Close Contact With A Laboratory-confirm ed COVID-19 While That Case Was Ill? No Information n ot available 12/24/2023 In The 14 Days Before Symptom Onset, Have You Had Close Contact With A Person Who Is Under Investigation For COVID-19 While That Person Was Ill? No Information not available 12/24/2023 What Type Of Diet Are You Following? REGULAR [email or web address] Information n ot available 09/26/2023 Do You Have An Electrostatic Air Filter? No Information not available 12/24/2023 Do You Have A Humidifier? No Information not available 12/24/2023 Do You Have Moisture Problems In Your Home? No Information not available 12/24/2023 What Was The Date Of Your Most Recent Tobacco Screening? 02/25/2024 Information not available 02/25/2024 Do You Have Any Pets? No [email or web address] Information not available 09/26/2023 Do You Use Your Seat Belt Or Car Seat Routinely? Yes Information not available 12/24/2023 Do You Have Smoke And Carbon Monoxide Detectors In Your Home? Yes [email or web address] Information not available 09/26/2023 [id number]|2024-08-14 14:24:58|2024-08-14 14:24:58|PM.IMPN||||"Progress Note: A&P Assessment and Plan (1) Elevated troponin: Code(s): R79.89 - Other specified abnormal findings of blood chemistry Status: Acute (2) GERD (gastroesophageal reflux disease): Code(s): K21.9 - Gastro-esophageal reflux disease without esophagitis Status: Acute (3) History of seizure disorder: Code(s): Z86.69 - Personal history of other diseases of the nervous system and sense organs Status: Acute (4) Seizure-like activity: Code(s): R56.9 - Unspecified convulsions Status: Acute Plan Seizure Unprovoked seizure Denies alcoholism increased Keppra 1000 mg p.o. b.i.d. Ativan 2 mg IV p.r.n. q.6 hours for seizures Neuro checks q.[address]: No acute intracranial findings Brain MRI performed on 06/06/2024: 1. No acute intracranial process or T2 hyperintense white matter lesions to suggest multiple sclerosis. 2. Empty sella Accu-Cheks EEG as per Neurology Neurology consulted Seizure precautions Non ST elevation MT Likely type 2 Order HbA1c 5.3, and lipid panel WNL sublingual nitro if needed Echocardiogram pending Denies any illicit drug use or smoking or alcoholism Reviewed EKG and CXR cardiology team on board DVT prophylaxis Medication reconciliation Subjective Date/time seen: 08/14/24 14:24 Interval history: per HPi: Patient is a 39-year-old female with a past medical history of seizures, presented to the ED because she is having an seizure-like activity. Per the chart review, the patient has a history of seizures since March, and she follows up with Dr. Donnelly. Her home dosage of Keppra 750 mg b.i.d., which she takes regularly without missing any dosage. Patient reports her seizure activity started last year, March 2024, after her mother . Tonight, the patient, after cooking, went to bed. Her son, who returned from college, came to her room and felt that she was in an angry mood. He returned to his room, which she does not recollect. Later, she felt sweaty and not feeling good, so she called her close friend and reported she might have seizures. Her close friend called her son, and he was able to help her orient her and bring her to the ED. In the ED, the patient had evidence of tongue biting, complained of mild chest tightness, and her troponin is elevated and currently on a heparin drip. During evaluation, no evidence of neurological deficit, including extremity numbness or weakness, urinary or bowel incontinence. Of note, the patient underwent a brain MRI on 06/06/2024, which shows empty sella. 08/14/24 Patient was seen and examined at bedside she is feeling fine denies any chest pain, abd pain, nausea or vomiting. cardiology team on board. ordered Echo. neurology team on board. keppra increased to 1000 mg BID. Review of Systems Review of Systems: All systems reviewed & are unremarkable except as noted in HPI. All systems reviewed & are unremarkable except as noted in HPI and below Exam Narrative: GENERAL: Well appearing, morbidly obese with BMI of 49.6, non-toxic, in no acute distress. HEAD: Normocephalic, atraumatic. EYES: PERRL/EOMI, conjunctivae clear bilaterally. No nystagmus. ENT: MMs moist, small abrasions to svetlana distal edges of tongue. No active bleeding. NECK: Supple. No meningeal signs. RESPIRATORY: Airway patent, respirations nonlabored. Clear to auscultation bilaterally, no rales, rhonchi, wheezing. CARDIOVASCULAR: Regular rate and rhythm without murmurs, rubs, or gallops. Peripheral pulses 2+ and equal bilaterally. MUSCULOSKELETAL: Moves all extremities. No gross deformities. SKIN: Warm, dry, normal color. No rashes. NEURO: A&O X3. Speech clear. Follows commands. CN II-XII intact. Sensation grossly intact. Steady gait. No ataxic movements. Strength 5/5 in upper and lower extremities bilaterally. No pronator drift. Equal broadcast traffic coordinator strength bilaterally. PSYCHIATRIC: Appropriate mood and affect. Normal interaction. Objective Data Vital Signs Vital Signs: Vital Signs - 24 hr 08/13/24 22:42 08/13/24 22:51 08/13/24 23:01 Temperature 98.0 F Pulse Rate 89 77 77 Respiratory Rate 20 17 Blood Pressure 139/81 129/79 129/78 Pulse Oximetry 99 98 98 Oxygen Delivery Room Air 08/13/24 23:16 08/14/24 00:00 08/14/24 00:20 Temperature Pulse Rate 73 64 Respiratory Rate 18 15 Blood Pressure 118/78 128/81 Pulse Oximetry 97 100 99 Oxygen Delivery Room Air 08/14/24 01:15 08/14/24 03:00 08/14/24 05:00 Temperature Pulse Rate 77 63 54 L Respiratory Rate 12 21 H Blood Pressure 141/81 H 104/77 Pulse Oximetry 100 99 Oxygen Delivery 08/14/24 05:29 08/14/24 05:50 08/14/24 06:00 Temperature 98.0 F Pulse Rate 64 59 L 58 L Respiratory Rate 17 18 Blood Pressure 145/92 H 105/76 Pulse Oximetry 96 100 Oxygen Delivery 08/14/24 08:00 05/15/25 08:00 08/14/24 08:00 Temperature 97.5 F L Pulse Rate 55 L 57 L Respiratory Rate 12 Blood Pressure 133/62 Pulse Oximetry 100 100 Oxygen Delivery Room Air 08/14/24 10:00 08/14/24 10:34 08/14/24 11:51 Temperature 97.7 F Pulse Rate 64 67 Respiratory Rate 20 Blood Pressure 133/66 Pulse Oximetry 99 100 Oxygen Delivery Room Air Intake/Output Intake/Output: Intake & Output 08/11/24 08/12/24 08/13/24 08/14/24 23:59 23:59 23:59 23:59 Intake Total 1107.3 Output Total 300 Balance 807.3 Meds/Results Medications: Active Medications Generic Name Dose Route Start Last Admin Trade Name Freq PRN Reason Stop Dose Admin Calcium Carbonate 200 mg 08/14/24 08:56 08/14/24 09:06 Calcium Carbonate (Tums) 500 Mg (200 Mg Elemental) PO 200 mg Q6H PRN Administration Indigestion Dextrose 12.5 gm 08/14/24 05:12 Dextrose 50% 25 Gm/50 Ml Syringe IV PUSH PRN PRN Hypoglycemia Protocol Glucagon 1 mg 08/14/24 05:12 Glucagon For Inj 1 Mg Vial IM PRN PRN Hypoglycemia Protocol Glucose 15 gm 08/14/24 05:12 Glucose Oral Gel 15 Gm Of Glucse In 37.5 Gm Tube PO PRN PRN Hypoglycemia Protocol Heparin Sodium (Porcine) 4,000 units 08/14/24 04:23 Heparin Sodium 5,000 Units/Ml Vial IV PUSH PRN PRN aPTT less than 55 seconds Heparin Sodium (Porcine) 3,500 units 08/14/24 04:23 Heparin Sodium 5,000 Units/Ml Vial IV PUSH PRN PRN aPTT 55 - 70 seconds Heparin Sodium/Dextrose 25,000 units in 250 mls @ 8 mls/hr 08/14/24 04:25 08/14/24 06:05 Heparin Sodium/D5w 100 Units/Ml IV CONT 800 units/hr .Q24H PARISH 8 mls/hr Titration Protocol 800 UNITS/HR Dextrose 1,000 mls @ 100 mls/hr 08/14/24 05:12 Dextrose 5% 1,000 Ml IVPB PRN PRN Hypoglycemia Protocol Levetiracetam 1,000 mg 08/14/24 21:00 Levetiracetam 500 Mg Tablet PO Q12HR PARISH Lorazepam 2 mg 08/14/24 05:10 Lorazepam Inj (*Crx) 2 Mg/Ml Vial IV PUSH Q6H PRN Seizures Perflutren Lipid Microsphere 0 ml 08/14/24 11:09 Perflutren Lipid Microspheres 1.5 Ml Vial Diluted To 10 Ml Total Volume IV PUSH 08/17/24 11:09 ONCE PRN adequate visualization Protocol Radiology Results: ITS Impressions Head CT 08/13/24 23:28 IMPRESSION: No acute intracranial findings. Labs Labs: Laboratory Results - last 24 hr 08/14/24 08/14/24 08/14/24 00:21 01:25 02:38 WBC 10.7 H RBC 4.05 L Hgb 11.1 L Hct 36.4 L MCV 89.9 MCH 27.4 MCHC 30.5 L RDW 15.7 H Plt Count 295 MPV 11.5 H Immature Gran % (Auto) 0.4 Neut % (Auto) 72.9 Lymph % (Auto) 19.1 Clayton % (Auto) 5.6 Eos % (Auto) 1.4 Baso % (Auto) 0.6 Lymph # (Auto) 2.05 Clayton # (Auto) 0.6 Eos # (Auto) 0.2 Baso # (Auto) 0.1 Abs Immat Gran (auto) 0.04 H Absolute Neuts (auto) 7.8 H Absolute Nucleated RBC 0.000 Band Neutrophils % Nucleated RBC % 0.0 Platelet Estimate Hypochromasia Crenated Cell Schistocytes PT INR APTT Sodium 141 Potassium 4.3 Chloride 110 H Carbon Dioxide 24 Anion Gap 7 BUN 14 D Creatinine 0.78 Estim Creat Clear Calc 108 Estimated GFR > 60 Glucose 105 POC Capillary Glucose Hemoglobin A1c 5.3 Lactic Acid 1.5 Calcium 8.4 Magnesium 2.2 Total Bilirubin 0.2 AST 26 ALT 18 Alkaline Phosphatase 53 Troponin I 0.023 Total Protein 7.0 Albumin 4.0 Triglycerides Cholesterol LDL Cholesterol Direct HDL Direct Urine Color Yellow Urine Appearance Clear Urine pH 7.5 Ur Specific O[place]phant 1.021 Urine Protein Negative Urine Glucose (UA) Negative Urine Ketones Trace H Ur Blood (Man) Negative Urine Nitrate Negative Urine Bilirubin Negative Urine Urobilinogen 1.0 Leukocyte Esterase Rfl Negative POC Urine HCG, Qual Negative 08/14/24 08/14/24 08/14/24 03:43 04:51 06:47 WBC 10.0 RBC 3.56 L Hgb 9.7 L Hct 33.5 L MCV 94.1 MCH 27.2 MCHC 29.0 L RDW 15.8 H Plt Count 268 MPV 11.4 H Immature Gran % (Auto) 0.2 Neut % (Auto) 57.1 Lymph % (Auto) 34.3 Clayton % (Auto) 6.3 Eos % (Auto) 1.4 Baso % (Auto) 0.7 Lymph # (Auto) 3.44 H Clayton # (Auto) 0.6 Eos # (Auto) 0.1 Baso # (Auto) 0.1 Abs Immat Gran (auto) 0.02 Absolute Neuts (auto) 5.7 Absolute Nucleated RBC 0.000 Band Neutrophils % Not Reportable Nucleated RBC % 0.0 Platelet Estimate Adequate Hypochromasia 1+ Crenated Cell 1+ Schistocytes None seen PT 14.3 INR 1.1 APTT 179.2 H* Sodium Potassium Chloride Carbon Dioxide Anion Gap BUN Creatinine Estim Creat Clear Calc Estimated GFR Glucose POC Capillary Glucose Hemoglobin A1c Lactic Acid Calcium Magnesium Total Bilirubin AST ALT Alkaline Phosphatase Troponin I 0.045 H* D 0.040 H* Total Protein Albumin Triglycerides 68 Cholesterol 153 LDL Cholesterol Direct 53 HDL Direct 72 Urine Color Urine Appearance Urine pH Ur Specific O[place]phant Urine Protein Urine Glucose (UA) Urine Ketones Ur Blood (Man) Urine Nitrate Urine Bilirubin Urine Urobilinogen Leukocyte Esterase Rfl POC Urine HCG, Qual 08/14/24 08/14/24 09:16 11:25 WBC RBC Hgb 10.1 L Hct 32.9 L MCV MCH MCHC RDW Plt Count MPV Immature Gran % (Auto) Neut % (Auto) Lymph % (Auto) Clayton % (Auto) Eos % (Auto) Baso % (Auto) Lymph # (Auto) Clayton # (Auto) Eos # (Auto) Baso # (Auto) Abs Immat Gran (auto) Absolute Neuts (auto) Absolute Nucleated RBC Band Neutrophils % Nucleated RBC % Platelet Estimate Hypochromasia Crenated Cell Schistocytes PT INR APTT Sodium Potassium Chloride Carbon Dioxide Anion Gap BUN Creatinine Estim Creat Clear Calc Estimated GFR Glucose POC Capillary Glucose 82 Hemoglobin A1c Lactic Acid Calcium Magnesium Total Bilirubin AST ALT Alkaline Phosphatase Troponin I Total Protein Albumin Triglycerides Cholesterol LDL Cholesterol Direct HDL Direct Urine Color Urine Appearance Urine pH Ur Specific O[place]phant Urine Protein Urine Glucose (UA) Urine Ketones Ur Blood (Man) Urine Nitrate Urine Bilirubin Urine Urobilinogen Leukocyte Esterase Rfl POC Urine HCG, Qual "
[2024-08-13 22:42] VITALS: BP 139/81; PULSE 89; TEMP 36.7; O2SAT 99
[2024-08-13 22:51] VITALS: BP 129/79; PULSE 77; RESP 20; O2SAT 98
[2024-08-13 23:01] VITALS: BP 129/78; PULSE 77; RESP 17; O2SAT 98
--- NOTE | 2024-08-13 23:15 | ECG_ITS ---
Test Date: 2024-08-13 23:34:36 Measurements Intervals [place] Rate: 68 P: 34 UT: 192 QRS: -25 QRSD: 82 T: 38 QT: 377 QTc: 402 Interpretive Statements SINUS RHYTHM LEFT ANTERIOR FASCICULAR BLOCK NO SIGNIFICANT CHANGE COMPARED TO PREVIOUS EKG. Electronically Signed On 08-14-2024 15:57:37 CDT by Sai Florence M.D.
[2024-08-13 23:16] VITALS: BP 118/78; PULSE 73; RESP 18; O2SAT 97
--- OUTSIDE RECORDS SUMMARY | 2024-08-13 23:17 | XMS_ITS | Continuity of Care Document ---
Author Organization [facility] Address [address] [place] [address] [place] [address] Phone Care Team Providers Care Extension Work Director Name Role Phone Douglas Leach MD Unavailable [...] Diagnoses Date Provider Providers Copied on Encounter [facility], [address] [place], [place], [address], tel:[phone] [facility] No Information Chip Cole. [address], [place], [address] , [place]. tel:[phone] OFFICE/OUTPA TIENT VISIT, EST [facility], [address] [place], [place], [address], tel:[phone] [facility] GERD1 (chief complaint) GERD w/o esophagitis 4 Hany Cole. [address], [place], [place], [address] , [place]. tel:[phone] OFFICE/OUTPA TIENT VISIT, EST [facility], [address], [place], [place], [address], [place] tel:[phone] [facility] syncope1 (chief complaint) hidradenit is1 (chief complaint) Syncope and collapseEpilepsyHid radenitis suppurativa 4 Hany Cole. [address], [place], [place], [address] , [place]. tel:[phone] OFFICE/OUTPA TIENT VISIT, EST [facility], [address], [place], [place], [address], [place] tel:[phone] [facility] Medicine low iron1 (chief complaint) A1c (chief complaint) obesity1 (chief complaint) hidradenit is1 (chief complaint) sleep apnea1 (chief complaint) ear pain1 (chief complaint) Abnormal weight gainIron deficiencyObstructi ve sleep apnea hypopneaHidradeniti s suppurativaHypergly cemiaOtalgia, right ear 4 Hany Cole. [address], [place], [place], [address] , [place]. [phone] PREV VISIT, EST, AGE 18-39 [facility], [address], [place], [place], [address], [place] tel:[phone] [facility] Physical (chief complaint) Encounter for general adult medical exam w abnormal findingsGERD w/o esophagitisType 2 diabetes mellitus without complicationsObstru ctive Sleep Apnea HypopneaAbnormal weight gainBariatric surgery status 4 Hany Cole. [address], [place], [place], [address] , [place]. [phone] [facility], [address], [place], [place], [address], [place] tel:[phone] [facility] No Information May-0 4 Hany Cole. [address], [address], [place], [place], [address] , [place]. [phone] OFFICE/OUTPA TIENT VISIT, [facility], [address], [place], [place], [address], [place] tel:[phone] [facility] GERD (chief complaint) GERD1 (chief complaint) skin1 (chief complaint) asthma1 (chief complaint) weight1 (chief complaint) Mild intermittent asthma, uncomplicatedGERD w/o esophagitisAbnormal weight gainCellulitis of abdominal wall 3 Hany Akers [address], [address], [place], [place], [address] , [place]. [phone] OFFICE/OUTPA TIENT VISIT, [facility], [address], [place], [place], [address], [place] tel:[phone] [facility] weight1 (chief complaint) asthma1 (chief complaint) IBS-C (chief complaint) sleep apnea1 (chief complaint) Irritable bowel syndrome with constipationMild intermittent asthma, uncomplicatedType 2 diabetes mellitus without complicationsPrimar y central sleep apneaEssential (primary) hypertension 3 Hany Akers [address], [address], [place], [place], [address] , [place]. [phone] OFFICE/OUTPA TIENT VISIT, [facility], [address], [place], [place], [address], [place] tel:[phone] [facility] IBS1 (chief complaint) GERD1 (chief complaint) weight1 (chief complaint) GERD w/o esophagitisIrritabl e bowel syndrome with constipationAbnorma l weight gain 3 Hany Cole. [address], [address], [place], [place], [address] , [place]. tel:[phone] PREV VISIT, EST, AGE 18-39 [facility], [address], [place], [place], [address], [place] tel:[phone] [facility] physical (chief complaint) Encounter for general adult medical exam w abnormal findingsIrritable bowel syndrome with constipationGERD w/o esophagitisAbnormal weight gainBenign intracranial HTN 3 Hany Cole. [address], [address], [place], [place], [address] , [place]. [phone] OFFICE/OUTPA TIENT VISIT, EST [facility], [address], [place], [place], [address], [place] tel:[phone] [facility] abd pain1 (chief complaint) HTN (chief complaint) Essential (primary) hypertensionOther cholelithiasis without obstructionGenerali zed abdominal painConstipation 2 Hany Akers [address], [address], [place], [place], [address] , [place]. tel:[phone] OFFICE/OUTPA TIENT VISIT, [facility], [address], [place], [place], [address], [place] tel:[phone] [facility] abd pain1 (chief complaint) ADD (chief complaint) HTN (chief complaint) vision1 (chief complaint) Abdominal painOther cholelithiasis without obstructionEssentia l (primary) hypertensionBenign intracranial HTNVisual disturbanceAttentio n deficitConstipation 2 Hany Akers [address], [address], [place], [place], [address] , [place]. tel:[phone] PREV VISIT, EST, AGE 18-39 [facility], [address], [place], [place], [address], [place] [phone] [facility] physical (chief complaint) Encounter for general adult medical examination without abnormal findings 2 Hany Akers [address], [place], [place], [address] , [place]. tel: [phone] OFFICE/OUTPA TIENT VISIT, [facility], [address], [place], [place], [address], [place] tel:[phone] [facility] ICH (chief complaint) HTN (chief complaint) anxiety1 (chief complaint) Benign intracranial HTNEssential (primary) hypertensionVisual disturbanceGenerali zed Anxiety Disorder 1 Hany Akers [address], [place], [place], [address] , . [phone] OFFICE/OUTPA TIENT VISIT, EST [facility], [address] [place], [address], [place] tel:[phone] [facility] brain mass1 (chief complaint) HTN (chief complaint) anxiety1 (chief complaint) Essential (primary) hypertensionBenign intracranial HTNNeoplasm of brainGeneralized Anxiety Disorder 1 Hany Akers [address], [place], [place], [address] , [place]. tel:[phone] OFFICE/OUTPA TIENT VISIT, [facility], [address] [place], [address], [place] tel:[phone] [facility] HTN (chief complaint) headache1 (chief complaint) Essential (primary) hypertensionVisual disturbanceBenign intracranial HTNHeadache 1 Hany Akers [address], [place], [place], [address] , [place]. [phone] OFFICE/OUTPA TIENT VISIT, EST [facility], [address] [place], [address], [place] tel:[phone] [facility] vision1 (chief complaint) HTN (chief complaint) sleep apnea1 (chief complaint) Essential (primary) hypertensionVisual disturbanceSleep apneaOther disorder of optic nerve of eye 1 Hany Akers [address], [place], [place], [address] , [place]. tel:[phone] PREV VISIT, EST, AGE 18-39 [facility], [address], [place], [place], [address], [place] tel:[phone] [facility] physical (chief complaint) Encounter for general adult medical examination without abnormal findings 1 Hany Cole. [address], [place], [place], [address] , [place]. tel:[phone] OFFICE/OUTPA TIENT VISIT, [facility], [address], [place], [place], [address], [place] tel:[phone] [facility] toe pain1 (chief complaint) a1c (chief complaint) cough1 (chief complaint) Other acquired hammer toe of right footType 2 diabetes mellitus without complicationsCoughB ariatric surgery status 1 Hany Cole. [address], [address], [place], [place], [address] , [place]. tel:[phone] OFFICE/OUTPA TIENT VISIT, [facility], [address], [place], [place], [address], [place] tel:[phone] [facility] knee pain1 (chief complaint) COVID (chief complaint) Pain in right kneeViral infection 0 Hany Cole. [address], [place], [place], [address] , [place]. tel:[phone] OFFICE/OUTPA TIENT VISIT, [facility], [address], [place], [place], [address], [place] tel:[phone] [facility] sick (chief complaint) Viral infection 0 Hany Cole. [address], [address], [place], [place], [address] , [place]. tel:[phone] OFFICE/OUTPA TIENT VISIT, [facility], [address], [place], [place], [address], [place] tel:[phone] [facility] eczema1 (chief complaint) peanut allergy1 (chief complaint) obesity1 (chief complaint) sleep apnea1 (chief complaint) Abdominal painEczemaSleep apnea, unspecifiedHidraden itis suppurativaAllergy to peanuts 0 Hany Cole. [address], [address], [place], [place], [address] , [place]. [phone] Referring Provider: Vimal Law [address], [place], [place], [address]. tel:[phone] OFFICE/OUTPA TIENT VISIT, [facility], [address], [place], [place], [address], [place] [phone] [facility] LFT (chief complaint) abd pain1 (chief complaint) DM (chief complaint) obesity1 (chief complaint) Type 2 diabetes mellitus without complicationsAbdomi nal painLiver diseaseObesity 0 Hany Cole. [address], [place], [place], [address] , [place]. [phone] Referring Provider: Vimal Law [address], [place], [place], [address]. tel:[phone] OFFICE/OUTPA TIENT VISIT, [facility], [address], [place], [place], [address], [place] tel:[phone] [facility] LFT (chief complaint) abd pain1 (chief complaint) obesity1 (chief complaint) glucose (chief complaint) Liver diseaseAbdominal painObesityGastriti s w/o bleedingHyperglycem ia 0 Hany Cole. [address], [address], [place], [place], [address] , [place]. [phone] Referring Provider: Vimal Law [address], [place], [place], [address]. tel:[phone] OFFICE/OUTPA TIENT VISIT, [facility], [address], [place], [place], [address], [place] tel:[phone] [facility] LFT (chief complaint) glucose1 (chief complaint) obesity1 (chief complaint) Abdominal painFatty liverHyperglycemiaO besity 0 Hany Cole. [address], [address], [place], [place], [address] , [place]. [phone] Referring Provider: Vimal Law [address], [place], [place], [address]. tel:[phone] PREV VISIT, EST, AGE 18-39 [facility], [address], [place], [place], [address], [place] tel:[phone] [facility] PHysical (chief complaint) Encntr for general adult medical exam w/o abnormal findings 0 Hany Cole. [address], [place], [place], [address] , [place]. tel:[phone] Referring Provider: Vimal Law [address], [place], [place], [address]. tel:[phone] OFFICE/OUTPA TIENT VISIT, EST [facility], [address], [place], [place], [address], [place] tel:[phone] [facility] GERD1 (chief complaint) obesity1 (chief complaint) sleep apnea1 (chief complaint) Body mass index (BMI) 60.0-69.9, adultGERD w/o esophagitisSleep apnea, unspecifiedAbdomina l pain 8 Hany Cole. [address], [address], [place], [place], [address] , [place]. tel:[phone] Referring Provider: Vimal Law [address], [place], [place], [address]. tel:[phone] OFFICE/OUTPA TIENT VISIT, EST [facility], [address], [place], [place], [address], [place] tel:[phone] [facility] GERD1 (chief complaint) sleep apnea1 (chief complaint) hidradenit is1 (chief complaint) obesity1 (chief complaint) Body mass index (BMI) 60.0-69.9, adultSleep apneaGERD w/o esophagitisHidraden itis suppurativa 0-201 8 Hany Akers [address], [address], [place], [place], [address] , [place]. tel:[phone] Referring Provider: Vimal Law [address], [place], [place], [address]. tel:[phone] PREV VISIT, EST, AGE 18-39 [facility], [address], [place], [place], [address], [place] tel:[phone] [facility] sleep apnea1 (chief complaint) GERD1 (chief complaint) abd pain1 (chief complaint) obesity1 (chief complaint) skin (chief complaint) Body mass index (BMI) 60.0-69.9, adultSleep apnea, unspecifiedOther cholelithiasis without obstructionHidraden itis suppurativaEncounte r for general adult medical exam w abnormal findingsEncntr for general adult medical exam w/o abnormal findings 8 Hany Akers [address], [place], [place], [address] , [place]. tel:[phone] Referring Provider: Vimal Law [facility], [address]. tel:[phone] OFFICE/OUTPA TIENT VISIT, EST [facility], [address] [place], [address], [place] tel:[phone] [facility] obesity1 (chief complaint) gluose1 (chief complaint) vitamin D (chief complaint) Body mass index (BMI) 60.0-69.9, adultAbnormal weight gainVitamin D deficiency, unspecifiedHypergly cemia 8 Hany Cel[address], [place], [place], [address] , [place]. tel:[phone] Referring Provider: Vimal Law [address], [place], [place], [address]. tel:[phone] OFFICE/OUTPA TIENT VISIT, EST [facility], [address], [place], [place], [address], [place] tel:[phone] [facility] sleep apnea1 (chief complaint) obeisty1 (chief complaint) Body mass index (BMI) 60.0-69.9, adultSleep apnea 8 Hany Celis [address], [place], [place], [address] , [place]. [phone] Referring Provider: Vimal Law [address], [place], [place], [address]. tel:[phone] OFFICE/OUTPA TIENT VISIT, [facility], [address], [place], [place], [address], [place] [phone] [facility] obesity (chief complaint) obesity1 (chief complaint) Abnormal weight gainBody mass index (BMI) 60.0-69.9, adult 8 Hany Akers [address], [place], [place], [address] , [place]. [phone] Referring Provider: Vimal Law [address], [place], [place], [address]. tel:[phone] OFFICE/OUTPA TIENT VISIT, [facility], [address], [place], [place], [address], [place] tel:[phone] [facility] obesity1 (chief complaint) sleep apnea1 (chief complaint) Body mass index (BMI) 60.0-69.9, adultSleep apnea 7 Hany Celis [address], [place], [place], [address] , [place]. [phone] Referring Provider: Vimal Law [address], [place], [place], [address]. tel:[phone] OFFICE/OUTPA TIENT VISIT, [facility], [address], [place], [place], [address], [place] tel:[phone] [facility] obesity (chief complaint) vitmain d (chief complaint) glucose1 (chief complaint) sleep apnea1 (chief complaint) Vitamin D deficiency, unspecifiedHypergly cemiaBody mass index (BMI) 60.0-69.9, adultSleep apnea, unspecified 7 Hany Akers [address], [address], [place], [place], [address] , [place]. tel:[phone] Referring Provider: Vimal Law [address], [place], [place], [address]. tel:[phone] OFFICE/OUTPA TIENT VISIT, [facility], [address], [place], [place], [address], [place] tel:[phone] [facility] sleep apnea1 (chief complaint) obesity1 (chief complaint) Body mass index (BMI) 60.0-69.9, adultSleep apnea, unspecified 7 Hany Cole. [address], [address], [place], [place], [address] , [place]. [phone] Referring Provider: Vimal Law [address], [place], [place], [address]. tel:[phone] PREV VISIT, [facility], AGE 18-39 [facility], [address], [place], [place], [address], [place] tel:[phone] [facility] Physical (chief complaint) Encntr for general adult medical exam w/o abnormal findings 7 Hany Cole. [address], [address], [place], [place], [address] , [place]. [phone] Referring Provider: Vimal Law [address], [place], [place], [address]. tel:[phone] OFFICE/OUTPA TIENT VISIT, [facility], [address], [place], [place], [address], [place] tel:[phone] [facility] sleep apnea (chief complaint) eczema1 (chief complaint) hematuria (chief complaint) obesity1 (chief complaint) Body mass index (BMI) 50-59.9 , adultSleep apnea, unspecifiedHematuri aEczema 3 6 Hany Cole. [address], [address], [place], [place], [address] , [place]. [phone] Referring Provider: Vimal Law [address], [place], [place], [address]. tel:[phone] PREV VISIT, EST, AGE 18-39 [facility], [address], [place], [place], [address], [place] [phone] [facility] physical (chief complaint) Encntr for general adult medical exam w/o abnormal findings 6 Hany Cole. [address], [place], [place], [address] , [place]. tel: [phone] Referring Provider: Vimal Law [address], [place], [place], [address]. tel:[phone] OFFICE/OUTPA TIENT VISIT, [facility], [address], [place], [place], [address], [place] [phone] [facility] sleep apnea (chief complaint) eczama (chief complaint) obeisty (chief complaint) Dietary surveillance and counselingObesity, unspecifiedEczemaSl eep apnea syndromeBMI 50.0 to 59.9 5 Hany Cole. [address], [place], [place], [address] , [place]. [phone] Referring Provider: Vimal Law [address], [place], [place], [address]. tel:[phone] OFFICE/OUTPA TIENT VISIT, [facility], [address], [place], [place], [address], [place] [phone] [facility] PHysical (chief complaint) Dietary surveillance and counselingRoutine Medical ExamRoutine Medical ExamDysphagiaRash and other nonspecific skin eruptionDYSPHAGIA NEC 4 Hany Cole. [address], [address], [place], [place], [address] , [place]. tel:[phone] Referring Provider: Vimal Law [address], [place], [place], [address]. tel:[phone] OFFICE/OUTPA TIENT VISIT, [facility], [address], [place], [place], [address], [place] tel:[phone] [facility] abdominal pain (chief complaint) Dietary surveillance and counselingAbdominal PainGERDCalculus of gallbladder without mention of cholecystitis, without mention of obstruction 3 Hany Cole. [address], [address], [place], [place], [address] , [place]. [phone] Referring Provider: Vimal Law [address], [place], [place], [address]. tel:[phone] OFFICE/OUTPA TIENT VISIT, EST [facility], [address], [place], [place], [address], [place] tel:[phone] [facility] abdominal pain (chief complaint) Dietary surveillance and counselingAbdominal PainHemorrhage of rectum and anus 3 Hany Cole. [address], [address], [place], [place], [address] , [place]. tel:[phone] Referring Provider: Vimal Law [address], [place], [place], [address]. tel:[phone] OFFICE/OUTPA TIENT VISIT, EST [facility], [address], [place], [place], [address], [place] tel:[phone] [facility] Headache (chief complaint) Cough (chief complaint) obesity (chief complaint) HeadacheBronchitis, AcuteObesity May- 3 Hany Akers [address], [place], [place], [address] , [place]. tel:[phone] Referring Provider: Vimal Law [address], [place], [place], [address]. tel:[phone] PREV VISIT, EST, AGE 18-39 [facility], [address], [place], [place], [address], [place] tel:[phone] [facility] headache (chief complaint) eczema (chief complaint) Dietary surveillance and counselingRoutine Medical ExamRoutine Medical Exam 2 Hany Akers [address], [place], [place], [address] , . tel:[phone] Referring Provider: Vimal Law [address], [place], [place], [address]. tel:[phone] Family History Family Member Type Diagnosis Age [...] ordered Referral Referred To: LAVELLE WAYNE [facility], [id number] Ordered: Referrals: Allopathic & Osteopathic Physicians : Internal Medicine : Pulmonary Disease. LAVELLE WAYNE. Evaluate and treat ordered Referral Ordered: Huey Borrego -Allopathic & Osteopathic Physicians : Surgery (related to Abnormal weight gain) ordered Referral Referred To: Huey Borrego [address], [id number] Ordered: Referrals: Allopathic & Osteopathic Physicians : Surgery. Huey Borrego. Evaluate and treat ordered Referral Referred To: Juvenal Land [address], [phone] Ordered: Referrals: Charles. Emery Evaluate and treat ordered Referral Ordered: COLONOSCOPY AND BIOPSY ordered Referral Ordered: MRI BRAIN W/DYE ordered Referral Referred To: Juan Pablo Zurita MD [address]
[place], [address] Ordered: Referrals: Juan Pablo Zurita MD. Evaluate and treat ordered Referral Ordered: MRI BRAIN W/O DYE ordered Referral Ordered: Allergy and Immunology (related to Encounter for general adult medical examination without abnormal findings) ordered Referral Ordered: Referrals: Allergy and Immunology. Evaluate and treat ordered Referral Ordered: HAYDEN FORD -Podiatric Medicine & Surgery Service Providers : Slot Operations Manager (related to Other acquired hammer toe of right foot) ordered Referral Referred To: HAYDEN FORD [facility] [place], [place], [phone] Ordered: Referrals: Podiatric Medicine & Surgery Service Providers : Slot Operations Manager. HAYDEN FORD. Evaluate and treat ordered Referral [...] MD 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 Pt was kind of confused upon awakening. Pt had head CT done at ER which showed bilateral basal ganglia calcifications her lab were otherwise unremarkable. Pt states that she called neurologist at [place] for follow up but no arron until [...] Pt never receive d the semaglutide from [facility]. Pt is s/p gastric sleeve but she has not been losing more weight hidradenitis1 Pt has recurrent hidradenitis around low pelvic area Pt has history of surgery for armpit in the past. 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 [...] for a while Pt denies any vision [id number]|2024-08-14 03:22:24|2024-08-14 03:22:24|PC.NURSE||||"Attempted to draw 3 hr troponin and was unsuccessful. ED physician and charge nurse has been notified."
--- OUTSIDE RECORDS SUMMARY | 2024-08-13 23:17 | XMS_ITS | Clinical Summary ---
Author Organization [facility] [employer] [facility] Address [address] [place] [address] Care Team Providers Care Oracle Database Analyst Name Role Phone Douglas Leach MD Primary Care Provider [phone] [facility],non-Critical access hospitalates and Associated Physician Practices is amultiple site organization consisting of ambulatory clinics and hospital sitesin [place], [place], [place] and [place]. This disclosure is being madepursuant to the Care Everywhere program and may not contain all information available regarding this patient. Last updated 17.[facility] [employer] [facility] Allergies Active Allergy Reactions Criticality Noted Date [...] 0.1 % nasal sprayIndications:S easonal Allergic Rhinitis [place] 1 (one) spray into each nostril 2 [...] (11/18/2020): Added automatically from request for surgery [id number] Gallstone 01/06/2013 Gastroesophageal reflux disease 01/06/2013 Abdominal pain 12/06/2012 Hemorrhage of rectum and anus 12/06/2012 Acute bronchitis 06/26/2012 Headache 06/26/2012 Resolved Problems Problem Noted Date Diagnosed Date Resolved Date Acute otitis media 11/18/2020 Cough 11/18/2020 12/16/2020 Upper respiratory infection 11/18/2020 12/02/2020 Encounters Date Type Department Care Team Description 06/20/2024 9:00 AM CDT Office Visit [facility] - Allergy [address] [place] [phone] Wyatt Morrow MD Salomone, John, MD Food allergy (Primary Dx); Rash and nonspecific skin eruption; Non-seasonal allergic rhinitis due to other allergic trigger; Gastroesophageal reflux disease without esophagitis; Mixed rhinitis; Hidradenitis 06/20/2024 Travel 06/16/2024 3:30 PM CDT Office Visit [facility] - Dermatology [address] [place] [phone] Wyatt Morrow MD Immunosuppression (Primary Dx); Hidradenitis suppurativa; Encounter for long-term (current) use of high-risk medication 06/16/2024 Travel 06/05/2024 Telephone [facility] - Dermatology [address] [place] [phone] Wyatt Morrow MD Refill Request 06/02/2024 Refill [facility] - Dermatology [address] [place] [phone] Wyatt Morrow MD Refill Request 05/21/2024 Refill [facility] - Dermatology [facility] [place] [address] Wyatt Morrow MD Refill Request from Last [...] on file Legal Sex Female 9:31 AM DIAMOND DIE DRILLER Gender Identity Not on file Sexual Orientation [...] (5' 4 ) 05/19/2021 10:1 6 AM DIAMOND DIE DRILLER Body Mass Index 50.02 05/19/2021 10:16 AM DIAMOND DIE DRILLER Plan of Treatment Upcoming Encounters Date Type Department Care Team (Late st Contact Info) Description 10/17/2024 11:00 AM CDT Office Visit [facility] - Allergy [address] [place] [phone] Yann Manuel MD [address] [place] [address] 12/08/2024 11:10 AM CDT Office Visit [facility] - Dermatology [address] [place] [address] [phone] [place] [address] [phone] Health Maintenance Due Date Last Done Comments [...] a test for HCV RNA (test code 14538) is suggested. For additional information please refer to http://MoneyDesktop.MXP4/faq/VVM70x8 (This link is being provided for informational/ educational purposes only.) Test Performed at: [place] [address] JOSEPHINE URBINA MD Blood BLOOD SPECIMEN / Unknown 01/18/2024 9:22 AM CDT 01/18/2024 9:23 AM CDT Wyatt Morrow MD LAB - CHEMISTRY ORDERABLES Final Result [facility] [address] [place] [address] * HIV-1 HIV-2 ANTIBODY + HIV P24 AG PANEL (01/18/2024 9:22 AM CDT) HIV Screen 4th Generation w Reflex NON-REACT STONEY NON-REACT STNOEY [facility] Comment: HIV-1 antigen and HIV-1/HIV-2 antibodies [...] purpose. For additional information please refer to http://MoneyDesktop.MXP4/faq/WNU914 (This link is being provided for informational/ educational purposes only.) The performance of this assay has not been clinically validated in patients less than 2 years old. Test Performed at: [facility] [address] JOSEPHINE URBINA MD Blood BLOOD SPECIMEN / Unknown 01/18/2024 9:22 AM CDT 01/18/2024 9:23 AM CDT Wyatt Morrow MD LAB - CHEMISTRY ORDERABLES Final Result Performing Organization Address City/[facility]/ZIP Co de Phone Number [address] [address] * LIPID PROFILE (01/18/2024 9:22 AM CDT) [...] Jorge A SS et al. THERESA. 2013;310(19): 3559-4104 (http://education.W[employer] Sabi Ecofashionconcept.com/faq/PQK084) CHOL/HDLC RATIO 2.9 <5.0 (calc) [facility] Non HDL Cholesterol 109 <130 mg/dL (calc) [facility] Comment: For patients with diabetes plus 1 major ASCVD risk factor, treating to a non-HDL-C goal of <100 mg/dL (LDL-C of <70 mg/dL) is considered a therapeutic option. Test Performed at: [facility] [address] JOSEPHINE UBRINA MD Blood BLOOD SPECIMEN / Unknown 01/18/2024 9:22 AM CDT 01/18/2024 9:23 AM CDT Wyatt Morrow MD LAB - CHEMISTRY ORDERABLES Final Result Performing Organization Address City/[facility]/ZIP Co de Phone Number [address] [address] from Last 3 Months or Most Recently Relevant to Health Maintenance Insurance [facility] Care Teams Oracle Database Analyst Relationship Specialty Start Date End Date Douglas Leach MD PCP - General 03/04/20
--- OUTSIDE RECORDS SUMMARY | 2024-08-13 23:17 | XMS_ITS | Referral Summary ---
Author Organization [facility] Address [address] [place] [phone] Care Team Providers Care Gas Regulator Repairer Name Role Phone Douglas Leach MD Primary Care Provider [phone] Juan Pablo Zurita MD Unavailable [phone] Lizeth Pozo OD Unavailable [phone] Encounters Date Type Department Care Team Description 06/09/2024 Results Follow-Up [facility] ENT [address] [place] [address] Mariposa Carlin, SHIPPING PACKER 06/06/2024 8:00 AM FARM TRACTOR MECHANIC - 06/06/2024 11:59 PM FARM TRACTOR MECHANIC Hospital Encounter [facility] Imaging and Radiology [address] [place] [address] Pulsatile tinnitus, right ear Discharge Disposition: Discharge to home or self care 05/27/2024 2:30 PM FARM TRACTOR MECHANIC [facility] [address] [place] [address] Outpatient Health 4th Floor [address] [place] [address] Roxy Godinez MD Seizures (HCC) [...] (03/22/2023): Added automatically from request for surgery [id number] Abdominal pain 12/06/2012 Hemorrhage of rectum and [...] on file Legal Sex Female 1:59 PM FARM TRACTOR MECHANIC Gender Identity Not on file Sexual Orientation Not on file Last Filed Vital Signs Vital Sign Reading Time Taken Comments Blood Pressure 120/72 05/27/2024 2:20 PM FARM TRACTOR MECHANIC Pulse 70 05/27/2024 2:20 PM FARM TRACTOR MECHANIC Temperature 36.1 C (96.9 F) 05/27/2024 2:20 PM FARM TRACTOR MECHANIC Respiratory Rate 20 12/28/2023 9:1 7 AM CDT Oxygen Saturation 100% 05/27/2024 2:20 PM FARM TRACTOR MECHANIC Inhaled Oxygen Concentration - - Weight 128.1 kg (282 lb 6.4 oz) 05/27/2024 2:20 PM FARM TRACTOR MECHANIC Height 162.6 cm (5' 4 ) 05/27/2024 2:20 PM FARM TRACTOR MECHANIC Body Mass Index 48.47 05/27/2024 2:20 PM FARM TRACTOR MECHANIC Plan of Treatment Not on file Procedures Procedure Name Priority Date/Time Associated Diagnosis Comments CTA HEAD NECK W WO CONTRAST Schedule Routine, Read Routine (OP Routine) 06/06/2024 9:04 AM FARM TRACTOR MECHANIC Pulsatile tinnitus, right ear from Last 3 Months Results * CTA Head Neck W WO Contrast (06/06/2024 9:04 AM FARM TRACTOR MECHANIC) Anatomical Region Laterality Modality Head and Neck N/A Computed Tomogra phy 06/06/2024 10:5 6 AM FARM TRACTOR MECHANIC Impressions 06/06/2024 12:53 PM FARM TRACTOR MECHANIC Dehiscence of the right sigmoid sinus plate which may be associated with pulsatile tinnitus. High though intact right jugular bulb. No other vascular etiology for pulsatile tinnitus is identified. No cervical carotid artery stenosis. No intracranial large vessel occlusion or significant stenosis. Electronically signed by: Nilsa Agudelo M.D. Narrative 06/06/2024 12:53 PM FARM TRACTOR MECHANIC EXAMINATION: CTA HEAD NECK W WO CONTRAST HISTORY: Tinnitus, pulsatile pulsatile tinnitus TECHNIQUE: Noncontrast CT of the head was obtained from skull base to vertex, according to standard protocol. Subsequently, CT angiogram of the neck and [place] of [place] was performed after the uneventful [...] Artery: no occlusion or significant stenosis L DEVELOPER ADVOCATE: no occlusion or significant stenosis R DEVELOPER ADVOCATE: no occlusion or significant stenosis The major [...] Subsequently, CT angiogram of the neck and [place] of [place] was performed after the uneventful [...] Artery: no occlusion or significant stenosis L DEVELOPER ADVOCATE: no occlusion or significant stenosis R DEVELOPER ADVOCATE: no occlusion or significant stenosis The major [...] from Last 3 Months Insurance [facility] Care Teams Gas Regulator Repairer Relationship Specialty Start Date End Date Douglas Leach MD PCP - General 03/14/17 Juan Pablo Zurita MD Consulting Physician Neurosurgery 01/27/21 Lizeth Pozo, TANIA [address] [place] [address] Primary Eye Care Provider Optometry 01/27/21
--- OUTSIDE RECORDS SUMMARY | 2024-08-13 23:17 | XMS_ITS | Clinical Summary ---
Author Organization [facility] Address [address] [place] [phone] Care Team Providers Care Sales Warehouse Driver Name Role Phone Douglas Leach MD Primary Care Provider + [phone] Juan Pablo Zurita MD Unavailable [phone] Lizeth Pozo OD Unavailable [phone] Allergies Active Allergy Reactions Criticality Noted Date [...] (03/22/2023): Added automatically from request for surgery [id number] Abdominal pain 12/06/2012 Hemorrhage of rectum and anus 12/06/2012 Acute bronchitis 06/26/2012 Headache 06/26/2012 Chronic migraine without aura BMI 45.0-49.9, adult OBEY (obstructive sleep apnea) Hyperopia of both eyes Encounters Date Type Department Care Team Description 06/09/2024 Results Follow-Up [facility] E[facility] [address] [facility] [facility] [address] [place] [address] Mariposa Carlin, EMERGENCY COMMUNICATIONS OPERATOR 06/06/2024 8:00 AM BODY SHOP FLOORPERSON - 06/06/2024 11:59 PM BODY SHOP FLOORPERSON Hospital Encounter [facility] Imaging and Radiology [address] [place] [address] Pulsatile tinnitus, right ear Discharge Disposition: Discharge to home or self care 05/27/2024 2:30 PM BODY SHOP FLOORPERSON [facility] 4th Floor [address] [place] [address] Roxy Godinez MD Seizures (HCC) [...] on file Legal Sex Female 1:59 PM BODY SHOP FLOORPERSON Gender Identity Not on file Sexual Orientation Not on file Obstetrics History Last Filed Vital Signs Vital Sign Reading Time Taken Comments Blood Pressure 120/72 05/27/2024 2:20 PM BODY SHOP FLOORPERSON Pulse 70 05/27/2024 2:20 PM BODY SHOP FLOORPERSON Temperature 36.1 C (96.9 F) 05/27/2024 2:20 PM BODY SHOP FLOORPERSON Respiratory Rate 20 12/28/2023 9:17 AM CDT Oxygen Saturation 100% 05/27/2024 2:20 PM BODY SHOP FLOORPERSON Inhaled Oxygen Concentration - - Weight 128.1 kg (282 lb 6.4 oz) 05/27/2024 2:20 PM BODY SHOP FLOORPERSON Height 162.6 cm (5' 4 ) 05/27/2024 2:20 PM BODY SHOP FLOORPERSON Body Mass Index 48.47 05/27/2024 2:20 PM BODY SHOP FLOORPERSON Plan of Treatment Health Maintenance Due Date [...] Read Routine (OP Routine) 06/06/2024 9:04 AM BODY SHOP FLOORPERSON Pulsatile tinnitus, right ear from Last 3 Months Results * CTA Head Neck W WO Contrast (06/06/2024 9:04 AM BODY SHOP FLOORPERSON) Anatomical Region Laterality Modality Head and Neck N/A Computed Tomogra phy 06/06/2024 10:5 6 AM BODY SHOP FLOORPERSON Impressions 06/06/2024 12:53 PM BODY SHOP FLOORPERSON Dehiscence of the right sigmoid sinus plate which may be associated with pulsatile tinnitus. High though intact right jugular bulb. No other vascular etiology for pulsatile tinnitus is identified. No cervical carotid artery stenosis. No intracranial large vessel occlusion or significant stenosis. Electronically signed by: Nilsa Agudelo M.D. Narrative 06/06/2024 12:53 PM BODY SHOP FLOORPERSON EXAMINATION: CTA HEAD NECK W WO CONTRAST HISTORY: Tinnitus, pulsatile pulsatile tinnitus TECHNIQUE: Noncontrast CT of the head was obtained from skull base to vertex, according to standard protocol. Subsequently, CT angiogram of the neck and [place] of [place] was performed after the uneventful [...] Artery: no occlusion or significant stenosis L RFID SYSTEMS ARCHITECT: no occlusion or significant stenosis R RFID SYSTEMS ARCHITECT: no occlusion or significant stenosis The major [...] Subsequently, CT angiogram of the neck and [place] of [place] was performed after the uneventful [...] Artery: no occlusion or significant stenosis L RFID SYSTEMS ARCHITECT: no occlusion or significant stenosis R RFID SYSTEMS ARCHITECT: no occlusion or significant stenosis The major [...] signed by: Nilsa Agudelo M.D. Mariposa Carlin EMERGENCY COMMUNICATIONS OPERATOR IMG CT PROCEDURES Final Result from Last 3 Months Insurance [facility] Care Teams Sales Warehouse Driver Relationship Specialty Start Date End Date Douglas Leach MD PCP - General 03/14/17 Juan Pablo Zurita MD Consulting Physician Neurosurgery 01/27/21 Lizeth Pozo OD [address] [place] [address] Primary Eye Care Provider Optometry 01/27/21
--- NOTE | 2024-08-13 23:46 | ED_ITS ---
HPI - Seizure General Chief Complaint: Seizure <LAKIA Correa Last Filed: 08/15/24 16:58> Stated Complaint: possible seizure <LAKIA Correa Last Filed: 08/15/24 16:58> Time Seen by Provider: 08/13/24 22:42 <LAKIA Correa Last Filed: 08/15/24 16:58> Source: patient <LAKIA Correa Last Filed: 08/15/24 16:58> Mode of arrival: ambulatory <LAKIA Correa Last Filed: 08/15/24 16:58> Limitations: no limitations <LAKIA Correa Last Filed: 08/15/24 16:58> History of Present Illness HPI Narrative: Patient is a 39-year-old female who presents the ED with report of possible seizure-like activity. Patient reports a history of seizure activities since March. She states she had a witnessed seizure at the end March. She follows with Dr. Donnelly. She has an appointment on Sunday. She takes keppra 750mg BID but is not sure she took this today. She otherwise denies missing doses. States tonight, she was making dinner for her son around 10:00 p.m.. She then went to lay down in bed to watch TV. She then states she woke up later in her bed feeling very confused, hot/sweaty, disoriented. She did not remember her son being home with her. She found him and he was able to help orient her. She does report she bite her tongue. She initially had a headache and mild lightheadedness after waking up, but states these have somewhat resolved. C/o mild chest tightness currently. Denies shortness of breath. Denies focal numbness or weakness, vision changes. Denied urinary /bowel incontinence. < LAKIA Correa Last Filed: 08/15/24 16:58> Related Data Home Medications: Home Medications Medication Instructions Recorded Confirmed Last Taken Type cholecalciferol (vitamin D3) 1,250 1,250 mcg PO WEEKLY 09/17/19 08/14/24 08/12/24 08:00 History mcg (50,000 unit) capsule 1,250 mcg multivitamin 1 tablet PO DAILY 02/02/22 08/14/24 02/06/22 History pantoprazole 40 mg tablet,delayed 40 mg PO DAILY 03/01/22 08/14/24 08/14/24 02:00 History release 40 mg spironolactone 100 mg tablet 100 mg PO DAILY 03/08/23 08/14/24 Unknown History <Juanita Kramer PA-C - Last Filed: 08/15/24 16:58> Allergies/Adverse Reactions: Allergies Allergy/AdvReac Type Severity Reaction Status Date / Time peanut Allergy Severe Anaphylaxis Verified 08/13/24 22:35 tomato Allergy Unknown Unknown Verified 08/13/24 22:35 egg whites Allergy Unknown Unknown Uncoded 08/13/24 22:35 <LAKIA Correa Last Filed: 08/15/24 16:58> Review of Systems 2 Review of Systems: All systems reviewed & are unremarkable except as noted in HPI. <LAKIA Correa Last Filed: 08/15/24 16:58> All systems reviewed & are unremarkable except as noted in HPI and below < Juanita Kramer PA-C - Last Filed: 08/15/24 16:58> [facility] Past Medical History Medical History: Medical History Migraine Seizure-like activity Seizures Constipation Calculus of gallbladder with chronic cholecystitis without obstruction Morbid obesity Right axillary hidradenitis Hidradenitis Sleep apnea GERD (gastroesophageal reflux disease) <Juanita Kramer PA-C - Last Filed: 08/15/24 16:58> Surgical History Surgical History: Surgical History Hx laparoscopic cholecystectomy 03/08/22 H/O gynecological procedure mirena iud insertion 2019 S/P laparoscopic sleeve gastrectomy History of surgery on arm <LAKIA Correa Last Filed: 08/15/24 16:58> Family History Family History: Family History Father Cerebrovascular accident Mother Diabetes mellitus Other Diabetes mellitus Other Diabetes mellitus Other Diabetes mellitus Other Cancer Hypertension <Juanita Kramer PA-C - Last Filed: 08/15/24 16:58> Social History Social History: Social History Smoking status: Never smoker Second hand tobacco smoke exposure: No Alcohol intake: never Alcohol use details: socially Substance use: never Substance use type: does not use Do You Feel Safe in your Home?: Yes Lack of Transportation: No Lack of Food: Never True Current Housing: I Have Housing Concerned About Future Housing: No Difficulty Paying Gas/Electric Bills: No Difficulty Paying for Meds: No Currently Unemployed: No Education: Bachelor's Degree Difficulty w/ Childcare or Family Care: No Living arrangements: with family Occupation/Education: occupation Additional occupation/education comments: Work at [employer] Gender identity (if verbalized by the patient): Female Sexual Orientation (if Verbalized by the Patient): Straight or Heterosexual Spiritual care concerns: No <Juanita Kramer PA-C - Last Filed: 08/15/24 16:58> Exam 2 Narrative: GENERAL: Well appearing, morbidly obese with BMI of 49.6, non-toxic, in no acute distress. HEAD: Normocephalic, atraumatic. EYES: PERRL/EOMI, conjunctivae clear bilaterally. No nystagmus. ENT: MMs moist, small abrasions to svetlana distal edges of tongue. No active bleeding. NECK: Supple. No meningeal signs. RESPIRATORY: Airway patent, respirations nonlabored. Clear to auscultation bilaterally, no rales, rhonchi, wheezing. CARDIOVASCULAR: Regular rate and rhythm without murmurs, rubs, or gallops. Peripheral pulses 2+ and equal bilaterally. MUSCULOSKELETAL: Moves all extremities. No gross deformities. SKIN: Warm, dry, normal color. No rashes. NEURO: A&O X3. Speech clear. Follows commands. CN II-XII intact. Sensation grossly intact. Steady gait. No ataxic movements. Strength 5/5 in upper and lower extremities bilaterally. No pronator drift. 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 PSYCHIATRIC: Appropriate mood and affect. Normal interaction. <Juanita Kramer PA-C - Last Filed: 08/15/24 16:58> Course Course Emergency Course: AMIRAH: 39 year old Female history of seizure disorder presenting after a possible seizure. Patient was signed out to me pending 2nd troponin. Initial troponin was 0.023 and up trended to 0.045. Patient reported chest tightness/heaviness immediately after the seizure although she is currently chest pain-free. EKG without ischemic changes. Possibly demand ischemia from her seizure activity versus LOC secondary to malignant dysrhythmia versus ACS. Patient will be started on heparin placed in the IMU for further management. < Kennedy Bravo MD - Last Filed: 08/14/24 04:25> Vital Signs Vital signs: Vital Signs Temperature 98.0 F 08/13/24 22:42 Pulse Rate 89 08/13/24 22:42 Blood Pressure 139/81 08/13/24 22:42 Pulse Oximetry 99 08/13/24 22:42 Oxygen Delivery Room Air 08/13/24 22:42 Temperature 98.7 F 08/14/24 16:00 Pulse Rate 67 08/14/24 17:00 Respiratory Rate 20 08/14/24 16:00 Blood Pressure 135/70 08/14/24 16:00 Pulse Oximetry 100 08/14/24 16:00 Oxygen Delivery Room Air 08/14/24 10:34 <Juanita Kramer PA-C - Last Filed: 08/15/24 16:58> Vital Signs Temperature 98.0 F 08/13/24 22:42 Pulse Rate 89 08/13/24 22:42 Blood Pressure 139/81 08/13/24 22:42 Pulse Oximetry 99 08/13/24 22:42 Oxygen Delivery Room Air 08/13/24 22:42 Temperature 98.7 F 08/14/24 16:00 Pulse Rate 67 08/14/24 17:00 Respiratory Rate 20 08/14/24 16:00 Blood Pressure 135/70 08/14/24 16:00 Pulse Oximetry 100 08/14/24 16:00 Oxygen Delivery Room Air 08/14/24 10:34 <Kennedy Bravo MD - Last Filed: 08/14/24 04:25> MDM - Seizure MDM Narrative Medical decision making narrative: Patient presented to ED with possible seizure-like activity tonight, episode of disorientation/confusion. Does have history of previous seizure like episodes and is on Keppra of 750 mg twice daily. She reports compliance with this, although states she is not sure that she took this today. Follows with Neurology, has an appointment next week. Vital signs are stable upon arrival. Patient is in no acute distress. She is neurologically intact upon my evaluation. No focal deficits appreciated. Patient was given fluids and a loading g of Keppra here. CT brain was obtained and negative for acute pathology. EKG without concerning ischemic changes, showing normal sinus rhythm. Basic laboratory studies are reassuring. No significant leukocytosis or anemia. Appear consistent with previous records. Stable electrolytes. Stable kidney function. Lactic acid within normal range at 1.5. Magnesium within normal range. Troponin 0.023. Patient is reporting some chest tightness that began after waking up. Will obtain 3 hour. DDX includes syncope vs seizure vs dysrhythmia vs anxiety vs other neurologic event vs disorientation after sleeping vs acs Patient has remained stable throughout ED stay. No further sz-like activity. Care was signed out to Dr. Bravo at shift change pending 3hour troponin. Patient in agreement with plan. <Juanita Kramer PA-C - Last Filed: 08/15/24 16:58> Medical Records Attestation: I reviewed the patient's medical records. <Juanita Kramer PA-C - Last Filed: 08/15/24 16:58> Lab Data Attestation: I reviewed the patient's lab results. <Juanita Kramer PA-C - Last Filed: 08/15/24 16:58> Result diagrams: 08/14/24 09:16 08/14/24 00:21 <Juanita Kramer PA-C - Last Filed: 08/15/24 16:58> Labs: Lab Results 08/14/24 08/14/24 08/14/24 Range/Units 00:21 01:25 02:38 WBC 10.7 H (4.5-10.0) K/mm3 RBC 4.05 L (4.2-5.4) M/mm3 Hgb 11.1 L (12.0-15.0) g/dL Hct 36.4 L (37.0-47.0) % MCV 89.9 (80-100) fl MCH 27.4 (26-34) pg MCHC 30.5 L (32-36) g/dl RDW 15.7 H (11.5-14.5) % Plt Count 295 (150-375) k/mm3 MPV 11.5 H (7.4-10.4) fl Immature Gran % (Auto) 0.4 (0-0.5) % Neut % (Auto) 72.9 (45.5-73.1) % Lymph % (Auto) 19.1 (18.3-44.2) % [place] % (Auto) 5.6 (2.6-8.5) % Eos % (Auto) 1.4 (0-4.4) % Baso % (Auto) 0.6 (0.2-1.2) % Lymph # (Auto) 2.05 (0.9-3.2) K/mm3 [place] # (Auto) 0.6 (0.1-0.6) K/mm3 Eos # (Auto) 0.2 (0-0.3) K/mm3 Baso # (Auto) 0.1 (0.0-0.1) K/mm3 Abs Immat Gran (auto) 0.04 H (0.00-0.031) K/mm3 Absolute Neuts (auto) 7.8 H (1.3-6.7) K/mm3 Absolute Nucleated RBC 0.000 (0.0-0.012) K/mm3 Band Neutrophils % Nucleated RBC % 0.0 (0.0-0.2) % Platelet Estimate (Adequate) Hypochromasia Crenated Cell Schistocytes PT (11.1-14.7) Seconds INR APTT (22.3-36.8) Seconds Sodium 141 (137-145) mmol/L Potassium 4.3 (3.4-5.0) mmol/L Chloride 110 H (98-107) mmol/L Carbon Dioxide 24 (22-30) mmol/L Anion Gap 7 (4-12) mmol/L BUN 14 D (7-17) mg/dL Creatinine 0.78 (0.7-1.0) mg/dL Estim Creat Clear Calc 108 ml/min Estimated GFR > 60 (59 - ) Glucose 105 (65-110) mg/dL Hemoglobin A1c 5.3 (<5.7) % Lactic Acid 1.5 (0.7-2.0) mmol/L Calcium 8.4 (8.4-10.2) mg/dL Magnesium 2.2 (1.6-2.3) mg/dL Total Bilirubin 0.2 (0.2-1.3) mg/dL AST 26 (14-36) U/L ALT 18 (6-35) U/L Alkaline Phosphatase 53 (38-126) U/L Troponin I 0.023 (0.000-0.034) ng/mL Total Protein 7.0 (6.3-8.2) g/dL Albumin 4.0 (3.5-5.1) g/dL Triglycerides (<150) mg/dL Cholesterol (0-200) mg/dL LDL Cholesterol Direct mg/dL HDL Direct mg/dL Urine Color Yellow (Yellow) Urine Appearance Clear (Clear) Urine pH 7.5 (5.0-9.0) Ur Specific [place] 1.021 (1.001-1.035) Urine Protein Negative (Negative) mg/dL Urine Glucose (UA) Negative (Negative) mg/dL Urine Ketones Trace H (Negative) mg/dL Ur Blood (Man) Negative (Negative) Urine Nitrate Negative (Negative) Urine Bilirubin Negative (Negative) Urine Urobilinogen 1.0 (<2.0) mg/dL Leukocyte Esterase Rfl Negative (Negative) NARESH/UL POC Urine HCG, Qual Negative (Negative) 08/14/24 08/14/24 08/14/24 Range/Units 03:43 04:51 06:47 WBC 10.0 (4.5-10.0) K/mm3 RBC 3.56 L (4.2-5.4) M/mm3 Hgb 9.7 L (12.0-15.0) g/dL Hct 33.5 L (37.0-47.0) % MCV 94.1 (80-100) fl MCH 27.2 (26-34) pg MCHC 29.0 L (32-36) g/dl RDW 15.8 H (11.5-14.5) % Plt Count 268 (150-375) k/mm3 MPV 11.4 H (7.4-10.4) fl Immature Gran % (Auto) 0.2 (0-0.5) % Neut % (Auto) 57.1 (45.5-73.1) % Lymph % (Auto) 34.3 (18.3-44.2) % Fre[place] % (Auto) 6.3 (2.6-8.5) % Eos % (Auto) 1.4 (0-4.4) % Baso % (Auto) 0.7 (0.2-1.2) % Lymph # (Auto) 3.44 H (0.9-3.2) K/mm3 Fre[place] # (Auto) 0.6 (0.1-0.6) K/mm3 Eos # (Auto) 0.1 (0-0.3) K/mm3 Baso # (Auto) 0.1 (0.0-0.1) K/mm3 Abs Immat Gran (auto) 0.02 (0.00-0.031) K/mm3 Absolute Neuts (auto) 5.7 (1.3-6.7) K/mm3 Absolute Nucleated RBC 0.000 (0.0-0.012) K/mm3 Band Neutrophils % Not Reportable Nucleated RBC % 0.0 (0.0-0.2) % Platelet Estimate Adequate (Adequate) Hypochromasia 1+ Crenated Cell 1+ Schistocytes None seen PT 14.3 (11.1-14.7) Seconds INR 1.1 APTT 179.2 H* (22.3-36.8) Seconds Sodium (137-145) mmol/L Potassium (3.4-5.0) mmol/L Chloride (98-107) mmol/L Carbon Dioxide (22-30) mmol/L Anion Gap (4-12) mmol/L BUN (7-17) mg/dL Creatinine (0.7-1.0) mg/dL Estim Creat Clear Calc ml/min Estimated GFR (59 - ) Glucose (65-110) mg/dL Hemoglobin A1c (<5.7) % Lactic Acid (0.7-2.0) mmol/L Calcium (8.4-10.2) mg/dL Magnesium (1.6-2.3) mg/dL Total Bilirubin (0.2-1.3) mg/dL AST (14-36) U/L ALT (6-35) U/L Alkaline Phosphatase (38-126) U/L Troponin I 0.045 H* D 0.040 H* (0.000-0.034) ng/mL Total Protein (6.3-8.2) g/dL Albumin (3.5-5.1) g/dL Triglycerides 68 (<150) mg/dL Cholesterol 153 (0-200) mg/dL LDL Cholesterol Direct 53 mg/dL HDL Direct 72 mg/dL Urine Color (Yellow) Urine Appearance (Clear) Urine pH (5.0-9.0) Ur Specific [place] (1.001-1.035) Urine Protein (Negative) mg/dL Urine Glucose (UA) (Negative) mg/dL Urine Ketones (Negative) mg/dL Ur Blood (Man) (Negative) Urine Nitrate (Negative) Urine Bilirubin (Negative) Urine Urobilinogen (<2.0) mg/dL Leukocyte Esterase Rfl (Negative) NARESH/UL POC Urine HCG, Qual (Negative) <Juanita Kramer PA-C - Last Filed: 08/15/24 16:58> Lab Results 08/14/24 08/14/24 08/14/24 Range/Units 00:21 01:25 02:38 WBC 10.7 H (4.5-10.0) K/mm3 RBC 4.05 L (4.2-5.4) M/mm3 Hgb 11.1 L (12.0-15.0) g/dL Hct 36.4 L (37.0-47.0) % MCV 89.9 (80-100) fl MCH 27.4 (26-34) pg MCHC 30.5 L (32-36) g/dl RDW 15.7 H (11.5-14.5) % Plt Count 295 (150-375) k/mm3 MPV 11.5 H (7.4-10.4) fl Immature Gran % (Auto) 0.4 (0-0.5) % Neut % (Auto) 72.9 (45.5-73.1) % Lymph % (Auto) 19.1 (18.3-44.2) % [place] % (Auto) 5.6 (2.6-8.5) % Eos % (Auto) 1.4 (0-4.4) % Baso % (Auto) 0.6 (0.2-1.2) % Lymph # (Auto) 2.05 (0.9-3.2) K/mm3 [place] # (Auto) 0.6 (0.1-0.6) K/mm3 Eos # (Auto) 0.2 (0-0.3) K/mm3 Baso # (Auto) 0.1 (0.0-0.1) K/mm3 Abs Immat Gran (auto) 0.04 H (0.00-0.031) K/mm3 Absolute Neuts (auto) 7.8 H (1.3-6.7) K/mm3 Absolute Nucleated RBC 0.000 (0.0-0.012) K/mm3 Band Neutrophils % Nucleated RBC % 0.0 (0.0-0.2) % Platelet Estimate (Adequate) Hypochromasia Crenated Cell Schistocytes PT (11.1-14.7) Seconds INR APTT (22.3-36.8) Seconds Sodium 141 (137-145) mmol/L Potassium 4.3 (3.4-5.0) mmol/L Chloride 110 H (98-107) mmol/L Carbon Dioxide 24 (22-30) mmol/L Anion Gap 7 (4-12) mmol/L BUN 14 D (7-17) mg/dL Creatinine 0.78 (0.7-1.0) mg/dL Estim Creat Clear Calc 108 ml/min Estimated GFR > 60 (59 - ) Glucose 105 (65-110) mg/dL Hemoglobin A1c 5.3 (<5.7) % Lactic Acid 1.5 (0.7-2.0) mmol/L Calcium 8.4 (8.4-10.2) mg/dL Magnesium 2.2 (1.6-2.3) mg/dL Total Bilirubin 0.2 (0.2-1.3) mg/dL AST 26 (14-36) U/L ALT 18 (6-35) U/L Alkaline Phosphatase 53 (38-126) U/L Troponin I 0.023 (0.000-0.034) ng/mL Total Protein 7.0 (6.3-8.2) g/dL Albumin 4.0 (3.5-5.1) g/dL Triglycerides (<150) mg/dL Cholesterol (0-200) mg/dL LDL Cholesterol Direct mg/dL HDL Direct mg/dL Urine Color Yellow (Yellow) Urine Appearance Clear (Clear) Urine pH 7.5 (5.0-9.0) Ur Specific [place] 1.021 (1.001-1.035) Urine Protein Negative (Negative) mg/dL Urine Glucose (UA) Negative (Negative) mg/dL Urine Ketones Trace H (Negative) mg/dL Ur Blood (Man) Negative (Negative) Urine Nitrate Negative (Negative) Urine Bilirubin Negative (Negative) Urine Urobilinogen 1.0 (<2.0) mg/dL Leukocyte Esterase Rfl Negative (Negative) NARESH/UL POC Urine HCG, Qual Negative (Negative) 08/14/24 08/14/24 08/14/24 Range/Units 03:43 04:51 06:47 WBC 10.0 (4.5-10.0) K/mm3 RBC 3.56 L (4.2-5.4) M/mm3 Hgb 9.7 L (12.0-15.0) g/dL Hct 33.5 L (37.0-47.0) % MCV 94.1 (80-100) fl MCH 27.2 (26-34) pg MCHC 29.0 L (32-36) g/dl RDW 15.8 H (11.5-14.5) % Plt Count 268 (150-375) k/mm3 MPV 11.4 H (7.4-10.4) fl Immature Gran % (Auto) 0.2 (0-0.5) % Neut % (Auto) 57.1 (45.5-73.1) % Lymph % (Auto) 34.3 (18.3-44.2) % [place] % (Auto) 6.3 (2.6-8.5) % Eos % (Auto) 1.4 (0-4.4) % Baso % (Auto) 0.7 (0.2-1.2) % Lymph # (Auto) 3.44 H (0.9-3.2) K/mm3 [place] # (Auto) 0.6 (0.1-0.6) K/mm3 Eos # (Auto) 0.1 (0-0.3) K/mm3 Baso # (Auto) 0.1 (0.0-0.1) K/mm3 Abs Immat Gran (auto) 0.02 (0.00-0.031) K/mm3 Absolute Neuts (auto) 5.7 (1.3-6.7) K/mm3 Absolute Nucleated RBC 0.000 (0.0-0.012) K/mm3 Band Neutrophils % Not Reportable Nucleated RBC % 0.0 (0.0-0.2) % Platelet Estimate Adequate (Adequate) Hypochromasia 1+ Crenated Cell 1+ Schistocytes None seen PT 14.3 (11.1-14.7) Seconds INR 1.1 APTT 179.2 H* (22.3-36.8) Seconds Sodium (137-145) mmol/L Potassium (3.4-5.0) mmol/L Chloride (98-107) mmol/L Carbon Dioxide (22-30) mmol/L Anion Gap (4-12) mmol/L BUN (7-17) mg/dL Creatinine (0.7-1.0) mg/dL Estim Creat Clear Calc ml/min Estimated GFR (59 - ) Glucose (65-110) mg/dL Hemoglobin A1c (<5.7) % Lactic Acid (0.7-2.0) mmol/L Calcium (8.4-10.2) mg/dL Magnesium (1.6-2.3) mg/dL Total Bilirubin (0.2-1.3) mg/dL AST (14-36) U/L ALT (6-35) U/L Alkaline Phosphatase (38-126) U/L Troponin I 0.045 H* D 0.040 H* (0.000-0.034) ng/mL Total Protein (6.3-8.2) g/dL Albumin (3.5-5.1) g/dL Triglycerides 68 (<150) mg/dL Cholesterol 153 (0-200) mg/dL LDL Cholesterol Direct 53 mg/dL HDL Direct 72 mg/dL Urine Color (Yellow) Urine Appearance (Clear) Urine pH (5.0-9.0) Ur Specific [place] (1.001-1.035) Urine Protein (Negative) mg/dL Urine Glucose (UA) (Negative) mg/dL Urine Ketones (Negative) mg/dL Ur Blood (Man) (Negative) Urine Nitrate (Negative) Urine Bilirubin (Negative) Urine Urobilinogen (<2.0) mg/dL Leukocyte Esterase Rfl (Negative) NARESH/UL POC Urine HCG, Qual (Negative) <Kennedy Bravo MD - Last Filed: 08/14/24 04:25> Imaging Data Attestation: I personally reviewed and interpreted this imaging study as follows: < Juanita Kramer PA-C - Last Filed: 08/15/24 16:58> Radiologist's impression: ITS Impressions Head CT 08/13/24 23:28 IMPRESSION: No acute intracranial findings. <Juanita Kramer PA-C - Last Filed: 08/15/24 16:58> ECG Data EKG #1: Attestation: I personally reviewed and interpreted this ECG as follows: <Juanita Kramer PA-C - Last Filed: 08/15/24 16:58> ECG completion date: 08/13/24 <Juanita Kramer PA-C - Last Filed: 08/15/24 16:58> ECG completion time: 23:34 <Juanita Kramer PA-C - Last Filed: 08/15/24 16:58> EKG Interpretation: normal rate (68), sinus rhythm, no ST changes, normal QT and other (baseline artifact) <Juanita Kramer PA-C - Last Filed: 08/15/24 16:58> Discharge Plan Discharge Clinical Impression: Transient disorientation, History of seizure disorder, Chest tightness, Elevated troponin <Juanita Kramer PA-C - Last Filed: 08/15/24 16:58> Patient Disposition: Still a Patient <Juanita Kramer PA-C - Last Filed: 08/15/24 16:58> Condition: Stable <Juanita Kramer PA-C - Last Filed: 08/15/24 16:58>
[2024-08-14] VITALS (15 sets, daily range): BP systolic 104–145; BP diastolic 62–92; PULSE 54–80; RESP 12–21; TEMP 36.4–37.1; O2SAT 96–100; BMI 50.0; BMI 49.7
[2024-08-14] MEDS: SODIUM CHLORIDE 0.9% IV 1,000 ML 999 ML IV CONT (00:18)
[2024-08-14] MEDS: levETIRAcetam 1000MG/NACL100ML 1,000 MG/100 ML BAG 400 MG IVPB (00:18)
[2024-08-14 00:26] LABS: Basophils Absolute Auto 0.1 K/mm3 (0.0-0.1); Basophils Percent Auto 0.6 % (0.2-1.2); Eosinophils Absolute Auto 0.2 K/mm3 (0-0.3); Eosinophils Percent Auto 1.4 % (0-4.4); Hematocrit 36.4 % (37.0-47.0); Hemoglobin 11.1 g/dL (12.0-15.0); Immature Granulocyte Absolute 0.04 K/mm3 (0.00-0.031); Immature Granulocyte Percent A 0.4 % (0-0.5); Lymphocytes Absolute Auto 2.05 K/mm3 (0.9-3.2); Lymphocytes Percent Auto 19.1 % (18.3-44.2); Mean Corpuscular HGB Conc 30.5 g/dl (32-36); Mean Corpuscular Hemoglobin 27.4 pg (26-34); Mean Corpuscular Volume 89.9 fl (80-100); Mean Platelet Volume 11.5 fl (7.4-10.4); Monocytes Absolute Auto 0.6 K/mm3 (0.1-0.6); Monocytes Percent Auto 5.6 % (2.6-8.5); Neutrophils Absolute Auto 7.8 K/mm3 (1.3-6.7); Neutrophils Percent Auto 72.9 % (45.5-73.1); Platelet Count Result 295 k/mm3 (150-375); Red Blood Count 4.05 M/mm3 (4.2-5.4); Red Cell Distribution Width 15.7 % (11.5-14.5); White Blood Count 10.7 K/mm3 (4.5-10.0)
[2024-08-14 00:40] LABS: Alanine Aminotransferase 18 U/L (6-35); Alkaline Phosphatase 53 U/L (38-126); Anion Gap 7 mmol/L (4-12); Aspartate Amino Transferase 26 U/L (14-36); Bilirubin,Total 0.2 mg/dL (0.2-1.3); Blood Urea Nitrogen 14 mg/dL (7-17); Calcium 8.4 mg/dL (8.4-10.2); Carbon Dioxide 24 mmol/L (22-30); Chloride 110 mmol/L (98-107); Estimated CRCL calculation 108 ml/min; Estimated Glomerular Filt Rate > 60; Glucose 105 mg/dL (65-110); Magnesium 2.2 mg/dL (1.6-2.3); Potassium 4.3 mmol/L (3.4-5.0); Sodium 141 mmol/L (137-145)
[2024-08-14 00:41] LABS: Lactic Acid Reflex 1.5 mmol/L (0.7-2.0)
[2024-08-14 00:52] LABS: Troponin I 0.023 ng/mL (0.000-0.034)
[2024-08-14 01:34] LABS: Add Urine Microscopic? NO; Appearance Urine Clear (Clear); Bilirubin Urine Negative (Negative); Blood Urine Negative (Negative); Color Urine Yellow (Yellow); Glucose Urine UA Negative (Negative); Ketones Urine Trace mg/dL (Negative); Leukocyte Esterase Ur Negative LEU/UL (Negative); Nitrate Urine Negative (Negative); Protein Urine Negative (Negative); Specific Grav Ur 1.021 (1.001-1.035); pH Urine 7.5 (5.0-9.0)
[2024-08-14] MEDS: PANTOPRAZOLE 40 MG TABLET PO (01:42)
[2024-08-14] MEDS: ACETAMINOPHEN 500 MG TABLET 1000 MG PO (01:42)
[2024-08-14 02:40] LABS: BEDSIDEPREGUCG Negative (Negative)
--- NOTE | 2024-08-14 03:13 | ECG_ITS ---
Test Date: 2024-08-14 03:18:20 Measurements Intervals Orient Rate: 62 P: 17 NM: 187 QRS: -27 QRSD: 86 T: 43 QT: 395 QTc: 402 Interpretive Statements SINUS RHYTHM LEFT ANTERIOR FASCICULAR BLOCK Compared to ECG 08/13/2024 23:34:36 NO SIGNIFICANT CHANGE Electronically Signed On 08-14-2024 15:59:42 CDT by Sai Florence M.D.
[2024-08-14 04:13] LABS: Troponin I 0.045 ng/mL (0.000-0.034)
--- NOTE | 2024-08-14 04:35 | P.HP_ITS ---
H&P: HPI History of Present Illness Date/Time: 08/14/24 04:35 Chief Complaint: Seizures and elevated troponin Narrative: Patient is a 39-year-old female with a past medical history of seizures, presented to the ED because she is having an seizure-like activity. Per the chart review, the patient has a history of seizures since March, and she follows up with Dr. Donnelly. Her home dosage of Keppra 750 mg b.i.d., which she takes regularly without missing any dosage. Patient reports her seizure activity started last year, March 2024, after her mother . Tonight, the patient, after cooking, went to bed. Her son, who returned from college, came to her room and felt that she was in an angry mood. He returned to his room, which she does not recollect. Later, she felt sweaty and not feeling good, so she called her close friend and reported she might have seizures. Her close friend called her son, and he was able to help her orient her and bring her to the ED. In the ED, the patient had evidence of tongue biting, complained of mild chest tightness, and her troponin is elevated and currently on a heparin drip. During evaluation, no evidence of neurological deficit, including extremity numbness or weakness, urinary or bowel incontinence. Of note, the patient underwent a brain MRI on 06/06/2024, which shows empty sella. Review of Systems Review of Systems: All systems reviewed & are unremarkable except as noted in HPI. All systems reviewed & are unremarkable except as noted in HPI and below PMFSH Past Medical History Medical History Migraine Seizure-like activity Seizures Constipation Calculus of gallbladder with chronic cholecystitis without obstruction Morbid obesity Right axillary hidradenitis Hidradenitis Sleep apnea GERD (gastroesophageal reflux disease) Surgical History Surgical History Hx laparoscopic cholecystectomy 03/08/22 H/O gynecological procedure mirena iud insertion 2018 S/P laparoscopic sleeve gastrectomy History of surgery on arm Family History Family History Father Cerebrovascular accident Mother Diabetes mellitus Other Diabetes mellitus Other Diabetes mellitus Other Diabetes mellitus Other Cancer Hypertension Social History Social History Smoking status: Never smoker Second hand tobacco smoke exposure: No Alcohol intake: current Alcohol use details: socially Substance use: never Substance use type: does not use Lack of Transportation: YES Lack of Food: Sometimes True Current Housing: I Have Housing Concerned About Future Housing: No Difficulty Paying Gas/Electric Bills: No Difficulty Paying for Meds: No Currently Unemployed: No Education: Bachelor's Degree Difficulty w/ Childcare or Family Care: No Living arrangements: with family Occupation/Education: occupation Additional occupation/education comments: Work at [employer] Gender identity (if verbalized by the patient): Female Sexual Orientation (if Verbalized by the Patient): Straight or Heterosexual Spiritual care concerns: No Meds Home Medications and Allergies Home Medications Medication Instructions Recorded Confirmed Type cholecalciferol (vitamin D3) 1,250 1,250 mcg PO WEEKLY 09/17/19 03/08/23 History mcg (50,000 unit) capsule multivitamin 1 tablet PO DAILY 02/02/22 03/08/23 History pantoprazole 40 mg tablet,delayed 40 mg PO DAILY 03/01/22 03/08/23 History release doxycycline hyclate 100 mg capsule 100 mg PO DAILY 03/08/23 03/08/23 History spironolactone 100 mg tablet 100 mg PO DAILY 03/08/23 03/08/23 History levetiracetam 750 mg tablet 750 mg PO Q12H #60 tabs 04/17/24 04/17/24 Rx (Keppra) dicyclomine 20 mg tablet 20 mg PO TID PRN Abdominal 04/24/24 Rx Discomfort #15 tabs ondansetron 4 mg disintegrating 4 mg PO Q8H PRN nausea and 04/24/24 Rx tablet vomiting #15 tabs lorazepam 1 mg tablet (Ativan) 1 mg PO DAILY PRN anxiety #2 tabs 06/04/24 Rx Allergies Allergy/AdvReac Type Severity Reaction Status Date / Time peanut Allergy Severe Anaphylaxis Verified 08/13/24 22:35 tomato Allergy Unknown Unknown Verified 08/13/24 22:35 egg whites Allergy Unknown Unknown Uncoded 08/13/24 22:35 Vital Signs Vital Signs - 24 hr 08/13/24 22:42 08/13/24 22:51 08/13/24 23:01 Temperature 98.0 F Pulse Rate 89 77 77 Respiratory Rate 20 17 Blood Pressure 139/81 129/79 129/78 Pulse Oximetry 99 98 98 Oxygen Delivery Room Air 08/13/24 23:16 08/14/24 00:00 08/14/24 00:20 Temperature Pulse Rate 73 64 Respiratory Rate 18 15 Blood Pressure 118/78 128/81 Pulse Oximetry 97 100 99 Oxygen Delivery Room Air 08/14/24 01:15 08/14/24 03:00 Temperature Pulse Rate 77 63 Respiratory Rate 12 21 H Blood Pressure 141/81 H 104/77 Pulse Oximetry 100 99 Oxygen Delivery Exam Narrative: GENERAL: Well appearing, morbidly obese with BMI of 49.6, non-toxic, in no acute distress. HEAD: Normocephalic, atraumatic. EYES: PERRL/EOMI, conjunctivae clear bilaterally. No nystagmus. ENT: MMs moist, small abrasions to svetlana distal edges of tongue. No active bleeding. NECK: Supple. No meningeal signs. RESPIRATORY: Airway patent, respirations nonlabored. Clear to auscultation bilaterally, no rales, rhonchi, wheezing. CARDIOVASCULAR: Regular rate and rhythm without murmurs, rubs, or gallops. Peripheral pulses 2+ and equal bilaterally. MUSCULOSKELETAL: Moves all extremities. No gross deformities. SKIN: Warm, dry, normal color. No rashes. NEURO: A&O X3. Speech clear. Follows commands. CN II-XII intact. Sensation grossly intact. Steady gait. No ataxic movements. Strength 5/5 in upper and lower extremities bilaterally. No pronator drift. Equal smelting engineer strength bilaterally. PSYCHIATRIC: Appropriate mood and affect. Normal interaction. H&P: Results Labs Labs: Short CBC 08/14/24 Range/Units 00:21 WBC 10.7 H (4.5-10.0) K/mm3 Hgb 11.1 L (12.0-15.0) g/dL Hct 36.4 L (37.0-47.0) % Plt Count 295 (150-375) k/mm3 [facility] 08/14/24 00:21 Sodium 141 Potassium 4.3 Chloride 110 H Carbon Dioxide 24 BUN 14 D Creatinine 0.78 Glucose 105 Calcium 8.4 Cardiac Enzymes 08/14/24 08/14/24 Range/Units 00:21 03:43 Troponin I 0.023 0.045 H* D (0.000-0.034) ng/mL Liver Function 08/14/24 Range/Units 00:21 Total Bilirubin 0.2 (0.2-1.3) mg/dL AST 26 (14-36) U/L ALT 18 (6-35) U/L Alkaline Phosphatase 53 (38-126) U/L Albumin 4.0 (3.5-5.1) g/dL Urine 08/14/24 Range/Units 01:25 Urine Color Yellow (Yellow) Urine Appearance Clear (Clear) Urine pH 7.5 (5.0-9.0) Ur Specific [place] 1.021 (1.001-1.035) Urine Protein Negative (Negative) mg/dL Urine Glucose (UA) Negative (Negative) mg/dL Assessment and Plan Assessment and plan (1) Elevated troponin: Code(s): R79.89 - Other specified abnormal findings of blood chemistry Status: Acute (2) GERD (gastroesophageal reflux disease): Code(s): K21.9 - Gastro-esophageal reflux disease without esophagitis Status: Acute (3) History of seizure disorder: Code(s): Z86.69 - Personal history of other diseases of the nervous system and sense organs Status: Acute (4) Seizure-like activity: Code(s): R56.9 - Unspecified convulsions Status: Acute Plan Seizure Unprovoked seizure Denies alcoholism Continue Keppra 750 mg p.o. b.i.d. Ativan 2 mg IV p.r.n. q.6 hours for seizures Neuro checks q.[address]: No acute intracranial findings Brain MRI performed on 06/06/2024: 1. No acute intracranial process or T2 hyperintense white matter lesions to suggest multiple sclerosis. 2. Empty sella Accu-Cheks EEG as per Neurology Neurology consulted Seizure precautions Non ST elevation MT Likely type 2 Order HbA1c, and lipid panel Continue heparin drip and give sublingual nitro if needed Echocardiogram pending Denies any illicit drug use or smoking or alcoholism Reviewed EKG and CXR DVT prophylaxis on heparin drip Medication reconciliation pending Hospitalist MIPS Advance Care Plan I have confirmed that the patient's Advanced Care Plan is present, code status is documented, or surrogate decision maker is listed in patient medical record.: Yes Medication Reconciliation I have utilized all available resources to obtain, update and review the pa tients current medications (includes all prescriptions, OTC, herbals, cannabis, and nutritional supplements).: Yes
[2024-08-14] MEDS: HEPARIN SOD/D5W 100 UNITS/ML 25,000 UNITS/250 ML BAG 10 UNITS IV CONT (04:40)
[2024-08-14] MEDS: HEPARIN SODIUM 5,000 UNITS/ML VIAL 4000 UNITS IV PUSH (04:40)
[2024-08-14 05:09] LABS: INR 1.1; Prothrombin Time 14.3 Seconds (11.1-14.7)
[2024-08-14 05:15] LABS: Partial Thromboplastin Time 179.2 Seconds (22.3-36.8)
--- NOTE | 2024-08-14 06:11 | ADMGEN ---
This patient, Quynh Rivas, was admitted to IMU Room 211-01. Patient/family oriented to hospital policies and general routines including ID bracelet, bed and alarms, visiting hours, pain management, procedures, bathroom and other care routines, personal items, smoking policy, room service/diet, and visiting hours. Information on how to activate the Rapid Response Team has been discussed. Patient/Family are encouraged to report perceived risks to care and to ask questions if they do not understand what they are told or what they should do.
--- NOTE | 2024-08-14 06:36 | PC.NURSE ---
MD BERMUDEZ notified of patient starting menstrual cycle when arriving to floor and concern for being on heparin drip. MD deferring to cardiology at this time. Rate titrated appropriately according to protocol. Will continue to monitor.
[2024-08-14 07:01] LABS: Basophils Absolute Auto 0.1 K/mm3 (0.0-0.1); Basophils Percent Auto 0.7 % (0.2-1.2); Eosinophils Absolute Auto 0.1 K/mm3 (0-0.3); Eosinophils Percent Auto 1.4 % (0-4.4); Hematocrit 33.5 % (37.0-47.0); Hemoglobin 9.7 g/dL (12.0-15.0); Immature Granulocyte Absolute 0.02 K/mm3 (0.00-0.031); Immature Granulocyte Percent A 0.2 % (0-0.5); Lymphocytes Absolute Auto 3.44 K/mm3 (0.9-3.2); Lymphocytes Percent Auto 34.3 % (18.3-44.2); Mean Corpuscular Hemoglobin 27.2 pg (26-34); Mean Corpuscular Volume 94.1 fl (80-100); Mean Platelet Volume 11.4 fl (7.4-10.4); Monocytes Absolute Auto 0.6 K/mm3 (0.1-0.6); Monocytes Percent Auto 6.3 % (2.6-8.5); Neutrophils Absolute Auto 5.7 K/mm3 (1.3-6.7); Neutrophils Percent Auto 57.1 % (45.5-73.1); Platelet Count Result 268 k/mm3 (150-375); Red Blood Count 3.56 M/mm3 (4.2-5.4); Red Cell Distribution Width 15.8 % (11.5-14.5)
[2024-08-14 07:09] LABS: Cholesterol 153 mg/dL (0-200); HDL Direct 72 mg/dL; Triglycerides 68 mg/dL (<150)
[2024-08-14 07:19] LABS: LDL Cholesterol Direct 53 mg/dL
[2024-08-14 07:21] LABS: Crenated RBC 1+; Hypochromasia 1+; Platelet Estimate Adequate (Adequate); Schistocytes None Seen
[2024-08-14] MEDS: levETIRAcetam 250 MG TABLET 750 MG PO (08:55)
[2024-08-14 09:06] LABS: Hemoglobin A1C 5.3 % (<5.7)
[2024-08-14] MEDS: CALCIUM CARBONATE (TUMS) 500 MG (200 MG ELEMENTAL) PO (09:06)
[2024-08-14 09:22] LABS: Hematocrit 32.9 % (37.0-47.0); Hemoglobin 10.1 g/dL (12.0-15.0)
--- NOTE | 2024-08-14 09:22 | PM.CNCAR ---
Assessment and Plan Assessment and plan (1) Chest tightness: Code(s): R07.89 - Other chest pain Status: Acute Assessment and Plan: Atypical chest pain occurring after seizure-like event. Resolved, do not recommend any additional cardiac workup at this point. (2) Elevated troponin: Code(s): R79.89 - Other specified abnormal findings of blood chemistry Status: Acute Assessment and Plan: Her troponin levels were mildly elevated and flat. This does not represent ACS or myocardial injury. Will check an echo, but aside from this will not pursue any additional cardiac workup unless her clinical situation changes. She does have family history of coronary disease - mother last year from an [place]. Given family history some sort of risk stratification would be appropriate and can be done as an outpatient. If her echo is unremarkable she can be discharged today from my point of view (3) Seizure-like activity: Code(s): R56.9 - Unspecified convulsions Status: Acute Assessment and Plan: Follows with neurology. Missed 2 doses of Keppra resulting in possible seizure. Per neurology, Keppra dose increased. History of Present Illness History of Present Illness Consult date/time: 08/14/24 09:22 Requesting physician: Frantz Bazzi MD Consult reason: Other (NSTEMI) Reason For Visit: Seizure, Elevated trop Narrative: Quynh Rivas is a 39 year old female with history of seizures who came to the hospital following a seizure-like event. Cardiology is consulted for NSTEMI. Patient reports laying down after making her son dinner and waking up feeling disoriented and confused. Her son saw her when she was lying down and reported that she was lying horizontally in bed and had a blank stare on her face. When she woke up feeling strangely she called her best friend who asked where her son was and she was so out of it that she didn't realize her son was home. She reports feeling some chest pressure after this event. She has a history of palpitations but otherwise has no personal history of heart problems. Her mother apparently from an [place]. She does not have any chest pain now. Review of Systems Review of Systems: All systems reviewed & are unremarkable except as noted in HPI and below PMFSH Past Medical History Medical History Migraine Seizure-like activity Seizures Constipation Calculus of gallbladder with chronic cholecystitis without obstruction Morbid obesity Right axillary hidradenitis Hidradenitis Sleep apnea GERD (gastroesophageal reflux disease) Surgical History Surgical History Hx laparoscopic cholecystectomy 03/08/22 H/O gynecological procedure mirena iud insertion 2019 S/P laparoscopic sleeve gastrectomy History of surgery on arm Family History Family History Father Cerebrovascular accident Mother Diabetes mellitus Other Diabetes mellitus Other Diabetes mellitus Other Diabetes mellitus Other Cancer Hypertension Social History Social History Smoking status: Never smoker Second hand tobacco smoke exposure: No Alcohol intake: never Alcohol use details: socially Substance use: never Substance use type: does not use Do You Feel Safe in your Home?: Yes Lack of Transportation: No Lack of Food: Never True Current Housing: I Have Housing Concerned About Future Housing: No Difficulty Paying Gas/Electric Bills: No Difficulty Paying for Meds: No Currently Unemployed: No Education: Bachelor's Degree Difficulty w/ Childcare or Family Care: No Living arrangements: with family Occupation/Education: occupation Additional occupation/education comments: Work at [employer] Gender identity (if verbalized by the patient): Female Sexual Orientation (if Verbalized by the Patient): Straight or Heterosexual Spiritual care concerns: No Meds Home Medications and Allergies Home Medications Medication Instructions Recorded Confirmed Type cholecalciferol (vitamin D3) 1,250 1,250 mcg PO WEEKLY 09/17/19 08/14/24 History mcg (50,000 unit) capsule multivitamin 1 tablet PO DAILY 02/02/22 08/14/24 History pantoprazole 40 mg tablet,delayed 40 mg PO DAILY 03/01/22 08/14/24 History release spironolactone 100 mg tablet 100 mg PO DAILY 03/08/23 08/14/24 History levetiracetam 750 mg tablet 750 mg PO Q12H #60 tabs 04/17/24 08/14/24 Rx (Keppra) ondansetron 4 mg disintegrating 4 mg PO Q8H PRN nausea and 04/24/24 08/14/24 Rx tablet vomiting #15 tabs Allergies Allergy/AdvReac Type Severity Reaction Status Date / Time peanut Allergy Severe Anaphylaxis Verified 08/13/24 22:35 tomato Allergy Unknown Unknown Verified 08/13/24 22:35 egg whites Allergy Unknown Unknown Uncoded 08/13/24 22:35 Vital Signs Vital Signs - 24 hr 08/13/24 22:42 08/13/24 22:51 08/13/24 23:01 Temperature 36.7 C Pulse Rate 89 77 77 Respiratory Rate 20 17 Blood Pressure 139/81 129/79 129/78 Pulse Oximetry 99 98 98 Oxygen Delivery Room Air 08/13/24 23:16 08/14/24 00:00 08/14/24 00:20 Temperature Pulse Rate 73 64 Respiratory Rate 18 15 Blood Pressure 118/78 128/81 Pulse Oximetry 97 100 99 Oxygen Delivery Room Air 08/14/24 01:15 08/14/24 03:00 08/14/24 05:00 Temperature Pulse Rate 77 63 54 L Respiratory Rate 12 21 H Blood Pressure 141/81 H 104/77 Pulse Oximetry 100 99 Oxygen Delivery 08/14/24 05:29 08/14/24 05:50 08/14/24 06:00 Temperature 36.7 C Pulse Rate 64 59 L 58 L Respiratory Rate 17 18 Blood Pressure 145/92 H 105/76 Pulse Oximetry 96 100 Oxygen Delivery 08/14/24 08:00 Temperature 36.4 C L Pulse Rate 55 L Respiratory Rate 12 Blood Pressure 133/62 Pulse Oximetry 100 Oxygen Delivery Exam Const: General: comfortable, no acute distress, alert and awake Orientation/consciousness: patient oriented x3 HENMT: Head: normal to inspection Eyes: General: appearance normal, both eyes and all related structures Pupils: Equal, round and reactive pupils present Neck: Neck: normal visual inspection, supple and no JVD Carotids: normal carotid upstroke Resp: Effort & Inspection: normal respiratory effort Auscultation: clear to auscultation bilaterally Cardio: Rate: regular rate Rhythm: regular rhythm Heart sounds: S1 normal heart sound present, S2 normal heart sound present and no murmurs GI: Auscultation: normal bowel sounds Skin: General skin exam: normal color Neuro: General: patient oriented x3 Cranial nerves: Yes Equal, round and reactive pupils present Extrem: General: normal to inspection Psych: Appearance: grossly normal Mental Status: mental status grossly normal Results Labs and Meds 08/14/24 09:16 08/14/24 00:21 Lab results: Cardiac Enzymes 08/14/24 08/14/24 Range/Units 00:21 03:43 AST 26 (14-36) U/L Troponin I 0.023 0.045 H* D (0.000-0.034) ng/mL Coagulation 08/14/24 Range/Units 04:51 PT 14.3 (11.1-14.7) Seconds APTT 179.2 H* (22.3-36.8) Seconds Lipids 08/14/24 Range/Units 06:47 Triglycerides 68 (<150) mg/dL Cholesterol 153 (0-200) mg/dL CBC 08/14/24 08/14/24 Range/Units 00:21 06:47 WBC 10.7 H 10.0 (4.5-10.0) K/mm3 RBC 4.05 L 3.56 L (4.2-5.4) M/mm3 Hgb 11.1 L 9.7 L (12.0-15.0) g/dL Hct 36.4 L 33.5 L (37.0-47.0) % Plt Count 295 268 (150-375) k/mm3 Lymph # (Auto) 2.05 3.44 H (0.9-3.2) K/mm3 [place] # (Auto) 0.6 0.6 (0.1-0.6) K/mm3 Eos # (Auto) 0.2 0.1 (0-0.3) K/mm3 Baso # (Auto) 0.1 0.1 (0.0-0.1) K/mm3 Comprehensive Metabolic Panel 08/14/24 Range/Units 00:21 Sodium 141 (137-145) mmol/L Potassium 4.3 (3.4-5.0) mmol/L Chloride 110 H (98-107) mmol/L Carbon Dioxide 24 (22-30) mmol/L BUN 14 D (7-17) mg/dL Creatinine 0.78 (0.7-1.0) mg/dL Glucose 105 (65-110) mg/dL Calcium 8.4 (8.4-10.2) mg/dL AST 26 (14-36) U/L ALT 18 (6-35) U/L Alkaline Phosphatase 53 (38-126) U/L Total Protein 7.0 (6.3-8.2) g/dL Albumin 4.0 (3.5-5.1) g/dL Intake and Output 08/13/24 08/14/24 08/14/24 23:59 07:59 15:59 Intake Total 1107.3 Output Total 300 Balance 807.3 Intake: IV 1107.3 Heparin Sod/D5w 100 Units/ml 25 7.3 ,000 units In 250 ml @ 800 UNITS/HR 8 mls/hr IV CONT .Q24H [place] Rx#:[id number] Sodium Chloride 0.9% IV 1,000 1000 ml @ 999 mls/hr IV CONT .Q1H1M STA Rx#:[id number] levETIRAcetam 1000MG/[id number] 100 1,000 mg In 100 ml @ 400 mls/hr IVPB ONCE STA Rx#:[id number] Output: Urine 300 Patient Weight 08/14/24 23:59 Weight 128.1 kg
--- OUTSIDE RECORDS SUMMARY | 2024-08-14 09:24 | XMS_ITS | Referral Summary ---
Author Organization [facility] Address [address] [place] [id number] Care Team Providers Care Personal Care Worker Name Role Phone Douglas Leach MD Primary Care Provider + [phone] Juan Pablo Zurita MD Unavailable [phone] Lizeth Pozo OD Unavailable [phone] Encounters Date Type Department Care Team Description 06/09/2024 Results Follow-Up [facility] ENT [address] [place] [address] Mariposa Carlin, IN SCHOOL SUSPENSION AIDE 06/06/2024 8:00 AM PROFESSIONAL SECURITY OFFICER - 06/06/2024 11:59 PM PROFESSIONAL SECURITY OFFICER Hospital Encounter [facility] and Radiology [address] [place] [address] Pulsatile tinnitus, right ear Discharge Disposition: Discharge to home or self care 05/27/2024 2:30 PM PROFESSIONAL SECURITY OFFICER [facility] [address] [place] [address] Outpatient Health 4th Floor [address] [place] [address] Roxy Godinez MD Seizures (HCC) [...] (03/22/2023): Added automatically from request for surgery [id number] Abdominal pain 12/06/2012 Hemorrhage of rectum and [...] on file Legal Sex Female 1:59 PM PROFESSIONAL SECURITY OFFICER Gender Identity Not on file Sexual Orientation Not on file Last Filed Vital Signs Vital Sign Reading Time Taken Comments Blood Pressure 120/72 05/27/2024 2:20 PM PROFESSIONAL SECURITY OFFICER Pulse 70 05/27/2024 2:20 PM PROFESSIONAL SECURITY OFFICER Temperature 36.1 C (96.9 F) 05/27/2024 2:20 PM PROFESSIONAL SECURITY OFFICER Respiratory Rate 20 12/28/2023 9:1 7 AM CDT Oxygen Saturation 100% 05/27/2024 2:20 PM PROFESSIONAL SECURITY OFFICER Inhaled Oxygen Concentration - - Weight 128.1 kg (282 lb 6.4 oz) 05/27/2024 2:20 PM PROFESSIONAL SECURITY OFFICER Height 162.6 cm (5' 4 ) 05/27/2024 2:20 PM PROFESSIONAL SECURITY OFFICER Body Mass Index 48.47 05/27/2024 2:20 PM PROFESSIONAL SECURITY OFFICER Plan of Treatment Not on file Procedures Procedure Name Priority Date/Time Associated Diagnosis Comments CTA HEAD NECK W WO CONTRAST Schedule Routine, Read Routine (OP Routine) 06/06/2024 9:04 AM PROFESSIONAL SECURITY OFFICER Pulsatile tinnitus, right ear from Last 3 Months Results * CTA Head Neck W WO Contrast (06/06/2024 9:04 AM PROFESSIONAL SECURITY OFFICER) Anatomical Region Laterality Modality Head and Neck N/A Computed Tomogra phy 06/06/2024 10:5 6 AM PROFESSIONAL SECURITY OFFICER Impressions 06/06/2024 12:53 PM PROFESSIONAL SECURITY OFFICER Dehiscence of the right sigmoid sinus plate which may be associated with pulsatile tinnitus. High though intact right jugular bulb. No other vascular etiology for pulsatile tinnitus is identified. No cervical carotid artery stenosis. No intracranial large vessel occlusion or significant stenosis. Electronically signed by: Nilsa Agudelo M.D. Narrative 06/06/2024 12:53 PM PROFESSIONAL SECURITY OFFICER EXAMINATION: CTA HEAD NECK W WO CONTRAST HISTORY: Tinnitus, pulsatile pulsatile tinnitus TECHNIQUE: Noncontrast CT of the head was obtained from skull base to vertex, according to standard protocol. Subsequently, CT angiogram of the neck and [place] was performed after the uneventful [...] Artery: no occlusion or significant stenosis L DIGITAL FIELD SERVICE TECHNICIAN: no occlusion or significant stenosis R DIGITAL FIELD SERVICE TECHNICIAN: no occlusion or significant stenosis The major [...] Subsequently, CT angiogram of the neck and [place] was performed after the uneventful [...] Artery: no occlusion or significant stenosis L DIGITAL FIELD SERVICE TECHNICIAN: no occlusion or significant stenosis R DIGITAL FIELD SERVICE TECHNICIAN: no occlusion or significant stenosis The major [...] Final Result from Last 3 Months Insurance [facility] Care Teams Personal Care Worker Relationship Specialty Start Date End Date Douglas Leach MD PCP - General 03/14/17 Juan Pablo Zurita MD Consulting Physician Neurosurgery 01/27/21 Lizeth Pozo, TANIA [address] [place] [address] Primary Eye Care Provider Optometry 01/27/21
--- OUTSIDE RECORDS SUMMARY | 2024-08-14 09:24 | XMS_ITS | Clinical Summary ---
Author Organization [facility] [employer] Address [address] [place] [address] Care Team Providers Care Gold Leaf Gilder Name Role Phone Douglas Leach MD Primary Care Provider [phone] Source Comments [facility] and Associated Physician Practices is amultiple site organization consisting of ambulatory clinics and hospital sitesin [place], [place], [place] and [place]. This disclosure is being madepursuant to the Care Everywhere program and may not contain all information available regarding this patient. Last updated 17.[facility] [employer] Allergies Active Allergy Reactions Criticality Noted Date [...] 0.1 % nasal sprayIndications:S easonal Allergic Rhinitis [place] 1 (one) spray into each nostril 2 [...] (11/18/2020): Added automatically from request for surgery [id number] Gallstone 01/06/2013 Gastroesophageal reflux disease 01/06/2013 Abdominal pain 12/06/2012 Hemorrhage of rectum and anus 12/06/2012 Acute bronchitis 06/26/2012 Headache 06/26/2012 Resolved Problems Problem Noted Date Diagnosed Date Resolved Date Acute otitis media 11/18/2020 Cough 11/18/2020 12/16/2020 Upper respiratory infection 11/18/2020 12/02/2020 Encounters Date Type Department Care Team Description 06/20/2024 9:00 AM CDT Office Visit [facility] - Allergy [address] [place] [phone] Wyatt Morrow MD Salomone, John, MD Food allergy (Primary Dx); Rash and nonspecific skin eruption; Non-seasonal allergic rhinitis due to other allergic trigger; Gastroesophageal reflux disease without esophagitis; Mixed rhinitis; Hidradenitis 06/20/2024 Travel 06/16/2024 3:30 PM CDT Office Visit [facility] - Dermatology [address] [place] [phone] Wyatt Morrow MD Immunosuppression (Primary Dx); Hidradenitis suppurativa; Encounter for long-term (current) use of high-risk medication 06/16/2024 Travel 06/05/2024 Telephone [facility] - Dermatology [address] [place] [phone] Wyatt Morrow MD Refill Request 06/02/2024 Refill [facility] - Dermatology [address] [place] [phone] Wyatt Morrow MD Refill Request 05/21/2024 Refill [facility] - Dermatology [facility] [place] [phone] Wyatt Morrow MD Refill Request from Last [...] on file Legal Sex Female 9:31 AM MARINE PAINTER Gender Identity Not on file Sexual Orientation [...] (5' 4 ) 05/19/2021 10:1 6 AM MARINE PAINTER Body Mass Index 50.02 05/19/2021 10:16 AM MARINE PAINTER Plan of Treatment Upcoming Encounters Date Type Department Care Team (Late st Contact Info) Description 10/17/2024 11:00 AM CDT Office Visit [facility] - Allergy [address] [place] [phone] Yann Manuel MD [address] [place] [address] 12/08/2024 11:10 AM CDT Office Visit [facility] - Dermatology [address] [place] [address] [phone] [place] [address] [phone] Health Maintenance Due Date Last Done Comments [...] a test for HCV RNA (test code 15052) is suggested. For additional information please refer to http://SwapBeats.IWT/faq/EDX83c6 (This link is being provided for informational/ educational purposes only.) Test Performed at: [place] [address] JOSEPHINE URBINA MD Blood BLOOD SPECIMEN / Unknown 01/18/2024 9:22 AM CDT 01/18/2024 9:23 AM CDT Wyatt Morrow MD LAB - CHEMISTRY ORDERABLES Final Result [facility] [address] [place] [address] * HIV-1 HIV-2 ANTIBODY + HIV P24 [...] purpose. For additional information please refer to http://SwapBeats.IWT/faq/EEY417 (This link is being provided for informational/ educational purposes only.) The performance of this assay has not been clinically validated in patients less than 2 years old. Test Performed at: [facility] [address] JOSEPHINE URBINA MD Blood BLOOD SPECIMEN / Unknown 01/18/2024 9:22 AM CDT 01/18/2024 9:23 AM CDT Wyatt Morrow MD LAB - CHEMISTRY ORDERABLES Final Result Performing Organization Address City/[facility]/ZIP Co de Phone Number [address] [address] * LIPID PROFILE (01/18/2024 9:22 AM CDT) [...] Jorge A SS et al. THERESA. 2013;310(19): 4645-8400 (http://education.HiringThing.com/faq/MKI852) CHOL/HDLC RATIO 2.9 <5.0 (calc) [facility] Non HDL Cholesterol 109 <130 mg/dL (calc) [facility] Comment: For patients with diabetes plus 1 major ASCVD risk factor, treating to a non-HDL-C goal of <100 mg/dL (LDL-C of <70 mg/dL) is considered a therapeutic option. Test Performed at: [facility] [address] JOSEPHINE URBINA MD Blood BLOOD SPECIMEN / Unknown 01/18/2024 9:22 AM CDT 01/18/2024 9:23 AM CDT Wyatt Morrow MD LAB - CHEMISTRY ORDERABLES Final Result Performing Organization Address City/[facility]/ZIP Co de Phone Number [address] [address] from Last 3 Months or Most Recently Relevant to Health Maintenance Insurance [facility] Care Teams Gold Leaf Gilder Relationship Specialty Start Date End Date Douglas Leach MD PCP - General 03/04/20
--- OUTSIDE RECORDS SUMMARY | 2024-08-14 09:24 | XMS_ITS | Clinical Summary ---
Author Organization [facility] Address [address] [place] [phone] Care Team Providers Care Internal Combustion Engineer Name Role Phone Douglas Leach MD Primary Care Provider [phone] Juan Pablo Zurita MD Unavailable [phone] Lizeth Pozo OD Unavailable [phone] Allergies Active Allergy Reactions Criticality Noted Date [...] (03/22/2023): Added automatically from request for surgery [id number] Abdominal pain 12/06/2012 Hemorrhage of rectum and anus 12/06/2012 Acute bronchitis 06/26/2012 Headache 06/26/2012 Chronic migraine without aura BMI 45.0-49.9, adult OBEY (obstructive sleep apnea) Hyperopia of both eyes Encounters Date Type Department Care Team Description 06/09/2024 Results Follow-Up [facility] ENT [address] [place] [address] Mariposa Carlin, SCHEDULING CLERK 06/06/2024 8:00 AM HEALTH SERVICES INFORMATION SPECIALIST - 06/06/2024 11:59 PM HEALTH SERVICES INFORMATION SPECIALIST Hospital Encounter [facility] and Radiology [address] [place] [address] Pulsatile tinnitus, right ear Discharge Disposition: Discharge to home or self care 05/27/2024 2:30 PM HEALTH SERVICES INFORMATION SPECIALIST [facility] 4th Floor [address] [place] [address] Roxy Godinez MD Seizures (HCC) [...] on file Legal Sex Female 1:59 PM HEALTH SERVICES INFORMATION SPECIALIST Gender Identity Not on file Sexual Orientation Not on file Obstetrics History Last Filed Vital Signs Vital Sign Reading Time Taken Comments Blood Pressure 120/72 05/27/2024 2:20 PM HEALTH SERVICES INFORMATION SPECIALIST Pulse 70 05/27/2024 2:20 PM HEALTH SERVICES INFORMATION SPECIALIST Temperature 36.1 C (96.9 F) 05/27/2024 2:20 PM HEALTH SERVICES INFORMATION SPECIALIST Respiratory Rate 20 12/28/2023 9:17 AM CDT Oxygen Saturation 100% 05/27/2024 2:20 PM HEALTH SERVICES INFORMATION SPECIALIST Inhaled Oxygen Concentration - - Weight 128.1 kg (282 lb 6.4 oz) 05/27/2024 2:20 PM HEALTH SERVICES INFORMATION SPECIALIST Height 162.6 cm (5' 4 ) 05/27/2024 2:20 PM HEALTH SERVICES INFORMATION SPECIALIST Body Mass Index 48.47 05/27/2024 2:20 PM HEALTH SERVICES INFORMATION SPECIALIST Plan of Treatment Health Maintenance Due Date [...] ( season) 2023 11/24/2020, 11/03/2020 Influenza Vaccine (Season Ended) 2024 HPV Vaccines Aged Out No longer eligi ble based on patient's age to complete this topic Pneumococcal vaccine <65 Aged Out No longer eligible based on patient's age to complete this topic Procedures Procedure Name Priority Date/Time Associated Diagnosis Comments CTA HEAD NECK W WO CONTRAST Schedule Routine, Read Routine (OP Routine) 06/06/2024 9:04 AM HEALTH SERVICES INFORMATION SPECIALIST Pulsatile tinnitus, right ear from Last 3 Months Results * CTA Head Neck W WO Contrast (06/06/2024 9:04 AM HEALTH SERVICES INFORMATION SPECIALIST) Anatomical Region Laterality Modality Head and Neck N/A Computed Tomogra phy 06/06/2024 10:5 6 AM HEALTH SERVICES INFORMATION SPECIALIST Impressions 06/06/2024 12:53 PM HEALTH SERVICES INFORMATION SPECIALIST Dehiscence of the right sigmoid sinus plate which may be associated with pulsatile tinnitus. High though intact right jugular bulb. No other vascular etiology for pulsatile tinnitus is identified. No cervical carotid artery stenosis. No intracranial large vessel occlusion or significant stenosis. Electronically signed by: Nilsa Agudelo M.D. Narrative 06/06/2024 12:53 PM HEALTH SERVICES INFORMATION SPECIALIST EXAMINATION: CTA HEAD NECK W WO CONTRAST HISTORY: Tinnitus, pulsatile pulsatile tinnitus TECHNIQUE: Noncontrast CT of the head was obtained from skull base to vertex, according to standard protocol. Subsequently, CT angiogram of the neck and [place] was performed after the uneventful [...] Artery: no occlusion or significant stenosis L PLANNING INTERN: no occlusion or significant stenosis R PLANNING INTERN: no occlusion or significant stenosis The major [...] Subsequently, CT angiogram of the neck and [place] was performed after the uneventful [...] Artery: no occlusion or significant stenosis L PLANNING INTERN: no occlusion or significant stenosis R PLANNING INTERN: no occlusion or significant stenosis The major [...] signed by: Nilsa Agudelo M.D. Mariposa Carlin SCHEDULING CLERK IMG CT PROCEDURES Final Result from Last [address] [facility] Care Teams Internal Combustion Engineer Relationship Specialty Start Date End Date Douglas Leach MD PCP - General 03/14/17 Juan Pablo Zurita MD Consulting Physician Neurosurgery 01/27/21 Lizeth Pozo OD [address] [place] [address] Primary Eye Care Provider Optometry 01/27/21
--- OUTSIDE RECORDS SUMMARY | 2024-08-14 09:24 | XMS_ITS | Continuity of Care Document ---
Author Organization [facility] Address [address] [place] [address] [place] [address] Phone Care Team Providers Care Loom Winder Tender Name Role Phone Douglas Leach MD Unavailable [...] Diagnoses Date Provider Providers Copied on Encounter [facility], [address] [place], [place], [address], tel:[phone] [facility] No Information Chip Cole. [address] [place], [place], [address] , [place]. tel:[phone] OFFICE/OUTPA TIENT VISIT, EST [facility], [address] [place], [place], [address], tel:[phone] [facility] GERD1 (chief complaint) GERD w/o esophagitis 4 Hany Cole. [address], [place], [place], [address] , [place]. tel:[phone] OFFICE/OUTPA TIENT VISIT, EST [facility], [address], [place], [place], [address], [place] tel:[phone] [facility] Medicine syncope1 (chief complaint) hidradenit is1 (chief complaint) Syncope and collapseEpilepsyHid radenitis suppurativa 4 Hany Cole. [address], [place], [place], [address] , [place]. tel:[phone] OFFICE/OUTPA TIENT VISIT, EST [facility], [address], [place], [place], [address], [place] tel:[phone] [facility] Medicine low iron1 (chief complaint) A1c (chief complaint) obesity1 (chief complaint) hidradenit is1 (chief complaint) sleep apnea1 (chief complaint) ear pain1 (chief complaint) Abnormal weight gainIron deficiencyObstructi ve sleep apnea hypopneaHidradeniti s suppurativaHypergly cemiaOtalgia, right ear 4 Hany Cole. [address], [place], [place], [address] , [place]. [phone] PREV VISIT, EST, AGE 18-39 [facility], [address], [place], [place], [address], [place] tel:[phone] [facility] Physical (chief complaint) Encounter for general adult medical exam w abnormal findingsGERD w/o esophagitisType 2 diabetes mellitus without complicationsObstru ctive Sleep Apnea HypopneaAbnormal weight gainBariatric surgery status 4 Hany Cole. [address], [place], [place], [address] , [place]. [phone] [facility], [address], [place], [place], [address], [place] tel:[phone] [facility] No Information May-0 4 Hany Cole. [address], [place], [place], [address] , [place]. [phone] OFFICE/OUTPA TIENT VISIT, [facility], [address], [place], [place], [address], [place] tel:[phone] [facility] GERD (chief complaint) GERD1 (chief complaint) skin1 (chief complaint) asthma1 (chief complaint) weight1 (chief complaint) Mild intermittent asthma, uncomplicatedGERD w/o esophagitisAbnormal weight gainCellulitis of abdominal wall 3 Hany Akers [address], [place], [place], [address] , [place]. [phone] OFFICE/OUTPA TIENT VISIT, [facility], [address], [place], [place], [address], [place] tel:[phone] [facility] weight1 (chief complaint) asthma1 (chief complaint) IBS-C (chief complaint) sleep apnea1 (chief complaint) Irritable bowel syndrome with constipationMild intermittent asthma, uncomplicatedType 2 diabetes mellitus without complicationsPrimar y central sleep apneaEssential (primary) hypertension 3 Hany Akers [address], [place], [place], [address] , [place]. [phone] OFFICE/OUTPA TIENT VISIT, [facility], [address], [place], [place], [address], [place] tel:[phone] [facility] IBS1 (chief complaint) GERD1 (chief complaint) weight1 (chief complaint) GERD w/o esophagitisIrritabl e bowel syndrome with constipationAbnorma l weight gain 3 Hany Cole. [address], [place], [place], [address] , [place]. tel:[phone] PREV VISIT, EST, AGE 18-39 [facility], [address], [place], [place], [address], [place] tel:[phone] [facility] physical (chief complaint) Encounter for general adult medical exam w abnormal findingsIrritable bowel syndrome with constipationGERD w/o esophagitisAbnormal weight gainBenign intracranial HTN 3 Hany Cole. [address], [place], [place], [address] , [place]. [phone] OFFICE/OUTPA TIENT VISIT, EST [facility], [address], [place], [place], [address], [place] tel:[phone] [facility] abd pain1 (chief complaint) HTN (chief complaint) Essential (primary) hypertensionOther cholelithiasis without obstructionGenerali zed abdominal painConstipation 2 Hany Akers [address], [place], [place], [address] , [place]. tel:[phone] OFFICE/OUTPA TIENT VISIT, [facility], [address], [place], [place], [address], [place] tel:[phone] [facility] abd pain1 (chief complaint) ADD (chief complaint) HTN (chief complaint) vision1 (chief complaint) Abdominal painOther cholelithiasis without obstructionEssentia l (primary) hypertensionBenign intracranial HTNVisual disturbanceAttentio n deficitConstipation 2 Hany Akers [address], [place], [place], [address] , [place]. tel:[phone] PREV VISIT, EST, AGE 18-39 [facility], [address], [place], [place], [address], [place] [phone] [facility] physical (chief complaint) Encounter for general adult medical examination without abnormal findings 2 Hany Akers [address], [place], [place], [address] , [place]. [phone] OFFICE/OUTPA TIENT VISIT, [facility], [address], [place], [place], [address], [place] tel:[phone] [facility] ICH (chief complaint) HTN (chief complaint) anxiety1 (chief complaint) Benign intracranial HTNEssential (primary) hypertensionVisual disturbanceGenerali zed Anxiety Disorder 1 Hany Akers [address], [place], [place], [address] , . [phone] OFFICE/OUTPA TIENT VISIT, EST [facility], [address] [place], [place], [address], [place] tel:[phone] [facility] brain mass1 (chief complaint) HTN (chief complaint) anxiety1 (chief complaint) Essential (primary) hypertensionBenign intracranial HTNNeoplasm of brainGeneralized Anxiety Disorder 1 Hany Akers [address], [place], [place], [address] , [place]. [phone] OFFICE/OUTPA TIENT VISIT, [facility], [address] [place] [place], [address], [place] tel:[phone] [facility] HTN (chief complaint) headache1 (chief complaint) Essential (primary) hypertensionVisual disturbanceBenign intracranial HTNHeadache 1 Hany Akers [address], [place], [place], [address] , [place]. [phone] OFFICE/OUTPA TIENT VISIT, EST [facility], [address] [place] [place], [address], [place] tel:[phone] [facility] vision1 (chief complaint) HTN (chief complaint) sleep apnea1 (chief complaint) Essential (primary) hypertensionVisual disturbanceSleep apneaOther disorder of optic nerve of eye 1 Hany Akers [address], [place], [place], [address] , [place]. tel:[phone] PREV VISIT, EST, AGE 18-39 [facility], [address], [place], [place], [address], [place] tel:[phone] [facility] physical (chief complaint) Encounter for general adult medical examination without abnormal findings 1 Hany Cole. [address], [place], [place], [address] , [place]. tel:[phone] OFFICE/OUTPA TIENT VISIT, [facility], [address], [place], [place], [address], [place] tel:[phone] [facility] toe pain1 (chief complaint) a1c (chief complaint) cough1 (chief complaint) Other acquired hammer toe of right footType 2 diabetes mellitus without complicationsCoughB ariatric surgery status 1 Hany Cole. [address], [place], [place], [address] , [place]. tel:[phone] OFFICE/OUTPA TIENT VISIT, [facility], [address], [place], [place], [address], [place] tel:[phone] [facility] knee pain1 (chief complaint) COVID (chief complaint) Pain in right kneeViral infection 0 Hany Cole. [address], [place], [place], [address] , [place]. tel:[phone] OFFICE/OUTPA TIENT VISIT, [facility], [address], [place], [place], [address], [place] tel:[phone] [facility] sick (chief complaint) Viral infection 0 Hany Cole. [address], [place], [place], [address] , [place]. tel:[phone] OFFICE/OUTPA TIENT VISIT, [facility], [address], [place], [place], [address], [place] tel:[phone] [facility] eczema1 (chief complaint) peanut allergy1 (chief complaint) obesity1 (chief complaint) sleep apnea1 (chief complaint) Abdominal painEczemaSleep apnea, unspecifiedHidraden itis suppurativaAllergy to peanuts 0 Hany Cole. [address], [place], [place], [address] , [place]. [phone] Referring Provider: V[address], [place], [place], [address]. tel:[phone] OFFICE/OUTPA TIENT VISIT, [facility], [address], [place], [place], [address], [place] [phone] [facility] Medicine LFT (chief complaint) abd pain1 (chief complaint) DM (chief complaint) obesity1 (chief complaint) Type 2 diabetes mellitus without complicationsAbdomi nal painLiver diseaseObesity 0 Hany Cole. [address], [place], [place], [address] , [place]. [phone] Referring Provider: V[address], [place], [place], [address]. tel:[phone] OFFICE/OUTPA TIENT VISIT, [facility], [address], [place], [place], [address], [place] tel:[phone] [facility] Medicine LFT (chief complaint) abd pain1 (chief complaint) obesity1 (chief complaint) glucose (chief complaint) Liver diseaseAbdominal painObesityGastriti s w/o bleedingHyperglycem ia 0 Hany Cole. [address], [place], [place], [address] , [place]. [phone] Referring Provider: V[address], [place], [place], [address]. tel:[phone] OFFICE/OUTPA TIENT VISIT, [facility], [address], [place], [place], [address], [place] tel:[phone] [facility] Medicine LFT (chief complaint) glucose1 (chief complaint) obesity1 (chief complaint) Abdominal painFatty liverHyperglycemiaO besity 0 Hany Cole. [address], [place], [place], [address] , [place]. [phone] Referring Provider: [address], [place], [place], [address]. tel:[phone] PREV VISIT, EST, AGE 18-39 [facility], [address], [place], [place], [address], [place] tel:[phone] [facility] PHysical (chief complaint) Encntr for general adult medical exam w/o abnormal findings 0 Hany Cole. [address], [place], [place], [address] , [place]. tel:[phone] Referring Provider: V[address], [place], [place], [address]. tel:[phone] OFFICE/OUTPA TIENT VISIT, EST [facility], [address], [place], [place], [address], [place] tel:[phone] [facility] GERD1 (chief complaint) obesity1 (chief complaint) sleep apnea1 (chief complaint) Body mass index (BMI) 60.0-69.9, adultGERD w/o esophagitisSleep apnea, unspecifiedAbdomina l pain 8 Hany Cole. [address], [place], [place], [address] , [place]. tel:[phone] Referring Provider: Vimal [address], [place], [place], [address]. tel:[phone] OFFICE/OUTPA TIENT VISIT, EST [facility], [address], [place], [place], [address], [place] tel:[phone] [facility] GERD1 (chief complaint) sleep apnea1 (chief complaint) hidradenit is1 (chief complaint) obesity1 (chief complaint) Body mass index (BMI) 60.0-69.9, adultSleep apneaGERD w/o esophagitisHidraden itis suppurativa 0-201 8 Hany Akers [address], [place], [place], [address] , [place]. tel:[phone] Referring Provider: V[address], [place], [place], [address]. tel:[phone] PREV VISIT, EST, AGE 18-39 [facility], [address], [place], [place], [address], [place] tel:[phone] [facility] sleep apnea1 (chief complaint) GERD1 (chief complaint) abd pain1 (chief complaint) obesity1 (chief complaint) skin (chief complaint) Body mass index (BMI) 60.0-69.9, adultSleep apnea, unspecifiedOther cholelithiasis without obstructionHidraden itis suppurativaEncounte r for general adult medical exam w abnormal findingsEncntr for general adult medical exam w/o abnormal findings 8 Hany Akers [address], [place], [place], [address] , [place]. tel:[phone] Referring Provider: Vimal Law [facility], [address]. tel:[phone] OFFICE/OUTPA TIENT VISIT, EST [facility], [address] [place], [address], [place] tel:[phone] [facility] obesity1 (chief complaint) gluose1 (chief complaint) vitamin D (chief complaint) Body mass index (BMI) 60.0-69.9, adultAbnormal weight gainVitamin D deficiency, unspecifiedHypergly cemia 8 Hany Cel[address], [place], [place], [address] , [place]. tel:[phone] Referring Provider: Vimal Law [address], [place], [place], [address]. tel:[phone] OFFICE/OUTPA TIENT VISIT, EST [facility], [address], [place], [place], [address], [place] tel:[phone] [facility] sleep apnea1 (chief complaint) obeisty1 (chief complaint) Body mass index (BMI) 60.0-69.9, adultSleep apnea 8 Hany Cel[address], [place], [place], [address] , [place]. [phone] Referring Provider: Vimal Law [address], [place], [place], [address]. tel:[phone] OFFICE/OUTPA TIENT VISIT, [facility], [address], [place], [place], [address], [place] [phone] [facility] obesity (chief complaint) obesity1 (chief complaint) Abnormal weight gainBody mass index (BMI) 60.0-69.9, adult 8 Hany Akers [address], [place], [place], [address] , [place]. tel: [phone] Referring Provider: Vimal Law [address], [place], [place], [address]. tel:[phone] OFFICE/OUTPA TIENT VISIT, [facility], [address], [place], [place], [address], [place] tel:[phone] [facility] obesity1 (chief complaint) sleep apnea1 (chief complaint) Body mass index (BMI) 60.0-69.9, adultSleep apnea 7 Hany Cel[address], [place], [place], [address] , [place]. [phone] Referring Provider: Vimal Law [address], [place], [place], [address]. tel:[phone] OFFICE/OUTPA TIENT VISIT, [facility], [address], [place], [place], [address], [place] tel:[phone] [facility] obesity (chief complaint) vitmain d (chief complaint) glucose1 (chief complaint) sleep apnea1 (chief complaint) Vitamin D deficiency, unspecifiedHypergly cemiaBody mass index (BMI) 60.0-69.9, adultSleep apnea, unspecified 7 Hany Akers [address], [place], [place], [address] , [place]. [phone] Referring Provider: Vimal Law [address], [place], [place], [address]. tel:[phone] OFFICE/OUTPA TIENT VISIT, [facility], [address], [place], [place], [address], [place] tel:[phone] [facility] sleep apnea1 (chief complaint) obesity1 (chief complaint) Body mass index (BMI) 60.0-69.9, adultSleep apnea, unspecified 7 Hany Cole. [address], [place], [place], [address] , [place]. [phone] Referring Provider: Vimal Law [address], [place], [place], [address]. tel:[phone] PREV VISIT, [facility], AGE 18-39 [facility], [address], [place], [place], [address], [place] tel:[phone] [facility] Physical (chief complaint) Encntr for general adult medical exam w/o abnormal findings 7 Hany Cole. [address], [place], [place], [address] , [place]. [phone] Referring Provider: Vimal Law [address], [place], [place], [address]. tel:[phone] OFFICE/OUTPA TIENT VISIT, [facility], [address], [place], [place], [address], [place] tel:[phone] [facility] sleep apnea (chief complaint) eczema1 (chief complaint) hematuria (chief complaint) obesity1 (chief complaint) Body mass index (BMI) 50-59.9 , adultSleep apnea, unspecifiedHematuri aEczema 3 6 Hany Cole. [address], [place], [place], [address] , [place]. tel: [phone] Referring Provider: Vimal Law [address], [place], [place], [address]. tel:[phone] PREV VISIT, EST, AGE 18-39 [facility], [address], [place], [place], [address], [place] [phone] [facility] physical (chief complaint) Encntr for general adult medical exam w/o abnormal findings 6 Hany Coel. [address], [place], [place], [address] , [place]. [phone] Referring Provider: Vimal Law [address], [place], [place], [address]. tel:[phone] OFFICE/OUTPA TIENT VISIT, [facility], [address], [place], [place], [address], [place] [phone] [facility] sleep apnea (chief complaint) eczama (chief complaint) obeisty (chief complaint) Dietary surveillance and counselingObesity, unspecifiedEczemaSl eep apnea syndromeBMI 50.0 to 59.9 5 Hany Cole. [address], [place], [place], [address] , [place]. [phone] Referring Provider: Vimal Law [address], [place], [place], [address]. tel:[phone] OFFICE/OUTPA TIENT VISIT, [facility], [address], [place], [place], [address], [place] [phone] [facility] PHysical (chief complaint) Dietary surveillance and counselingRoutine Medical ExamRoutine Medical ExamDysphagiaRash and other nonspecific skin eruptionDYSPHAGIA NEC 4 Hany Cole. [address], [place], [place], [address] , [place]. tel:[phone] Referring Provider: Vimal Law [address], [place], [place], [address]. tel:[phone] OFFICE/OUTPA TIENT VISIT, [facility], [address], [place], [place], [address], [place] tel:[phone] [facility] abdominal pain (chief complaint) Dietary surveillance and counselingAbdominal PainGERDCalculus of gallbladder without mention of cholecystitis, without mention of obstruction 3 Hany Cole. [address], [place], [place], [address] , [place]. [phone] Referring Provider: Vimal Law [address], [place], [place], [address]. tel:[phone] OFFICE/OUTPA TIENT VISIT, EST [facility], [address], [place], [place], [address], [place] tel:[phone] [facility] abdominal pain (chief complaint) Dietary surveillance and counselingAbdominal PainHemorrhage of rectum and anus 3 Hany Cole. [address], [place], [place], [address] , [place]. tel:[phone] Referring Provider: Vimal Law [address], [place], [place], [address]. tel:[phone] OFFICE/OUTPA TIENT VISIT, EST [facility], [address], [place], [place], [address], [place] tel:[phone] [facility] Headache (chief complaint) Cough (chief complaint) obesity (chief complaint) HeadacheBronchitis, AcuteObesity May- 3 Hany Akers [address], [place], [place], [address] , [place]. tel:[phone] Referring Provider: Vimal Law [address], [place], [place], [address]. tel:[phone] PREV VISIT, EST, AGE 18-39 [facility], [address], [place], [place], [address], [place] tel:[phone] [facility] headache (chief complaint) eczema (chief complaint) Dietary surveillance and counselingRoutine Medical ExamRoutine Medical Exam 2 Hany Akers [address], [place], [place], [address] , . tel:[phone] Referring Provider: V[address], [place], [place], [address]. tel:[phone] Family History Family Member Type Diagnosis Age [...] Hypopnea) ordered Referral Referred To: LAVELLE WAYNE [facility], [phone] Ordered: Referrals: Allopathic & Osteopathic Physicians : Internal Medicine : Pulmonary Disease. LAVELLE WAYNE. Evaluate and treat ordered Referral Ordered: Huey Borrego -Allopathic & Osteopathic Physicians : Surgery (related to Abnormal weight gain) ordered Referral Referred To: Huey Borrego [address], [id number] Ordered: Referrals: Allopathic & Osteopathic Physicians : Surgery. Huey Borrego. Evaluate and treat ordered Referral Referred To: Juvenal Land [address], [phone] Ordered: Referrals: Charles. Emery Evaluate and treat ordered Referral Ordered: COLONOSCOPY AND BIOPSY ordered Referral Ordered: MRI BRAIN W/DYE ordered Referral Referred To: Juan Pablo Zurita MD [address]
[place], [address] Ordered: Referrals: Juan Pablo Zurita MD. Evaluate and treat ordered Referral Ordered: MRI BRAIN W/O DYE ordered Referral Ordered: Allergy and Immunology (related to Encounter for general adult medical examination without abnormal findings) ordered Referral Ordered: Referrals: Allergy and Immunology. Evaluate and treat ordered Referral Ordered: HAYDEN FORD -Podiatric Medicine & Surgery Service Providers : Convolute Tube Winder (related to Other acquired hammer toe of right foot) ordered Referral Referred To: HAYDEN FORD [facility] [place], [place], [phone] Ordered: Referrals: Podiatric Medicine & Surgery Service Providers : Convolute Tube Winder. HAYDEN FORD. Evaluate and treat ordered Referral [...] MD 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 Pt was kind of confused upon awakening. Pt had head CT done at ER which showed bilateral basal ganglia calcifications her lab were otherwise unremarkable. Pt states that she called neurologist at [facility] for follow up but no arron until [...] Pt never receive d the semaglutide from [facility]. Pt is s/p gastric sleeve but she has not been losing more weight hidradenitis1 Pt has recurrent hidradenitis around low pelvic area Pt has history of surgery for armpit in the past. Pt wants dermatology referral for her to get back on aimeeVatler, which worked in the past sleep apnea1 pt has sleep personalized living manager ea Pt just had in lab [...] and she followed up with surgeon in [place] and she recently had EGD done and [...] abd pain sleep apnea1 Pt has sleep personalized living manager ea Pt has not been using [...] for a while Pt denies any vision [id number]|2024-08-14 09:22:00|2024-08-14 09:22:00|JOSUÉ_MIIHR|KAYC|Health Information Management|[id number]|"Assessment and Plan Assessment and plan (1) Chest tightness: Code(s): R07.89 - Other chest pain Status: Acute Assessment and Plan: Atypical chest pain occurring after seizure-like event. Resolved, do not recommend any additional cardiac workup at this point. (2) Elevated troponin: Code(s): R79.89 - Other specified abnormal findings of blood chemistry Status: Acute Assessment and Plan: Her troponin levels were mildly elevated and flat. This does not represent ACS or myocardial injury. Will check an echo, but aside from this will not pursue any additional cardiac workup unless her clinical situation changes. She does have family history of coronary disease - mother last year from an [place]. Given family history some sort of risk stratification would be appropriate and can be done as an outpatient. If her echo is unremarkable she can be discharged today from my point of view (3) Seizure-like activity: Code(s): R56.9 - Unspecified convulsions Status: Acute Assessment and Plan: Follows with neurology. Missed 2 doses of Keppra resulting in possible seizure. Per neurology, Keppra dose increased. History of Present Illness History of Present Illness Consult date/time: 08/14/24 09:22 Requesting physician: Frantz Bazzi MD Consult reason: Other (NSTEMI) Reason For Visit: Seizure, Elevated trop Narrative: Quynh Rivas is a 39 year old female with history of seizures who came to the hospital following a seizure-like event. Cardiology is consulted for NSTEMI. Patient reports laying down after making her son dinner and waking up feeling disoriented and confused. Her son saw her when she was lying down and reported that she was lying horizontally in bed and had a blank stare on her face. When she woke up feeling strangely she called her best friend who asked where her son was and she was so out of it that she didn't realize her son was home. She reports feeling some chest pressure after this event. She has a history of palpitations but otherwise has no personal history of heart problems. Her mother apparently from an [place]. She does not have any chest pain now. Review of Systems 2 Review of Systems: All systems reviewed & are unremarkable except as noted in HPI and below PMFSH Past Medical History Medical History Migraine Seizure-like activity Seizures Constipation Calculus of gallbladder with chronic cholecystitis without obstruction Morbid obesity Right axillary hidradenitis Hidradenitis Sleep apnea GERD (gastroesophageal reflux disease) Surgical History Surgical History Hx laparoscopic cholecystectomy 03/08/22 H/O gynecological procedure mirena iud insertion 2018 S/P laparoscopic sleeve gastrectomy History of surgery on arm Family History Family History Father Cerebrovascular accident Mother Diabetes mellitus Other Diabetes mellitus Other Diabetes mellitus Other Diabetes mellitus Other Cancer Hypertension Social History Social History Smoking status: Never smoker Second hand tobacco smoke exposure: No Alcohol intake: never Alcohol use details: socially Substance use: never Substance use type: does not use Do You Feel Safe in your Home?: Yes Lack of Transportation: No Lack of Food: Never True Current Housing: I Have Housing Concerned About Future Housing: No Difficulty Paying Gas/Electric Bills: No Difficulty Paying for Meds: No Currently Unemployed: No Education: Bachelor's Degree Difficulty w/ Childcare or Family Care: No Living arrangements: with family Occupation/Education: occupation Additional occupation/education comments: Work at [employer] Gender identity (if verbalized by the patient): Female Sexual Orientation (if Verbalized by the Patient): Straight or Heterosexual Spiritual care concerns: No Meds Home Medications and Allergies Home Medications Medication Instructions Recorded Confirmed Type cholecalciferol (vitamin D3) 1,250 1,250 mcg PO WEEKLY 09/17/19 08/14/24 History mcg (50,000 unit) capsule multivitamin 1 tablet PO DAILY 02/02/22 08/14/24 History pantoprazole 40 mg tablet,delayed 40 mg PO DAILY 03/01/22 08/14/24 History release spironolactone 100 mg tablet 100 mg PO DAILY 03/08/23 08/14/24 History levetiracetam 750 mg tablet 750 mg PO Q12H #60 tabs 04/17/24 08/14/24 Rx (Keppra) ondansetron 4 mg disintegrating 4 mg PO Q8H PRN nausea and 04/24/24 08/14/24 Rx tablet vomiting #15 tabs Allergies Allergy/AdvReac Type Severity Reaction Status Date / Time peanut Allergy Severe Anaphylaxis Verified 08/13/24 22:35 tomato Allergy Unknown Unknown Verified 08/13/24 22:35 egg whites Allergy Unknown Unknown Uncoded 08/13/24 22:35 Vital Signs Vital Signs - 24 hr 08/13/24 22:42 08/13/24 22:51 08/13/24 23:01 Temperature 36.7 C Pulse Rate 89 77 77 Respiratory Rate [...] 08/14/24 05:29 08/14/24 05:50 08/14/24 06:00 Temperature 36.7 C Pulse Rate 64 59 L 58 L Respiratory Rate 17 18 Blood Pressure 145/92 H 105/76 Pulse Oximetry 96 100 Oxygen Delivery 08/14/24 08:00 Temperature 36.4 C L Pulse Rate 55 L Respiratory Rate 12 Blood Pressure 133/62 Pulse Oximetry 100 Oxygen Delivery Exam 2 Const: General: comfortable, no acute distress, alert and awake O rientation/consciousness: patient oriented x3 HENMT: Head: normal to inspection Eyes: General: appearance normal, both eyes and all related structures P upils: Equal, round and reactive pupils present Neck: Neck: normal visual inspection, supple and no JVD Carotids: normal carotid upstroke Resp: Effort & Inspection: normal respiratory effort Auscultation: clear to auscultation bilaterally Cardio: Rate: regular rate Rhythm: regular rhythm Heart sounds: S1 normal heart sound present, S2 normal heart sound present and no murmurs GI: Auscultation: normal bowel sounds Skin: General skin exam: normal color Neuro: General: patient oriented x3 Cranial nerves: Yes Equal, round and reactive pupils present Extrem: General: normal to inspection Psych: Appearance: grossly normal Mental Status: mental status grossly normal Results Labs and Meds 08/14/24 09:16 08/14/24 00:21 Lab results: Cardiac Enzymes 08/14/24 08/14/24 Range/Units 00:21 03:43 AST 26 (14-36) U/L Troponin I 0.023 0.045 H* D (0.000-0.034) ng/mL Coagulation 08/14/24 Range/Units 04:51 PT 14.3 (11.1-14.7) Seconds APTT 179.2 H* (22.3-36.8) Seconds Lipids 08/14/24 Range/Units 06:47 Triglycerides 68 (<150) mg/dL Cholesterol 153 (0-200) mg/dL CBC 08/14/24 08/14/24 Range/Units 00:21 06:47 WBC 10.7 H 10.0 (4.5-10.0) K/mm3 RBC 4.05 L 3.56 L (4.2-5.4) M/mm3 Hgb 11.1 L 9.7 L (12.0-15.0) g/dL Hct 36.4 L 33.5 L (37.0-47.0) % Plt Count 295 268 (150-375) k/mm3 Lymph # (Auto) 2.05 3.44 H (0.9-3.2) K/mm3 [place] # (Auto) 0.6 0.6 (0.1-0.6) K/mm3 Eos # (Auto) 0.2 0.1 (0-0.3) K/mm3 Baso # (Auto) 0.1 0.1 (0.0-0.1) K/mm3 Comprehensive Metabolic Panel 08/14/24 Range/Units 00:21 Sodium 141 (137-145) mmol/L Potassium 4.3 (3.4-5.0) mmol/L Chloride 110 H (98-107) mmol/L Carbon Dioxide 24 (22-30) mmol/L BUN 14 D (7-17) mg/dL Creatinine 0.78 (0.7-1.0) mg/dL Glucose 105 (65-110) mg/dL Calcium 8.4 (8.4-10.2) mg/dL AST 26 (14-36) U/L ALT 18 (6-35) U/L Alkaline Phosphatase 53 (38-126) U/L Total Protein 7.0 (6.3-8.2) g/dL Albumin 4.0 (3.5-5.1) g/dL Intake and Output 08/13/24 08/14/24 08/14/24 23:59 07:59 15:59 Intake Total 1107.3 Output Total 300 Balance 807.3 Intake: IV 1107.3 Heparin Sod/D5w 100 Units/ml 25 7.3 ,000 units In 250 ml @ 800 UNITS/HR 8 mls/hr IV CONT .Q24H [facility] Rx#:[id number] Sodium Chloride 0.9% IV 1,000 1000 ml @ 999 mls/hr IV CONT .Q1H1M [facility] Rx#:[id number] levETIRAcetam 1000MG/[id number] 100 1,000 mg In 100 ml @ 400 mls/hr IVPB ONCE STA Rx#:[id number] Output: Urine 300 Patient Weight 08/14/24 23:59 Weight 128.1 kg "
[2024-08-14 11:43] LABS: Glucose Point of Care 82 mg/dl (65-105)
--- NOTE | 2024-08-14 11:53 | WPDNEURCNPN ---
Assessment and Plan Assessment and plan (1) Seizure-like activity: Code(s): R56.9 - Unspecified convulsions Status: Acute Assessment and Plan: The patient has had a few spells similar to this for which I saw her in April 17, 2024 and started on Keppra as particular since he has had tongue biting. The spells started a week after her mother from cardiac disease in 2023. The differential diagnosis does include possibility of sciatic attacks however the spells last for a 10-15 minutes and she has tongue biting and hence I thought it would be appropriate to keep her On antiepileptic medication. I will suggest to increase the dose of Keppra to 1000 mg twice a day (2) Migraine: Code(s): G43.909 - Migraine, unspecified, not intractable, without status migrainosus Status: Acute (3) Chest tightness: Code(s): R07.89 - Other chest pain Status: Acute Assessment and Plan: she is being evaluated from cardiac point of view. (4) Morbid obesity: Code(s): E66.01 - Morbid (severe) obesity due to excess calories Status: Acute Plan The results of her investigations since I saw in April were once again evaluated. MRI of the brain done on 06/06/2024 was normal and shows empty sella a cardiac monitoring done for 3 days did not show any abnormality echocardiogram done on Keppra 1021 also did not show any significant abnormalities I will suggest to Keep her on Keppra 1000 mg twice a day. She is compliant with medications. Consult date: 08/14/24 HPI: Quynh Rivas is a 39 year old female With history of seizure-like activity previously seen by myself and currently on Keppra 750 mg twice a day. She started to have these spells and mid March 2024. I saw her on April 17, 2024 and started her on Keppra 750 mg twice a day. Her EEG was normal. She also had echocardiogram done on 05/23/2024 which did not show any significant abnormalities. A Holter monitor was also performed for 3 days which did not show any abnormality. Patient is single and lives with the 2 children. Her sister came along at the time when I was seeing her. She also has history of migraine. Her mother on April 10, 2023. MRI of the brain was performed on 06/06/2024 which shows empty sella however no other structural abnormality was seen. I noted that in the past in the September 2020 she was diagnosed to have pseudotumor cerebri and has had a spinal tap with opening pressure of 30 done at this hospital. her LDL this morning was 53. She is feeling back to normal. She thinks that her spell lasted for about 15 minutes or so for which she was brought to the emergency room. Review of Systems Review of Systems: All systems reviewed & are unremarkable except as noted in HPI and below PMFSH Past Medical History Medical History Migraine Seizure-like activity Seizures Constipation Calculus of gallbladder with chronic cholecystitis without obstruction Morbid obesity Right axillary hidradenitis Hidradenitis Sleep apnea GERD (gastroesophageal reflux disease) Surgical History Surgical History Hx laparoscopic cholecystectomy 03/08/22 H/O gynecological procedure mirena iud insertion 2018 S/P laparoscopic sleeve gastrectomy History of surgery on arm Family History Family History Father Cerebrovascular accident Mother Diabetes mellitus Other Diabetes mellitus Other Diabetes mellitus Other Diabetes mellitus Other Cancer Hypertension Social History Social History Smoking status: Never smoker Second hand tobacco smoke exposure: No Alcohol intake: never Alcohol use details: socially Substance use: never Substance use type: does not use Do You Feel Safe in your Home?: Yes Lack of Transportation: No Lack of Food: Never True Current Housing: I Have Housing Concerned About Future Housing: No Difficulty Paying Gas/Electric Bills: No Difficulty Paying for Meds: No Currently Unemployed: No Education: Bachelor's Degree Difficulty w/ Childcare or Family Care: No Living arrangements: with family Occupation/Education: occupation Additional occupation/education comments: Work at [employer] Gender identity (if verbalized by the patient): Female Sexual Orientation (if Verbalized by the Patient): Straight or Heterosexual Spiritual care concerns: No Meds Home Medications and Allergies Home Medications Medication Instructions Recorded Confirmed Type cholecalciferol (vitamin D3) 1,250 1,250 mcg PO WEEKLY 09/17/19 08/14/24 History mcg (50,000 unit) capsule multivitamin 1 tablet PO DAILY 02/02/22 08/14/24 History pantoprazole 40 mg tablet,delayed 40 mg PO DAILY 03/01/22 08/14/24 History release spironolactone 100 mg tablet 100 mg PO DAILY 03/08/23 08/14/24 History levetiracetam 750 mg tablet 750 mg PO Q12H #60 tabs 04/17/24 08/14/24 Rx (Keppra) ondansetron 4 mg disintegrating 4 mg PO Q8H PRN nausea and 04/24/24 08/14/24 Rx tablet vomiting #15 tabs Allergies Allergy/AdvReac Type Severity Reaction Status Date / Time peanut Allergy Severe Anaphylaxis Verified 08/13/24 22:35 tomato Allergy Unknown Unknown Verified 08/13/24 22:35 egg whites Allergy Unknown Unknown Uncoded 08/13/24 22:35 Vital Signs Vital Signs - 24 hr 08/13/24 22:42 08/13/24 22:51 08/13/24 23:01 Temperature 98.0 F Pulse Rate 89 77 77 Respiratory Rate 20 17 Blood Pressure 139/81 129/79 129/78 Pulse Oximetry 99 98 98 Oxygen Delivery Room Air 08/13/24 23:16 08/14/24 00:00 08/14/24 00:20 Temperature Pulse Rate 73 64 Respiratory Rate 18 15 Blood Pressure 118/78 128/81 Pulse Oximetry 97 100 99 Oxygen Delivery Room Air 08/14/24 01:15 08/14/24 03:00 08/14/24 05:00 Temperature Pulse Rate 77 63 54 L Respiratory Rate 12 21 H Blood Pressure 141/81 H 104/77 Pulse Oximetry 100 99 Oxygen Delivery 08/14/24 05:29 08/14/24 05:50 08/14/24 06:00 Temperature 98.0 F Pulse Rate 64 59 L 58 L Respiratory Rate 17 18 Blood Pressure 145/92 H 105/76 Pulse Oximetry 96 100 Oxygen Delivery 08/14/24 08:00 08/14/24 08:00 08/14/24 08:00 Temperature 97.5 F L Pulse Rate 55 L 57 L Respiratory Rate 12 Blood Pressure 133/62 Pulse Oximetry 100 100 Oxygen Delivery Room Air 08/14/24 10:00 08/14/24 10:34 08/14/24 11:51 Temperature 97.7 F Pulse Rate 64 67 Respiratory Rate 20 Blood Pressure 133/66 Pulse Oximetry 99 100 Oxygen Delivery Room Air Exam Const: General: cooperative, well developed and alert Orientation/consciousness: patient oriented x3 HENMT: Head: atraumatic Eyes: Alignment and Position: position normal Pupils: Equal, round and reactive pupils present EOM: EOMs intact bilaterally Neck: Neck: supple Resp: Effort & Inspection: normal respiratory effort Neuro: General: patient oriented x3 Cranial nerves: Yes CN's II-XII intact bilaterally, Yes facial sensation intact/muscles of mastication intact, Yes Equal, round and reactive pupils present, Yes facial symmetry and Yes Midline tongue present Cognition (Neuro): normal cognition Speech: normal speech Motor exam (neuro): 5/5 motor strength present throughout Coordination: [id number] test normal and Normal rapid alternating movements of the distal upper extremity present (Neuro) Results Labs 08/14/24 09:16 08/14/24 00:21 Labs: Short CBC 08/14/24 08/14/24 08/14/24 Range/Units 00:21 06:47 09:16 WBC 10.7 H 10.0 (4.5-10.0) K/mm3 Hgb 11.1 L 9.7 L 10.1 L (12.0-15.0) g/dL Hct 36.4 L 33.5 L 32.9 L (37.0-47.0) % Plt Count 295 268 (150-375) k/mm3 BMP 08/14/24 00:21 Sodium 141 Potassium 4.3 Chloride 110 H Carbon Dioxide 24 BUN 14 D Creatinine 0.78 Glucose 105 Calcium 8.4 Cardiac Enzymes 08/14/24 08/14/24 08/14/24 Range/Units 00:21 03:43 06:47 Troponin I 0.023 0.045 H* D 0.040 H* (0.000-0.034) ng/mL Liver Function 08/14/24 Range/Units 00:21 Total Bilirubin 0.2 (0.2-1.3) mg/dL AST 26 (14-36) U/L ALT 18 (6-35) U/L Alkaline Phosphatase 53 (38-126) U/L Albumin 4.0 (3.5-5.1) g/dL Urine 08/14/24 Range/Units 01:25 Urine Color Yellow (Yellow) Urine Appearance Clear (Clear) Urine pH 7.5 (5.0-9.0) Ur Specific [place] 1.021 (1.001-1.035) Urine Protein Negative (Negative) mg/dL Urine Glucose (UA) Negative (Negative) mg/dL
--- NOTE | 2024-08-14 13:58 | P.DS_ITS ---
DS: Admitting Diagnosis Discharge Date 08/14/24 Admitting Diagnosis seizure DS: Discharge Diagnosis Discharge Diagnosis (1) Elevated troponin: Code(s): R79.89 - Other specified abnormal findings of blood chemistry Status: Acute (2) GERD (gastroesophageal reflux disease): Code(s): K21.9 - Gastro-esophageal reflux disease without esophagitis Status: Acute (3) History of seizure disorder: Code(s): Z86.69 - Personal history of other diseases of the nervous system and sense organs Status: Acute (4) Seizure-like activity: Code(s): R56.9 - Unspecified convulsions Status: Acute Plan Seizure Unprovoked seizure Denies alcoholism Continue Keppra [address] Head CT: No acute intracranial findings Brain MRI performed on 06/06/2024: 1. No acute intracranial process or T2 hyperintense white matter lesions to suggest multiple sclerosis. 2. Empty sella Accu-Cheks Neurology consulted Seizure precautions Non ST elevation [place] Likely type 2 Order HbA1c, and lipid panel Echocardiogram unremarkable Denies any illicit drug use or smoking or alcoholism Reviewed EKG and CXR DS: Summary Hospital Course Hospital Course: per HPi: Patient is a 39-year-old female with a past medical history of seizures, presented to the ED because she is having an seizure-like activity. Per the chart review, the patient has a history of seizures since March, and she follows up with Dr. Donnelly. Her home dosage of Keppra 750 mg b.i.d., which she takes regularly without missing any dosage. Patient reports her seizure activity started last year, March 2024, after her mother . Tonight, the patient, after cooking, went to bed. Her son, who returned from college, came to her room and felt that she was in an angry mood. He returned to his room, which she does not recollect. Later, she felt sweaty and not feeling good, so she called her close friend and reported she might have seizures. Her close friend called her son, and he was able to help her orient her and bring her to the ED. In the ED, the patient had evidence of tongue biting, complained of mild chest tightness, and her troponin is elevated and currently on a heparin drip. During evaluation, no evidence of neurological deficit, including extremity numbness or weakness, urinary or bowel incontinence. Of note, the patient underwent a brain MRI on 06/06/2024, which shows empty sella. 08/14/24 Patient was seen and examined at bedside she is feeling fine denies any chest pain, abd pain, nausea or vomiting. cardiology team on board. echo unremarkable. neurology team on board. Keppra increased to 1000 mg BID Status at Discharge Functional status at discharge: independent ambulation Overall status at discharge: patient is back to baseline Time Spent with Patient Time attestation: Total time spent providing and/or coordinating discharge services: Time spent: Greater than 30 minutes Exam 2 Narrative: GENERAL: Well appearing, morbidly obese with BMI of 49.6, non-toxic, in no acute distress. HEAD: Normocephalic, atraumatic. EYES: PERRL/EOMI, conjunctivae clear bilaterally. No nystagmus. ENT: MMs moist, small abrasions to svetlana distal edges of tongue. No active bleeding. NECK: Supple. No meningeal signs. RESPIRATORY: Airway patent, respirations nonlabored. Clear to auscultation bilaterally, no rales, rhonchi, wheezing. CARDIOVASCULAR: Regular rate and rhythm without murmurs, rubs, or gallops. Peripheral pulses 2+ and equal bilaterally. MUSCULOSKELETAL: Moves all extremities. No gross deformities. SKIN: Warm, dry, normal color. No rashes. NEURO: A&O X3. Speech clear. Follows commands. CN II-XII intact. Sensation grossly intact. Steady gait. No ataxic movements. Strength 5/5 in upper and lower extremities bilaterally. No pronator drift. Equal general technician strength bilaterally. PSYCHIATRIC: Appropriate mood and affect. Normal interaction. DS: Data Data Completed and Pending Labs on day of discharge: Labs from last 24 hours 08/14/24 08/14/24 08/14/24 11:25 09:16 06:47 WBC 10.0 RBC 3.56 L Hgb 10.1 L 9.7 L Hct 32.9 L 33.5 L MCV 94.1 MCH 27.2 MCHC 29.0 L RDW 15.8 H Plt Count 268 MPV 11.4 H Immature Gran % (Auto) 0.2 Neut % (Auto) 57.1 Lymph % (Auto) 34.3 [place] % (Auto) 6.3 Eos % (Auto) 1.4 Baso % (Auto) 0.7 Lymph # (Auto) 3.44 H [place] # (Auto) 0.6 Eos # (Auto) 0.1 Baso # (Auto) 0.1 Abs Immat Gran (auto) 0.02 Absolute Neuts (auto) 5.7 Absolute Nucleated RBC 0.000 Band Neutrophils % Not Reportable Nucleated RBC % 0.0 Platelet Estimate Adequate Hypochromasia 1+ Crenated Cell 1+ Schistocytes None seen PT INR APTT Sodium Potassium Chloride Carbon Dioxide Anion Gap BUN Creatinine Estim Creat Clear Calc Estimated GFR Glucose POC Capillary Glucose 82 Hemoglobin A1c Lactic Acid Calcium Magnesium Total Bilirubin AST ALT Alkaline Phosphatase Troponin I 0.040 H* Total Protein Albumin Triglycerides 68 Cholesterol 153 LDL Cholesterol Direct 53 HDL Direct 72 Urine Color Urine Appearance Urine pH Ur Specific [place] Urine Protein Urine Glucose (UA) Urine Ketones Ur Blood (Man) Urine Nitrate Urine Bilirubin Urine Urobilinogen Leukocyte Esterase Rfl POC Urine HCG, Qual 08/14/24 08/14/24 08/14/24 04:51 03:43 02:38 WBC RBC Hgb Hct MCV MCH MCHC RDW Plt Count MPV Immature Gran % (Auto) Neut % (Auto) Lymph % (Auto) [place] % (Auto) Eos % (Auto) Baso % (Auto) Lymph # (Auto) [place] # (Auto) Eos # (Auto) Baso # (Auto) Abs Immat Gran (auto) Absolute Neuts (auto) Absolute Nucleated RBC Band Neutrophils % Nucleated RBC % Platelet Estimate Hypochromasia Crenated Cell Schistocytes PT 14.3 INR 1.1 APTT 179.2 H* Sodium Potassium Chloride Carbon Dioxide Anion Gap BUN Creatinine Estim Creat Clear Calc Estimated GFR Glucose POC Capillary Glucose Hemoglobin A1c Lactic Acid Calcium Magnesium Total Bilirubin AST ALT Alkaline Phosphatase Troponin I 0.045 H* D Total Protein Albumin Triglycerides Cholesterol LDL Cholesterol Direct HDL Direct Urine Color Urine Appearance Urine pH Ur Specific [place] Urine Protein Urine Glucose (UA) Urine Ketones Ur Blood (Man) Urine Nitrate Urine Bilirubin Urine Urobilinogen Leukocyte Esterase Rfl POC Urine HCG, Qual Negative 08/14/24 08/14/24 01:25 00:21 WBC 10.7 H RBC 4.05 L Hgb 11.1 L Hct 36.4 L MCV 89.9 MCH 27.4 MCHC 30.5 L RDW 15.7 H Plt Count 295 MPV 11.5 H Immature Gran % (Auto) 0.4 Neut % (Auto) 72.9 Lymph % (Auto) 19.1 [place] % (Auto) 5.6 Eos % (Auto) 1.4 Baso % (Auto) 0.6 Lymph # (Auto) 2.05 [place] # (Auto) 0.6 Eos # (Auto) 0.2 Baso # (Auto) 0.1 Abs Immat Gran (auto) 0.04 H Absolute Neuts (auto) 7.8 H Absolute Nucleated RBC 0.000 Band Neutrophils % Nucleated RBC % 0.0 Platelet Estimate Hypochromasia Crenated Cell Schistocytes PT INR APTT Sodium 141 Potassium 4.3 Chloride 110 H Carbon Dioxide 24 Anion Gap 7 BUN 14 D Creatinine 0.78 Estim Creat Clear Calc 108 Estimated GFR > 60 Glucose 105 POC Capillary Glucose Hemoglobin A1c 5.3 Lactic Acid 1.5 Calcium 8.4 Magnesium 2.2 Total Bilirubin 0.2 AST 26 ALT 18 Alkaline Phosphatase 53 Troponin I 0.023 Total Protein 7.0 Albumin 4.0 Triglycerides Cholesterol LDL Cholesterol Direct HDL Direct Urine Color Yellow Urine Appearance Clear Urine pH 7.5 Ur Specific [place] 1.021 Urine Protein Negative Urine Glucose (UA) Negative Urine Ketones Trace H Ur Blood (Man) Negative Urine Nitrate Negative Urine Bilirubin Negative Urine Urobilinogen 1.0 Leukocyte Esterase Rfl Negative POC Urine HCG, Qual Discharge Plan Discharge Attending physician on discharge: Marley Benavidez Consulting providers: Dennis Donnelly; Sai Florence; Kennedy Bravo; Arelis Almaraz; Mendoza Montemayor Discharging Clinician: Marley Benavidez Anticipated Discharge Date/Time: 08/14/24 13:57 Patient Disposition: Home Activity: as tolerated Diet: as tolerated Discharge Instructions: check your blood pressure and heart rate regularly and report to PCP. Follow with cardiology and neurology as outpatient. take Keppra 1000 mg BId. Patient Instructions: Antibiotic Form, Blood Thinners (GEN) Patient Language: Romanian Stand Alone Forms: General Discharge Information Follow-up/Referrals: Arelis Almaraz APN-C [Advanced Practice Nurse] - 4 Weeks Dennis Donnelly MD [Physician] - Call for Appointment Discharge Medications: New levetiracetam [Keppra] 500 mg Tablet 1,000 mg PO Q12HR Qty: 60 0RF Continued cholecalciferol (vitamin D3) 1,250 mcg (50,000 unit) capsule 1,250 mcg PO WEEKLY Rx Instructions: 2 times a week on Tuesdays and Saturdays spironolactone 100 mg tablet 100 mg PO DAILY multivitamin Tablet 1 tablet PO DAILY pantoprazole 40 mg tablet,delayed release (DR/EC) 40 mg PO DAILY ondansetron 4 mg tablet,disintegrating 4 mg PO Q8H PRN (Reason: nausea and vomiting) Qty: 15 0RF Discontinued levetiracetam [Keppra] 750 mg tablet 750 mg PO Q12H Qty: 60 6RF Date of admission: 08/14/24 08:30 Primary Care Provider: Douglas Leach Admitting Provider: Frantz Bazzi Attending physician on admission: Marley Benavidez Condition: Stable
--- NOTE | 2024-08-14 14:24 | P.PNIM_ITS ---
Progress Note: A&P Assessment and Plan (1) Elevated troponin: Code(s): R79.89 - Other specified abnormal findings of blood chemistry Status: Acute (2) GERD (gastroesophageal reflux disease): Code(s): K21.9 - Gastro-esophageal reflux disease without esophagitis Status: Acute (3) History of seizure disorder: Code(s): Z86.69 - Personal history of other diseases of the nervous system and sense organs Status: Acute (4) Seizure-like activity: Code(s): R56.9 - Unspecified convulsions Status: Acute Plan Seizure Unprovoked seizure Denies alcoholism increased Keppra 1000 mg p.o. b.i.d. Ativan 2 mg IV p.r.n. q.6 hours for seizures Neuro checks q.[address]: No acute intracranial findings Brain MRI performed on 06/06/2024: 1. No acute intracranial process or T2 hyperintense white matter lesions to suggest multiple sclerosis. 2. Empty sella Accu-Cheks EEG as per Neurology Neurology consulted Seizure precautions Non ST elevation [place] Likely type 2 Order HbA1c 5.3, and lipid panel WNL sublingual nitro if needed Echocardiogram pending Denies any illicit drug use or smoking or alcoholism Reviewed EKG and CXR cardiology team on board DVT prophylaxis Medication reconciliation Subjective Date/time seen: 08/14/24 14:24 Interval history: per HPi: Patient is a 39-year-old female with a past medical history of seizures, presented to the ED because she is having an seizure-like activity. Per the chart review, the patient has a history of seizures since March, and she follows up with Dr. Donnelly. Her home dosage of Keppra 750 mg b.i.d., which she takes regularly without missing any dosage. Patient reports her seizure activity started last year, March 2024, after her mother . Tonight, the patient, after cooking, went to bed. Her son, who returned from college, came to her room and felt that she was in an angry mood. He returned to his room, which she does not recollect. Later, she felt sweaty and not feeling good, so she called her close friend and reported she might have seizures. Her close friend called her son, and he was able to help her orient her and bring her to the ED. In the ED, the patient had evidence of tongue biting, complained of mild chest tightness, and her troponin is elevated and currently on a heparin drip. During evaluation, no evidence of neurological deficit, including extremity numbness or weakness, urinary or bowel incontinence. Of note, the patient underwent a brain MRI on 06/06/2024, which shows empty sella. 08/14/24 Patient was seen and examined at bedside she is feeling fine denies any chest pain, abd pain, nausea or vomiting. cardiology team on board. ordered Echo. neurology team on board. keppra increased to 1000 mg BID. Review of Systems Review of Systems: All systems reviewed & are unremarkable except as noted in HPI. All systems reviewed & are unremarkable except as noted in HPI and below Exam Narrative: GENERAL: Well appearing, morbidly obese with BMI of 49.6, non-toxic, in no acute distress. HEAD: Normocephalic, atraumatic. EYES: PERRL/EOMI, conjunctivae clear bilaterally. No nystagmus. ENT: MMs moist, small abrasions to svetlana distal edges of tongue. No active bleeding. NECK: Supple. No meningeal signs. RESPIRATORY: Airway patent, respirations nonlabored. Clear to auscultation bilaterally, no rales, rhonchi, wheezing. CARDIOVASCULAR: Regular rate and rhythm without murmurs, rubs, or gallops. Peripheral pulses 2+ and equal bilaterally. MUSCULOSKELETAL: Moves all extremities. No gross deformities. SKIN: Warm, dry, normal color. No rashes. NEURO: A&O X3. Speech clear. Follows commands. CN II-XII intact. Sensation grossly intact. Steady gait. No ataxic movements. Strength 5/5 in upper and lower extremities bilaterally. No pronator drift. Equal roll inspector strength bilaterally. PSYCHIATRIC: Appropriate mood and affect. Normal interaction. Objective Data Vital Signs Vital Signs: Vital Signs - 24 hr 08/13/24 22:42 08/13/24 22:51 08/13/24 23:01 Temperature 98.0 F Pulse Rate 89 77 77 Respiratory Rate 20 17 Blood Pressure 139/81 129/79 129/78 Pulse Oximetry 99 98 98 Oxygen Delivery Room Air 08/13/24 23:16 08/14/24 00:00 08/14/24 00:20 Temperature Pulse Rate 73 64 Respiratory Rate 18 15 Blood Pressure 118/78 128/81 Pulse Oximetry 97 100 99 Oxygen Delivery Room Air 08/14/24 01:15 08/14/24 03:00 08/14/24 05:00 Temperature Pulse Rate 77 63 54 L Respiratory Rate 12 21 H Blood Pressure 141/81 H 104/77 Pulse Oximetry 100 99 Oxygen Delivery 08/14/24 05:29 08/14/24 05:50 08/14/24 06:00 Temperature 98.0 F Pulse Rate 64 59 L 58 L Respiratory Rate 17 18 Blood Pressure 145/92 H 105/76 Pulse Oximetry 96 100 Oxygen Delivery 08/14/24 08:00 08/14/24 08:00 08/14/24 08:00 Temperature 97.5 F L Pulse Rate 55 L 57 L Respiratory Rate 12 Blood Pressure 133/62 Pulse Oximetry 100 100 Oxygen Delivery Room Air 08/14/24 10:00 08/14/24 10:34 08/14/24 11:51 Temperature 97.7 F Pulse Rate 64 67 Respiratory Rate 20 Blood Pressure 133/66 Pulse Oximetry 99 100 Oxygen Delivery Room Air Intake/Output Intake/Output: Intake & Output 08/11/24 08/12/24 08/13/24 08/14/24 23:59 23:59 23:59 23:59 Intake Total 1107.3 Output Total 300 Balance 807.3 Meds/Results Medications: Active Medications Generic Name Dose Route Start Last Admin Trade Name Freq PRN Reason Stop Dose Admin Calcium Carbonate 200 mg 08/14/24 08:56 08/14/24 09:06 Calcium Carbonate (Tums) 500 Mg (200 Mg Elemental) PO 200 mg Q6H PRN Administration Indigestion Dextrose 12.5 gm 08/14/24 05:12 Dextrose 50% 25 Gm/50 Ml Syringe IV PUSH PRN PRN Hypoglycemia Protocol Glucagon 1 mg 08/14/24 05:12 Glucagon For Inj 1 Mg Vial IM PRN PRN Hypoglycemia Protocol Glucose 15 gm 08/14/24 05:12 Glucose Oral Gel 15 Gm Of Glucse In 37.5 Gm Tube PO PRN PRN Hypoglycemia Protocol Heparin Sodium (Porcine) 4,000 units 08/14/24 04:23 Heparin Sodium 5,000 Units/Ml Vial IV PUSH PRN PRN aPTT less than 55 seconds Heparin Sodium (Porcine) 3,500 units 08/14/24 04:23 Heparin Sodium 5,000 Units/Ml Vial IV PUSH PRN PRN aPTT 55 - 70 seconds Heparin Sodium/Dextrose 25,000 units in 250 mls @ 8 mls/hr 08/14/24 04:25 08/14/24 06:05 Heparin Sodium/D5w 100 Units/Ml IV CONT 800 units/hr .Q24H [place] 8 mls/hr Titration Protocol 800 UNITS/HR Dextrose 1,000 mls @ 100 mls/hr 08/14/24 05:12 Dextrose 5% 1,000 Ml IVPB PRN PRN Hypoglycemia Protocol Levetiracetam 1,000 mg 08/14/24 21:00 Levetiracetam 500 Mg Tablet PO Q12HR [place] Lorazepam 2 mg 08/14/24 05:10 Lorazepam Inj (*Crx) 2 Mg/Ml Vial IV PUSH Q6H PRN Seizures Perflutren Lipid Microsphere 0 ml 08/14/24 11:09 Perflutren Lipid Microspheres 1.5 Ml Vial Diluted To 10 Ml Total Volume IV PUSH 08/17/24 11:09 ONCE PRN adequate visualization Protocol Radiology Results: ITS Impressions Head CT 08/13/24 23:28 IMPRESSION: No acute intracranial findings. Labs Labs: Laboratory Results - last 24 hr 08/14/24 08/14/24 08/14/24 00:21 01:25 02:38 WBC 10.7 H RBC 4.05 L Hgb 11.1 L Hct 36.4 L MCV 89.9 MCH 27.4 MCHC 30.5 L RDW 15.7 H Plt Count 295 MPV 11.5 H Immature Gran % (Auto) 0.4 Neut % (Auto) 72.9 Lymph % (Auto) 19.1 [place] % (Auto) 5.6 Eos % (Auto) 1.4 Baso % (Auto) 0.6 Lymph # (Auto) 2.05 [place] # (Auto) 0.6 Eos # (Auto) 0.2 Baso # (Auto) 0.1 Abs Immat Gran (auto) 0.04 H Absolute Neuts (auto) 7.8 H Absolute Nucleated RBC 0.000 Band Neutrophils % Nucleated RBC % 0.0 Platelet Estimate Hypochromasia Crenated Cell Schistocytes PT INR APTT Sodium 141 Potassium 4.3 Chloride 110 H Carbon Dioxide 24 Anion Gap 7 BUN 14 D Creatinine 0.78 Estim Creat Clear Calc 108 Estimated GFR > 60 Glucose 105 POC Capillary Glucose Hemoglobin A1c 5.3 Lactic Acid 1.5 Calcium 8.4 Magnesium 2.2 Total Bilirubin 0.2 AST 26 ALT 18 Alkaline Phosphatase 53 Troponin I 0.023 Total Protein 7.0 Albumin 4.0 Triglycerides Cholesterol LDL Cholesterol Direct HDL Direct Urine Color Yellow Urine Appearance Clear Urine pH 7.5 Ur Specific [place] 1.021 Urine Protein Negative Urine Glucose (UA) Negative Urine Ketones Trace H Ur Blood (Man) Negative Urine Nitrate Negative Urine Bilirubin Negative Urine Urobilinogen 1.0 Leukocyte Esterase Rfl Negative POC Urine HCG, Qual Negative 08/14/24 08/14/24 08/14/24 03:43 04:51 06:47 WBC 10.0 RBC 3.56 L Hgb 9.7 L Hct 33.5 L MCV 94.1 MCH 27.2 MCHC 29.0 L RDW 15.8 H Plt Count 268 MPV 11.4 H Immature Gran % (Auto) 0.2 Neut % (Auto) 57.1 Lymph % (Auto) 34.3 [place] % (Auto) 6.3 Eos % (Auto) 1.4 Baso % (Auto) 0.7 Lymph # (Auto) 3.44 H [place] # (Auto) 0.6 Eos # (Auto) 0.1 Baso # (Auto) 0.1 Abs Immat Gran (auto) 0.02 Absolute Neuts (auto) 5.7 Absolute Nucleated RBC 0.000 Band Neutrophils % Not Reportable Nucleated RBC % 0.0 Platelet Estimate Adequate Hypochromasia 1+ Crenated Cell 1+ Schistocytes None seen PT 14.3 INR 1.1 APTT 179.2 H* Sodium Potassium Chloride Carbon Dioxide Anion Gap BUN Creatinine Estim Creat Clear Calc Estimated GFR Glucose POC Capillary Glucose Hemoglobin A1c Lactic Acid Calcium Magnesium Total Bilirubin AST ALT Alkaline Phosphatase Troponin I 0.045 H* D 0.040 H* Total Protein Albumin Triglycerides 68 Cholesterol 153 LDL Cholesterol Direct 53 HDL Direct 72 Urine Color Urine Appearance Urine pH Ur Specific [place] Urine Protein Urine Glucose (UA) Urine Ketones Ur Blood (Man) Urine Nitrate Urine Bilirubin Urine Urobilinogen Leukocyte Esterase Rfl POC Urine HCG, Qual 08/14/24 08/14/24 09:16 11:25 WBC RBC Hgb 10.1 L Hct 32.9 L MCV MCH MCHC RDW Plt Count MPV Immature Gran % (Auto) Neut % (Auto) Lymph % (Auto) [place] % (Auto) Eos % (Auto) Baso % (Auto) Lymph # (Auto) [place] # (Auto) Eos # (Auto) Baso # (Auto) Abs Immat Gran (auto) Absolute Neuts (auto) Absolute Nucleated RBC Band Neutrophils % Nucleated RBC % Platelet Estimate Hypochromasia Crenated Cell Schistocytes PT INR APTT Sodium Potassium Chloride Carbon Dioxide Anion Gap BUN Creatinine Estim Creat Clear Calc Estimated GFR Glucose POC Capillary Glucose 82 Hemoglobin A1c Lactic Acid Calcium Magnesium Total Bilirubin AST ALT Alkaline Phosphatase Troponin I Total Protein Albumin Triglycerides Cholesterol LDL Cholesterol Direct HDL Direct Urine Color Urine Appearance Urine pH Ur Specific [place] Urine Protein Urine Glucose (UA) Urine Ketones Ur Blood (Man) Urine Nitrate Urine Bilirubin Urine Urobilinogen Leukocyte Esterase Rfl POC Urine HCG, Qual
== END 2024-08-14 19:30 | disposition home or self-care (01) ==
LOC: ANHED 08-14 04:15 → ANHIMU 08-14 06:25
PROVIDERS: Emergency Medicine; Admitting Provider General Practice; Emergency Provider Physician Assistant; PCP Emergency Medicine; Visit Provider Internal Medicine
DX: R56.9 Unspecified convulsions (principal); R07.89 Other chest pain; R79.89 Other specified abnormal findings of blood chemistry; K21.9 Gastro-esophageal reflux disease without esophagitis; N92.0 Excessive and frequent menstruation with regular cycle; G43.909 Migraine, unspecified, not intractable, without status migrainosus; E66.01 Morbid (severe) obesity due to excess calories; Z68.43 Body mass index [BMI] 50.0-59.9, adult; Z79.899 Other long term (current) drug therapy; Z86.69 Personal history of other diseases of the nervous system and sense organs; Z90.49 Acquired absence of other specified parts of digestive tract; Z98.84 Bariatric surgery status
CPT/HCPCS: 36415; 70450; 80053; 80061; 81003; 81025; 82948; 83036; 83605; 83735; 84484; 85014; 85018; 85025; 85610; 85730; 93005; 93306; 96365; 96374; 96375; 99285; A9270; G0378; G0379; J1644; J1953; J7030